=== PATIENT | male | born 1945 | race Caucasian/White ===

== ENCOUNTER 2020-05-29 17:47 | Inpatient (IN) | payer MEDICARE, MEDICAID, SELFPAY ==
[2020-05-29] VITALS (16 sets, daily range): BP systolic 150–205; BP diastolic 71–108; PULSE 84–97; RESP 12–27; TEMP 36.4–36.9; O2SAT 89–99; BMI 28.7
--- NOTE | 2020-05-29 18:08 | XR_ITS ---
WS: [id number] XR chest 1V portable [id number] REASON FOR EXAM: sob FINDINGS: The chest is unchanged compared to 06/11/2018. The heart and mediastinum are within normal limits. No active pulmonary parenchymal or pleural disease. Calcified granulomatous disease changes are noted . The bony thorax is intact. XR/XR chest 1V portable [id number] IMPRESSION: No acute chest abnormality.
--- NOTE | 2020-05-29 18:08 | CTR_ITS ---
PROCEDURE INFORMATION: Exam: CT Head Without Contrast Exam date and time: 05/29/2020 6:11 PM Age: 74 years old Clinical indication: Weakness, extremity; Bilateral; Additional info: AMS TECHNIQUE: Imaging protocol: Computed tomography of the head without contrast. Radiation optimization: All CT scans at this facility use at least one of these dose optimization techniques: automated exposure control; mA and/or kV adjustment per patient size (includes targeted exams where dose is matched to clinical indication); or iterative reconstruction. COMPARISON: CT head wo con* [id number] 06/10/2014 10:14 AM RADIATION DOSE METRICS: Total DLP (mGy-cm): 841.54 FINDINGS: Brain: No evidence of active or acute intracranial pathologic process, hemorrhage, or trauma. Advanced small vessel ischemic disease with senile periventricular leukomalacia. No midline shift. No mass effect. Cerebral and cerebellar atrophy with ventricular dilatation greater than that anticipated for patient's chronological age. Antecedent lacunar infarction left insular cortex. Tiny antecedent right lentiform nucleus lacunar infarctions. Cerebral ventricles: Ventriculomegaly greater than that anticipated with the degree of cerebral and cerebellar atrophy present. Thinning of the corpus callosum. Consideration might be given to normal pressure hydrocephalus. Bones/joints: Unremarkable. No acute fracture. Paranasal sinuses: Visualized sinuses are unremarkable. No fluid levels. Mastoid air cells: Visualized mastoid air cells are well aerated. Soft tissues: Unremarkable. CT/CT head wo con* [id number] IMPRESSION: No evidence of active or acute intracranial pathologic process, hemorrhage, or trauma. Radiation Dose CTDIVOL = (mGy): DLP = 841.54 (mGy-cm)
--- NOTE | 2020-05-29 18:32 | ED_ITS ---
HPI - Weakness General: Chief complaint: Weakness Stated complaint: weakness post dialysis Time Seen by Provider: 05/29/20 18:10 Source: patient Mode of arrival: EMS History of Present Illness: HPI Narrative: Mr. Mason is a very nice 74-year-old male who comes from dialysis with the report of dyspnea and generalized weakness. When asked about the symptoms the patient replies I do not know why I am here . When pointedly ask does he feels short of breath the patient initially says no but then says well maybe . Patient denies any chest pain. He does state that he got a full course of dialysis today. He specifically denies any fever, chills, abdominal pain, losses of taste or loss of sense of smell. Patient does not appear to be any acute distress. He states this time he feels fine and has no complaints. He said he agreed to get checked out just because they were concerned at the dialysis clinic. Associated symptoms: Denies chest pain, chills, confusion, melena, diaphoresis, dysuria, easy bruising, fever(s), headache(s), nausea, syncope or vomiting Review of Systems Const: Denies: fever(s), chills, body aches, fatigue, malaise or diaphoresis Eyes: Denies: change in vision, blurry vision, photophobia, eye discomfort, eye discharge, eye redness or yellow eyes ENMT: Denies: throat pain, odynophagia, hoarseness, swelling of lips/tongue, ear or mastoid pain, ear discharge, change in hearing or nasal discharge Card: Denies: chest pain, palpitations, irregular heart rhythm, edema, lightheadedness, syncope, pre-syncope, dyspnea on exertion or orthopnea Resp: Reports: dyspnea; Denies: productive cough, non-productive cough, wheezing, hemoptysis or chest congestion GI: Denies: abdominal pain, nausea, vomiting, hematemesis, coffee ground emesis, heartburn, diarrhea, constipation, GI cramping, hematochezia or melena : Denies: flank pain, dysuria, urinary frequency, urinary urgency or hematuria Musc: Denies: neck pain, back pain, extremity pain, extremity swelling, joint pain, joint swelling, joint redness, joint warmth or joint stiffness Skin/Breast: Denies: rash, pruritus, erythema, skin pain or skin tenderness Neuro: Denies: headache(s), numbness in extremities, weakness in extremities, sensory changes, lack of coordination, difficulty walking, dizziness, vertigo, confusion, Slurred speech present or seizure-like activity Phil/Lymph: Denies: easy bruising, easy bleeding, petechiae, purpura or enlarged lymph nodes All/Imm: Denies: urticaria, throat swelling, tongue swelling, facial swelling or acute wheezing PFSH ED PFSH: Medical History Anemia BPH (benign prostatic hyperplasia) DM type 2 (diabetes mellitus, type 2) End-stage renal disease on hemodialysis Hypertension Family History Other Dementia Social History Smoking and tobacco status: never smoked Alcohol intake: never Substance/Drug Use: never Physical Exam Const: COMMON NORMALS: no acute distress, no limitations and alert EXAM LIMITATIONS: altered mental status GENERAL APPEARANCE: cooperative ORIENTATION/CONSCIOUSNESS: Yes oriented to person and Yes confused HENMT: COMMON NORMALS: normocephalic, atraumatic, external ears normal, EAC's normal and Normal external nose present HEAD & SCALP: normal to inspection, normocephalic and atraumatic FACE & SINUS: normal facial exam and face symmetric NOSE: Normal external nose present and Normal nares present EXTERNAL EAR: Yes external ears normal EXTERNAL AUDITORY CANAL: EAC's normal MOUTH: Normal oral and palatal mucosa present, lip normal and tongue normal Eye: COMMON NORMALS: Equal, round and reactive pupils present and conjunctivae normal GENERAL EYE: appearance normal, both eyes and all related structures ALIGNMENT: Yes alignment normal PERIORBITAL: periorbital findings normal EYELID: eyelids normal CONJUNCTIVA: Yes conjunctivae normal SCLERA: sclerae normal PUPIL: Yes Equal, round and reactive pupils present Neck/C-Spine: COMMON NORMALS: full ROM, no lymphadenopathy, supple, no meningeal signs and no JVD GENERAL: Yes normal visual inspection and Yes trachea midline Chest: COMMONS NORMALS: normal inspection of the chest and normal palpation of entire chest wall Resp: COMMON NORMALS: normal respiratory effort, No retractions, No use of accessory muscles and clear to auscultation bilaterally EFFORT & INSPECTION: Yes able to speak in complete sentences and Yes symmetric chest movement AUSCULTATION: clear to auscultation bilaterally, no crackles, no rales, no rh onchi and no wheezes Cardio: COMMON NORMALS: no JVD, regular rate, regular rhythm, S1 normal heart sound present and S2 normal heart sound present RATE: regular rate RHYTHM: regular rhythm HEART SOUNDS: S1 normal heart sound present, S2 normal heart sound present, no click, no gallops, Murmur heart sound present systolic Location: left sternal border Intensity: IV/ and no rubs GI: COMMON NORMALS: Soft to palpation and No hepatosplenomegaly present PALPATION: Yes Soft to palpation, No Tenderness to palpation present (GI), No Guarding due to palpation present (GI), No Rigid due to palpation, Yes No hepatosplenomegaly present, No Hernia present, No Palpable mass present and No Pulsatile mass present : COMMON NORMALS: Yes no CVA tenderness BLADDER/KIDNEY EXAM: Yes no CVA tenderness Back/Pelvis: COMMON NORMALS: no CVA tenderness, thoracic and lumbar spine normal to inspection, no thoracic nor lumbar tenderness and thoraco-lumbar ROM normal Extremity: COMMON NORMALS: normal to inspection, full ROM, capillary refill normal, no joint enlargement, no clubbing, cyanosis or edema and no calf tende rness Neuro: COMMON NORMALS: CN's II-XII intact bilaterally, moves all extremities, no focal motor deficits and no sensory deficits noted SENSORIUM/ORIENTATION: Yes alert and Yes oriented to person MENINGEAL SIGNS: Yes no meningeal signs SPEECH: speech normal Psych: COMMON NORMALS: mental status grossly normal, Normal thought process present, cooperative, normal affect, speech normal and activity/motor behavior normal SPEECH: Yes normal speech THOUGHT PROCESS: Normal thought process present Skin: COMMON NORMALS: no rashes or lesions noted, turgor normal, no jaundice, no petechiae and no mottling GENERAL SKIN EXAM: no rashes or lesions noted and turgor normal Course Vital Signs: Vital signs: Vital Signs Temperature 98.4 F 05/29/20 22:48 Pulse Rate 84 05/29/20 22:48 Respiratory Rate 18 05/29/20 22:48 Blood Pressure 179/81 05/29/20 22:48 Pulse Oximetry 99 05/29/20 22:48 MDM - Weakness MDM Narrative: Medical decision making narrative: Mr. Mason is a nice 74-year-old male comes in with altered mental status primarily confusion. He is Covid positive. He is relatively immune suppressed secondary to his chronic end-stage renal disease and being on dialysis. I believe he will need to be treated with her Dems of year and followed to see if he can will be able to go home on his own. Currently I do not believe he is stable to do so. The case was reviewed with Dr. Spann she agrees to admission for observation. Lab Data: Attestation: I reviewed the patient's lab results. Labs: Lab Results 05/29/20 05/29/20 05/29/20 Range/Units 18:23 18:23 18:23 WBC 5.1 (4.0-10.0) 10^3/ uL RBC 4.07 L (4.1-5.3) 10^6/u L Hgb 11.5 L (11.7-16.6) g/dL Hct 37.2 L (42.0-52.0) % MCV 91.4 (80-94) fL MCH 28.3 (28.0-34.0) pg MCHC 30.9 (30.0-36.0) g/dL RDW 15.9 H (12.1-15.1) % Plt Count 132 (130-400) 10^3/c mm MPV 11.1 H (7.4-10.4) fL Neut % (Auto) 81.2 % Lymph % (Auto) 4.9 % Sunflower % (Auto) 11.1 % Eos % (Auto) 1.6 % Baso % (Auto) 0.8 % Neut # (Auto) 4.17 (1.8-7.7) 10^3/u L Lymph # (Auto) 0.3 L (0.8-4.8) 10^3/u L Sunflower # (Auto) 0.6 (0.2-0.9) 10^3/u L Eos # (Auto) 0.1 (0.0-0.8) 10^3/u L Baso # (Auto) 0.0 (0.0-0.1) 10^3/u L Nucleated RBC % (a uto) 0 % Nucleated RBCs # 0.0 /100WBC ESR (0-10) mm/hr PT 13.20 (12.1-14.9) SECO NDS INR 0.97 (0.8-1.2) D-Dimer (0-0.59) ug/mIFE U Sodium 137 (136-145) mmol/L Potassium 4.4 (3.5-5.1) mmol/L Chloride 98 (98-107) mmol/L Carbon Dioxide 23 (22-29) mmol/L Anion Gap 20.4 H (5-19) BUN 33 H (8-23) mg/dL Creatinine 4.8 H (0.7-1.2) mg/dL GFR Calculation Not Reportable Glucose 130 H (65-115) mg/dL Calculated Osmolal ity 293 (285-295) mOsm/k g Calcium 9.4 (8.5-10.5) mg/dL Total Bilirubin 0.3 (0.15-1.2) mg/dL AST 11 (0-40) U/L ALT 10 (0-41) U/L Alkaline Phosphata se 71 (40-130) IU/L Troponin T Baselin e (0-15) ng/L Total Protein 7.3 (6.6-8.7) g/dL Albumin 4.2 (3.5-5.2) g/dL Globulin 3.1 (1.3-4.6) g/dL SARS-CoV-2 Ag (Rap id) (Negative) 05/29/20 05/29/20 05/29/20 Range/Units 18:23 18:23 18:23 WBC (4.0-10.0) 10^3/ uL RBC (4.1-5.3) 10^6/u L Hgb (11.7-16.6) g/dL Hct (42.0-52.0) % MCV (80-94) fL MCH (28.0-34.0) pg MCHC (30.0-36.0) g/dL RDW (12.1-15.1) % Plt Count (130-400) 10^3/c mm MPV (7.4-10.4) fL Neut % (Auto) % Lymph % (Auto) % Sunflower % (Auto) % Eos % (Auto) % Baso % (Auto) % Neut # (Auto) (1.8-7.7) 10^3/u L Lymph # (Auto) (0.8-4.8) 10^3/u L Sunflower # (Auto) (0.2-0.9) 10^3/u L Eos # (Auto) (0.0-0.8) 10^3/u L Baso # (Auto) (0.0-0.1) 10^3/u L Nucleated RBC % (a uto) % Nucleated RBCs # /100WBC ESR 36 H (0-10) mm/hr PT (12.1-14.9) SECO NDS INR (0.8-1.2) D-Dimer 1.07 H (0-0.59) ug/mIFE U Sodium (136-145) mmol/L Potassium (3.5-5.1) mmol/L Chloride (98-107) mmol/L Carbon Dioxide (22-29) mmol/L Anion Gap (5-19) BUN (8-23) mg/dL Creatinine (0.7-1.2) mg/dL GFR Calculation Glucose (65-115) mg/dL Calculated Osmolal ity (285-295) mOsm/k g Calcium (8.5-10.5) mg/dL Total Bilirubin (0.15-1.2) mg/dL AST (0-40) U/L ALT (0-41) U/L Alkaline Phosphata se (40-130) IU/L Troponin T Baselin e 209 H* (0-15) ng/L Total Protein (6.6-8.7) g/dL Albumin (3.5-5.2) g/dL Globulin (1.3-4.6) g/dL SARS-CoV-2 Ag (Rap id) (Negative) 05/29/20 Range/Units 19:05 WBC (4.0-10.0) 10^3/ uL RBC (4.1-5.3) 10^6/u L Hgb (11.7-16.6) g/dL Hct (42.0-52.0) % MCV (80-94) fL MCH (28.0-34.0) pg MCHC (30.0-36.0) g/dL RDW (12.1-15.1) % Plt Count (130-400) 10^3/c mm MPV (7.4-10.4) fL Neut % (Auto) % Lymph % (Auto) % Sunflower % (Auto) % Eos % (Auto) % Baso % (Auto) % Neut # (Auto) (1.8-7.7) 10^3/u L Lymph # (Auto) (0.8-4.8) 10^3/u L Sunflower # (Auto) (0.2-0.9) 10^3/u L Eos # (Auto) (0.0-0.8) 10^3/u L Baso # (Auto) (0.0-0.1) 10^3/u L Nucleated RBC % (a uto) % Nucleated RBCs # /100WBC ESR (0-10) mm/hr PT (12.1-14.9) SECO NDS INR (0.8-1.2) D-Dimer (0-0.59) ug/mIFE U Sodium (136-145) mmol/L Potassium (3.5-5.1) mmol/L Chloride (98-107) mmol/L Carbon Dioxide (22-29) mmol/L Anion Gap (5-19) BUN (8-23) mg/dL Creatinine (0.7-1.2) mg/dL GFR Calculation Glucose (65-115) mg/dL Calculated Osmolal ity (285-295) mOsm/k g Calcium (8.5-10.5) mg/dL Total Bilirubin (0.15-1.2) mg/dL AST (0-40) U/L ALT (0-41) U/L Alkaline Phosphata se (40-130) IU/L Troponin T Baselin e (0-15) ng/L Total Protein (6.6-8.7) g/dL Albumin (3.5-5.2) g/dL Globulin (1.3-4.6) g/dL SARS-CoV-2 Ag (Rap id) Positive H (Negative) Imaging Data^: CXR: Attestation: I personally reviewed and interpreted this imaging study as follows: My impression: No acute cardiopulmonary findings. CT Head: Radiologist's impression: [address] [address] [address] Scan Report Signed Patient: Familia Mason Unit #: [id number] : [id number] Age/Sex: 74 / M ADM Date: 05/29/20 Loc: ER Room/Bed: Attending Dr: Ordering Provider/Ordering MD: Vazquez Nunez MD Date of Service: 05/29/20 Procedure(s): CT head wo con* [id number] Accession Number(s): [id number] Report Number: [id number] PROCEDURE INFORMATION: Exam: CT Head Without Contrast Exam date and time: 05/29/2020 6:11 PM Age: 74 years old Clinical indication: Weakness, extremity; Bilateral; Additional info: AMS TECHNIQUE: Imaging protocol: Computed tomography of the head without contrast. Radiation optimization: All CT scans at this facility use at least one of these dose optimization techniques: automated exposure control; mA and/or kV adjustment per patient size (includes targeted exams where dose is matched to clinical indication); or iterative reconstruction. COMPARISON: CT head wo con* [id number] 06/10/2014 10:14 AM RADIATION DOSE METRICS: Total DLP (mGy-cm): 841.54 FINDINGS: Brain: No evidence of active or acute intracranial pathologic process, hemorrhage, or trauma. Advanced small vessel ischemic disease with senile periventricular leukomalacia. No midline shift. No mass effect. Cerebral and cerebellar atrophy with ventricular dilatation greater than that anticipated for patient's chronological age. Antecedent lacunar infarction left insular cortex. Tiny antecedent right lentiform nucleus lacunar infarctions. Cerebral ventricles: Ventriculomegaly greater than that anticipated with the degree of cerebral and cerebellar atrophy present. Thinning of the corpus callosum. Consideration might be given to normal pressure hydrocephalus. Bones/joints: Unremarkable. No acute fracture. Paranasal sinuses: Visualized sinuses are unremarkable. No fluid levels. Mastoid air cells: Visualized mastoid air cells are well aerated. Soft tissues: Unremarkable. CT/CT head wo con* [id number] IMPRESSION: No evidence of active or acute intracranial pathologic process, hemorrhage, or trauma. Radiation Dose CTDIVOL = (mGy): DLP = 841.54 (mGy-cm) Dictated By: Bronson Frank Signed By: Bronson Frank Signed Date/Time: 05/29/201917 DD/ 15 EKG Data^: EKG 1: Attestation: I personally reviewed and interpreted this EKG as follows: EKG interpretation date: 05/29/20 EKG interpretation time: 19:19 Interpretation: Normal sinus rhythm at 72 beats a minute, no blocks, normal intervals, no acute ST-T wave changes. Wandering baseline artifact. Discharge Plan Discharge Patient Disposition: Admitted As Inpatient Admit Provider: Analia Spann Clinical Impression: Acute alteration in mental status, COVID-19 virus infection Condition: Stable Coding Level of Care Code ED Bulk Station Operator for Chg Fwd Exam Comprehensive
[2020-05-29 18:33] LABS: Basophils % 0.8 %; Eosinophils # 0.1 10^3/uL (0.0-0.8); Eosinophils % 1.6 %; Hematocrit 37.2 % (42.0-52.0); Hemoglobin 11.5 g/dL (11.7-16.6); Lymphocytes # 0.3 10^3/uL (0.8-4.8); Lymphocytes % 4.9 %; Mean Corpuscular HGB Conc 30.9 g/dL (30.0-36.0); Mean Corpuscular Hemoglobin 28.3 pg (28.0-34.0); Mean Corpuscular Volume 91.4 fL (80-94); Mean Platelet Volume 11.1 fL (7.4-10.4); Monocytes # 0.6 10^3/uL (0.2-0.9); Monocytes % 11.1 %; Neutrophils # 4.17 10^3/uL (1.8-7.7); Neutrophils % 81.2 %; Nucleated Red Blood Cells % 0 %; Platelet Count 132 10^3/cmm (130-400); Red Blood Count 4.07 10^6/uL (4.1-5.3); Red Cell Distribution Width 15.9 % (12.1-15.1); White Blood Count 5.1 10^3/uL (4.0-10.0)
[2020-05-29 18:59] LABS: INR 0.97 (0.8-1.2)
[2020-05-29 19:24] LABS: Alanine Aminotransferase 10 U/L (0-41); Albumin Level 4.2 g/dL (3.5-5.2); Alkaline Phosphatase 71 IU/L (40-130); Anion Gap 20.4 (5-19); Aspartate Amino Transferase 11 U/L (0-40); Blood Urea Nitrogen 33 mg/dL (8-23); Calcium 9.4 mg/dL (8.5-10.5); Carbon Dioxide 23 mmol/L (22-29); Chloride 98 mmol/L (98-107); Globulin 3.1 g/dL (1.3-4.6); Glucose 130 mg/dL (65-115); Osmolality Calculated 293 mOsm/kg (285-295); Potassium 4.4 mmol/L (3.5-5.1); Sodium 137 mmol/L (136-145); Total Bilirubin 0.3 mg/dL (0.15-1.2); Total Protein 7.3 g/dL (6.6-8.7)
[2020-05-29 19:27] LABS: Troponin(5th) Baseline 209 ng/L (0-15)
[2020-05-29 19:45] LABS: SARS Covid-2 Antigen Positive (Negative)
--- NOTE | 2020-05-29 21:12 | PC.NURSE ---
Pt in bed and c/o about pain in coccyx. MOved pt to chair
[2020-05-29 22:33] LABS: Troponin 5 2HR 207.5 ng/L (0-15); Troponin 5 2HR Delta -1.5 ABS# (0-10)
[2020-05-29 23:23] LABS: D Dimer 1.07 ug/mIFEU (0-0.59)
[2020-05-29 23:41] LABS: Procalcitonin 0.27 ng/mL (0-0.5)
[2020-05-29 23:52] LABS: C Reactive Protein 15.6 mg/L (0.0-4.9)
[2020-05-30 00:09] LABS: Erythrocyte Sedimentation Rate 36 mm/hr (0-10)
[2020-05-30 00:10] LABS: Ferritin 1489 ng/mL (30-400)
[2020-05-30] MEDS: dexamethasone 4 mg/mL INJ 6 MG IVP (00:17)
[2020-05-30 03:16] LABS: Troponin 5 6HR 201.6 ng/L (0-15)
--- NOTE | 2020-05-30 03:16 | PM.HP ---
Providers/Chief Complaint Admitting Physician: Analia Spann MD Primary Care Provider: Salvador Daley MD Chief Complaint: WEAKNESS History of Present Illness Familia Mason is a 74 year old male with CKD on HD, HTN, DM presented from his HD center after being noted to be more confused than usual and having a new 02 requirement reportedly per EMS. Patient himself is unable to tell me why he is at the hospital. Only states that dialysis center was concerned about his breathing and sent him over for assessment. Denies any c/o chest pain/ dyspnea or papitations. Unable to reach his sister for collateral information. In the ER he tested positive for COVID 19 via rapid ag, CXR taken, and admission requested given reportedly new 02 requirements and comorbidities. Review of Systems General: Reports: 10 or more systems reviewed and unremarkable except in HPI and below Const: Denies: fever(s), chills or body aches Eyes: Denies: change in vision, blurry vision or photophobia ENMT: Reports: hoarseness; Denies: throat pain, enlarged tonsils, odynophagia or nasal congestion Card: Denies: chest pain, palpitations, irregular heart rhythm, edema, swelling of feet/ankles, lightheadedness, pre-syncope, dyspnea on exertion or orthopnea Resp: Denies: dyspnea, productive cough, non-productive cough, wheezing, stridor, pain on inspiration, change in phlegm color, hemoptysis or chest congestion GI: Denies: abdominal pain, nausea, vomiting, hematemesis, coffee ground emesis, dysphagia, heartburn, diarrhea, constipation, GI cramping, change in stool character, hematochezia or melena : Denies: flank pain, dysuria, urinary frequency, urinary urgency, urinary hesitancy or hematuria Musc: Denies: neck pain, back pain, extremity pain, joint swelling, joint warmth or deformity Neuro: Denies: headache(s), numbness in extremities, weakness in extremities, sensory changes, difficulty walking, frequent falls, dizziness, vertigo, behavioral changes, Slurred speech present or seizure-like activity Psych: Denies: anxiety, depression, suicidal ideation or homicidal ideation Endo: Denies: polyuria, polydipsia, tired all the time, cold intolerance or hot flashes Phil/Lymph: Denies: easy bruising or easy bleeding Medications/Allergies Home Medications Medication Instructions Recorded Confirmed Last Taken Type Imodium A-D See Rx Instructions .ROUTE .COMPLEX 05/29/20 05/29/20 05/29/20 History amlodipine 10 mg PO DAILY 05/29/20 05/29/20 05/29/20 History carvedilol 25 mg PO BID 05/29/20 05/29/20 05/29/20 History diphenoxylate-atropine 1 tab PO DAILY 05/29/20 05/29/20 Unknown History furosemide 80 mg PO DAILY 05/29/20 05/29/20 05/29/20 History glimepiride 1 mg PO DAILY 05/29/20 05/29/20 05/29/20 History hydralazine 10 mg PO BID 05/29/20 05/29/20 05/29/20 History sevelamer carbonate [Renvela] 800 mg PO TID 05/29/20 05/29/20 05/29/20 History tamsulosin 0.4 mg PO DAILY 05/29/20 05/29/20 05/29/20 History Allergies Allergy/AdvReac Type Severity Reaction Status Date / Time No Known Allergies Allergy Verified 05/29/20 18:05 PFSH Acute PFSH: Medical History Anemia BPH (benign prostatic hyperplasia) DM type 2 (diabetes mellitus, type 2) End-stage renal disease on hemodialysis Hypertension Family History Other Dementia Social History Smoking and tobacco status: never smoked Alcohol intake: never Substance/Drug Use: never Vitals/I&O/Wt Last Vital Signs Temp 98.4 F 05/29/20 22:48 Pulse 84 05/29/20 22:48 Resp 18 05/29/20 22:48 BP 179/81 05/29/20 22:48 Pulse Ox 99 05/29/20 22:48 05/29/20 05/29/20 05/30/20 14:59 22:59 06:59 Output Total 200 / 200 Balance -200 / -200 Weight last 48 hrs Weight 90.718 kg Physical Exam Narrative: EXAM NARRATIVE: GEN: Awake, alert and oriented, no acute distress CVS: S1S2 N RS: CTA B/L Abd: Soft, nt/nd , bs+ ETHNOARCHAEOLOGY PROFESSOR: no focal neuro deficits Data : 05/29/20 18:23 05/29/20 18:23 A&P Assessment and plan (1) COVID-19 virus infection: Patient with reported new 02 requirement of 2lpm NC CXR radiology read pending, I am unable to appreciate any consolidative changes, check CT w/o contrast Check inflammatory markers incl ESR,CRP, procal, D dimer ,ferritin started on remdisivir in the ER,continue for now add dexamthasone 6mg x1, further doses dependent on presence of infiltrates on CT chest Status: Acute (2) DM type 2 (diabetes mellitus, type 2): Insulin sliding scale Status: Acute Qualifiers: Diabetes mellitus intermodal dispatcher insulin use: without [place] [facility] use Diabetes mellitus complication status: with kidney complications Diabetes mellitus complication detail: with chronic kidney disease Chronic kidney disease stage: on chronic dialysis Qualified Code(s): E11.22 - Type 2 diabetes mellitus with diabetic chronic kidney disease; N18.6 - End stage renal disease; Z99.2 - Dependence on renal dialysis (3) End-stage renal disease on hemodialysis: Nephrology consult in morning for maintainence HD Status: Acute (4) Hypertension: continue home doses of amlodipine,carvedilol and hydralazine Status: Acute Qualifiers: Hypertension type: unspecified Qualified Code(s): I10 - Essential (primary) hypertension (5) Acute alteration in mental status: Currently awake and alert, will need to confirm baseline with sister in am Status: Acute Attestations Medical Necessity Statement*: anticipate >2midnight admission for COVID 19 infection, remdisivir infusion Coding Level of Care Code Acute Plaster Lather for [facility] Fwd Diagnoses COVID-19 virus infection U07.1 DM type 2 (diabetes mellitus, type 2) E11.22; N18.6; Z99.2 Diabetes mellitus intermodal dispatcher insulin use: without [place] [facility] use Diabetes mellitus complication status: with kidney complications Diabetes mellitus complication detail: with chronic kidney disease Chronic kidney disease stage: on chronic dialysis End-stage renal disease on hemodialysis N18.6; Z99.2 Hypertension I10 Hypertension type: unspecified Acute alteration in mental status R41.82
[2020-05-30 03:24] LABS: Alanine Aminotransferase 9 U/L (0-41); Albumin Level 3.7 g/dL (3.5-5.2); Alkaline Phosphatase 64 IU/L (40-130); Blood Urea Nitrogen 39 mg/dL (8-23); Calcium 8.9 mg/dL (8.5-10.5); Carbon Dioxide 21 mmol/L (22-29); Chloride 98 mmol/L (98-107); Globulin 3.1 g/dL (1.3-4.6); Glucose 104 mg/dL (65-115); Osmolality Calculated 292 mOsm/kg (285-295); Sodium 136 mmol/L (136-145); Total Bilirubin 0.2 mg/dL (0.15-1.2); Total Protein 6.8 g/dL (6.6-8.7)
[2020-05-30 03:30] LABS: Anion Gap 22.2 (5-19); Aspartate Amino Transferase 17 U/L (0-40); Potassium 5.2 mmol/L (3.5-5.1)
--- NOTE | 2020-05-30 03:41 | CT_ITS ---
WS: [id number] CT CHEST WITHOUT INTRAVENOUS CONTRAST HISTORY: evaluate for pneumonia TECHNIQUE: Contiguous 5 mm axial imaging performed on the thorax. Coronal and sagittal reformats are submitted. All CT scans at [facility] use at least one of these dose optimization techniq ues: automated exposure control; mA and/or kV adjustment per patient size (includes targeted exams wh ere dose is matched to clinical indication); or iterative reconstruction. CONTRAST: None DLP: 858.17 mGy.cm COMPARISON: 08/14/2014 Lungs and central airway: Lungs are well-aerated. No pneumonia. Normal vasculature. Benign granuloma LEFT lower lobe. Pleura: No pleural effusion. Mild bilateral pleural thickening. Heart and pericardium: Mild enlargement the heart chambers with a small amount of pericardial thicken ing or effusion. Mediastinum and saqib: No mediastinum or hilar adenopathy. Vessels: Mild atherosclerosis aorta. Pulmonary artery size is normal. Coronary artery atherosclerosis . Chest wall and lower neck: No soft tissue masses. Upper abdomen: Partially visualized gallbladder contains calcifications. Osseous structures: No destructive process. CT/CT chest wo con [id number] IMPRESSION: 1. No pneumonia. 2. Mild atherosclerosis aorta and coronary arteries. 3. Mild cardiomegaly. 4. Cholelithiasis without acute cholecystitis.
[2020-05-30 03:44] LABS: Basophils % 0.3 %; Eosinophils % 0.6 %; Hematocrit 35.3 % (42.0-52.0); Hemoglobin 10.9 g/dL (11.7-16.6); Lymphocytes # 0.3 10^3/uL (0.8-4.8); Lymphocytes % 8.3 %; Mean Corpuscular HGB Conc 30.9 g/dL (30.0-36.0); Mean Corpuscular Hemoglobin 27.9 pg (28.0-34.0); Mean Corpuscular Volume 90.3 fL (80-94); Mean Platelet Volume 12.4 fL (7.4-10.4); Monocytes # 0.3 10^3/uL (0.2-0.9); Monocytes % 7.1 %; Neutrophils # 2.92 10^3/uL (1.8-7.7); Neutrophils % 83.1 %; Nucleated Red Blood Cells % 0 %; Platelet Count 130 10^3/cmm (130-400); Red Blood Count 3.91 10^6/uL (4.1-5.3); Red Cell Distribution Width 15.8 % (12.1-15.1); White Blood Count 3.5 10^3/uL (4.0-10.0)
[2020-05-30 04:00] VITALS: BP 160/75; PULSE 91; RESP 18; TEMP 36.7; O2SAT 94
[2020-05-30] MEDS: heparin 5,000 unit/mL INJ 1 mL 5000 UNIT SUBCUT ×2 (04:23→14:33)
--- NOTE | 2020-05-30 06:44 | PC.NURSE ---
Patients sister Chloé was called by this RN and updated on patients status.
[2020-05-30 06:53] LABS: Glucose Point of Care 113 mg/dL (70-110)
[2020-05-30 07:49] LABS: Glucose Point of Care 116 mg/dL (70-110)
[2020-05-30 08:00] VITALS: BP 176/70; PULSE 84; RESP 18; TEMP 36.7; O2SAT 98
[2020-05-30] MEDS: carvedilol 25 mg Tablet PO (08:06)
[2020-05-30] MEDS: amlodipine 10 mg Tablet PO (08:06)
[2020-05-30] MEDS: hyDRALAzine 10 mg Tablet PO (08:07)
[2020-05-30] MEDS: sevelamer 800 mg Tablet PO ×3 (08:07→20:41)
[2020-05-30] MEDS: diphenoxylate/atropine Tablet 1 TAB PO (08:07)
[2020-05-30] MEDS: FUROsemide 40 mg Tablet 80 MG PO (08:07)
[2020-05-30] MEDS: tamsulosin 0.4 mg Capsule PO (08:08)
[2020-05-30 08:40] VITALS: PULSE 86; O2SAT 95
--- NOTE | 2020-05-30 09:53 | PC.NURSE ---
Telemetry Box patient not placed on Telemetry box due to no box available. Charge nurse and Dr. Bee notified. no new orders at this time.
--- NOTE | 2020-05-30 11:37 | PC.NURSE ---
Ambulation patient ambulated with nurse in hallway. assisted with walker. patient able to walk around 200 feet before becoming tired and ready to rest.
[2020-05-30 11:50] LABS: Glucose Point of Care 136 mg/dL (70-110)
[2020-05-30 12:00] VITALS: BP 168/80; PULSE 78; RESP 18; O2SAT 96
--- NOTE | 2020-05-30 13:48 | PM.PN ---
Subjective Subjective: Interval history: Familia reports he is doing okay today. He denies any specific concerns. He reports he is not short of breath currently. He came off oxygen earlier this morning. Medications: Reviewed: Yes Vitals/I&O/Wt Last Vital Signs Temp 98.0 F 05/30/20 08:00 Pulse 78 05/30/20 12:00 Resp 18 05/30/20 12:00 BP 168/80 05/30/20 12:00 Pulse Ox 96 05/30/20 12:00 05/29/20 05/30/20 05/30/20 22:59 06:59 14:59 Intake Total 500 / 500 Output Total 500 / 500 150 / 150 Balance -500 / -500 350 / 350 Weight last 48 hrs Weight 90.718 kg Physical Exam Narrative: EXAM NARRATIVE: General exam is no apparent distress Cardiovascular regular rate and rhythm with a 2/6 systolic murmur heard best in the aortic area Lungs are clear Abdomen is soft with positive bowel sounds Extremities no cyanosis clubbing. Thrill and bruit noted over left upper extremity AV fistula. Data : 05/30/20 02:35 05/30/20 02:35 A&P Assessment and plan (1) COVID-19 virus infection: He has now tapered off oxygen Started on remdesivir by ER. This is been held secondary to his severe renal dysfunction. He received dexamethasone x1. Continue p.o. Chest x-ray does not demonstrate pneumonia Status: Acute (2) DM type 2 (diabetes mellitus, type 2): Insulin sliding scale Status: Acute Qualifiers: Diabetes mellitus retirement insulin use: without retirement use Diabetes mellitus complication status: with kidney complications Diabetes mellitus complication detail: with chronic kidney disease Chronic kidney disease stage: on chronic dialysis Qualified Code(s): E11.22 - Type 2 diabetes mellitus with diabetic chronic kidney disease; N18.6 - End stage renal disease; Z99.2 - Dependence on renal dialysis (3) End-stage renal disease on hemodialysis: Consultation Status: Acute (4) Hypertension: Continue home medications Status: Acute Qualifiers: Hypertension type: unspecified Qualified Code(s): I10 - Essential (primary) hypertension (5) Acute alteration in mental status: He appears to be back to baseline Status: Acute Attestations Medical Necessity Statement*: Needs from continued hospitalization for confusion in the face of positive Covid test. Came off oxygen early this morning. If stays off oxygen consider discharge home tomorrow. Coding Level of Care Code Acute Hot Wire Glass Tube Cutter for Chg Fwd Diagnoses COVID-19 virus infection U07.1 DM type 2 (diabetes mellitus, type 2) E11.22; N18.6; Z99.2 Diabetes mellitus retirement insulin use: without retirement use Diabetes mellitus complication status: with kidney complications Diabetes mellitus complication detail: with chronic kidney disease Chronic kidney disease stage: on chronic dialysis End-stage renal disease on hemodialysis N18.6; Z99.2 Hypertension I10 Hypertension type: unspecified Acute alteration in mental status R41.82
[2020-05-30] MEDS: dexamethasone 4 mg Tablet 6 MG PO (14:32)
[2020-05-30 15:06] LABS: Thyroid Stimulating Hormone 0.99 uIU/mL (0.27-4.20); Vitamin B12 565 pg/mL (232-1245)
[2020-05-30 15:16] LABS: Add Urine Microscopic? YES; Bilirubin Urine Neg (Negative); Blood Urine 2+ (Negative); Glucose Urine UA Trace (Normal); Ketones Urine Negative (Negative); Leukocyte Esterase Urine Negative (Negative); Nitrate Urine Negative (Negative); Protein Urine Trace (Negative); Sulfosalicylic Acid Urine Positive (Negative); Urine Appearance Clear (CLEAR); Urine Color Straw (Yellow); Urobilinogen Urine Norm (Negative); pH Urine 8 (5-7)
[2020-05-30 15:18] LABS: Add Urine Culture? No; Bacteria Urine 1+ /hpf; Squamous Epithelial Cell Urine 0-4 /hpf (0-5); WBC Urine 0-4 /hpf (0-5)
[2020-05-30 16:00] VITALS: BP 152/90; PULSE 81; RESP 17; TEMP 36.6; O2SAT 98
[2020-05-30 17:07] LABS: Glucose Point of Care 124 mg/dL (70-110)
[2020-05-30] MEDS: ondansetron 2 mg/ML SDV 2 mL 4 MG IVP (17:26)
--- NOTE | 2020-05-30 17:26 | PC.NURSE ---
Nausea patient became nauseous prior to dinner tray. patient did vomit in trash can and on tray. 4mg Zofran given IV. See MAR.
--- NOTE | 2020-05-30 18:09 | PC.NURSE ---
Refused BP medications patient refused to take scheduled BP medications at this time. Current vital signs BP: 148/80 HR:82 O2:98% on RA. notified. no new orders at this time.
--- NOTE | 2020-05-30 19:25 | P.CONIM_ITS ---
Providers/Reason For Consult Consulting Physican/Specialty*: Linda Alvares DO, telenephrology Reason for Consult*: ESRD Attending Physician: Dean Og MD Primary Care Provider: Salvador Daley MD History of Present Illness History of Present Illness Familia Mason is a 74 year old male who presented for evaluation of weakness. He states he had dialysis yesterday, and was very weak when he arrived home. Per chart, he has had altered mental status and was sent from dialysis. He states he feels better today. Denies dyspnea or pain. [facility] Fr[facility]. Meds/Allergies Home Medications and Allergies Home Medications Medication Instructions Recorded Confirmed Last Taken Type Imodium A-D See Rx Instructions .ROUTE .COMPLEX 05/29/20 05/29/20 05/29/20 History amlodipine 10 mg PO DAILY 05/29/20 05/29/20 05/29/20 History carvedilol 25 mg PO BID 05/29/20 05/29/20 05/29/20 History diphenoxylate-atropine 1 tab PO DAILY 05/29/20 05/29/20 Unknown History furosemide 80 mg PO DAILY 05/29/20 05/29/20 05/29/20 History glimepiride 1 mg PO DAILY 05/29/20 05/29/20 05/29/20 History hydralazine 10 mg PO BID 05/29/20 05/29/20 05/29/20 History sevelamer carbonate [Renvela] 800 mg PO TID 05/29/20 05/29/20 05/29/20 History tamsulosin 0.4 mg PO DAILY 05/29/20 05/29/20 05/29/20 History Allergies Allergy/AdvReac Type Severity Reaction Status Date / Time No Known Allergies Allergy Verified 05/29/20 18:05 Current Medications Current Medications Generic Name Dose Route Start Last Admin Trade Name Freq PRN Reason Stop Dose Admin Amlodipine Besylate 10 mg 05/30/20 09:00 05/30/20 08:06 Amlodipine 10 Mg Tablet PO 10 mg DAILY JONNY Administration Carvedilol 25 mg 05/30/20 09:00 05/30/20 18:11 Carvedilol 25 Mg Tablet PO Not Given BID [facility] Dexamethasone 6 mg 05/30/20 14:00 05/30/20 14:32 Dexamethasone 4 Mg Tablet PO 6 mg DAILY JONNY Administration Diphenoxylate HCl/Atropine 1 tab 05/30/20 09:00 05/30/20 08:07 Diphenoxylate/Atropine Tablet PO 1 tab DAILY JONNY Administration Furosemide 80 mg 05/30/20 09:00 05/30/20 08:07 Furosemide 40 Mg Tablet PO 80 mg DAILY JONNY Administration Heparin Sodium (Beef Lung) 5,000 unit 05/30/20 03:45 05/30/20 14:33 Heparin 5,000 Unit/Ml Inj 1 Ml SUBCUT 5,000 unit Q12H JONNY Administration Hydralazine HCl 10 mg 05/30/20 09:00 05/30/20 18:11 Hydralazine 10 Mg Tablet PO Not Given BID JONNY Insulin Aspart 0 unit 05/30/20 08:00 05/30/20 17:04 Insulin Aspart 100 Unit/1 Ml SUBCUT Not Given WM&BEDTIME JONNY Protocol Ondansetron HCl 4 mg 05/29/20 22:48 05/30/20 17:26 Ondansetron 2 Mg/Ml Sdv 2 Ml IVP 4 mg Q6H PRN Administration NAUSEA AND VOMITING Sevelamer Carbonate 800 mg 05/30/20 09:00 05/30/20 14:32 Sevelamer 800 Mg Tablet PO 800 mg TID JONNY Administration Tamsulosin HCl 0.4 mg 05/30/20 09:00 05/30/20 08:08 Tamsulosin 0.4 Mg Capsule PO 0.4 mg DAILY JONNY Administration PFSH Acute PFSH: Medical History Anemia BPH (benign prostatic hyperplasia) DM type 2 (diabetes mellitus, type 2) End-stage renal disease on hemodialysis Hypertension Family History Other Dementia Social History Smoking and tobacco status: never smoked Alcohol intake: never Substance/Drug Use: never Vitals/I&O/Wt Last Vital Signs Temp 97.8 F 05/30/20 16:00 Pulse 81 05/30/20 16:00 Resp 17 05/30/20 16:00 BP 152/90 05/30/20 16:00 Pulse Ox 98 05/30/20 16:00 05/30/20 05/30/20 05/30/20 06:59 14:59 22:59 Intake Total 500 / 500 Output Total 500 / 500 150 / 150 150 / 300 Balance -500 / -500 350 / 350 -150 / 200 Weight last 48 hrs Weight 90.718 kg Physical Exam Extremity: OTHER: LUE AVF + thrill per RN - no signs of infection Data Labs: Other Labs: COVID Ag + Other Data: Other data: Chest CT 1. No pneumonia. 2. Mild atherosclerosis aorta and coronary arteries. 3. Mild cardiomegaly. 4. Cholelithiasis without acute cholecystitis. CXR: unremarkable A&P Additional A&P Information Impression: 1. ESRD 2. COVID + 3. Hypertension 4. Altered mental status. I cannot assess, not knowing his baseline. Recommend: HD 05/31/2020. Familia states he will refuse dialysis. He is only willing to receive HD twice weekly. I will enter orders in case he changes his mind. Other management per primary service. Consult Attestations Medical Necessity Statement: per primary service Time Spent in Patient Care: 16 - 35 minutes Coding Level of Care Code Acute Film Processing Shift Supervisor for Willy Robertson
[2020-05-30 20:00] VITALS: BP 171/87; PULSE 84; RESP 20; TEMP 36.7; O2SAT 95
[2020-05-30 20:28] LABS: Hepatitis B Surface Antigen Non-Reactive (Nonreactive); Hepatitis C Virus Antibody Non-Reactive (Nonreactive)
[2020-05-30 21:24] LABS: Glucose Point of Care 127 mg/dL (70-110)
[2020-05-31] VITALS (8 sets, daily range): BP systolic 135–160; BP diastolic 68–87; PULSE 67–90; RESP 18; TEMP 36.9–37.1; O2SAT 92–98
[2020-05-31] MEDS: heparin 5,000 unit/mL INJ 1 mL 5000 UNIT SUBCUT (04:37)
[2020-05-31 05:51] LABS: Hematocrit 35.6 % (42.0-52.0); Hemoglobin 11.1 g/dL (11.7-16.6); Lymphocytes # 0.4 10^3/uL (0.8-4.8); Lymphocytes % 17.7 %; Mean Corpuscular HGB Conc 31.2 g/dL (30.0-36.0); Mean Corpuscular Volume 89.7 fL (80-94); Mean Platelet Volume 12.3 fL (7.4-10.4); Monocytes # 0.2 10^3/uL (0.2-0.9); Monocytes % 9.3 %; Neutrophils # 1.72 10^3/uL (1.8-7.7); Neutrophils % 72.6 %; Nucleated Red Blood Cells % 0 %; Platelet Count 140 10^3/cmm (130-400); Red Blood Count 3.97 10^6/uL (4.1-5.3); Red Cell Distribution Width 15.1 % (12.1-15.1); White Blood Count 2.4 10^3/uL (4.0-10.0)
[2020-05-31 06:23] LABS: Alanine Aminotransferase 9 U/L (0-41); Albumin Level 3.7 g/dL (3.5-5.2); Alkaline Phosphatase 60 IU/L (40-130); Anion Gap 19.3 (5-19); Aspartate Amino Transferase 14 U/L (0-40); Blood Urea Nitrogen 65 mg/dL (8-23); Calcium 9.1 mg/dL (8.5-10.5); Carbon Dioxide 26 mmol/L (22-29); Chloride 98 mmol/L (98-107); Globulin 2.8 g/dL (1.3-4.6); Glucose 152 mg/dL (65-115); Osmolality Calculated 308 mOsm/kg (285-295); Potassium 5.3 mmol/L (3.5-5.1); Sodium 138 mmol/L (136-145); Total Bilirubin 0.2 mg/dL (0.15-1.2); Total Protein 6.5 g/dL (6.6-8.7)
[2020-05-31 06:26] LABS: Magnesium 2.4 mg/dL (1.7-2.3)
[2020-05-31 06:48] LABS: Glucose Point of Care 137 mg/dL (70-110)
[2020-05-31] MEDS: dexamethasone 4 mg Tablet 6 MG PO (08:14)
[2020-05-31] MEDS: carvedilol 25 mg Tablet PO (08:14)
[2020-05-31] MEDS: sevelamer 800 mg Tablet PO (08:14)
[2020-05-31] MEDS: diphenoxylate/atropine Tablet 1 TAB PO (08:14)
[2020-05-31] MEDS: FUROsemide 40 mg Tablet 80 MG PO (08:14)
[2020-05-31] MEDS: tamsulosin 0.4 mg Capsule PO (08:15)
[2020-05-31] MEDS: amlodipine 10 mg Tablet PO (08:15)
[2020-05-31] MEDS: hyDRALAzine 10 mg Tablet PO (08:17)
--- NOTE | 2020-05-31 10:28 | PM.PN ---
Subjective Subjective: Interval history: No complaints, refusing HD today Medications: Reviewed: Yes Vitals/I&O/Wt Last Vital Signs Temp 98.6 F 05/31/20 07:44 Pulse 90 05/31/20 09:25 Resp 18 05/31/20 07:44 BP 145/75 05/31/20 07:44 Pulse Ox 94 05/31/20 09:25 05/30/20 05/31/20 05/31/20 22:59 06:59 14:59 Output Total 150 / 300 Balance -150 / 200 Weight last 48 hrs Weight 90.718 kg Data : 05/31/20 05:10 05/31/20 05:10 A&P Additional A&P Information Impression: 1. ESRD 2. COVID + 3. Hypertension 4. Altered mental status. I cannot assess, not knowing his baseline. Recommend:He refuses dialysis today. Outpatient HD aware he will be returning for scheduled treatment 06/02/2020. I reviewed the need for potassium and fluid restriction with him. Attestations Medical Necessity Statement*: per primary service Time Spent in Patient Care: less than 15 minutes Coding Level of Care Code Acute Automatic Lathe Operator for Willy Robertson
[2020-05-31 10:49] LABS: Glucose Point of Care 222 mg/dL (70-110)
--- NOTE | 2020-05-31 11:11 | P.DS_ITS ---
Discharge Providers Date of Admission: 05/29/20 20:30 Date of Discharge: May 31, 2020 Attending Provider at Admission: Analia Spann MD Attending Provider at Discharge: Dean Og MD Primary Care Provider: Salvador Daley MD Diagnoses at Discharge Discharge Diagnosis (1) COVID-19 virus infection: Status: Acute Permanent problem details: Not requiring oxygen. Will discharge on 5 more days (2) DM type 2 (diabetes mellitus, type 2): Status: Acute Permanent problem details: He is having some hypoglycemia. Discontinue oral hypoglycemic Qualifiers: Chronic kidney disease stage: on chronic dialysis Diabetes mellitus complication detail: with chronic kidney disease Diabetes mellitus complication status: with kidney complications Diabetes mellitus long term acute care registered nurse insulin use: without long term acute care registered nurse use Qualified Code(s): E11.22 - Type 2 diabetes mellitus with diabetic chronic kidney disease; N18.6 - End stage renal disease; Z99.2 - Dependence on renal dialysis (3) End-stage renal disease on hemodialysis: Status: Acute Permanent problem details: Patient refuses to get dialysis more than twice a week. (4) Hypertension: Status: Acute Qualifiers: Hypertension type: unspecified Qualified Code(s): I10 - Essential (primary) hypertension (5) Acute alteration in mental status: Status: Acute Permanent problem details: Resolved. Likely secondary to Covid. Reason for Visit Reason for Visit: WEAKNESS Hospital Course Hospital Course Familia is a 74-year-old white male who presented to the hospital with some confusion. There was some concern of hypoxia on admission. He used oxygen a very short time. 1 dose of remdesivir was given in the emergency department, then discontinued secondary to his chronic renal failure. He was monitored closely in the hospital and confusion went away. He continued to receive dexamethasone. With history of hypoglycemia at home, it was not thought that discharging him on his oral sulfonylurea would be a good idea. He had no fever. He was not short of breath. He was able to ambulate around the room without difficulty. His sister indicated concerned that he became confused when not getting dialysis 3 times a week but patient refused to take this anymore. He was alert and oriented x3 at discharge. He refused dialysis on Friday. He was instructed to quarantine, follow-up with his primary care provider by [facility]. I have visited him with him about anticoagulation following Covid secondary to high risk for DVT. He refuses at this time. Note that his chest CT did not demonstrate any pneumonic infiltrate. Physical Exam Narrative: EXAM NARRATIVE: General exam no apparent distress Cardiovascular regular rate and rhythm Lungs clear Abdomen is soft, positive bowel sounds Extremities no cyanosis clubbing or edema, AV fistula with thrill and bruit left upper extremity Discharge Data Data Completed and Pending: Completed Studies During Hospitalization Category Date Time Status CT chest wo con 7 1250 Routine Cat Scan 05/30/20 03:[address] head wo con* 7 0450 Urgent Cat Scan 05/29/20 18:08 Completed XR chest 1V [place] ble [id number] Urgent Exams 05/29/20 18:08 Completed Labs from last 24 hours 05/31/20 05/31/20 05/31/20 10:42 06:26 05:10 WBC RBC Hgb Hct MCV MCH MCHC RDW Plt Count MPV Neut % (Auto) Lymph % (Auto) [place] % (Auto) Eos % (Auto) Baso % (Auto) Neut # (Auto) Lymph # (Auto) [place] # (Auto) Eos # (Auto) Baso # (Auto) Nucleated RBC % (a uto) Nucleated RBCs # Sodium Potassium Chloride Carbon Dioxide Anion Gap BUN Creatinine GFR Calculation Glucose POC Glucose 222 137 Calculated Osmolal ity Calcium Magnesium 2.4 H Total Bilirubin AST ALT Alkaline Phosphata se Total Protein Albumin Globulin Vitamin B12 TSH Urine Color Urine Appearance Urine pH Ur Specific Gravit y Urine Protein Urine Glucose (UA) Urine Ketones Urine Blood Urine Nitrate Urine Bilirubin Prot Sulfosalicyli c Acd Urine Urobilinogen Ur Leukocyte Perla ase Urine RBC Urine WBC Ur Squamous Epith Cells Amorphous Sediment Urine Bacteria Hep Bs Antigen Hepatitis C Antibo dy 05/31/20 05/31/20 05/30/20 05:10 05:10 19:35 WBC 2.4 L RBC 3.97 L Hgb 11.1 L Hct 35.6 L MCV 89.7 MCH 28.0 MCHC 31.2 RDW 15.1 Plt Count 140 MPV 12.3 H Neut % (Auto) 72.6 Lymph % (Auto) 17.7 [place] % (Auto) 9.3 Eos % (Auto) 0.0 Baso % (Auto) 0.0 Neut # (Auto) 1.72 L Lymph # (Auto) 0.4 L [place] # (Auto) 0.2 Eos # (Auto) 0.0 Baso # (Auto) 0.0 Nucleated RBC % (a uto) 0 Nucleated RBCs # 0.0 Sodium 138 Potassium 5.3 H Chloride 98 Carbon Dioxide 26 Anion Gap 19.3 H BUN 65 H Creatinine 8.0 H* GFR Calculation Not Reportable Glucose 152 H POC Glucose 127 Calculated Osmolal ity 308 H Calcium 9.1 Magnesium Total Bilirubin 0.2 AST 14 ALT 9 Alkaline Phosphata se 60 Total Protein 6.5 L Albumin 3.7 Globulin 2.8 Vitamin B12 TSH Urine Color Urine Appearance Urine pH Ur Specific Gravit y Urine Protein Urine Glucose (UA) Urine Ketones Urine Blood Urine Nitrate Urine Bilirubin Prot Sulfosalicyli c Acd Urine Urobilinogen Ur Leukocyte Perla ase Urine RBC Urine WBC Ur Squamous Epith Cells Amorphous Sediment Urine Bacteria Hep Bs Antigen Hepatitis C Antibo dy 05/30/20 05/30/20 05/30/20 18:23 16:47 14:41 WBC RBC Hgb Hct MCV MCH MCHC RDW Plt Count MPV Neut % (Auto) Lymph % (Auto) [place] % (Auto) Eos % (Auto) Baso % (Auto) Neut # (Auto) Lymph # (Auto) [place] # (Auto) Eos # (Auto) Baso # (Auto) Nucleated RBC % (a uto) Nucleated RBCs # Sodium Potassium Chloride Carbon Dioxide Anion Gap BUN Creatinine GFR Calculation Glucose POC Glucose 124 Calculated Osmolal ity Calcium Magnesium Total Bilirubin AST ALT Alkaline Phosphata se Total Protein Albumin Globulin Vitamin B12 TSH Urine Color Straw Urine Appearance Clear Urine pH 8 H Ur Specific Gravit y 1.010 Urine Protein Trace Urine Glucose (UA) Trace H Urine Ketones Negative Urine Blood 2+ H Urine Nitrate Negative Urine Bilirubin Neg Prot Sulfosalicyli c Acd Positive Urine Urobilinogen Norm Ur Leukocyte Perla ase Negative Urine RBC 5-10 H Urine WBC 0-4 H Ur Squamous Epith Cells 0-4 H Amorphous Sediment Not Reportable Urine Bacteria 1+ H Hep Bs Antigen Non-reactive Hepatitis C Antibo dy Non-reactive 05/30/20 05/30/20 11:43 02:35 WBC RBC Hgb Hct MCV MCH MCHC RDW Plt Count MPV Neut % (Auto) Lymph % (Auto) [place] % (Auto) Eos % (Auto) Baso % (Auto) Neut # (Auto) Lymph # (Auto) [place] # (Auto) Eos # (Auto) Baso # (Auto) Nucleated RBC % (a uto) Nucleated RBCs # Sodium Potassium Chloride Carbon Dioxide Anion Gap BUN Creatinine GFR Calculation Glucose POC Glucose 136 Calculated Osmolal ity Calcium Magnesium Total Bilirubin AST ALT Alkaline Phosphata se Total Protein Albumin Globulin Vitamin B12 565 TSH 0.99 Urine Color Urine Appearance Urine pH Ur Specific Gravit y Urine Protein Urine Glucose (UA) Urine Ketones Urine Blood Urine Nitrate Urine Bilirubin Prot Sulfosalicyli c Acd Urine Urobilinogen Ur Leukocyte Perla ase Urine RBC Urine WBC Ur Squamous Epith Cells Amorphous Sediment Urine Bacteria Hep Bs Antigen Hepatitis C Antibo dy Vitals: Last Vital Signs Temp 98.6 F 05/31/20 07:44 Pulse 90 05/31/20 09:25 Resp 18 05/31/20 07:44 BP 145/75 05/31/20 07:44 Pulse Ox 94 05/31/20 09:25 Discharge Plan Discharge Patient Disposition: Home Condition: Stable Prescriptions: New dexamethasone 4 mg Tablet 6 mg PO DAILY Qty: 2 RF: 0 Continued hydralazine 10 mg tablet 10 mg PO BID RF: 0 carvedilol 25 mg tablet 25 mg PO BID RF: 0 diphenoxylate-atropine 2.5-0.025 mg tablet 1 tab PO DAILY RF: 0 tamsulosin 0.4 mg capsule 0.4 mg PO DAILY RF: 0 furosemide 80 mg tablet 80 mg PO DAILY RF: 0 amlodipine 10 mg tablet 10 mg PO DAILY RF: 0 Renvela 800 mg tablet 800 mg PO TID RF: 0 Imodium A-D See Rx Instructions .ROUTE .COMPLEX RF: 0 Discontinued glimepiride 1 mg tablet 1 mg PO DAILY RF: 0 Discharge Orders: Discharge Order (Routine); Ordered 05/31/20 Ordered By: Dean Og Referrals: Salvador Daley MD [Primary Care Provider] - 1-3 days (By telehealth ) Discharge Diet: Cardiac and Diabetic Discharge Activity: Increase activity as tolerated Activity Restrictions/Additional Instructions: Continue to quarantine, as per health department recommendations for positive test. Follow-up with your primary care physician by telehealth Continue to follow-up with nephrology Discharge Attestations Time Spent in Discharge Care*: greater than 30 min Quality Metrics Clinical Quality Measures During this hospital stay, did patient experience: None Coding Level of Care Code Acute Sewer Pipe Layer for Chg Fwd Diagnoses COVID-19 virus infection U07.1 DM type 2 (diabetes mellitus, type 2) E11.22; N18.6; Z99.2 Chronic kidney disease stage: on chronic dialysis Diabetes mellitus complication detail: with chronic kidney disease Diabetes mellitus complication status: with kidney complications Diabetes mellitus long term acute care registered nurse insulin use: without long term acute care registered nurse use End-stage renal disease on hemodialysis N18.6; Z99.2 Hypertension I10 Hypertension type: unspecified Acute alteration in mental status R41.82
--- NOTE | 2020-06-02 13:52 | PC.SOCIAL ---
Spoke with the patient's sister Chloé on the phone about the discharge information they received spoke about signs and symptoms to watch for such as; blue lips or face, fever of 104 or higher, trouble breathing or catching breath, chest pain lasting longer than 5 minute, confusion or trouble waking up. We also spoke about ways to improve the immune system, these included; eating and drinking well, eating fruits and vegetables, lean meat, low fat dairy products, keeping up with immunizations such as flu/pneumonia/shingles shots, going to all appointments and follow ups, lessening and stress. We also spoke about ways to stop or prevent the spread of the COVID 19. These included; social distancing at all times, washing hands longer than 20 seconds with a good lather, sanitizing surfaces in home and in vehicle, masking up when possible and washing any cloth masks after use and allow them to dry completely before next use, sneezing or coughing into arm, restricting company or going out in public. We spoke a little about the benefits of plasma donation. At this time they would like to not donate. She did have a question about the one medications the patient was prescribed, I called and left a message with the pharmacist at [facility] to look over the med in question and gave the sisters info for them to call her to go over that medication.
== END 2020-05-31 13:59 | disposition home or self-care (01) | DRG 177 ==
LOC: ER 18:28 → MEDSURG 21:14
PROVIDERS: Emergency Medicine; Internal Medicine; Admitting Provider Student in an Organized Health Care Education/Training Program; Emergency Provider Emergency Medicine; PCP Family Medicine; Visit Provider Internal Medicine
DX: U07.1 COVID-19 (principal); N18.6 End stage renal disease; I12.0 Hypertensive chronic kidney disease with stage 5 chronic kidney disease or end stage renal disease; E11.22 Type 2 diabetes mellitus with diabetic chronic kidney disease; Z99.2 Dependence on renal dialysis; E11.649 Type 2 diabetes mellitus with hypoglycemia without coma; D63.1 Anemia in chronic kidney disease; N40.0 Benign prostatic hyperplasia without lower urinary tract symptoms; R41.82 Altered mental status, unspecified
CPT/HCPCS: 12345; 36415; 36416; 70450; 71045; 71250; 80053; 81001; 82607; 82728; 82962; 83735; 84145; 84443; 84484; 85025; 85378; 85610; 85651; 86140; 86803; 87340; 87426; 96372; 99283; J1100; J1644; J1815; J2405; J8540

== ENCOUNTER 2020-07-17 18:11 | Observation (INO) | payer MEDICARE, MEDICAID, SELFPAY ==
[2020-07-17 18:16] VITALS: BP 160/72; RESP 21; TEMP 36.9; O2SAT 97; BMI 29.4
--- NOTE | 2020-07-17 18:52 | CTR_ITS ---
PROCEDURE INFORMATION: Exam: CT Abdomen And Pelvis Without Contrast Exam date and time: 07/17/2020 7:39 PM Age: 74 years old Clinical indication: Abdominal pain; Additional info: Flank pain. TECHNIQUE: Imaging protocol: Computed tomography of the abdomen and pelvis without contrast. Radiation optimization: All CT scans at this facility use at least one of these dose optimization techniques: automated exposure control; mA and/or kV adjustment per patient size (includes targeted exams where dose is matched to clinical indication); or iterative reconstruction. COMPARISON: CT abdomen pelvis wo con [id number] 03/09/2015 9:08 AM RADIATION DOSE METRICS: Total DLP (mGy-cm): 1810.96 FINDINGS: Heart: Small pericardial effusion. Liver: Normal. No mass. Gallbladder and bile ducts: Contracted gallbladder with multiple small stones. The bile ducts are within normal limits. Pancreas: Normal. No ductal dilation. Spleen: Normal. No splenomegaly. Adrenal glands: Normal. No mass. Kidneys and ureters: Multiple bilateral renal calculi measuring up to 7 mm. No ureteral calculus or hydronephrosis. Mild perinephric stranding is chronic. Stomach and bowel: Fecalization within multiple loops of mid small bowel. No obstruction. Appendix: The appendix is visualized and is normal. Intraperitoneal space: Unremarkable. No free air. No significant fluid collection. Vasculature: Coronary artery calcifications. Lymph nodes: Left hilar and mediastinal calcified lymph nodes. Urinary bladder: Unremarkable as visualized. Reproductive: Unremarkable as visualized. 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 No compression fracture. Soft tissues: Mild body wall edema. CT/CT kidney stone [id number] IMPRESSION: 1. Bilateral nonobstructing renal calculi. No ureteral calculus or hydronephrosis. 2. Fecalization within multiple loops of mid small bowel is consistent with delayed small bowel transit. No evidence for obstruction. 3. Cholelithiasis. Radiation Dose CTDIVOL = (mGy): DLP = 1810.96 (mGy-cm)
[2020-07-17 19:03] LABS: Basophils # 0.1 10^3/uL (0.0-0.1); Basophils % 0.8 %; Eosinophils # 0.2 10^3/uL (0.0-0.8); Lymphocytes # 0.6 10^3/uL (0.8-4.8); Lymphocytes % 9.1 %; Mean Corpuscular HGB Conc 31.4 g/dL (30.0-36.0); Mean Corpuscular Hemoglobin 27.6 pg (28.0-34.0); Mean Corpuscular Volume 87.7 fL (80-94); Mean Platelet Volume 12.2 fL (7.4-10.4); Monocytes # 0.5 10^3/uL (0.2-0.9); Monocytes % 8.1 %; Neutrophils # 4.73 10^3/uL (1.8-7.7); Neutrophils % 78.5 %; Nucleated Red Blood Cells % 0 %; Platelet Count 149 10^3/cmm (130-400); Red Blood Count 3.99 10^6/uL (4.1-5.3); Red Cell Distribution Width 15.5 % (12.1-15.1)
--- NOTE | 2020-07-17 19:10 | CTR_ITS ---
PROCEDURE INFORMATION: Exam: CT Head Without Contrast Exam date and time: 07/17/2020 7:39 PM Age: 74 years old Clinical indication: Altered mental status/memory loss; Additional info: AMS TECHNIQUE: Imaging protocol: Computed tomography of the head without contrast. Radiation optimization: All CT scans at this facility use at least one of these dose optimization techniques: automated exposure control; mA and/or kV adjustment per patient size (includes targeted exams where dose is matched to clinical indication); or iterative reconstruction. COMPARISON: CT head wo con* [id number] 05/29/2020 6:38 PM RADIATION DOSE METRICS: Total DLP (mGy-cm): 845.82 FINDINGS: Brain: There is diffuse cerebral atrophy and chronic microvascular white matter disease. There is no acute intracranial hemorrhage. Cerebral ventricles: There is mild ex vacuo dilation of the lateral ventricles. The basal cisterns are unremarkable. Bones/joints: The calvarium is intact. Paranasal sinuses: The paranasal sinuses are clear. Mastoid air cells: The mastoid air cells are clear. Soft tissues: The visible extracranial soft tissues are unremarkable. CT/CT head wo con* [id number] IMPRESSION: No acute findings. Radiation Dose CTDIVOL = (mGy): DLP = 845.82 (mGy-cm)
[2020-07-17 19:23] LABS: Procalcitonin 0.22 ng/mL (0-0.5)
[2020-07-17] MEDS: OLANZapine 10 mg VIAL 5 MG IM (19:26)
[2020-07-17 19:29] VITALS: BP 156/87; PULSE 91; RESP 21; O2SAT 98
[2020-07-17 19:35] LABS: Alanine Aminotransferase 7 U/L (0-41); Albumin Level 3.8 g/dL (3.5-5.2); Alkaline Phosphatase 76 IU/L (40-130); Anion Gap 17.8 (5-19); Aspartate Amino Transferase 10 U/L (0-40); Blood Urea Nitrogen 40 mg/dL (8-23); C Reactive Protein 9.2 mg/L (0.0-4.9); Calcium 9.1 mg/dL (8.5-10.5); Carbon Dioxide 26 mmol/L (22-29); Chloride 94 mmol/L (98-107); Creatine Phosphokinase 114 U/L (39-308); Globulin 3.2 g/dL (1.3-4.6); Glucose 214 mg/dL (65-115); Lipase 11 U/L (13-60); Osmolality Calculated 292 mOsm/kg (285-295); Potassium 4.8 mmol/L (3.5-5.1); Sodium 133 mmol/L (136-145); Total Bilirubin 0.4 mg/dL (0.15-1.2)
[2020-07-17 20:30] VITALS: PULSE 85; RESP 17; O2SAT 97
--- NOTE | 2020-07-17 20:33 | ED_ITS ---
HPI - Weakness General: Chief complaint: Weakness Stated complaint: CONFUSION, WEAKNESS Time Seen by Provider: 07/17/20 18:25 Source: patient and EMS Mode of arrival: EMS Limitations: altered mental status History of Present Illness: HPI Narrative: This is a 75-year-old male with a history of diabetes mellitus, hypertension, end-stage renal disease on hemodialysis who presents to the emergency department with altered mental status. The patient states he does not know who called the ambulance and does not know why he is here. His nurse was able to talk to his sister who said she called for an ambulance because of altered mental status. She says that he has chronic back pain. Looking through his chart, he was admitted at this facility from 05/29/20to 05/31/20 for altered mental status and COIVD. During that hospital stay he declined dialysis (sister told them that he has stopped dialysis on his own accord for no apparent reason), he declined anticoagulation. Today, his only complaint is back pain. He denies any other complaints although he is confused. He is not oriented to time, but he is oriented to place and person. Associated symptoms: Denies chills, dysuria, fever(s), headache(s), nausea or vomiting Review of Systems General: Reports: 10 or more systems reviewed and unremarkable except in HPI and below Const: Denies: fever(s), chills or body aches Eyes: Denies: change in vision or blurry vision ENMT: Denies: throat pain, enlarged tonsils, odynophagia, hoarseness, mouth pain or swelling of lips/tongue Card: Denies: palpitations, irregular heart rhythm, edema or swelling of feet/ankles Resp: Denies: dyspnea, productive cough or non-productive cough GI: Denies: abdominal pain, nausea or vomiting : Denies: flank pain, dysuria, urinary frequency, urinary urgency or urinary hesitancy Musc: Reports: back pain; Denies: neck pain or extremity swelling Skin/Breast: Denies: rash, pruritus or erythema Neuro: Denies: headache(s), numbness in extremities or weakness in extremities Endo: Denies: polyuria, polydipsia or tired all the time PFSH ED PFSH: Medical History (Reviewed 07/17/20 @ 20:39 by Nathalia Diaz MD, [facility] [place]) Anemia BPH (benign prostatic hyperplasia) DM type 2 (diabetes mellitus, type 2) He is having some hypoglycemia. Discontinue oral hypoglycemic End-stage renal disease on hemodialysis Patient refuses to get dialysis more than twice a week. Hypertension Family History (Reviewed 07/17/20 @ 20:39 by Nathalia Diaz MD, [facility] [place]) Other Dementia Social History (Reviewed 07/17/20 @ 20:39 by Nathalia Diaz MD, [facility] [place]) Smoking and tobacco status: never smoked Alcohol intake: never Physical Exam Const: COMMON NORMALS: no acute distress, average body habitus, no limitations, healthy appearing, alert and well nourished ORIENTATION/CONSC IOUSNESS: Yes oriented to person and Yes oriented to place; not oriented to time HENMT: COMMON NORMALS: normocephalic, atraumatic and moist oral mucous membranes HEAD & SCALP: normocephalic and atraumatic Neck/C-Spine: COMMON NORMALS: no meningeal signs and no JVD Resp: COMMON NORMALS: normal respiratory effort, No retractions, No use of accessory muscles, clear to auscultation bilaterally and percussion normal AUSCULTATION: clear to auscultation bilaterally PERCUSSION: percussion normal Cardio: COMMON NORMALS: no JVD, regular rate, regular rhythm, S1 normal heart sound present, S2 normal heart sound present, No gallops present (Cardio), No clicks present (Cardio), No murmurs present (Cardio), No rub (Cardio) and Peripheral pulses 2+ throughout RATE: regular rate RHYTHM: regular rhythm HEART SOUNDS: S1 normal heart sound present and S2 normal heart sound present PERIPHERAL PULSES: Peripheral pulses 2+ throughout GI: COMMON NORMALS: Normal to inspection, nondistended, normoactive bowel sounds present, Soft to palpation, non-tender, No hepatosplenomegaly present, no masses and no bruits PALPATION: Yes Soft to palpation and Yes No hepatosplenomegaly present : BLADDER/KIDNEY EXAM: Yes CVA tenderness Back/Pelvis: GENERAL BACK: Yes CVA tenderness CVA tenderness: bilateral Extremity: COMMON NORMALS: normal to inspection, full ROM, capillary refill normal, no calf tenderness and no pedal edema Neuro: SENSORIUM/ORIENTATION: Yes alert, Yes oriented to person, Yes oriented to place, No oriented to time, Yes Orientation impaired and Yes other (he does not stay still in bed and does not remember calling for help) MENINGEAL SIGNS: Yes no meningeal signs Skin: COMMON NORMALS: no rashes or lesions noted, no wounds, turgor normal, no jaundice, no petechiae and no mottling GENERAL SKIN EXAM: no rashes or lesions noted and turgor normal Course Reevaluation(s): Reevaluation #1: I have tried multiple times to contact his sister who is his only relative so as to obtain more information but she is not answering her phone. I am trying to make a disposition on him, and do not think it is safe for him to be discharged home. Time: 20:49 Reevaluation #2: Spoke to his sister, Marii. Came in from dialysis this evening and was tired. She made supper and left him and before she got home (20 minutes away from the patient) he had called her and told her he could not get up from his chair because he was weak. She then called for an ambulance. She said he had been complaining of generalized weakness all day. He has been confused for about a year and it has been worsening in the last 2 months, that is not new. He also has chronic back pain. She is his medical DPOA. She puts his medications in pill boxes for a week and she notices that he does not take all his medications by the end of the week. Time: 20:56 Consultations: Consultation #1: Discussed the patient with Dr. Cory blanco and she kindly accepted the patient to her service. He does not qualify for inpatient stay and will be admitted under observation status. Time: 22:54 Vital Signs: Vital signs: Vital Signs Temperature 98.5 F 07/17/20 18:16 Pulse Rate 93 07/17/20 22:00 Respiratory Rate 17 07/17/20 22:00 Blood Pressure 121/50 07/17/20 22:00 Pulse Oximetry 95 07/17/20 22:00 MDM - Weakness MDM Narrative: Medical decision making narrative: 74 year old male with baseline AMS, ESRD on hemodialysis, DM, HTN, who presents to the ED with concerns of generalized weakness after dialysis. He was unable to get up at home. He lives by himself. We tried to get him to stand up but he was unable to do so here in the ED and i believe it is unsafe to discharge him home. I explained to his sister who is his medical DPOA that he likely needs permanent placement in a nursing home care facility and she is in agreement and i advised her that she needs to start working on that. He will be admitted overnight for observation and a disposition will be attempted tomorrow. The patient was confused, was on his call light very often, often requiring the same thing, was hollering and being loud and tried to get out of bed. Because of this he was given one dose of IM zyprexa 5mg after which he was cooperative and not disruptive. Medical Records: Attestation: I reviewed the patient's medical records. Lab Data: Attestation: I reviewed the patient's lab results. Labs: Lab Results 07/17/20 07/17/20 07/17/20 Range/Units 18:20 18:20 21:08 WBC 6.0 (4.0-10.0) 10^3/ uL RBC 3.99 L (4.1-5.3) 10^6/u L Hgb 11.0 L (11.7-16.6) g/dL Hct 35.0 L (42.0-52.0) % MCV 87.7 (80-94) fL MCH 27.6 L (28.0-34.0) pg MCHC 31.4 (30.0-36.0) g/dL RDW 15.5 H (12.1-15.1) % Plt Count 149 (130-400) 10^3/c mm MPV 12.2 H (7.4-10.4) fL Neut % (Auto) 78.5 % Lymph % (Auto) 9.1 % [place] % (Auto) 8.1 % Eos % (Auto) 3.0 % Baso % (Auto) 0.8 % Neut # (Auto) 4.73 (1.8-7.7) 10^3/u L Lymph # (Auto) 0.6 L (0.8-4.8) 10^3/u L [place] # (Auto) 0.5 (0.2-0.9) 10^3/u L Eos # (Auto) 0.2 (0.0-0.8) 10^3/u L Baso # (Auto) 0.1 (0.0-0.1) 10^3/u L Nucleated RBC % (a uto) 0 % Nucleated RBCs # 0.0 /100WBC Sodium 133 L (136-145) mmol/L Potassium 4.8 (3.5-5.1) mmol/L Chloride 94 L (98-107) mmol/L Carbon Dioxide 26 (22-29) mmol/L Anion Gap 17.8 (5-19) BUN 40 H (8-23) mg/dL Creatinine 5.6 H* (0.7-1.2) mg/dL GFR Calculation Not Reportable Glucose 214 H (65-115) mg/dL Calculated Osmolal ity 292 (285-295) mOsm/k g Lactate 2.1 (0.5-2.2) mmol/L Calcium 9.1 (8.5-10.5) mg/dL Total Bilirubin 0.4 (0.15-1.2) mg/dL AST 10 (0-40) U/L ALT 7 (0-41) U/L Alkaline Phosphata se 76 (40-130) IU/L Creatine Kinase 114 (39-308) U/L C-Reactive Protein 9.2 H (0.0-4.9) mg/L Total Protein 7.0 (6.6-8.7) g/dL Albumin 3.8 (3.5-5.2) g/dL Globulin 3.2 (1.3-4.6) g/dL Lipase 11 L (13-60) U/L Procalcitonin 0.22 (0-0.5) ng/mL Imaging Data^: CT Abd/Pel: Radiologist's impression: [address] [address] [address] Scan Report Signed Patient: Familia Mason #: [id number] : 8Acct#:[id number] Age/Sex: 74 / MADM Date: 07/17/20 Loc: ERRoom/Bed: Attending Dr: Ordering Provider/Ordering MD: Nathalia Diaz MD, [facility] [place] Date of Service: 07/17/20 Procedure(s): CT kidney stone 90936 Accession Number(s): [id number] Report Number: [id number] PROCEDURE INFORMATION: Exam: CT Abdomen And Pelvis Without Contrast Exam date and time: 07/17/2020 7:39 PM Age: 74 years old Clinical indication: Abdominal pain; Additional info: Flank pain. TECHNIQUE: Imaging protocol: Computed tomography of the abdomen and pelvis without contrast. Radiation optimization: All CT scans at this facility use at least one of these dose optimization techniques: automated exposure control; mA and/or kV adjustment per patient size (includes targeted exams where dose is matched to clinical indication); or iterative reconstruction. COMPARISON: CT abdomen pelvis wo con [id number] 03/09/2015 9:08 AM RADIATION DOSE METRICS: Total DLP (mGy-cm): 1810.96 FINDINGS: Heart: Small pericardial effusion. Liver: Normal. No mass. Gallbladder and bile ducts: Contracted gallbladder with multiple small stones. The bile ducts are within normal limits. Pancreas: Normal. No ductal dilation. Spleen: Normal. No splenomegaly. Adrenal glands: Normal. No mass. Kidneys and ureters: Multiple bilateral renal calculi measuring up to 7 mm. No ureteral calculus or hydronephrosis. Mild perinephric stranding is chronic. Stomach and bowel: Fecalization within multiple loops of mid small bowel. No obstruction. Appendix: The appendix is visualized and is normal. Intraperitoneal space: Unremarkable. No free air. No significant fluid collection. Vasculature: Coronary artery calcifications. Lymph nodes: Left hilar and mediastinal calcified lymph nodes. Urinary bladder: Unremarkable as visualized. Reproductive: Unremarkable as visualized. 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 No compression fracture. Soft tissues: Mild body wall edema. CT/CT kidney stone [id number] IMPRESSION: 1. Bilateral nonobstructing renal calculi. No ureteral calculus or hydronephrosis. 2. Fecalization within multiple loops of mid small bowel is consistent with delayed small bowel transit. No evidence for obstruction. 3. Cholelithiasis. Radiation Dose CTDIVOL = (mGy): DLP = 1810.96 (mGy-cm) Dictated By:Anand Elena Signed By:Cordelia Elena Date/Time:07/17/202054 DD/ 52 CT Head: Radiologist's impression: [facility] [address] [place] [address] CT Scan Report Signed Patient: Familia Mason #: [id number] : 1946Acct#:[id number] Age/Sex: 74 / MADM Date: 07/17/20 Loc: ERRoom/Bed: Attending Dr: Ordering Provider/Ordering MD: Nathalia Diaz MD, [facility] [place] Date of Service: 07/17/20 Procedure(s): CT head wo con* [id number] Accession Number(s): [id number] Report Number: [id number] PROCEDURE INFORMATION: Exam: CT Head Without Contrast Exam date and time: 07/17/2020 7:39 PM Age: 74 years old Clinical indication: Altered mental status/memory loss; Additional info: AMS TECHNIQUE: Imaging protocol: Computed tomography of the head without contrast. Radiation optimization: All CT scans at this facility use at least one of these dose optimization techniques: automated exposure control; mA and/or kV adjustment per patient size (includes targeted exams where dose is matched to clinical indication); or iterative reconstruction. COMPARISON: CT head wo con* [id number] 05/29/2020 6:38 PM RADIATION DOSE METRICS: Total DLP (mGy-cm): 845.82 FINDINGS: Brain: There is diffuse cerebral atrophy and chronic microvascular white matter disease. There is no acute intracranial hemorrhage. Cerebral ventricles: There is mild ex vacuo dilation of the lateral ventricles. The basal cisterns are unremarkable. Bones/joints: The calvarium is intact. Paranasal sinuses: The paranasal sinuses are clear. Mastoid air cells: The mastoid air cells are clear. Soft tissues: The visible extracranial soft tissues are unremarkable. CT/CT head wo con* [id number] IMPRESSION: No acute findings. Radiation Dose CTDIVOL = (mGy): DLP = 845.82 (mGy-cm) Dictated By:Juan Alberto Mitchell MD Signed By:Juan Alberto Mitchell MDSigned Date/Time:07/17/202041 DD/ 40 Discharge Plan Discharge Patient Disposition: Placed in Observation Clinical Impression: Generalized weakness, Physical deconditioning, ESRD on dialysis, Dementia Condition: Stable Prescriptions: No Action hydralazine 10 mg tablet 10 mg PO BID RF: 0 carvedilol 25 mg tablet 25 mg PO BID RF: 0 diphenoxylate-atropine 2.5-0.025 mg tablet 1 tab PO DAILY RF: 0 tamsulosin 0.4 mg capsule 0.4 mg PO DAILY RF: 0 furosemide 80 mg tablet 80 mg PO DAILY RF: 0 amlodipine 10 mg tablet 10 mg PO DAILY RF: 0 Renvela 800 mg tablet 800 mg PO TID RF: 0 Imodium A-D See Rx Instructions .ROUTE .COMPLEX RF: 0 dexamethasone 4 mg Tablet 6 mg PO DAILY Qty: 2 RF: 0 Referrals: Salvador Daley MD [Primary Care Provider] - Coding Level of Care Code ED Bottomer Operator for Chg Fwd Exam Comprehensive
--- NOTE | 2020-07-17 20:40 | PC.NURSE ---
Patient tried to give urine sample when he got back from radiology. Patient unable to urinate at this time.
--- NOTE | 2020-07-17 20:42 | PC.NURSE ---
Patient sitting up on side of bed, he wanted to try to stand up and pee but he is unable to stand up on his own.
[2020-07-17 21:30] VITALS: BP 128/65; PULSE 86; RESP 16; O2SAT 96
[2020-07-17 21:32] LABS: Lactate (Lactic Acid level) 2.1 mmol/L (0.5-2.2)
[2020-07-17 22:00] VITALS: BP 121/50; PULSE 93; RESP 17; O2SAT 95
[2020-07-17 23:00] VITALS: PULSE 94; RESP 17; O2SAT 96
--- NOTE | 2020-07-17 23:03 | PM.HP ---
Providers/Chief Complaint Admitting Physician: Chelly Ray MD Primary Care Provider: Salvador Daley MD Chief Complaint: CONFUSION, WEAKNESS History of Present Illness Familia Mason is a 74 year old male who presented to the emergency room after his sister called for an ambulance. She had set him up at home after dialysis today and given him dinner and then went to her home. About 20 minutes later, he called and stated that he was unable to get up from his chair. He also seemed more confused than normal, not fully oriented. I was not able to talk with his sister myself but according to the ER provider Mr. Mason has had issues with cognition for a year or so although it has been more prominent the last couple of months. He had Covid back in May and he has not gotten back quite to himself since then. He has had progressively worsening weakness and today was the worst. Patient lives alone. He denies weakness being worse on one side or the other and states that he is just generally weak all over. He does have decreased sensation in his hands and feet and constantly feels like his hands are cold prompting him to wear gloves. Denies any difficulty swallowing or speech changes that he is aware of. He was complaining of some low back pain. This is evidently a chronic problem for him. CT of the head and CT of the abdomen and pelvis were done in the emergency room as were some baseline labs. With results back thus far, no acute process identified. No known reports of fever. No known changes in blood pressure or blood sugars. Patient was different today on top of the progressive decline that he has had since the Covid diagnosis. He was repeating himself constantly in the emergency room and very restless and did receive a dose of Zyprexa. He does not carry an official diagnosis of dementia that I am aware of but again the sister reported some declining cognition for a while. Patient continued to be unable to stand from a seated position without assistance and was not felt safe for discharge home at this time. He is being admitted for further evaluation and treatment. Review of Systems Const: Reports: fatigue; Denies: fever(s), chills or change in appetite Eyes: Denies: change in vision ENMT: Denies: throat pain, dry mouth or nasal congestion Card: Denies: chest pain, palpitations or edema Resp: Reports: non-productive cough; Denies: dyspnea or productive cough GI: Denies: abdominal pain, nausea, vomiting, diarrhea or constipation : Reports: difficulty urinating and difficulty starting urination; Denies: flank pain, oliguria or hematuria Musc: Reports: back pain and muscle weakness Skin/Breast: Denies: rash or pruritus Neuro: Reports: weakness in extremities, difficulty walking, confusion and other (Hands are always cold, numbness in the hands and feet); Denies: headache(s), numbness in extremities, frequent falls, dizziness or involuntary movements Psych: Reports: memory loss; Denies: anxiety or depression Phil/Lymph: Denies: easy bruising or easy bleeding Medications/Allergies Home Medications Medication Instructions Recorded Confirmed Last Taken Type Imodium A-D 1 tab PO DAILY 05/29/20 07/18/20 05/29/20 History amlodipine 10 mg PO DAILY 05/29/20 07/18/20 05/29/20 History carvedilol 25 mg PO BID 05/29/20 07/18/20 05/29/20 History furosemide 80 mg PO DAILY 05/29/20 07/18/20 05/29/20 History hydralazine See Rx Instructions .ROUTE .COMPLEX 05/29/20 07/17/20 05/29/20 History sevelamer carbonate [Renvela] 800 mg PO TID 05/29/20 07/17/20 05/29/20 History tamsulosin 0.4 mg PO DAILY 05/29/20 07/18/20 05/29/20 History Allergies Allergy/AdvReac Type Severity Reaction Status Date / Time No Known Allergies Allergy Verified 05/29/20 18:05 PFSH Acute PFSH: Medical History (Updated 07/18/20 @ 01:09 by Chelly Ray MD) Anemia in chronic kidney disease BPH (benign prostatic hyperplasia) DM type 2 (diabetes mellitus, type 2) history of DKA End-stage renal disease on hemodialysis Only gets dialysis twice a week on Mondays and Fridays History of 2019 novel coronavirus disease (COVID-19) (~05/2020) History of necrotizing fasciitis History of septic arthritis Hypertension Paroxysmal atrial fibrillation Surgical History (Updated 07/18/20 @ 01:08 by Chelly Ray MD) Arteriovenous fistula for hemodialysis in place, primary Left upper extremity History of knee surgery several times due to septic arthritis and necrotizing fasciitis Family History (Updated 07/17/20 @ 23:26 by Chelly Ray MD) Other CAD (coronary artery disease) Dementia Diabetes Social History (Updated 07/17/20 @ 23:27 by Chelly Ray MD) Smoking and tobacco status: never smoked Alcohol intake: never Substance/Drug Use: never Household members: none and other Details: sister helps care for him but lives alone Vitals/I&O/Wt Last Vital Signs Temp 98.5 F 07/17/20 18:16 Pulse 93 07/17/20 22:00 Resp 17 07/17/20 22:00 BP 121/50 07/17/20 22:00 Pulse Ox 95 07/17/20 22:00 Weight last 48 hrs Weight 92.986 kg Physical Exam Const: OTHER: Alert, oriented to person and place but not to situation, cooperative presently but earlier was very restless and repetitive with complaints/request HENMT: OTHER: Normocephalic atraumatic, moist mucus membranes, nasopharynx is clear Eye: OTHER: Pupils equally round and reactive to light, extraocular movements intact Neck/C-Spine: OTHER: Supple Resp: OTHER: Clear to auscultation bilaterally, no rales, rhonchi or wheezes noted, no accessory muscle use noted Cardio: OTHER: Regular rate and rhythm, 3/6 harsh blowing systolic murmur loudest at the left anterior axillary line but audible throughout the precordium, positive thrill noted to left upper extremity fistula, decreased pulses throughout but brisk capillary refill noted both great toes and fingers GI: OTHER: Abdomen soft, nontender, nondistended with positive bowel sounds : OTHER: Normal external genitalia, mild tenderness suprapubically, bladder scan shows 440 mL bladder volume although patient is currently declined consideration for in and out catheterization Extremity: NARRATIVE EXTREMITY EXAM: Both hands covered with gloves, they are not cool to touch, 1+ pitting edema noted to both lower extremities with patient's legs hanging down on the side of the bed, no acute joint swelling noted Neuro: OTHER: Face symmetric, speech clear, moves all extremities but notably weak proximally more so than distally, decreased sensation in a stocking glove distribution,, unable to rise unassisted from seated position. Handgrip is equal bilaterally. Left leg initially seemed weaker than the right leg but on repeat evaluation strength was 4 out of 5 distally and 3 out of 5 proximally bilaterally. In the upper extremities strength is 4 out of 5 proximally and distally. Psych: OTHER: Normal affect Skin: OTHER: Some chronic changes noted to the lower extremities, dressing intact over left upper extremity fistula, scattered minor bruises, no rashes, no thickening of the skin over the knuckles although both hands are erythematous. Data : 07/17/20 18:20 07/17/20 18:20 Other Labs: Laboratory Tests 05/30/20 02:35 Vitamin B12 565 TSH 0.99 Laboratory Last Values WBC 6.0 10^3/uL (4.0-10.0) 07/17/20 18:20 RBC 3.99 10^6/uL (4.1-5.3) L 07/17/20 18:20 Hgb 11.0 g/dL (11.7-16.6) L 07/17/20 18:20 Hct 35.0 % (42.0-52.0) L 07/17/20 18:20 MCV 87.7 fL (80-94) 07/17/20 18:20 MCH 27.6 pg (28.0-34.0) L 07/17/20 18:20 MCHC 31.4 g/dL (30.0-36.0) 07/17/20 18:20 RDW 15.5 % (12.1-15.1) H 07/17/20 18:20 Plt Count 149 10^3/cmm (130-400) 07/17/20 18:20 MPV 12.2 fL (7.4-10.4) H 07/17/20 18:20 Neut % (Auto) 78.5 % 07/17/20 18:20 Lymph % (Auto) 9.1 % 07/17/20 18:20 Sac % (Auto) 8.1 % 07/17/20 18:20 Eos % (Auto) 3.0 % 07/17/20 18:20 Baso % (Auto) 0.8 % 07/17/20 18:20 Neut # (Auto) 4.73 10^3/uL (1.8-7.7) 07/17/20 18:20 Lymph # (Auto) 0.6 10^3/uL (0.8-4.8) L 07/17/20 18:20 Sac # (Auto) 0.5 10^3/uL (0.2-0.9) 07/17/20 18:20 Eos # (Auto) 0.2 10^3/uL (0.0-0.8) 07/17/20 18:20 Baso # (Auto) 0.1 10^3/uL (0.0-0.1) 07/17/20 18:20 Nucleated RBC % (auto) 0 % 07/17/20 18:20 Nucleated RBCs # 0.0 /100WBC 07/17/20 18:20 Sodium 133 mmol/L (136-145) L 07/17/20 18:20 Potassium 4.8 mmol/L (3.5-5.1) 07/17/20 18:20 Chloride 94 mmol/L (98-107) L 07/17/20 18:20 Carbon Dioxide 26 mmol/L (22-29) 07/17/20 18:20 Anion Gap 17.8 (5-19) 07/17/20 18:20 BUN 40 mg/dL (8-23) H 07/17/20 18:20 Creatinine 5.6 mg/dL (0.7-1.2) H* 07/17/20 18:20 GFR Calculation Not Reportable 07/17/20 18:20 Glucose 214 mg/dL (65-115) H 07/17/20 18:20 Calculated Osmolality 292 mOsm/kg (285-295) 07/17/20 18:20 Lactate 2.1 mmol/L (0.5-2.2) 07/17/20 21:08 Calcium 9.1 mg/dL (8.5-10.5) 07/17/20 18:20 Total Bilirubin 0.4 mg/dL (0.15-1.2) 07/17/20 18:20 AST 10 U/L (0-40) 07/17/20 18:20 ALT 7 U/L (0-41) 07/17/20 18:20 Alkaline Phosphatase 76 IU/L (40-130) 07/17/20 18:20 Creatine Kinase 114 U/L (39-308) 07/17/20 18:20 C-Reactive Protein 9.2 mg/L (0.0-4.9) H 07/17/20 18:20 Total Protein 7.0 g/dL (6.6-8.7) 07/17/20 18:20 Albumin 3.8 g/dL (3.5-5.2) 07/17/20 18:20 Globulin 3.2 g/dL (1.3-4.6) 07/17/20 18:20 Lipase 11 U/L (13-60) L 07/17/20 18:20 Procalcitonin 0.22 ng/mL (0-0.5) 07/17/20 18:20 CT Head: Radiologist's impression: FINDINGS: Brain: There is diffuse cerebral atrophy and chronic microvascular white matter disease. There is no acute intracranial hemorrhage. Cerebral ventricles: There is mild ex vacuo dilation of the lateral ventricles. The basal cisterns are unremarkable. Bones/joints: The calvarium is intact. Paranasal sinuses: The paranasal sinuses are clear. Mastoid air cells: The mastoid air cells are clear. Soft tissues: The visible extracranial soft tissues are unremarkable. CT/CT head wo con* [id number] IMPRESSION: No acute findings. CT Abd/Pel: Radiologist's impression: FINDINGS: Heart: Small pericardial effusion. Liver: Normal. No mass. Gallbladder and bile ducts: Contracted gallbladder with multiple small stones. The bile ducts are within normal limits. Pancreas: Normal. No ductal dilation. Spleen: Normal. No splenomegaly. Adrenal glands: Normal. No mass. Kidneys and ureters: Multiple bilateral renal calculi measuring up to 7 mm. No ureteral calculus or hydronephrosis. Mild perinephric stranding is chronic. Stomach and bowel: Fecalization within multiple loops of mid small bowel. No obstruction. Appendix: The appendix is visualized and is normal. Intraperitoneal space: Unremarkable. No free air. No significant fluid collection. Vasculature: Coronary artery calcifications. Lymph nodes: Left hilar and mediastinal calcified lymph nodes. Urinary bladder: Unremarkable as visualized. Reproductive: Unremarkable as visualized. 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 No compression fracture. Soft tissues: Mild body wall edema. CT/CT kidney stone [id number] IMPRESSION: 1. Bilateral nonobstructing renal calculi. No ureteral calculus or hydronephrosis. 2. Fecalization within multiple loops of mid small bowel is consistent with delayed small bowel transit. No evidence for obstruction. 3. Cholelithiasis. A&P Assessment and plan (1) Altered mental status: Sounds like patient has had some slowly progressive problems with memory over time but that it has been worse since he had Covid in May. He clearly has some short-term memory loss on examination. He was more restless and repetitive upon arrival to the emergency room but after receiving some Zyprexa I think this has probably improved. Status: Acute Qualifiers: Altered mental status type: disorientation Qualified Code(s): R41.0 - Disorientation, unspecified (2) Weakness generalized: This has been a progressive problem since patient had Covid in May culminating today in the inability to rise from a seated position. CK was checked in the emergency room and is normal. He does not have focal weakness on one side or the other, more generalized but it is also more proximal. Status: Acute (3) End-stage renal disease on hemodialysis: Hemodialysis on Mondays and Fridays by his choosing Status: Chronic (4) DM type 2 (diabetes mellitus, type 2): Not currently on any medications, had been on sulfonylureas but these were appropriately stopped due to hypoglycemia in the setting of chronic kidney disease. Blood sugars greater than 200 presently. Status: Chronic Qualifiers: Diabetes mellitus prison insulin use: without it technician use Diabetes mellitus complication status: with kidney complications Diabetes mellitus complication detail: with chronic kidney disease Chronic kidney disease stage: on chronic dialysis Qualified Code(s): E11.22 - Type 2 diabetes mellitus with diabetic chronic kidney disease; N18.6 - End stage renal disease; Z99.2 - Dependence on renal dialysis (5) Hypertension: Chronically on amlodipine, Lasix, hydralazine Status: Chronic Qualifiers: Hypertension type: essential hypertension Qualified Code(s): I10 - Essential (primary) hypertension (6) BPH (benign prostatic hyperplasia): With apparent urinary retention presently, bladder volume greater than 400 cc on initial check, chronically on Flomax Status: Chronic Qualifiers: Lower urinary tract symptom presence: symptoms present Lower urinary tract symptom detail: urinary retention Qualified Code(s): N40.1 - Benign prostatic hyperplasia with lower urinary tract symptoms; R33.8 - Other retention of urine Additional A&P Information Elevated CRP at 9.2 of currently unclear significance, was at 15.6 when had Covid in May. Has normal white count with normal differential Holosystolic murmur noted on examination of unclear duration, patient states that he has had for a long time but brief review of prior notes does not indicate this, including one by cardiology Anemia of chronic kidney disease at baseline hemoglobin levels Mild hyponatremia in a patient status post dialysis today Chronic back pain chronic L5 pars fracture with subluxation Observation admission for now Serial cardiac enzymes and EKGs Check echocardiogram Telemetry monitoring PT and OT evaluation in the morning Serial neuro exams for at least 24 hours Continue home carvedilol Continue home Lasix and amlodipine For now change hydralazine to as needed Monitor blood pressures for significant drop that might be a contributing factor to presentation Has not yet been able to urinate, has approximately 400 mL bladder volume noted on bladder scanning, has thus far not consented to in and out catheterization Continue home Flomax, hesitant to increase dosing given presentation Follow-up urinalysis if we are able to get a specimen from him Recheck CRP in the morning to ensure not increasing further Low dose sliding scale insulin presently, patient was appropriately taken off of sulfonylurea the last hospital stay due to hypoglycemia, given chronic kidney disease, options for oral management or limited, check hemoglobin A1c Check TSH, was on the low side of normal range back in May If patient remains in the hospital can consult nephrology for dialysis, currently only goes to dialysis on Mondays and Fridays, therefore I have not yet called nor consulted nephrology Hold home Imodium Subcu heparin for DVT prophylaxis Full code presently as discussed with him Disposition is likely to be a challenge. I know home health services have been difficult to arrange lately. He really is not interested in anything other than going back home where he lives alone with his sister helping him out. His sister does have medical power of traffic law attorney. He does not have a formal diagnosis of dementia though talking with him and reviewing ED notes today it sounds like there could be an element of this developing, particularly since his Covid diagnosis. We will need to see the results from PT and OT evaluations, serial cardiac enzymes and echocardiogram along with urinalysis I think to determine possibility of transition to inpatient care Attestations Medical Necessity Statement*: Currently anticipated stay less than 2 midnights in this gentleman who has had progressive general decline since his Covid diagnosis in May. Today he was more confused after dialysis and also weaker, unable to rise from a seated position. Work-up in the emergency room was not revealing for definitive acute cause at this time. Plans are as noted above. Coding Level of Care Code Acute Process Plant Operator for Chg Fwd Diagnoses Altered mental status R41.0 Altered mental status type: disorientation Weakness generalized R53.1 End-stage renal disease on hemodialysis N18.6; Z99.2 DM type 2 (diabetes mellitus, type 2) E11.22; N18.6; Z99.2 Diabetes mellitus it technician insulin use: without it technician use Diabetes mellitus complication status: with kidney complications Diabetes mellitus complication detail: with chronic kidney disease Chronic kidney disease stage: on chronic dialysis Hypertension I10 Hypertension type: essential hypertension BPH (benign prostatic hyperplasia) N40.1; R33.8 Lower urinary tract symptom presence: symptoms present Lower urinary tract symptom detail: urinary retention
--- NOTE | 2020-07-17 23:16 | ECG_ITS ---
[facility] Test Date: 2020-07-17 Pat Name: Familia Mason Department: Room: 259 Gender: Male Brusher Warp: : 1945 Requested By: Chelly Ray Order Number: [id number] Olamide MD: Patria Rabago M.D. Measurements Intervals [place] Rate: 85 P: 45 [place]: 164 QRS: -5 QRSD: 88 T: 41 QT: 357 QTc: 427 Interpretive Statements SINUS RHYTHM Compared to ECG 06/12/2018 08:41:06 Sinus arrhythmia no longer present Electronically Signed On 07-18-2020 21:34:22 CABLE FERRYBOAT OPERATOR by Patria Rabago M.D. [id number]
[2020-07-18] VITALS (10 sets, daily range): BP systolic 118–160; BP diastolic 66–92; PULSE 68–86; RESP 17–20; TEMP 36.5–36.9; O2SAT 92–98
[2020-07-18 00:40] LABS: Add Urine Microscopic? YES; Bilirubin Urine Neg (Negative); Blood Urine 2+ (Negative); Glucose Urine UA Trace (Normal); Ketones Urine Negative (Negative); Leukocyte Esterase Urine Negative (Negative); Nitrate Urine Negative (Negative); Protein Urine Neg (Negative); Specific Gravity, Urine 1.015 (1.005-1.030); Urine Appearance Clear (CLEAR); Urine Color Yellow (Yellow); Urobilinogen Urine Norm (Negative)
[2020-07-18 00:41] LABS: Add Urine Culture? Yes; Bacteria Urine 1+ /hpf; RBC Urine 15-25 /hpf (0-2)
[2020-07-18 00:43] LABS: Troponin(5th) Baseline 223 ng/L (0-15)
--- NOTE | 2020-07-18 01:12 | ECG_ITS ---
[facility] Test Date: 2020-07-18 Pat Name: Familia Mason Department: Room: 259 Gender: Male Chief Fundraising Officer: : 1945 Requested By: Chelly Ray Order Number: [id number] Olamide MD: Patria Rabago M.D. Measurements Intervals [place] Rate: 76 P: 40 [place]: 152 QRS: -14 QRSD: 88 T: 30 QT: 396 QTc: 447 Interpretive Statements SINUS RHYTHM MINIMAL VOLTAGE CRITERIA FOR LVH, CONSIDER NORMAL VARIANT [MEETS CRITERIA IN ONE OF: R(aVL), S(V1), R(V5), R(V5/V6)+S(V1)] Compared to ECG 07/18/2020 04:40:04 No significant changes Electronically Signed On 07-18-2020 21:44:13 DOCUMENT IMAGING SPECIALIST by Patria Rabago M.D. [id number]
[2020-07-18 02:22] LABS: Estmated Average Glucose 131; Hemoglobin A1C 6.2 % (4.0-6.0)
--- NOTE | 2020-07-18 05:12 | ECG_ITS ---
[facility] Test Date: 2020-07-18 Pat Name: Familia Maosn Department: Room: 259 Gender: Male Cigarette Tipper: : 1945 Requested By: Chelly Ray Order Number: [id number] Olamide MD: Patria Rabago M.D. Measurements Intervals [place] Rate: 81 P: 43 [place]: 157 QRS: -10 QRSD: 94 T: 24 QT: 374 QTc: 436 Interpretive Statements SINUS RHYTHM Compared to ECG 07/17/2020 23:40:13 No significant changes Electronically Signed On 07-18-2020 21:43:15 DOUBLE CUTTER by Patria Rabago M.D. [id number]
--- NOTE | 2020-07-18 06:00 | USCV_ITS ---
Familia Mason Age: 74 Gender: M : 1945 Exam Date: 07/18/2020 06:19 Ordering Phys: Chelly Ray MD Technologist: Mickey Honeycutt [place]am Location[place] [facility] [place]ication: weakness, holosystolic murmur, ckd on hd, dm BP: 152 / 84 HR: 77 Rhythm: Sinus Technical Quality: Good MEASUREMENTS (Male / Female) Normal Values 2D ECHO LV Diastolic Diameter PLAX 5.3 cm 4.2 - 5.9 / 3.9 - 5.3 cm LV Systolic Diameter PLAX 3.8 cm IVS Diastolic Thickness 1.3 cm 0.6 - 1.0 / 0.6 - 0.9 cm IVS Systolic Thickness 1.8 cm LVPW Diastolic Thickness 1.4 cm 0.6 - 1.0 / 0.6 - 0.9 cm LVPW Systolic Thickness 1.8 cm LVOT Diameter 2.0 cm LV Ejection Fraction 2D Teich 54.0 % LV Ejection Fraction MOD 2C 52.8 % LV Ejection Fraction 2C AL 51.7 % LA Diameter 3.9 cm LA Width 5.4 cm LA Height 5.9 cm RA Width 3.9 cm RA Height 5.1 cm Aorta at Sinotubular Diameter 2.6 cm M-MODE LV Diastolic Diameter MM 6.5 cm 4.2 - 5.9 / 3.9 - 5.3 cm LV Systolic Diameter MM 3.8 cm LV Ejection Fraction MM Teich 72.1 % IVS Diastolic Thickness MM 1.4 cm 0.6 - 1.0 / 0.6 - 0.9 cm IVS Systolic Thickness MM 2.3 cm LVPW Diastolic Thickness MM 1.5 cm 0.6 - 1.0 / 0.6 - 0.9 cm LVPW Systolic Thickness MM 2.0 cm Aortic Annulus Diameter 3.5 cm LA Ao Ratio MM 1.2 MV E Point Septal Separation 0.7 cm DOPPLER AV Peak Velocity 312.0 cm/s LVOT Peak Velocity 110.0 cm/s AV Area Cont Eq vti 1.2 cm squared AV Area Cont Eq pk 1.1 cm squared MV Area PHT 6.3 cm squared Mitral E to A Ratio 0.5 MV E' Velocity 40.5 cm/s Mitral E to MV E' Ratio 9.8 Mitral E to LV E' Lateral Ratio 10.0 Mitral E to LV E' Septal Ratio 9.5 TR Peak Velocity 233.7 cm/s TR Peak Gradient 21.8 mmHg TV Peak E Velocity 87.0 cm/s Right Atrial Pressure 3.0 mmHg Pulmonary Artery Systolic Pressu 24.8 mmHg PV Peak Velocity 104.0 cm/s RV Acceleration Time 0.1 s RV Ejection Time 0.4 s RV AcT/ET 0.4 FINDINGS Left Ventricle Normal left ventricular size, systolic function and increased wall thickness, with no diagnostic regional wall motion abnormalities. Moderate concentric left ventricular hypertrophy. Left ventricular ejection fraction is estimated at 55 %. Grade 1 diastolic dysfunction with normal to elevated filling pressure. Right Ventricle Normal right ventricular size and systolic function, RVSP 26 mmHg. Right Atrium Normal right atrial size. Left Atrium Mildly increased left atrial size. Mitral Valve Mild mitral annular calcification. Mildly thickened mitral valve. Trace to mild mitral valve regurgitation. Aortic Valve Moderately thickened and calcified trileaflet aortic valve. Moderate aortic valve stenosis peak velocity 3.2 m/s, peak gradient 40 mmHg, mean gradient 20.4 mmHg, ESTRELLA 1.2 cm squared. No aortic valve regurgitation. Tricuspid Valve Structurally normal tricuspid valve. No tricuspid valve stenosis. Trace to mild tricuspid valve regurgitation. Pulmonic Valve Structurally normal pulmonic valve. No pulmonary valve stenosis. Trace pulmonary valve regurgitation. Pericardium No pericardial effusion. Aorta Normal size aortic root and proximal ascending aorta. Inferior vena cava mildly dilated. CONCLUSIONS 1. Normal left ventricular size and systolic function with no diagnostic regional wall motion abnormalities. Moderate concentric left ventricular hypertrophy. Left ventricular ejection fraction is estimated at 55 %. Grade 1 diastolic dysfunction with normal to elevated filling pressure. 2. Normal pulmonary artery pressure. 3. Moderate aortic valve stenosis peak velocity 3.2 m/s, peak gradient 40 mmHg, mean gradient 20.4 mmHg, ESTRELLA 1.2 cm squared. 4. Mildly increased left atrial size. 5. When compared to previous echocardiogram dated 06/12/2018, there is moderate aortic valve stenosis now. Nanci Pandey MD (Electronically Signed) Final Date: 18 July 2020 19:27 S
[2020-07-18 06:30] LABS: C Reactive Protein 8.2 mg/L (0.0-4.9)
[2020-07-18 06:33] LABS: Troponin 5 6HR 240.4 ng/L (0-15); Troponin 5 6HR Delta 17.4 ng/L (0-12)
[2020-07-18 06:39] LABS: Thyroid Stimulating Hormone 2.03 uIU/mL (0.27-4.20)
[2020-07-18 06:42] LABS: Glucose Point of Care 107 mg/dL (70-110)
--- NOTE | 2020-07-18 07:27 | PC.NURSE ---
AM NOTE NOTED PT TO HAVE LEFT ARM FISTULA - GAUZE COVERING - C/D/I - PT HAS BILATERAL WORK GLOVES IN PLACE - REFUSES TO REMOVE THEM FOR THIS NURSE TO ASSESS - WILL CONTINUE TO MONITOR AND ATTEMPT DIMA HAND ASSESSMENT - PT SLIGHTLY AGITATED SITTING ON SIDE OF BED SAYING WHAT ARE WE DOING TODAY EXPLAINED PLAN OF CARE AND ASSISTED TO BED
[2020-07-18] MEDS: FUROsemide 40 mg Tablet 80 MG PO (08:27)
[2020-07-18] MEDS: amlodipine 10 mg Tablet PO (08:27)
[2020-07-18] MEDS: sevelamer 800 mg Tablet PO ×3 (08:27→21:40)
[2020-07-18] MEDS: tamsulosin 0.4 mg Capsule PO (08:27)
[2020-07-18] MEDS: carvedilol 25 mg Tablet PO ×2 (08:29→21:40)
[2020-07-18 11:19] LABS: Glucose Point of Care 180 mg/dL (70-110)
[2020-07-18] MEDS: heparin 5,000 unit/mL INJ 1 mL 5000 UNIT SUBCUT ×3 (11:26→23:40)
--- NOTE | 2020-07-18 12:58 | PC.NURSE ---
CELIO CARE CELIO CARE PROVIDED PER THIS NURSE - NOTED PT TO HAVE LARGE AMOUNT OF FORMED DRY STOOL THROUGHOUT CELIO AREA - AREA CLEANSED MULTIPLE TIMES WITH CELIO WASH, BATH WIPES AND WIPES UNTIL STOOL REMOVED - PT VALENTINA WELL
[2020-07-18 16:45] LABS: Glucose Point of Care 124 mg/dL (70-110)
--- NOTE | 2020-07-18 17:07 | PC.CHAP ---
Pastoral Care Encounter/Spiritual Assessment Type of Contact [] Declined treasury associate visit [] Patient/Family/Request visit [] Outpatient visit [] Follow-up visit [] Physician referral [] Code/Alert [] Routine visit [] Staff referral [] Actively dying [] Patient sleeping [] Family support [] [x] Out of room [] Palliative care [] [] Receiving care in room [] Pre-surgical visit [] Trauma [] Long length of stay [] ICU visit [] Other: Relational/Emotional Strength [] Patient feels connected with others/family/visitors/staff [] Distress [] Loneliness/isolation [] Abandonment Spirituality of Patient [] Person of Joan [] Attends Mu-Ism of their Joan [] Believes in Prayer [] Reads Bible or Rastafarian materials [] There are Spiritual issues to be addressed Racing Secretary And Handicapper Interventions [] Prayer [] Active listening [] Non-anxious presence [] Spiritual/emotional support [] Crisis/trauma care [] Spiritual counseling [] Bereavement support [] Provided bereavement packet [] Provided Bible/devotional materials [] Provided toy/stuffed animal, coloring book to patient or family member [] Provided Communion [] Anointing/[place] [] Salvation [] Completed spiritual assessment [] Other: Impact on Illness or Injury [] Angry [] Fearful [] Anxious [] Often cries [] Exhaustion [] Unable to work [] Unable to attend judaism [] Unable to walk/stand [] Unable to read [] Unable to drive [] Unable to eat/drink [] Unable to sleep [] Unable to be with family [] Patient intubated [] Other: Summary Time spent with patient
--- NOTE | 2020-07-18 18:20 | PM.PN ---
Subjective Subjective: Interval history: Chart reviewed, has done well today, appropriate, no behavioral issues, worked well with therapy. Was noted to have some blood in his urine this afternoon and does recall being catheterized in ED so could be secondary to trauma, he denies having had blood in his urine previously. Good appetite, very pleasant and easy to engage in conversation. Medications: Reviewed: Yes Medication Review Details: Active Medications Generic Name Dose Route Start Last Admin Trade Name Freq PRN Reason Stop Dose Admin Acetaminophen 650 mg 07/18/20 00:44 Acetaminophen 32 5 Mg Tablet PO Q6H PRN Mild/Mod Pain Or Temp >/= 101 Amlodipine Besylat e 10 mg 07/18/20 09:00 07/18/20 08:27 Amlodipine 10 Mg Tablet PO 10 mg DAILY JONNY Administration Bisacodyl 10 mg 07/18/20 00:44 Bisacodyl 5 Mg T ablet PO DAILY PRN CONSTIPATION Carvedilol 25 mg 07/18/20 09:00 07/18/20 08:29 Carvedilol 25 Mg Tablet PO 25 mg JONNY Administration Dextrose 25 ml 07/18/20 00:44 Dextrose 50% Syr belle 50 Ml IVP ONCE PRN hypoglycemia prot ocol Protocol Dextrose 50 ml 07/18/20 00:44 Dextrose 50% Syr belle 50 Ml IVP PRN PRN hypoglycemia prot ocol Protocol Furosemide 80 mg 07/18/20 08:00 07/18/20 08:27 Furosemide 40 Mg Tablet PO 80 mg DAILY@0800 JONNY Administration Glucagon 1 mg 07/18/20 00:44 Glucagon 1 Mg/Ml Inj 1 Ml IM ONCE PRN Adult Acute Hypog lycemia Prot. Protocol Heparin Sodium (Be ef Lung) 5,000 unit 07/18/20 00:44 07/18/20 11:46 Heparin 5,000 Un it/Ml Inj 1 Ml SUBCUT 5,000 unit Q12H JONNY Administration Hydralazine HCl 10 mg 07/18/20 00:44 Hydralazine 10 M g Tablet PO TID PRN SBP>/=170 Dextrose 500 mls @ 100 mls /hr 07/18/20 00:44 D5w IV ONCE PRN Adult Acute Hypog lycemia Prot Protocol Insulin Aspart 0 unit 07/18/20 21:00 07/18/20 11:45 Insulin Aspart 1 00 Unit/1 Ml SUBCUT 6 unit BEDTIME JONNY Administration Protocol Insulin Aspart 0 unit 07/18/20 08:00 07/18/20 16:53 Insulin Aspart 1 00 Unit/1 Ml SUBCUT Not Given [facility] Protocol Ondansetron HCl 4 mg 07/18/20 00:44 Ondansetron 2 Mg /Ml Sdv 2 Ml IVP Q8H PRN vomiting, or N/V if npo Sevelamer Carbonat e 800 mg 07/18/20 09:00 07/18/20 11:26 Sevelamer 800 Mg Tablet PO 800 mg TID JONNY Administration Tamsulosin HCl 0.4 mg 07/18/20 09:00 07/18/20 08:27 Tamsulosin 0.4 M g Capsule PO 0.4 mg DAILY JONNY Administration No Known Allergies Allergy (Verified 05/29/20 18:05) Vitals/I&O/Wt Last Vital Signs Temp 98.0 F 07/18/20 14:58 Pulse 76 07/18/20 14:58 Resp 18 07/18/20 14:58 BP 160/92 07/18/20 14:58 Pulse Ox 95 07/18/20 14:58 07/18/20 07/18/20 07/18/20 06:59 14:59 22:59 Intake Total 240 / 240 Output Total 0 / 0 200 / 200 200 / 400 Balance 0 / 0 -200 / -200 40 / -160 Weight last 48 hrs Weight 92.986 kg Physical Exam Const: COMMON NORMALS: no acute distress, patient oriented x3 and alert GENERAL APPEARANCE: cooperative and comfortable ORIENTATION/CONSCIOUSNESS: Yes awake OTHER: -very pleasant HENMT: COMMON NORMALS: normocephalic, atraumatic, hearing grossly normal bilaterally and moist oral mucous membranes HEAD & SCALP: normocephalic and atraumatic TEETH & GINGIVA: Yes poor dentition Eye: COMMON NORMALS: Equal, round and reactive pupils present, EOMs intact bilaterally and conjunctivae normal CONJUNCTIVA: Yes conjunctivae normal PUPIL: Yes Equal, round and reactive pupils present Neck/C-Spine: COMMON NORMALS: full ROM GENERAL: Yes normal visual inspection and Yes trachea midline Resp: COMMON NORMALS: normal respiratory effort, No retractions, No use of accessory muscles and clear to auscultation bilaterally EFFORT & INSPECTION: Yes able to speak in complete sentences, Yes symmetric chest movement and No tachypneic AUSCULTATION: clear to auscultation bilaterally OTHER: -on RA Cardio: COMMON NORMALS: regular rate, regular rhythm, S1 normal heart sound present and S2 normal heart sound present RATE: regular rate RHYTHM: regular rhythm HEART SOUNDS: S1 normal heart sound present, S2 normal heart sound present and Murmur heart sound present systolic Timing: holo GI: COMMON NORMALS: Normal to inspection, nondistended, normoactive bowel sounds present, Soft to palpation and non-tender INSPECTION: Yes central obesity PALPATION: Yes Soft to palpation Extremity: COMMON NORMALS: normal to inspection, full ROM, no clubbing, cyanosis or edema and no pedal edema GENERAL: Yes AV fistula (on LUE) Neuro: COMMON NORMALS: patient oriented x3, moves all extremities, no focal motor deficits and no sensory deficits noted SENSORIUM/ORIENTATION: Yes alert Psych: COMMON NORMALS: mental status grossly normal, Normal thought process present, cooperative, normal affect and speech normal SPEECH: Yes normal speech THOUGHT PROCESS: Normal thought process present Skin: COMMON NORMALS: no rashes or lesions noted, no jaundice, no petechiae and no mottling GENERAL SKIN EXAM: no rashes or lesions noted Data : 07/17/20 18:20 07/17/20 18:20 A&P Assessment and plan (1) Altered mental status: -seems to have resolved now, he is alert and oriented x 3, appropriate -CT head with no acute changes -treated for COVID-19 infection in 05/2020 -noted short-term memory loss on examination in ED and did receive a dose of Zyprexa -may be developing dementia -reorient as needed, fall precautions -troponins elevated in background of ESRD -Echo: EF=55%, G1DD, moderate concentric LVH, no RWMA, trace-mild AR, moderate , trace-mild TR, trace WI -telemetry monitoring -CRP mildly elevated, trending down; TSH wnl Status: Acute Qualifiers: Altered mental status type: disorientation Qualified Code(s): R41.0 - Disorientation, unspecified (2) Weakness generalized: -improved -CPK wnl -no focal deficits -PT/OT evaluations appreciated -fall precautions Status: Acute (3) End-stage renal disease on hemodialysis: -has L AV fistula for HD on M, F -renal function noted Status: Chronic (4) Anemia in chronic kidney disease: -Hg stable Status: Chronic Qualifiers: Chronic kidney disease stage: on chronic dialysis Qualified Code(s): N18.6 - End stage renal disease; D63.1 - Anemia in chronic kidney disease; Z99.2 - Dependence on renal dialysis (5) BPH (benign prostatic hyperplasia): -noted to have some hematuria today, could be secondary to trauma from cath -continue to monitor urine output Status: Chronic Qualifiers: Lower urinary tract symptom presence: symptoms present Lower urinary tract symptom detail: urinary retention Qualified Code(s): N40.1 - Benign prostatic hyperplasia with lower urinary tract symptoms; R33.8 - Other retention of urine (6) DM type 2 (diabetes mellitus, type 2): -Accucheks, ISS, hypoglycemia precautions -renal dialysis diabetic diet as tolerated -A1c at goal (6.2) Status: Chronic Qualifiers: Diabetes mellitus residential insulin use: without long filler cigar roller machine use Diabetes mellitus complication status: with kidney complications Diabetes mellitus complication detail: with chronic kidney disease Chronic kidney disease stage: on chronic dialysis Qualified Code(s): E11.22 - Type 2 diabetes mellitus with diabetic chronic kidney disease; N18.6 - End stage renal disease; Z99.2 - Dependence on renal dialysis (7) Hypertension: -continue to monitor vital signs -continue oral antihypertensives Status: Chronic Qualifiers: Hypertension type: essential hypertension Qualified Code(s): I10 - Essential (primary) hypertension Additional A&P Information -hyponatremia; continue to trend, had HD on 07/17 -DVT ppx with heparin -Dispo: home -Code status: FULL code -anticipate d/c tomorrow if continued stability/improvement Attestations Medical Necessity Statement*: Patient requires hospitalization for continued monitoring of mental status, hemodynamic and respiratory status. Time Spent in Patient Care: 16 - 35 minutes (>than 50% of time spent in counselling and/or direct pt care on unit). Coding Level of Care Code Acute Bill Poster Installer for Willy Robertson Diagnoses Altered mental status R41.0 Altered mental status type: disorientation Weakness generalized R53.1 End-stage renal disease on hemodialysis N18.6; Z99.2 Anemia in chronic kidney disease N18.6; D63.1; Z99.2 Chronic kidney disease stage: on chronic dialysis BPH (benign prostatic hyperplasia) N40.1; R33.8 Lower urinary tract symptom presence: symptoms present Lower urinary tract symptom detail: urinary retention DM type 2 (diabetes mellitus, type 2) E11.22; N18.6; Z99.2 Diabetes mellitus long filler cigar roller machine insulin use: without residential use Diabetes mellitus complication status: with kidney complications Diabetes mellitus complication detail: with chronic kidney disease Chronic kidney disease stage: on chronic dialysis Hypertension I10 Hypertension type: essential hypertension
--- NOTE | 2020-07-18 18:42 | PC.NURSE ---
DR IBIS BAUMANN IN ROOM - DR MADE AWARE OF PTS PREVIOUS VOID CONTAINING BLOOD - WILL WRITE ORDERS
[2020-07-18 20:10] LABS: Glucose Point of Care 184 mg/dL (70-110)
[2020-07-19] VITALS: BP 150/72; PULSE 68; RESP 20; TEMP 36.4; O2SAT 95
[2020-07-19 00:53] LABS: Glucose Point of Care 42 mg/dL (70-110)
--- NOTE | 2020-07-19 02:14 | PC.NURSE ---
0104 blood sugar was checked by YOHANNES Feng - could not get patient to scan - reported it to be 81.
--- NOTE | 2020-07-19 02:44 | PC.NURSE ---
184 blood sugar. This RN had taken it and docked accucheck - but it has not uploaded to system.
[2020-07-19 02:45] LABS: Glucose Point of Care 182 mg/dL (70-110)
[2020-07-19 05:56] LABS: Anion Gap 19.1 (5-19); Blood Urea Nitrogen 55 mg/dL (8-23); Calcium 8.9 mg/dL (8.5-10.5); Carbon Dioxide 25 mmol/L (22-29); Chloride 94 mmol/L (98-107); Glucose 194 mg/dL (65-115); Magnesium 2.3 mg/dL (1.7-2.3); Osmolality Calculated 296 mOsm/kg (285-295); Phosphorus 6.4 mg/dL (2.5-4.5); Potassium 5.1 mmol/L (3.5-5.1); Sodium 133 mmol/L (136-145)
[2020-07-19 06:39] LABS: Glucose Point of Care 202 mg/dL (70-110)
[2020-07-19 07:30] VITALS: BP 130/72; PULSE 71; RESP 18; TEMP 36.6; O2SAT 95
[2020-07-19] MEDS: carvedilol 25 mg Tablet PO (08:07)
[2020-07-19] MEDS: amlodipine 10 mg Tablet PO (08:07)
[2020-07-19] MEDS: FUROsemide 40 mg Tablet 80 MG PO (08:07)
[2020-07-19] MEDS: sevelamer 800 mg Tablet PO (08:07)
[2020-07-19] MEDS: tamsulosin 0.4 mg Capsule PO (08:07)
--- NOTE | 2020-07-19 10:27 | P.DS_ITS ---
Discharge Providers Date of Admission: 07/17/20 23:17 Date of Discharge: July 19, 2020 Attending Provider at Admission: Chelly Ray MD Attending Provider at Discharge: Tabitha Smith MD Consults: None Primary Care Provider: Salvador Daley MD Diagnoses at Discharge Discharge Diagnosis (1) Altered mental status: Status: Resolved Permanent problem details: -seems to have resolved now, he is alert and oriented x 3, appropriate -CT head with no acute changes -treated for COVID-19 infection in 05/2020 -noted short-term memory loss on examination in ED and did receive a dose of Zyprexa -may be developing dementia -troponins elevated in background of ESRD; no chest pain -Echo: EF=55%, G1DD, moderate concentric LVH, no RWMA, trace-mild AR, moderate , trace-mild TR, trace SD -CRP mildly elevated, trending down; TSH wnl Qualifiers: Altered mental status type: disorientation Qualified Code(s): R41.0 - Disorientation, unspecified (2) Weakness generalized: Status: Resolved Permanent problem details: -CPK wnl -cleared for d/c home per PT/OT (3) End-stage renal disease on hemodialysis: Status: Chronic Permanent problem details: -Only gets dialysis twice a week on Mondays and Fridays -access: LUE AV fistula (4) Anemia in chronic kidney disease: Status: Chronic Permanent problem details: -H/H stable Qualifiers: Chronic kidney disease stage: on chronic dialysis Qualified Code(s): N18.6 - End stage renal disease; D63.1 - Anemia in chronic kidney disease; Z99.2 - Dependence on renal dialysis (5) BPH (benign prostatic hyperplasia): Status: Chronic Permanent problem details: -did have some transient hematuria, resolved, likely secondary to traumatic catheterization Qualifiers: Lower urinary tract symptom presence: symptoms present Lower urinary tract symptom detail: urinary retention Qualified Code(s): N40.1 - Benign prostatic hyperplasia with lower urinary tract symptoms; R33.8 - Other retention of urine (6) DM type 2 (diabetes mellitus, type 2): Status: Chronic Permanent problem details: -history of DKA -A1c at goal-6.2, did have an episode of hypoglycemia this AM, resolved Qualifiers: Diabetes mellitus exterminator helper termite insulin use: without exterminator helper termite use Diabetes mellitus complication status: with kidney complications Diabetes mellitus complication detail: with chronic kidney disease Chronic kidney disease stage: on chronic dialysis Qualified Code(s): E11.22 - Type 2 diabetes mellitus with diabetic chronic kidney disease; N18.6 - End stage renal disease; Z99.2 - Dependence on renal dialysis (7) Hypertension: Status: Chronic Permanent problem details: -continue oral antihypertensives Qualifiers: Hypertension type: essential hypertension Qualified Code(s): I10 - Essential (primary) hypertension Reason for Visit Reason for Visit: CONFUSION, WEAKNESS Hospital Course Hospital Course Patient was admitted to the medical surgical floor and further work-up done to evaluate for generalized weakness and noted altered mental status. Fortunately, though etiology remains unclear mentation has returned to baseline and he has done well with therapy and is back to his baseline ambulation status. He was found to have elevated troponins in background of ESRD, no acute ischemic changes noted on telemetry, no complaints of chest pain. Hemoglobin has been stable, renal function reflects end-stage renal disease. He has been hemodynamically stable, afebrile and maintained on room air. He did have some transient hematuria likely due to traumatic catheterization that has since r esolved. He did have an episode of hypoglycemia this morning, now resolved, no further hypoglycemic episodes during his hospital stay. He is to continue hemodialysis on Friday and Friday and to have appropriate follow-up with his primary care physician. He is advised to seek medical attention immediately should his symptoms recur. He is comfortable going home today, lives independently with assistance from family as needed. Physical Exam Const: COMMON NORMALS: no acute distress, patient oriented x3 and alert GENERAL APPEARANCE: cooperative and comfortable ORIENTATION/CONSCIOUSNESS: Yes awake OTHER: -very pleasant HENMT: COMMON NORMALS: normocephalic, atraumatic, hearing grossly normal bilaterally and moist oral mucous membranes HEAD & SCALP: normocephalic and atraumatic TEETH & GINGIVA: Yes poor dentition Eye: COMMON NORMALS: Equal, round and reactive pupils present, EOMs intact bilaterally and conjunctivae normal CONJUNCTIVA: Yes conjunctivae normal PUPIL: Yes Equal, round and reactive pupils present Neck/C-Spine: COMMON NORMALS: full ROM GENERAL: Yes normal visual inspection and Yes trachea midline Resp: COMMON NORMALS: normal respiratory effort, No retractions, No use of accessory muscles and clear to auscultation bilaterally EFFORT & INSPECTION: Yes able to speak in complete sentences, Yes symmetric chest movement and No tachypneic AUSCULTATION: clear to auscultation bilaterally OTHER: -on RA Cardio: COMMON NORMALS: regular rate, regular rhythm, S1 normal heart sound present and S2 normal heart sound present RATE: regular rate RHYTHM: regular rhythm HEART SOUNDS: S1 normal heart sound present, S2 normal heart sound present and Murmur heart sound present systolic Timing: holo GI: COMMON NORMALS: Normal to inspection, nondistended, normoactive bowel sounds present, Soft to palpation and non-tender INSPECTION: Yes central obesity PALPATION: Yes Soft to palpation Extremity: COMMON NORMALS: normal to inspection, full ROM, no clubbing, cyanosis or edema and no pedal edema GENERAL: Yes AV fistula (on LUE, palpable thrill) Neuro: COMMON NORMALS: patient oriented x3, moves all extremities, no focal motor deficits and no sensory deficits noted SENSORIUM/ORIENTATION: Yes alert Psych: COMMON NORMALS: mental status grossly normal, Normal thought process present, cooperative, normal affect and speech normal SPEECH: Yes normal speech THOUGHT PROCESS: Normal thought process present Skin: COMMON NORMALS: no rashes or lesions noted, no jaundice, no petechiae and no mottling GENERAL SKIN EXAM: no rashes or lesions noted Discharge Data Data Completed and Pending: Completed Studies During Hospitalization Category Date Time Status CT head wo con* 7 0450 Urgent Cat Scan 07/17/20 19:[address] kidney stone 7 4176 Urgent Cat Scan 07/17/20 18:52 Completed CV echo complete* 11813 Routine Ultrasound 07/18/20 06:00 Completed Pending at discharge Category Date Time Status Urine Culture Sta t Lab 07/18/20 00:14 Results Labs from last 24 hours 07/19/20 07/19/20 07/19/20 06:36 04:45 04:45 Sodium 133 L Potassium 5.1 Chloride 94 L Carbon Dioxide 25 Anion Gap 19.1 H BUN 55 H Creatinine 7.6 H* GFR Calculation Not Reportable Glucose 194 H POC Glucose 202 H Calculated Osmolal ity 296 H Calcium 8.9 Phosphorus 6.4 H Magnesium 2.3 C-Reactive Protein 12.0 H 07/19/20 07/19/20 07/18/20 02:41 00:41 20:05 Sodium Potassium Chloride Carbon Dioxide Anion Gap BUN Creatinine GFR Calculation Glucose POC Glucose 182 H 42 L 184 H Calculated Osmolal ity Calcium Phosphorus Magnesium C-Reactive Protein 07/18/20 07/18/20 16:26 11:04 Sodium Potassium Chloride Carbon Dioxide Anion Gap BUN Creatinine GFR Calculation Glucose POC Glucose 124 H 180 H Calculated Osmolal ity Calcium Phosphorus Magnesium C-Reactive Protein Vitals: Last Vital Signs Temp 97.8 F 07/19/20 07:30 Pulse 71 07/19/20 07:30 Resp 18 07/19/20 07:30 BP 130/72 07/19/20 07:30 Pulse Ox 95 07/19/20 07:30 Discharge Plan Discharge Patient Disposition: Home Condition: Stable Prescriptions: Continued hydralazine 10 mg tablet See Rx Instructions .ROUTE .COMPLEX RF: 0 carvedilol 25 mg tablet 25 mg PO BID RF: 0 tamsulosin 0.4 mg capsule 0.4 mg PO DAILY RF: 0 furosemide 80 mg tablet 80 mg PO DAILY RF: 0 amlodipine 10 mg tablet 10 mg PO DAILY RF: 0 sevelamer carbonate [Renvela] 800 mg tablet 800 mg PO TID RF: 0 Imodium A-D 1 tab PO DAILY RF: 0 Discharge Orders: Discharge Order (Routine); Ordered 07/19/20 Ordered By: Tabitha Smith Referrals: Salvador Daley MD [Primary Care Provider] - 07/24/20 1:15 pm ( ) Discharge Diet: Usual diet Discharge Activity: Increase activity as tolerated Discharge Attestations Time Spent in Discharge Care*: greater than 30 min Specific Discharge Activities: educating patient, discussing with family service caseworker/social workers/dc planners, documenting/other paperwork and evaluating patient/reviewing data Status at Discharge: Cognitive status at discharge: cognitively intact , Behavioral status at discharge: cooperative and independent in ADL's , Functional status at discharge: uses cane/walker Overall status at discharge: patient is progressing back to baseline Quality Metrics Clinical Quality Measures During this hospital stay, did patient experience: None Coding Level of Care Code Acute Manager Machine for Willy Fwd Diagnoses Altered mental status R41.0 Altered mental status type: disorientation Weakness generalized R53.1 End-stage renal disease on hemodialysis N18.6; Z99.2 Anemia in chronic kidney disease N18.6; D63.1; Z99.2 Chronic kidney disease stage: on chronic dialysis BPH (benign prostatic hyperplasia) N40.1; R33.8 Lower urinary tract symptom presence: symptoms present Lower urinary tract symptom detail: urinary retention DM type 2 (diabetes mellitus, type 2) E11.22; N18.6; Z99.2 Diabetes mellitus retirement insulin use: without exterminator helper termite use Diabetes mellitus complication status: with kidney complications Diabetes mellitus complication detail: with chronic kidney disease Chronic kidney disease stage: on chronic dialysis Hypertension I10 Hypertension type: essential hypertension
[2020-07-19 10:34] VITALS: BP 148/64; PULSE 73; RESP 18; TEMP 36.7; O2SAT 96
--- NOTE | 2020-07-19 10:38 | PC.NURSE ---
BLOOD SUGAR PT BLOOD SUGAR CURRENTLY 70 - PT ASYMPTOMATIC - OJ AND PB CRACKERS PROVIDED PER PTS REQUEST
[2020-07-19 11:04] LABS: Glucose Point of Care 70 mg/dL (70-110)
[2020-07-19 11:07] VITALS: BP 148/64; PULSE 73; RESP 18; TEMP 36.7; O2SAT 96
== END 2020-07-19 12:23 | disposition home or self-care (01) ==
LOC: ER 23:23 → MEDSURG 23:31
PROVIDERS: Admitting Provider Hospitalist; Emergency Provider Family Medicine; PCP Family Medicine; Visit Provider Family Medicine
DX: R41.0 Disorientation, unspecified (principal); E11.22 Type 2 diabetes mellitus with diabetic chronic kidney disease; I12.0 Hypertensive chronic kidney disease with stage 5 chronic kidney disease or end stage renal disease; N18.6 End stage renal disease; R53.1 Weakness; D63.1 Anemia in chronic kidney disease; Z99.2 Dependence on renal dialysis; Z79.4 Long term (current) use of insulin; N40.1 Benign prostatic hyperplasia with lower urinary tract symptoms; R33.8 Other retention of urine; Z86.16 Personal history of COVID-19; I48.0 Paroxysmal atrial fibrillation
CPT/HCPCS: 12345; 36415; 36416; 51798; 70450; 74176; 80048; 80053; 81001; 82550; 82962; 83036; 83605; 83690; 83735; 84100; 84145; 84443; 84484; 85025; 86140; 87086; 93005; 93306; 96372; 97110; 97161; 97166; 99283; 99285; G0378; J1644; J1815; J3490

== ENCOUNTER 2020-10-05 18:42 | Inpatient (IN) | payer MEDICARE, MEDICAID, SELFPAY ==
[2020-10-05] VITALS (12 sets, daily range): BP systolic 117–159; BP diastolic 79–90; PULSE 91–105; RESP 12–32; TEMP 36.4–36.5; O2SAT 68–100; BMI 34.4
--- NOTE | 2020-10-05 18:50 | XR_ITS ---
WS: [id number] Portable AP upright chest, 10/05/2020 Clinical Data: sob Comparison: Portable chest, 05/29/2020. Findings: Bilateral patchy opacities are present throughout the lungs which could represent vascular congestion or diffuse pneumonia. The heart is enlarged. No nodules, masses or effusions are seen. No pneumothorax is present. Monitor leads on the chest wall. XR/XR chest 1V portable [id number] Impression: 1. Bilateral pulmonary opacities which could represent vascular congestion and/ or pneumonia. 2. Cardiomegaly.
--- NOTE | 2020-10-05 18:51 | ECG_ITS ---
[facility] Test Date: 2020-10-05 Pat Name: Familia Mason Department: Room: 107 Gender: Male Front Office Developer: : 1945 Requested By: Vazquez Nunez Order Number: [id number] Olamide MD: Nanci Pandey M.D. Measurements Intervals [place] Rate: 105 P: 42 IA: 165 QRS: 12 QRSD: 98 T: 92 QT: 338 QTc: 448 Interpretive Statements SINUS TACHYCARDIA POSSIBLE LEFT ATRIAL ENLARGEMENT [-0.1mV P WAVE IN V1/V2] ST DEVIATION AND MODERATE T-WAVE ABNORMALITY, CONSIDER LATERAL ISCHEMIA [-0.1+ mV T WAVE IN I/aVL/V5/V6] Compared to ECG 07/18/2020 08:50:20 T-wave abnormality now present Possible ischemia now present Sinus rhythm no longer present Electronically Signed On 10-05-2020 22:19:02 CDT by Nanci Pandey M.D. [id number]
[2020-10-05 19:09] LABS: Basophils # 0.1 10^3/uL (0.0-0.1); Basophils % 0.5 %; Eosinophils # 0.3 10^3/uL (0.0-0.8); Hematocrit 32.9 % (42.0-52.0); Hemoglobin 9.6 g/dL (11.7-16.6); Lymphocytes # 1.3 10^3/uL (0.8-4.8); Lymphocytes % 10.1 %; Mean Corpuscular HGB Conc 29.2 g/dL (30.0-36.0); Mean Corpuscular Volume 92.7 fL (80-94); Mean Platelet Volume 10.8 fL (7.4-10.4); Monocytes # 0.5 10^3/uL (0.2-0.9); Monocytes % 3.8 %; Neutrophils # 10.61 10^3/uL (1.8-7.7); Neutrophils % 82.7 %; Nucleated Red Blood Cells % 0 %; Platelet Count 285 10^3/cmm (130-400); Red Blood Count 3.55 10^6/uL (4.1-5.3); Red Cell Distribution Width 15.9 % (12.1-15.1); White Blood Count 12.8 10^3/uL (4.0-10.0)
[2020-10-05 19:12] LABS: ABG PCO2 44.1 mmHg (35-45); ABG PH Result 7.28 (7.35-7.45); Arterial Blood Gas Hematocrit 30.3 % (42-52); Base Excess ABG -5.9 mmol/L (-2.0-2.0); Blood Gas Operator Identificat HARKR; Blood Gas Sample Site Brachial, right; Blood Gas Sample Type Arterial; Carboxyhemoglobin 0.9 %THgb (0.4-20.1); HCO3 ABG 20.6 mmol/L (22-26); HGB O2 Sat 97.3 % (95-100); Methemoglobin 0.4 % (0.4-1.5); Oxygen Device BIPAP; Total Hemoglobin 9.9 g/dL (14-18)
[2020-10-05] MEDS: FUROsemide 10 mg/mL SDV 4mL 40 MG IVP (19:17)
--- NOTE | 2020-10-05 19:28 | PC.PHAR ---
Addendum entered by Myra Mac 10/05/20 21:10: NOT THE PTS -PTS FAMILY Original Note: pts states the pt takes the medications entered-pts states the glimepiride was dced a few months ago-ext med history shows last filled on 08/06/20 90d/s
[2020-10-05 19:33] LABS: Troponin(5th) Baseline 461 ng/L (0-15)
[2020-10-05 19:37] LABS: Alanine Aminotransferase < 5 U/L (0-41); Albumin Level 3.4 g/dL (3.5-5.2); Alkaline Phosphatase 109 IU/L (40-130); Anion Gap 29.8 (5-19); Aspartate Amino Transferase 6 U/L (0-40); Calcium 8.2 mg/dL (8.5-10.5); Carbon Dioxide 20 mmol/L (22-29); Chloride 89 mmol/L (98-107); Globulin 3.4 g/dL (1.3-4.6); Glucose 205 mg/dL (65-115); NT Pro B Type Natriuretic Pept 20525 pg/mL (0-125); Osmolality Calculated 316 mOsm/kg (285-295); Potassium 4.8 mmol/L (3.5-5.1); Sodium 134 mmol/L (136-145); Total Bilirubin 0.3 mg/dL (0.15-1.2); Total Protein 6.8 g/dL (6.6-8.7)
[2020-10-05 19:43] LABS: Blood Urea Nitrogen 103 mg/dL (8-23)
--- NOTE | 2020-10-05 19:43 | P.HP_ITS ---
Providers/Chief Complaint Primary Care Provider: Salvador Daley MD Chief Complaint: NOT FEELING WELL/ LOW O2 SATS History of Present Illness Familia Mason is a 74 year old male with history of end-stage renal disease gets dialyzed on Mondays and Fridays, paroxysmal A. fib not a candidate for anticoagulation due to chronic anemia, lives alone has underlying dementia presented today with chief complaint of generalized weakness and malaise. Sister is at the bedside who is endorsing that for last 1 month he has been skipping his dialysis sessions, he would not listen to her, today he vomited and was getting weaker and weaker last while he was brought to the hospital for further evaluation. His last dialysis session was on Friday, he missed Friday's session. Patient is denying chest pain, but endorsing orthopnea, PND and shortness of breath at rest and on exertion. No fever productive cough or constipation. He is endorsing chronic diarrhea for which he takes Imodium in the morning. Diagnosis in the ER revealed Community-acquired pneumonia and pulmonary edema He met sepsis criteria with tachypnea and leukocytosis Clinically looks fluid overloaded He was on BiPAP by the time I saw him he was saturating well Potassium 4.8, Patient is struggling to live alone however is not admitting, sister at the bedside is telling me that she cooks for him and manages most of his daily activities, uses walker for ambulation and struggles to carry out his daily activities on his own Review of Systems Const: Reports: body aches and fatigue; Denies: chills Eyes: Denies: change in vision ENMT: Denies: throat pain Card: Reports: swelling of feet/ankles, dyspnea on exertion and orthopnea; Denies: chest pain Resp: Reports: dyspnea and non-productive cough GI: Reports: diarrhea; Denies: abdominal pain : Denies: flank pain Musc: Denies: neck pain Skin/Breast: Denies: new lesions Neuro: Denies: headache(s) Psych: Reports: anxiety Endo: Denies: polyuria Phil/Lymph: Denies: easy bruising All/Imm: Denies: urticaria Medications/Allergies Home Medications Medication Instructions Recorded Confirmed Last Taken Type Imodium A-D 1 tab PO QAM 05/29/20 10/05/20 10/05/20 History amlodipine 10 mg PO BEDTIME 05/29/20 10/05/20 10/04/20 History carvedilol 25 mg PO BID 05/29/20 10/05/20 10/05/20 09:00 History furosemide 80 mg PO QAM 05/29/20 10/05/20 10/05/20 History hydralazine 10 mg PO BID 05/29/20 10/05/20 10/05/20 09:00 History sevelamer carbonate [Renvela] 2,400 mg PO TID 05/29/20 10/05/20 10/05/20 09:00 History tamsulosin 0.4 mg PO QAM 05/29/20 10/05/20 10/05/20 History acetaminophen [Tylenol Extra 1,000 mg PO PRN 10/05/20 10/05/20 Unknown History Strength] Allergies Allergy/AdvReac Type Severity Reaction Status Date / Time No Known Allergies Allergy Verified 10/05/20 19:28 PFSH Acute PFSH: Medical History Anemia in chronic kidney disease -H/H stable BPH (benign prostatic hyperplasia) -did have some transient hematuria, resolved, DM type 2 (diabetes mellitus, type 2) -history of DKA -A1c at goal-6.2, End-stage renal disease on hemodialysis -Only gets dialysis twice a week on Mondays and Fridays -access: LUE AV fistula History of 2019 novel coronavirus disease (COVID-19) (~05/2020) History of necrotizing fasciitis History of septic arthritis Hypertension -continue oral antihypertensives Paroxysmal atrial fibrillation Surgical History Arteriovenous fistula for hemodialysis in place, primary Left upper extremity History of knee surgery several times due to septic arthritis and necrotizing fasciitis Family History Other CAD (coronary artery disease) Dementia Diabetes Social History Smoking and tobacco status: never smoked Alcohol intake: never Household members: none and other Details: sister helps care for him but lives alone Vitals/I&O/Wt Last Vital Signs Pulse 100 10/05/20 19:07 Resp 32 H 10/05/20 19:02 BP 117/89 10/05/20 18:52 Pulse Ox 97 10/05/20 19:05 Weight last 48 hrs Weight 108.862 kg Physical Exam Narrative: EXAM NARRATIVE: elderly male who was on BiPAP at the time of my evaluation I change his BiPAP settings to 12 and sleep she was saturating well He was very upset that he is being admitted to the hospital, sister is at the bedside S1, S2 systolic murmur right second intercostal base, Clinical signs of fluid overload Distended abdomen nontender bowel sound present Legs have 1+ pitting edema with pedal edema Bilateral breath sounds with rhonchi or crackles, assisted breath sounds Patient is awake and alert oriented x3 GCS 15 Irritable mood No joint swelling EOMI, PERRLA no neurological deficit Data : 10/05/20 19:05 10/05/20 19:05 A&P Assessment and plan (1) Community acquired pneumonia: Status: Acute (2) Sepsis: Status: Acute (3) End stage renal disease: Status: Acute Additional A&P Information Sepsis secondary to community-acquired pneumonia Left lower lobe infiltrate with pulmonary edema Check procalcitonin level he met sepsis criteria with tachypnea, leukocytosis, will request urine antigens, start him on ceftriaxone and azithromycin Currently on BiPAP settings 12 saturating well FiO2 40% End-stage renal disease: He gets dialyzed Mondays and Fridays Patient lives alone and has not been attending his dialysis sessions regularly for last 1 month Telemetry nephrology consulted Potassium normal Clinically looks fluid overloaded with pulmonary edema BPH: Continue tamsulosin Paroxysmal A. fib without acute exacerbation Not a candidate of anticoagulation due to anemia, risk of falls as he lives alone and has underlying dementia Continue Coreg Full code Renal dialysis diet DVT prophylaxis Heparin Sister is requesting placement at rehab/assisted living as she is not able to take care of him anymore however patient is adamantly refusing to be placed, kindly reevaluate in the morning Attestations Medical Necessity Statement*: Anticipating stay in the hospital cross more than 2 midnights for sepsis community-acquired pneumonia he needs dialysis as he has missed his sessions in last few weeks Time Spent in Patient Care: (>than 50% of time spent in counselling and/or direct pt care on unit) . 50mins Coding Level of Care Code Acute Intellectual Property Lawyer for Willy Robertson Diagnoses Community acquired pneumonia J18.9 Sepsis A41.9 End stage renal disease N18.6
--- NOTE | 2020-10-05 19:43 | W.ED.SOB ---
HPI - SOB/Dyspnea General: Chief Complaint: Shortness of Breath/Dyspnea Stated Complaint: NOT FEELING WELL/ LOW O2 SATS Time Seen by Provider: 10/05/20 18:45 Source: patient Mode of arrival: EMS Limitations: no limitations History of Present Illness: HPI Narrative: 74-year-old male has history of end-stage renal disease and is noncompliant with dialysis. He states been over a week since he went to dialysis. He is having shortness of breath today patient is in distress. He is currently on 6 L and has oxygen saturation 78%. Patient was placed on BiPAP in the room and is doing improved on BiPAP. He has had increased swelling to his legs. States he is does still make urine. He denies any chest pain or fever. Denies any new cough. Associated symptoms: Deny abdominal pain, chest pain, fever(s), nausea or vomiting Review of Systems Const: Denies: fever(s), chills, body aches or change in appetite Eyes: Denies: blurry vision or eye discomfort ENMT: Denies: throat pain or dental pain Card: Denies: chest pain Resp: Reports: dyspnea GI: Denies: abdominal pain, nausea, vomiting or diarrhea : Denies: dysuria Musc: Denies: neck pain or back pain Skin/Breast: Denies: rash Neuro: Denies: headache(s) Psych: Denies: depression Phil/Lymph: Denies: easy bruising All/Imm: Denies: urticaria PFS ED PFSH: Medical History Anemia in chronic kidney disease -H/H stable BPH (benign prostatic hyperplasia) -did have some transient hematuria, resolved, likely secondary to traumatic catheterization DM type 2 (diabetes mellitus, type 2) -history of DKA -A1c at goal-6.2, did have an episode of hypoglycemia this AM, resolved End-stage renal disease on hemodialysis -Only gets dialysis twice a week on Mondays and Fridays -access: LUE AV fistula History of 2019 novel coronavirus disease (COVID-19) (~05/2020) History of necrotizing fasciitis History of septic arthritis Hypertension -continue oral antihypertensives Paroxysmal atrial fibrillation Surgical History Arteriovenous fistula for hemodialysis in place, primary Left upper extremity History of knee surgery several times due to septic arthritis and necrotizing fasciitis Family History Other CAD (coronary artery disease) Dementia Diabetes Social History Smoking and tobacco status: never smoked Alcohol intake: never Household members: none and other Details: sister helps care for him but lives alone Physical Exam Const: COMMON NORMALS: patient oriented x3 GENERAL APPEARANCE: in distress and ill appearing HENMT: COMMON NORMALS: normocephalic and atraumatic HEAD & SCALP: normocephalic and atraumatic Eye: COMMON NORMALS: Equal, round and reactive pupils present and EOMs intact bilaterally PUPIL: Yes Equal, round and reactive pupils present Neck/C-Spine: COMMON NORMALS: full ROM and supple Chest: COMMONS NORMALS: normal inspection of the chest and normal palpation of entire chest wall Resp: COMMON NORMALS: No retractions EFFORT & INSPECTION: Yes tachypneic and Yes respiratory distress AUSCULTATION: rales Cardio: COMMON NORMALS: regular rate, regular rhythm and No murmurs present (Cardio) RATE: regular rate RHYTHM: regular rhythm GI: COMMON NORMALS: Normal to inspection, nondistended, normoactive bowel sounds present, Soft to palpation, non-tender and no masses PALPATION: Yes Soft to palpation Extremity: COMMON NORMALS: normal to inspection and full ROM Neuro: COMMON NORMALS: patient oriented x3, moves all extremities and no focal motor deficits Psych: COMMON NORMALS: mental status grossly normal, Normal thought process present and cooperative THOUGHT PROCESS: Normal thought process present Skin: COMMON NORMALS: no rashes or lesions noted and no wounds GENERAL SKIN EXAM: no rashes or lesions noted Course Vital Signs: Vital signs: Vital Signs Pulse Rate 100 10/05/20 19:07 Respiratory Rate 32 H 10/05/20 19:02 Blood Pressure 117/89 10/05/20 18:52 Pulse Oximetry 97 10/05/20 19:05 MDM - SOB/Dyspnea MDM Narrative: Medical decision making narrative: Presents here with shortness of breath from pulmonary edema likely from noncompliance to dialysis. Patient has improved greatly on BiPAP. I consulted nephrology and spoke to the hospitalist and will admit at this time. Patient been stable in the ER. He has no signs of pneumonia. Lab Data: Labs: Lab Results 10/05/20 10/05/20 10/05/20 Range/Units 19:01 19:05 19:05 WBC 12.8 H (4.0-10.0) 10^3/ uL RBC 3.55 L (4.1-5.3) 10^6/u L Hgb 9.6 L (11.7-16.6) g/dL Hct 32.9 L (42.0-52.0) % MCV 92.7 (80-94) fL MCH 27.0 L (28.0-34.0) pg MCHC 29.2 L (30.0-36.0) g/dL RDW 15.9 H (12.1-15.1) % Plt Count 285 (130-400) 10^3/c mm MPV 10.8 H (7.4-10.4) fL Neut % (Auto) 82.7 % Lymph % (Auto) 10.1 % [place] % (Auto) 3.8 % Eos % (Auto) 2.0 % Baso % (Auto) 0.5 % Neut # (Auto) 10.61 H (1.8-7.7) 10^3/u L Lymph # (Auto) 1.3 (0.8-4.8) 10^3/u L [place] # (Auto) 0.5 (0.2-0.9) 10^3/u L Eos # (Auto) 0.3 (0.0-0.8) 10^3/u L Baso # (Auto) 0.1 (0.0-0.1) 10^3/u L Nucleated RBC % (a uto) 0 % Nucleated RBCs # 0.0 /100WBC Specimen Type Arterial Sample Site Brachial, right ABG pH 7.28 L (7.35-7.45) ABG pCO2 44.1 (35-45) mmHg ABG pO2 129.0 H (80.0-100.0) mmH g ABG HCO3 20.6 L (22-26) mmol/L ABG Base Excess -5.9 L (-2.0-2.0) mmol/ L Chris Test N/a Hematocrit 30.3 L (42-52) % Hgb O2 Saturation 97.3 (95-100) % Carboxyhemoglobin 0.9 (0.4-20.1) %THgb Methemoglobin 0.4 (0.4-1.5) % Total Hemoglobin 9.9 L (14-18) g/dL O2 Delivery Device Bipap FiO2 60.0 % Engineering Recruiter ID Harkr Sodium 134 L (136-145) mmol/L Potassium 4.8 (3.5-5.1) mmol/L Chloride 89 L (98-107) mmol/L Carbon Dioxide 20 L (22-29) mmol/L Anion Gap 29.8 H (5-19) BUN 103 H* D (8-23) mg/dL Creatinine 10.3 H* (0.7-1.2) mg/dL GFR Calculation Not Reportable Glucose 205 H (65-115) mg/dL Calculated Osmolal ity 316 H (285-295) mOsm/k g Calcium 8.2 L (8.5-10.5) mg/dL Total Bilirubin 0.3 (0.15-1.2) mg/dL AST 6 (0-40) U/L ALT < 5 (0-41) U/L Alkaline Phosphata se 109 (40-130) IU/L Troponin T Baselin e (0-15) ng/L NT-Pro-B Natriuret Pep 82452 H (0-125) pg/mL Total Protein 6.8 (6.6-8.7) g/dL Albumin 3.4 L (3.5-5.2) g/dL Globulin 3.4 (1.3-4.6) g/dL 10/05/20 Range/Units 19:05 WBC (4.0-10.0) 10^3/ uL RBC (4.1-5.3) 10^6/u L Hgb (11.7-16.6) g/dL Hct (42.0-52.0) % MCV (80-94) fL MCH (28.0-34.0) pg MCHC (30.0-36.0) g/dL RDW (12.1-15.1) % Plt Count (130-400) 10^3/c mm MPV (7.4-10.4) fL Neut % (Auto) % Lymph % (Auto) % [place] % (Auto) % Eos % (Auto) % Baso % (Auto) % Neut # (Auto) (1.8-7.7) 10^3/u L Lymph # (Auto) (0.8-4.8) 10^3/u L [place] # (Auto) (0.2-0.9) 10^3/u L Eos # (Auto) (0.0-0.8) 10^3/u L Baso # (Auto) (0.0-0.1) 10^3/u L Nucleated RBC % (a uto) % Nucleated RBCs # /100WBC Specimen Type Sample Site ABG pH (7.35-7.45) ABG pCO2 (35-45) mmHg ABG pO2 (80.0-100.0) mmH g ABG HCO3 (22-26) mmol/L ABG Base Excess (-2.0-2.0) mmol/ L Chris Test Hematocrit (42-52) % Hgb O2 Saturation (95-100) % Carboxyhemoglobin (0.4-20.1) %THgb Methemoglobin (0.4-1.5) % Total Hemoglobin (14-18) g/dL O2 Delivery Device FiO2 % Engineering Recruiter ID Sodium (136-145) mmol/L Potassium (3.5-5.1) mmol/L Chloride (98-107) mmol/L Carbon Dioxide (22-29) mmol/L Anion Gap (5-19) BUN (8-23) mg/dL Creatinine (0.7-1.2) mg/dL GFR Calculation Glucose (65-115) mg/dL Calculated Osmolal ity (285-295) mOsm/k g Calcium (8.5-10.5) mg/dL Total Bilirubin (0.15-1.2) mg/dL AST (0-40) U/L ALT (0-41) U/L Alkaline Phosphata se (40-130) IU/L Troponin T Baselin e 461 H* (0-15) ng/L NT-Pro-B Natriuret Pep (0-125) pg/mL Total Protein (6.6-8.7) g/dL Albumin (3.5-5.2) g/dL Globulin (1.3-4.6) g/dL Imaging Data^: CXR: Attestation: I personally reviewed and interpreted this imaging study as follows: My impression: pulmonary edema EKG Data^: EKG 1: Attestation: I personally reviewed and interpreted this EKG as follows: EKG Interpretation Date: 10/05/20 EKG interpretation time: 19:01 Interpretation: sinus tach hr [address] or t wave abnormalities qrs 98 qtc 399 Critical Care Time Critical Care Time: Critical Care Time: Yes Total Critical Care Time: 36 Attestation: This case had a high probability of a clinically significant, sudden, or life threatening deterioration of this patient's condition which required my full and direct attention, intervention and personal management. Discharge Plan Discharge Admit Provider: Dylna White Coding Level of Care Code ED Elderly Companion for Sandovalg Fwd Exam Comprehensive
[2020-10-06] VITALS (17 sets, daily range): BP systolic 155–188; BP diastolic 79–94; PULSE 77–107; RESP 13–24; TEMP 37–37.1; O2SAT 93–100
[2020-10-06 01:11] LABS: Basophils % 0.3 %; Eosinophils % 0.1 %; Hematocrit 27.3 % (42.0-52.0); Hemoglobin 8.1 g/dL (11.7-16.6); Lymphocytes # 0.5 10^3/uL (0.8-4.8); Lymphocytes % 3.8 %; Mean Corpuscular HGB Conc 29.7 g/dL (30.0-36.0); Mean Corpuscular Hemoglobin 26.8 pg (28.0-34.0); Mean Corpuscular Volume 90.4 fL (80-94); Mean Platelet Volume 10.6 fL (7.4-10.4); Monocytes # 0.5 10^3/uL (0.2-0.9); Monocytes % 3.8 %; Neutrophils % 91.3 %; Nucleated Red Blood Cells % 0 %; Platelet Count 224 10^3/cmm (130-400); Red Blood Count 3.02 10^6/uL (4.1-5.3); Red Cell Distribution Width 15.9 % (12.1-15.1); White Blood Count 12.2 10^3/uL (4.0-10.0)
[2020-10-06 01:41] LABS: Troponin 5 6HR 452.5 ng/L (0-15); Troponin 5 6HR Delta -8.5 ng/L (0-12)
[2020-10-06] MEDS: FUROsemide 10 mg/mL SDV 4mL 40 MG IVP (03:38)
[2020-10-06] MEDS: cefTRIAXone 1,000 MG in sodium chloride 0.9% (plus) 50 ML 100 MG IV (03:38)
[2020-10-06] MEDS: heparin 5,000 unit/mL INJ 1 mL 5000 UNIT SUBCUT ×2 (03:38→18:57)
--- NOTE | 2020-10-06 04:26 | PC.NURSE ---
NURSE NOTE: LOMELI CATHETER PLACEMENT: PT REQUESTED HELP TO URINATE SEVERAL TIMES. WHENEVER THIS NURSE OR TECH WOULD HOLD URINAL OR ASSIST PT UP TO URINATE, PT UNABLE TO URINATE. AT APPROXIMATELY 0315, BLADDER SCANNED PATIENT AND RECEIVED RESULTS OF 769 MLS OF URINE IN BLADDER. PLACED PHONE CALL TO DR. VERDE AND RECEIVED ORDERS TO PLACE LOMELI CATHETER. ALSO MADE DR. VERDE AWARE THAT NEW MEDICATION ORDERS WERE RETIMED. EVEN THOUGH MULTIPLE NURSES AND TECH CONTINUALLY HELPING PATIENT TO URNINATE, GIVING PATIENT DRINKS OF WATER AND HELPING PT UPON REQUEST, PT KEPT STATING THAT STAFF WAS NOT HELPING HIM AT ALL AND WOULD CALL OUT CONTINUALLY FROM ROOM INSTEAD OF USING CALL LIGHT. PT CURRENTLY AWAKE /BIPAP IN PLACE. LOMELI PATENT TO DD. ALL VS AND ASSESSMENTS CHARTED.
--- NOTE | 2020-10-06 06:37 | P.CONIM_ITS ---
Providers/Reason For Consult Consulting Physican/Specialty*: Linda Alvares DO, telenephrology Reason for Consult*: ESRD, pulmonary edema Attending Physician: Dylan White MD Primary Care Provider: Salvador Daley MD History of Present Illness History of Present Illness Familia Mason is a 74 year old male presents to ER for evaluation. Very poor historian. States he did not feel well, but cannot specify symptoms. Reports he will only agree to twice weekly dialysis. States his last HD was 10/02. Presented with hypoxia and evidence of volume overload. Meds/Allergies Home Medications and Allergies Home Medications Medication Instructions Recorded Confirmed Last Taken Type Imodium A-D 1 tab PO QAM 05/29/20 10/05/20 10/05/20 History amlodipine 10 mg PO BEDTIME 05/29/20 10/05/20 10/04/20 History carvedilol 25 mg PO BID 05/29/20 10/05/20 10/05/20 09:00 History furosemide 80 mg PO QAM 05/29/20 10/05/20 10/05/20 History hydralazine 10 mg PO BID 05/29/20 10/05/20 10/05/20 09:00 History sevelamer carbonate [Renvela] 2,400 mg PO TID 05/29/20 10/05/20 10/05/20 09:00 History tamsulosin 0.4 mg PO QAM 05/29/20 10/05/20 10/05/20 History acetaminophen [Tylenol Extra 1,000 mg PO PRN 10/05/20 10/05/20 Unknown History Strength] Allergies Allergy/AdvReac Type Severity Reaction Status Date / Time No Known Allergies Allergy Verified 10/05/20 19:28 Current Medications Current Medications Generic Name Dose Route Start Last Admin Trade Name Freq PRN Reason Stop Dose Admin Furosemide 40 mg 10/05/20 23:21 10/06/20 03:38 Furosemide 10 Mg/Ml Sdv 4ml IVP 40 mg Q24H JONNY Administration Heparin Sodium (Beef Lung) 5,000 unit 10/06/20 02:54 10/06/20 03:38 Heparin 5,000 Unit/Ml Inj 1 Ml SUBCUT 5,000 unit Q8H JONNY Administration Ceftriaxone Sodium 1,000 mg/ 50 mls @ 100 mls/hr 10/05/20 23:21 10/06/20 04:27 Sodium Chloride IV Infused Q24H [facility] Infusion Protocol Tamsulosin HCl 0.4 mg 10/06/20 06:00 10/06/20 05:59 Tamsulosin 0.4 Mg Capsule PO Not Given QAM [facility] PFSH Acute PFSH: Medical History Anemia in chronic kidney disease -H/H stable BPH (benign prostatic hyperplasia) -did have some transient hematuria, resolved, DM type 2 (diabetes mellitus, type 2) -history of DKA -A1c at goal-6.2, End-stage renal disease on hemodialysis -Only gets dialysis twice a week on Mondays and Fridays -access: LUE AV fistula History of 2019 novel coronavirus disease (COVID-19) (~05/2020) History of necrotizing fasciitis History of septic arthritis Hypertension -continue oral antihypertensives Paroxysmal atrial fibrillation Surgical History Arteriovenous fistula for hemodialysis in place, primary Left upper extremity History of knee surgery several times due to septic arthritis and necrotizing fasciitis Family History Other CAD (coronary artery disease) Dementia Diabetes Social History Smoking and tobacco status: never smoked Alcohol intake: never Household members: none and other Details: sister helps care for him but lives alone Vitals/I&O/Wt Last Vital Signs Temp 97.7 F 10/05/20 23:53 Pulse 87 10/06/20 06:00 Resp 16 10/06/20 04:00 BP 157/79 10/06/20 04:00 Pulse Ox 98 10/06/20 04:35 10/05/20 10/05/20 10/06/20 14:59 22:59 06:59 Intake Total 50 / 50 Output Total 200 / 200 Balance -150 / -150 Weight last 48 hrs Weight 108.862 kg Physical Exam Const: COMMON NORMALS: no acute distress GENERAL APPEARANCE: anxious Extremity: GENERAL: Yes AV fistula (left forearm - RN reports + thrill) and Yes edema Urinary Catheter Management^: Schneider: Cath Placed During This Visit: yes Reason for Continuing Indwelling Catheter: Not indwelling catheter Urinary Catheter Date of Insertion: 10/06/20 Urinary Catheter Time of Insertion: 04:26 Data Micro: Micro: Microbiology 10/05/20 00:53 Blood Culture - Pr eliminary Blood SPECIMEN [facility] 10/05/20 00:50 Blood Culture - Pr eliminary Blood SPECIMEN [facility] Imaging^: CXR: My impression: pulmonary edema, cardiomegaly, LLL infiltrate v effusion ABG^: ABG Interpretation 1: 7.28/44/129 on 60% BiPAP A&P Additional A&P Information 1. ESRD, underdialysis 2. Pulmonary edema, volume overload 3. Respiratory and metabolic acidosis 4. Anemia Plan: HD today and tomorrow. Goal UF today 3.5L as BP tolerates. Epogen at dialysis. He is refusing HD tomorrow. No IVs, Bps, blood draws left arm Consult Attestations Medical Necessity Statement: see above Time Spent in Patient Care: Greater than 35 minutes Coding Level of Care Code Acute Supervisor Vacuum Metalizing for Willy Robertson
[2020-10-06] MEDS: azithromycin 250 mg Tablet 500 MG PO (08:00)
[2020-10-06] MEDS: sevelamer 800 mg Tablet 2400 MG PO ×2 (08:00→22:25)
[2020-10-06 08:03] LABS: Hepatitis B Surface Antigen Non-Reactive (Nonreactive); Hepatitis C Virus Antibody Non-Reactive (Nonreactive)
--- NOTE | 2020-10-06 09:55 | PC.NURSE ---
pt is on Dialysis room
--- NOTE | 2020-10-06 11:05 | PM.PN ---
Subjective Subjective: Interval history: He is undergoing hemodialysis. Denies chest pain or pressure. States she currently is breathing all right. Discussed with him desaturation overnight, requirement to increase supplemental oxygen, BiPAP support, he states he was feeling pretty rough . Currently a little bit better. Denies abdominal discomfort. He remembers also having to have had Schneider catheter put in due to urinary retention. Discussing with him regarding missed hemodialysis, he states does not remember missing hemodialysis, however, hemodialysis nurse was with us, and reminded him that even though he may not have missed he also appears to have been requesting to cut the hemodialysis short a number of times and so was not getting the full prescribed time. Vitals/I&O/Wt Last Vital Signs Temp 98.7 F 10/06/20 07:36 Pulse 88 10/06/20 07:36 Resp 18 10/06/20 07:36 BP 168/84 10/06/20 07:36 Pulse Ox 96 10/06/20 07:36 10/05/20 10/06/20 10/06/20 22:59 06:59 14:59 Intake Total 50 / 50 118 / 118 Output Total 200 / 200 Balance -150 / -150 118 / 118 Weight last 48 hrs Weight 108.862 kg Physical Exam Const: COMMON NORMALS: no acute distress, patient oriented x3 and alert GENERAL APPEARANCE: cooperative and comfortable ORIENTATION/CONSCIOUSNESS: Yes awake HENMT: COMMON NORMALS: oropharynx normal Neck/C-Spine: COMMON NORMALS: no JVD Resp: COMMON NORMALS: normal respiratory effort and clear to auscultation bilaterally AUSCULTATION: clear to auscultation bilaterally and diminished lung sounds Cardio: COMMON NORMALS: no JVD, regular rhythm, S1 normal heart sound present, S2 normal heart sound present and No murmurs present (Cardio) RHYTHM: regular rhythm HEART SOUNDS: S1 normal heart sound present and S2 normal heart sound present GI: COMMON NORMALS: Normal to inspection, nondistended, normoactive bowel sounds present, Soft to palpation and non-tender PALPATION: Yes Soft to palpation Extremity: COMMON NORMALS: no joint enlargement GENERAL: Yes edema (2+) Neuro: COMMON NORMALS: patient oriented x3 and moves all extremities SENSORIUM/ORIENTATION: Yes alert Skin: COMMON NORMALS: no rashes or lesions noted GENERAL SKIN EXAM: no rashes or lesions noted Urinary Catheter Management^: Schneider: Cath Placed During This Visit: yes Reason for Continuing Indwelling Catheter: Not indwelling catheter Urinary Catheter Date of Insertion: 10/06/20 Urinary Catheter Time of Insertion: 04:26 Data : 10/06/20 00:50 10/05/20 19:05 Micro: Microbiology 10/05/20 00:53 Blood Culture - Preliminary Blood SPECIMEN COLLECTED 10/05/20 00:50 Blood Culture - Preliminary Blood SPECIMEN COLLECTED A&P Assessment and plan (1) Fluid overload: HD. Stressed that he has to make sure he does not miss dialysis, and emphasizing that cutting dialysis short is very similar to this as well as he is not getting the complete therapy he is prescribed. He verbalized understanding. Sister is concerned about his memory, will have to reassess again how much he remembers and understands at that subsequent visits. Hemodialysis today and tomorrow. Nephrology states he is refusing dialysis tomorrow. Discussed with his sister. She will come try to discuss with him and encourage. Status: Acute (2) CHF (congestive heart failure): Continue Lasix. However, discussed with his sister, primary modality is hemodialysis for him given ESRD. Continue to encourage adherence. Discussed also with him and his sister regarding moderate aortic stenosis noted on echocardiogram back in July. Status: Acute (3) Community acquired pneumonia: Continue to biotics. Status: Acute (4) Hypoxia: Continue assessment of management of CHF, fluid overload, pneumonia as above. Status: Acute (5) Sepsis: Continue to biotics, follow-up cultures. Status: Acute (6) Urine retention: Overnight 600-700 noted from urinary bladder. Schneider placed. Continue tamsulosin. It is not clear whether he is adherent with taking his medications. Status: Acute (7) End stage renal disease: Appears he leaves hemodialysis sessions early, and instead of getting 4 hours gets about 1, signing out AMA. Continue to encourage hemodialysis adherence. Status: Acute (8) Aortic stenosis: Discussed with him. Continue treatment as above. Follow-up with cardiology in office. Status: Acute (9) Troponin level elevated: Discussed with him and his sister. He denies any chest pain. There is possibly some ST depression in 1, aVL, V5, V6, possibly somewhat ischemia. Aspirin 325. Continue beta-taylor. Start statin. At this time no anticoagulation due to acute anemia, persistent decrease in hemoglobin, currently down to 8. We will additionally assess occult blood stool. Start PPI. Difficult to say whether this is type I or type II ischemia. Appears possibly type II due to fluid overload, CHF exacerbation, pneumonia, inadequate dialysis, however, does have risk factors for CAD. Discussed with him and his sister acute MN is possible. Assess limited TTE for EF, any regional wall motion abnormality. Discussed with him and his sister has risk factors for CAD. Would benefit from additional assessment for risk stratification. Status: Acute Additional A&P Information BPH: Continue tamsulosin Paroxysmal A. fib without acute exacerbation Not a candidate of anticoagulation due to anemia, risk of falls as he lives alone and has underlying dementia Continue Coreg Functional decline: His sister states he does not take care of himself at home. He is not clear whether he takes his medications, although his sister does say he has a in-home service lady coming in for 3 hours daily. Still this does not appear to be enough. 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 He is also deconditioned, and with a number of medical issues requiring hospitalization he is at risk of further deconditioning, functional decline. Would benefit from SNF rehabilitation. Strongly encouraged him and he states he will consider this. Full code Renal dialysis diet DVT prophylaxis Heparin Attestations Medical Necessity Statement*: Continue admission for assessment management of fluid overload, CHF exacerbation, in the setting of ESRD, needing hemodialysis, recently inadequate hemodialysis due to sessions being cut short, and gentleman with worsening hypoxia, also with underlying moderate aortic stenosis, additional assessment and management of troponin elevation. Disposition planning and arrangements. Coding Level of Care Code Acute Inspector Materials And Processes for Willy Robertson Diagnoses Fluid overload E87.70 CHF (congestive heart failure) I50.9 Community acquired pneumonia J18.9 Hypoxia R09.02 Sepsis A41.9 Urine retention R33.9 End stage renal disease N18.6 Aortic stenosis I35.0 Troponin level elevated R77.8
--- NOTE | 2020-10-06 11:41 | PC.CHAP ---
Pastoral Care Encounter/Spiritual Assessment Type of Contact [] Declined director operations broadcast visit [] Patient/Family/Request visit [] Outpatient visit [] Follow-up visit [] Physician referral [] Code/Alert [] Routine visit [] Staff referral [] Actively dying [] Patient sleeping [] Family support [] [] Out of room [] Palliative care [] [] Receiving care in room [] Pre-surgical visit [] Trauma [] Long length of stay [] ICU visit [xx] Other: Isolation and contact precautions put in place Relational/Emotional Strength [] Patient feels connected with others/family/visitors/staff [] Distress [] Loneliness/isolation [] Abandonment Spirituality of Patient [] Person of Joan [] Attends Voodoo of their Joan [] Believes in Prayer [] Reads Bible or Lutheran materials [] There are Spiritual issues to be addressed Outsoles Channel Opener Interventions [] Prayer [] Active listening [] Non-anxious presence [] Spiritual/emotional support [] Crisis/trauma care [] Spiritual counseling [] Bereavement support [] Provided bereavement packet [] Provided Bible/devotional materials [] Provided toy/stuffed animal, coloring book to patient or family member [] Provided Communion [] Anointing/[place] [] Salvation [] Completed spiritual assessment [] Other: Impact on Illness or Injury [] Angry [] Fearful [] Anxious [] Often cries [] Exhaustion [] Unable to work [] Unable to attend jain [] Unable to walk/stand [] Unable to read [] Unable to drive [] Unable to eat/drink [] Unable to sleep [] Unable to be with family [] Patient intubated [] Other: Summary Time spent with patient 1 minute
[2020-10-06] MEDS: aspirin 325 mg Tablet PO (12:21)
[2020-10-06] MEDS: acetaminophen 325 mg Tablet 650 MG PO ×2 (12:21→17:31)
[2020-10-06] MEDS: carvedilol 25 mg Tablet PO ×2 (13:41→17:31)
[2020-10-06] MEDS: hyDRALAzine 10 mg Tablet PO ×2 (13:41→17:31)
--- NOTE | 2020-10-06 15:18 | CTR_ITS ---
PROCEDURE INFORMATION: Exam: CTA Chest Without And With Contrast Exam date and time: 10/06/2020 3:31 PM Age: 74 years old Clinical indication: Patient HX: Dialysis PT w cr>10 C/O severe upper back pain; Additional info: Severe back pain, hypertension, tachycardia, elevated tropon TECHNIQUE: Imaging protocol: Computed tomographic angiography of the chest without and with contrast. 3D rendering (Not supervised by radiologist): MIP and/or 3D reconstructed images were created by the technologist. Total images: 562 Radiation optimization: All CT scans at this facility use at least one of these dose optimization techniques: automated exposure control; mA and/or kV adjustment per patient size (includes targeted exams where dose is matched to clinical indication); or iterative reconstruction. Contrast material: VISI 320; Contrast volume: 95 ml; Contrast route: INTRAVENOUS (IV); COMPARISON: CTA Chest-Pulmonary Emb [id number] 08/14/2014 4:04 PM RADIATION DOSE METRICS: Total DLP (mGy-cm): 1652.17 FINDINGS: Pulmonary arteries: Suboptimal pulmonary arterial contrast enhancement. No grossly visible central pulmonary embolism/pulmonary arterial thrombus. Aorta: The thoracic aorta is nonaneurysmal. No visible intimal flap or dissection. Moderate arteriosclerosis. Lungs: Bilateral patchy ground-glass interstitial lung disease opacifications, right lung more involved than left, with early consolidation in the right lower lobe of active pneumonitis/pneumonia and/or pulmonary edema. Associated interseptal and interlobular thickening consistent with interstitial edema/pulmonary edema. Central pulmonary hyperemia. Calcified granulomas of antecedent disease. Pleural spaces: Bilateral scant pleural effusions, right slightly larger than left. Heart: Mild cardiomegaly. No visible pericardial effusion. Advanced 3 vessel coronary artery disease. Calcified mitral annulus. Lymph nodes: Marginally prominent mediastinal and hilar lymph nodes with relative stability since the last study of 08/14/2014. Calcified complexes of antecedent granulomatous disease. Some of the pretracheal lymph nodes demonstrates slight increase in size which may be reactive in nature. Gallbladder and bile ducts: Cholelithiasis. Kidneys and ureters: Bilateral nephrolithiasis. Bones/joints: No visible active or acute osseous pathology. Soft tissues: Unremarkable. Other findings: Motion artifact. CT/CT angio chest [id number] IMPRESSION: 1. The thoracic aorta is nonaneurysmal. No visible intimal flap or dissection. Moderate arteriosclerosis. 2. Suboptimal pulmonary arterial contrast enhancement. No grossly visible central pulmonary embolism/pulmonary arterial thrombus. 3. Bilateral patchy ground-glass interstitial lung disease opacifications, right lung more involved than left, with early consolidation in the right lower lobe of active pneumonitis/pneumonia and/or pulmonary edema. Associated interseptal and interlobular thickening consistent with interstitial edema/pulmonary edema. 4. Central pulmonary hyperemia. 5. Advanced 3 vessel coronary artery disease. 6. Mild cardiomegaly. 7. Marginally prominent mediastinal and hilar lymph nodes. 8. Antecedent granulomatous disease. 9. Cholelithiasis. Radiation Dose CTDIVOL = (mGy): DLP = 1652.17 (mGy-cm)
[2020-10-06] MEDS: morphine 4 mg/mL SDV 1 mL 2 MG IVP (15:32)
[2020-10-06 16:03] LABS: Glucose Point of Care 146 mg/dL (70-110)
[2020-10-06] MEDS: iodixanol 320 mg/mL 100mL Btl IV (16:41)
[2020-10-06] MEDS: ALPRAZolam 0.25 mg Tablet PO (17:31)
[2020-10-06] MEDS: quetiapine 25 mg Tablet PO (22:24)
[2020-10-06] MEDS: atorvastatin 40 mg Tablet PO (22:25)
[2020-10-06] MEDS: amlodipine 10 mg Tablet PO (22:26)
[2020-10-07] VITALS (13 sets, daily range): BP systolic 123–159; BP diastolic 66–98; PULSE 85–95; RESP 15–24; TEMP 36.5–36.8; O2SAT 90–100
[2020-10-07] MEDS: sodium chloride 0.9% (100 ml) 100 ML 75 ML (02:50)
[2020-10-07] MEDS: cefTRIAXone 1,000 MG in sodium chloride 0.9% (plus) 50 ML 100 MG IV (02:51)
[2020-10-07] MEDS: FUROsemide 10 mg/mL SDV 4mL 40 MG IVP (03:09)
[2020-10-07] MEDS: heparin 5,000 unit/mL INJ 1 mL 5000 UNIT SUBCUT (03:13)
[2020-10-07 05:16] LABS: Basophils # 0.1 10^3/uL (0.0-0.1); Basophils % 0.6 %; Eosinophils # 0.2 10^3/uL (0.0-0.8); Eosinophils % 1.9 %; Hematocrit 29.1 % (42.0-52.0); Hemoglobin 8.3 g/dL (11.7-16.6); Lymphocytes # 0.8 10^3/uL (0.8-4.8); Lymphocytes % 9.2 %; Mean Corpuscular HGB Conc 28.5 g/dL (30.0-36.0); Mean Corpuscular Hemoglobin 26.2 pg (28.0-34.0); Mean Corpuscular Volume 91.8 fL (80-94); Mean Platelet Volume 11.1 fL (7.4-10.4); Monocytes # 0.6 10^3/uL (0.2-0.9); Monocytes % 7.1 %; Neutrophils # 7.16 10^3/uL (1.8-7.7); Neutrophils % 80.6 %; Nucleated Red Blood Cells % 0 %; Platelet Count 223 10^3/cmm (130-400); Red Blood Count 3.17 10^6/uL (4.1-5.3); White Blood Count 8.9 10^3/uL (4.0-10.0)
[2020-10-07] MEDS: tamsulosin 0.4 mg Capsule PO (05:46)
[2020-10-07 05:48] LABS: Alanine Aminotransferase < 5 U/L (0-41); Albumin Level 3.1 g/dL (3.5-5.2); Alkaline Phosphatase 66 IU/L (40-130); Aspartate Amino Transferase 9 U/L (0-40); Blood Urea Nitrogen 50 mg/dL (8-23); Calcium 8.5 mg/dL (8.5-10.5); Carbon Dioxide 26 mmol/L (22-29); Chloride 96 mmol/L (98-107); Globulin 2.9 g/dL (1.3-4.6); Glucose 118 mg/dL (65-115); Osmolality Calculated 296 mOsm/kg (285-295); Sodium 136 mmol/L (136-145); Total Bilirubin 0.4 mg/dL (0.15-1.2)
--- NOTE | 2020-10-07 06:00 | USCV_ITS ---
Familia Mason Age: 74 Gender: M : 1945 Exam Date: 10/07/2020 06:26 Ordering Phys: Darren Pepe MD Technologist: Renae Stock Exam Location: [facility] [place] Indication: Troponin elevation BP: 127 / 66 HR: 88 Rhythm: Sinus Technical Quality: Adequate MEASUREMENTS (Male / Female) Normal Values 2D ECHO LV Diastolic Diameter PLAX 3.9 cm 4.2 - 5.9 / 3.9 - 5.3 cm LV Systolic Diameter PLAX 2.8 cm IVS Diastolic Thickness 2.6 cm 0.6 - 1.0 / 0.6 - 0.9 cm IVS Systolic Thickness 2.6 cm LVPW Diastolic Thickness 2.0 cm 0.6 - 1.0 / 0.6 - 0.9 cm LVPW Systolic Thickness 2.5 cm RV Chamber Size 4.1 cm LVOT Diameter 2.0 cm LV Ejection Fraction 2D Teich 55.8 % LV Ejection Fraction MOD 2C 50.2 % LV Ejection Fraction 2C AL 48.2 % LA Diameter 4.2 cm LA Width 4.2 cm LA Height 5.4 cm RA Width 3.5 cm RA Height 4.8 cm Aorta at Sinotubular Diameter 2.5 cm M-MODE LV Diastolic Diameter MM 6.0 cm 4.2 - 5.9 / 3.9 - 5.3 cm LV Systolic Diameter MM 4.3 cm LV Ejection Fraction MM Teich 53.5 % IVS Diastolic Thickness MM 1.7 cm 0.6 - 1.0 / 0.6 - 0.9 cm IVS Systolic Thickness MM 2.4 cm LVPW Diastolic Thickness MM 2.2 cm 0.6 - 1.0 / 0.6 - 0.9 cm LVPW Systolic Thickness MM 2.0 cm Aortic Annulus Diameter 2.7 cm LA Ao Ratio MM 1.6 MV E Point Septal Separation 0.5 cm FINDINGS Left Ventricle Normal LV size with a slightly diminished ejection fraction 50%. Relative hypokinesia of the septum and anteroseptal segments Right Ventricle The right ventricle is normal in size and function. Right Atrium The right atrium is normal in size. Left Atrium Mildly increased left atrial size. Mitral Valve Moderate mitral annular calcification. Aortic Valve Aortic valve appears to be stenotic. Tricuspid Valve No gross abnormalities noted Pulmonic Valve Not visualized well Pericardium Normal pericardium without effusion. Aorta Normal ascending aorta dimension. CONCLUSIONS Normal LV size with a slightly diminished ejection fraction 50%. Relative hypokinesia of the septum and anteroseptal segments. Mildly increased left atrial size. Moderate mitral annular calcification. Stenotic aortic valve Compared to the study from 07/18/2020, the wall motion abnormality appears to be new. Dr. Pepe was informed about these findings Dr Patria Rabago MD [facility] (Electronically Signed) Final Date: 07 October 2020 10:39 S
--- NOTE | 2020-10-07 07:30 | P.PN_ITS ---
Subjective Subjective: Interval history: CTA yesterday. He has no complaints today. In chair, denies dyspnea Medications: Reviewed: Yes Vitals/I&O/Wt Last Vital Signs Temp 97.9 F 10/07/20 04:00 Pulse 92 10/07/20 06:00 Resp 18 10/07/20 04:00 BP 127/66 10/07/20 04:00 Pulse Ox 90 10/07/20 04:00 10/06/20 10/07/20 10/07/20 22:59 06:59 14:59 Intake Total 360 / 596 150 / 746 Output Total 900 / 900 475 / 1375 Balance -540 / -304 -325 / -629 Weight last 48 hrs Weight 108.862 kg Physical Exam Const: COMMON NORMALS: no acute distress GENERAL APPEARANCE: cooperative Resp: COMMON NORMALS: normal respiratory effort AUSCULTATION: rales Cardio: COMMON NORMALS: regular rate and regular rhythm RATE: regular rate RHYTHM: regular rhythm Extremity: GENERAL: Yes AV fistula (left UE + bruit) and Yes edema (left leg 1+) Urinary Catheter Management^: Soliz: Cath Placed During This Visit: yes Reason for Continuing Indwelling Catheter: Acute Urinary Retention or Obstruction Urinary Catheter Date of Insertion: 10/06/20 Urinary Catheter Time of Insertion: 04:26 Data : 10/07/20 04:18 10/07/20 04:18 Micro: Microbiology 10/05/20 00:53 Blood Culture - Preliminary Blood NEGATIVE TO DATE 10/05/20 00:50 Blood Culture - Preliminary Blood NEGATIVE TO DATE 10/06/20 14:10 Bacterial Antigens - Final Urine,Clean Catch 10/06/20 14:10 Legionella Urinary Antigen - Final Urine Catheterized CTA Chest: Radiologist's impression: 1. The thoracic aorta is nonaneurysmal. No visible intimal flap or dissection. Moderate arteriosclerosis. 2. Suboptimal pulmonary arterial contrast enhancement. No grossly visible central pulmonary embolism/pulmonary arterial thrombus. 3. Bilateral patchy ground-glass interstitial lung disease opacifications, right lung more involved than left, with early consolidation in the right lower lobe of active pneumonitis/pneumonia and/or pulmonary edema. Associated interseptal and interlobular thickening consistent with interstitial edema/pulmonary edema. 4. Central pulmonary hyperemia. 5. Advanced 3 vessel coronary artery disease. 6. Mild cardiomegaly. 7. Marginally prominent mediastinal and hilar lymph nodes. 8. Antecedent granulomatous disease. 9. Cholelithiasis. A&P Additional A&P Information 1. ESRD, underdialysis 2. Pulmonary edema, volume overload, improved 3. Metabolic acidosis, resolved 4. Anemia, did not receive epogen yesterday at dialysis Plan: HD today - he is agreeable. 3h Goal UF 2L as BP tolerates. Should have dialysis 3x weekly No IVs, Bps, blood draws left arm. Will receive epogen today at dialysis Voiding trial - remove soliz Attestations Medical Necessity Statement*: per primary service Time Spent in Patient Care: 16 - 35 minutes Coding Level of Care Code Acute Aeronautical Engineering Technologist for Willy Robertson
[2020-10-07] MEDS: aspirin 325 mg Tablet PO (08:22)
[2020-10-07] MEDS: azithromycin 250 mg Tablet 500 MG PO (08:22)
[2020-10-07] MEDS: sevelamer 800 mg Tablet 2400 MG PO ×3 (08:22→21:31)
[2020-10-07] MEDS: ALPRAZolam 0.5 mg Tablet PO ×2 (10:44→21:30)
--- NOTE | 2020-10-07 10:52 | P.CONIM_ITS ---
Providers/Reason For Consult Consulting Physican/Specialty*: EDDIE Rabago MD/cardiology Reason for Consult*: Elevated troponin T/abnormal echocardiogram Attending Physician: Darren Pepe Primary Care Provider: Salvador Daley MD History of Present Illness History of Present Illness Familia Mason is a 74 year old male with a history of end-stage renal disease, high blood pressure, dyslipidemia, type 2 diabetes and? Dementia, is admitted to the hospital through the emergency room where he presented with complaints of shortness of breath and generalized weakness. He was found to have features of right lower lobe pneumonia and heart failure. He also was found to have elevated troponin T. His echocardiogram revealed some new wall motion abnormalities. Cardiology consult is requested for further cardiac evaluation recommendations. This patient is a very poor historian. Most of the information is from the medical records. His sister who he is helping with medications and his medical care is not available at this time. Was no answer to the phone . Apparently , who lives alone has not been taking care of himself well. He was getting hemodialysis twice a day but he was skipping many of his dialysis sessions. He had at least 2-3 hospital admissions in the recent past for altered mental status associated with infections. In May of last year, he was admitted with COVID-19. Based on the medical records, his functional status has been deteriorating since then. He has not been having any chest pain. No history for any coronary artery disease,or myocardial infarction. His CT of the chest revealed pulmonary congestion. He denies any fever or chills. No significant cough. He has been on hemodialysis at least for the last more than 3 years. To start with, he had been getting dialysis 3 times a week but lately it was cut back to 2 times a week. He had a scheduled dialysis this morning. He is not able to recall many of the past medical history. He was found to have elevated troponin T at the time of admission. THe baseline troponin T was 461. The 6-hour delta was -6. His BNP was in the 20,000 range. He is known to have at least moderate aortic valve stenosis. He has a longstanding history of heart murmur. His LV ejection fraction was within normal limits, based on the echocardiogram in May of last year. Current echocardiogram revealed hypokinesia of the septum and anteroseptal segments with an ejection fraction around 50%. His EKG showed diffuse nonspecific ST-T changes. He also was found to be tachycardic(sinus tachycardia), at the time of the admission. He has no previous documented history for coronary artery disease or myocardial infarction. No significant family history for atherosclerotic heart disease Review of Systems Narrative: CONSTITUTIONAL: No fever or chills. Dialyzed weakness and shortness of breath as mentioned above EYES: No blurring of vision or other visual disturbances lately. ENT: No hoarseness of voice, auditory disturbances or sore throat. CARDIOVASCULAR: As mentioned above. RESPIRATORY: Shortness of breath as mentioned above GASTROINTESTINAL: No hematemesis or melena. GENITOURINARY: End-stage renal disease, on hemodialysis INTEGUMENTARY: No skin rashes or history of skin cancer. NEURO: Episodes of altered mental status PSYCHIATRIC: No history of psychosis or major depression. HEMATOLOGIC: No bleeding disorders or significant anemia. ENDOCRINE: History of type 2 diabetes MUSCULOSKELETAL: No recent joint pain or swelling. ALLERGY/IMMUNOLOGY: As mentioned above. Meds/Allergies Home Medications and Allergies Home Medications Medication Instructions Recorded Confirmed Last Taken Type Imodium A-D 1 tab PO QAM 05/29/20 10/05/20 10/05/20 History amlodipine 10 mg PO BEDTIME 05/29/20 10/05/20 10/04/20 History carvedilol 25 mg PO BID 05/29/20 10/05/20 10/05/20 09:00 History furosemide 80 mg PO QAM 05/29/20 10/05/20 10/05/20 History hydralazine 10 mg PO BID 05/29/20 10/05/20 10/05/20 09:00 History sevelamer carbonate [Renvela] 2,400 mg PO TID 05/29/20 10/05/20 10/05/20 09:00 History tamsulosin 0.4 mg PO QAM 05/29/20 10/05/20 10/05/20 History acetaminophen [Tylenol Extra 1,000 mg PO PRN 10/05/20 10/05/20 Unknown History Strength] Allergies Allergy/AdvReac Type Severity Reaction Status Date / Time No Known Allergies Allergy Verified 10/05/20 19:28 Current Medications Current Medications Generic Name Dose Route Start Last Admin Trade Name Freq PRN Reason Stop Dose Admin Acetaminophen 650 mg 10/06/20 12:05 10/06/20 17:31 Acetaminophen 325 Mg Tablet PO 650 mg Q4H PRN Administration MILD PAIN OR INCREASE TEMP Alprazolam 0.5 mg 10/07/20 10:23 10/07/20 10:44 Alprazolam 0.5 Mg Tablet PO 0.5 mg BID PRN Administration ANXIETY Amlodipine Besylate 10 mg 10/06/20 21:00 10/06/20 22:26 Amlodipine 10 Mg Tablet PO 10 mg BEDTIME JONNY Administration Aspirin 325 mg 10/06/20 12:15 10/07/20 08:22 Aspirin 325 Mg Tablet PO 325 mg DAILY JONNY Administration Atorvastatin Calcium 40 mg 10/06/20 21:00 10/06/20 22:25 Atorvastatin 40 Mg Tablet PO 40 mg BEDTIME JONNY Administration Azithromycin 500 mg 10/06/20 09:00 10/07/20 08:22 Azithromycin 250 Mg Tablet PO 500 mg DAILY JONNY Administration Protocol Carvedilol 25 mg 10/06/20 09:00 10/06/20 17:31 Carvedilol 25 Mg Tablet PO 25 mg BID JONNY Administration Furosemide 40 mg 10/05/20 23:21 10/07/20 03:09 Furosemide 10 Mg/Ml Sdv 4ml IVP 40 mg Q24H JONNY Administration Heparin Sodium (Beef Lung) 5,000 unit 10/06/20 02:54 10/07/20 03:13 Heparin 5,000 Unit/Ml Inj 1 Ml SUBCUT 5,000 unit Q8H JONNY Administration Hydralazine HCl 10 mg 10/06/20 09:00 10/06/20 17:31 Hydralazine 10 Mg Tablet PO 10 mg BID JONNY Administration Ceftriaxone Sodium 1,000 mg/ 50 mls @ 100 mls/hr 10/05/20 23:21 10/07/20 03:30 Sodium Chloride IV Infused Q24H JONNY Infusion Protocol Sevelamer Carbonate 2,400 mg 10/06/20 09:00 10/07/20 08:22 Sevelamer 800 Mg Tablet PO 2,400 mg TID JONNY Administration Tamsulosin HCl 0.4 mg 10/06/20 06:00 10/07/20 05:46 Tamsulosin 0.4 Mg Capsule PO 0.4 mg QAM JONNY Administration PFSH Acute PFSH: Medical History Anemia in chronic kidney disease -H/H stable BPH (benign prostatic hyperplasia) -did have some transient hematuria, resolved, DM type 2 (diabetes mellitus, type 2) -history of DKA -A1c at goal-6.2, End-stage renal disease on hemodialysis -Only gets dialysis twice a week on Mondays and Fridays -access: LUE AV fistula History of 2019 novel coronavirus disease (COVID-19) (~05/2020) History of necrotizing fasciitis History of septic arthritis Hypertension -continue oral antihypertensives Paroxysmal atrial fibrillation Surgical History Arteriovenous fistula for hemodialysis in place, primary Left upper extremity History of knee surgery several times due to septic arthritis and necrotizing fasciitis Family History Other CAD (coronary artery disease) Dementia Diabetes Social History Smoking and tobacco status: never smoked Alcohol intake: never Household members: none and other Details: sister helps care for him but lives alone Vitals/I&O/Wt Last Vital Signs Temp 97.7 F 10/07/20 07:31 Pulse 93 10/07/20 08:53 Resp 18 10/07/20 08:53 BP 123/74 10/07/20 07:31 Pulse Ox 96 10/07/20 08:53 10/06/20 10/07/20 10/07/20 22:59 06:59 14:59 Intake Total 360 / 596 150 / 746 120 / 120 Output Total 900 / 900 475 / 1375 Balance -540 / -304 -325 / -629 120 / 120 Weight last 48 hrs Weight 240 lb Physical Exam Narrative: EXAM NARRATIVE: GENERAL: The patient is alert and oriented to person. Confused about place and time. HEENT: Moderate pallor. No icterus or lymphadenopathy.Oral cavity: There are no mucous membrane lesions. The fundus is not visualized NECK: Trachea appears to be central. No masses noted. No JVD or thyromegaly appreciated. Bilateral carotid bruit RESPIRATORY: Chest is symmetrical. No intercostals muscle retraction or any accessory muscle activation. There is no chest wall tenderness. Breath sounds are heard bilaterally. No rales or rhonchi heard. No evidence of any consolidation. BREASTS: Deferred. HEART: The heart sounds are normal. No S3 or S4. Ejection systolic murmur of grade 4/6 aortic area with transmission to both carotids. No diastolic murmurs. No pericardial rub ABDOMEN: No vessel pulsations or distention. No tenderness. No organomegaly appreciated. Bowel sounds are normally heard. : Deferred. RECTAL: Deferred. LYMPHATIC: No lymphadenopathy noted in the neck or groin. EXTREMITIES: No edema or cyanosis. No clubbing. The dorsalis pedis and posterior pulses are difficult to palpate. MUSCULOSKELETAL: No acute joint deformities or swelling SKIN: There are no significant rashes or ecchymosis NEUROPSYCHIATRIC: The patient is alert and oriented x3. Appears to be in a good mood. No tremors or rigidity noted. Urinary Catheter Management^: Schneider: Cath Placed During This Visit: yes Reason for Continuing Indwelling Catheter: Acute Urinary Retention or Obstruction Urinary Catheter Date of Insertion: 10/06/20 Urinary Catheter Time of Insertion: 04:26 Data Labs: Other Labs: Laboratory Last Values WBC 8.9 10^3/uL (4.0- 10.0) 10/07/20 04:18 RBC 3.17 10^6/uL (4.1 -5.3) L 10/07/20 04:18 Hgb 8.3 g/dL (11.7-16 .6) L 10/07/20 04:18 Hct 29.1 % (42.0-52.0 ) L 10/07/20 04:18 MCV 91.8 fL (80-94) 10/07/20 04:18 MCH 26.2 pg (28.0-34. 0) L 10/07/20 04:18 MCHC 28.5 g/dL (30.0-3 6.0) L 10/07/20 04:18 RDW 16.0 % (12.1-15.1 ) H 10/07/20 04:18 Plt Count 223 10^3/cmm (130 -400) 10/07/20 04:18 MPV 11.1 fL (7.4-10.4 ) H 10/07/20 04:18 Neut % (Auto) 80.6 % 10/07/20 04:18 Lymph % (Auto) 9.2 % 10/07/20 04:18 Schleicher % (Auto) 7.1 % 10/07/20 04:18 Eos % (Auto) 1.9 % 10/07/20 04:18 Baso % (Auto) 0.6 % 10/07/20 04:18 Neut # (Auto) 7.16 10^3/uL (1.8 -7.7) 10/07/20 04:18 Lymph # (Auto) 0.8 10^3/uL (0.8- 4.8) 10/07/20 04:18 Schleicher # (Auto) 0.6 10^3/uL (0.2- 0.9) 10/07/20 04:18 Eos # (Auto) 0.2 10^3/uL (0.0- 0.8) 10/07/20 04:18 Baso # (Auto) 0.1 10^3/uL (0.0- 0.1) 10/07/20 04:18 Nucleated RBC % (a uto) 0 % 10/07/20 04:18 Nucleated RBCs # 0.0 /100WBC 10/07/20 04:18 Specimen Type Arterial 10/05/20 19:01 Sample Site Brachial, right 10/05/20 19:01 ABG pH 7.28 (7.35-7.45) L 10/05/20 19:01 ABG pCO2 44.1 mmHg (35-45) 10/05/20 19:01 ABG pO2 129.0 mmHg (80.0- 100.0) H 10/05/20 19:01 ABG HCO3 20.6 mmol/L (22-2 6) L 10/05/20 19:01 ABG Base Excess -5.9 mmol/L (-2.0 -2.0) L 10/05/20 19:01 Chris Test N/a 10/05/20 19:01 Hematocrit 30.3 % (42-52) L 10/05/20 19:01 Hgb O2 Saturation 97.3 % (95-100) 10/05/20 19:01 Carboxyhemoglobin 0.9 %THgb (0.4-20 .1) 10/05/20 19:01 Methemoglobin 0.4 % (0.4-1.5) 10/05/20 19:01 Total Hemoglobin 9.9 g/dL (14-18) L 10/05/20 19:01 O2 Delivery Device Bipap 10/05/20 19:01 FiO2 60.0 % 10/05/20 19:01 Polymerization Supervisor ID Harkr 10/05/20 19:01 Sodium 136 mmol/L (136-1 45) 10/07/20 04:18 Potassium 4.0 mmol/L (3.5-5 .1) 10/07/20 04:18 Chloride 96 mmol/L (98-107 ) L 10/07/20 04:18 Carbon Dioxide 26 mmol/L (22-29) 10/07/20 04:18 Anion Gap 18.0 (5-19) 10/07/20 04:18 BUN 50 mg/dL (8-23) H 10/07/20 04:18 Creatinine 6.4 mg/dL (0.7-1. 2) H* 10/07/20 04:18 GFR Calculation Not Reportable 10/07/20 04:18 Glucose 118 mg/dL (65-115 ) H 10/07/20 04:18 POC Glucose 146 mg/dL (70-110 ) H 10/06/20 16:00 Calculated Osmolal ity 296 mOsm/kg (285- 295) H 10/07/20 04:18 Calcium 8.5 mg/dL (8.5-10 .5) 10/07/20 04:18 Total Bilirubin 0.4 mg/dL (0.15-1 .2) 10/07/20 04:18 AST 9 U/L (0-40) 10/07/20 04:18 ALT < 5 U/L (0-41) 10/07/20 04:18 Alkaline Phosphata se 66 IU/L (40-130) 10/07/20 04:18 Troponin T Baselin e 461 ng/L (0-15) H* 10/05/20 19:05 Troponin T Hi Sens 6Hr 452.5 ng/L (0-15) H 10/06/20 00:53 Troponin T Hi Sens 6Hr Delta -8.5 ng/L (0-12) L 10/06/20 00:53 NT-Pro-B Natriuret Pep 18924 pg/mL (0-12 5) H 10/05/20 19:05 Total Protein 6.0 g/dL (6.6-8.7 ) L 10/07/20 04:18 Albumin 3.1 g/dL (3.5-5.2 ) L 10/07/20 04:18 Globulin 2.9 g/dL (1.3-4.6 ) 10/07/20 04:18 Hep Bs Antigen Non-reactive (No nreactive) 10/05/20 19:10 Hepatitis C Antibo dy Non-reactive (No nreactive) 10/05/20 19:10 Micro: Micro: Microbiology 10/05/20 00:53 Blood Culture - Pr eliminary Blood NEGATIVE TO CHINO E 10/05/20 00:50 Blood Culture - Pr eliminary Blood NEGATIVE TO CHINO E 10/06/20 14:10 Bacterial Antigens - Final Urine,Clean Catch 10/06/20 14:10 Legionella Urinary Antigen - Final Urine Catheterize d Imaging^: Echo: My impression: Echocardiogram done today revealed 1. Normal left ventricular size and systolic function with no diagnostic regional wall motion abnormalities. Moderate concentric left ventricular hypertrophy. Left ventricular ejection fraction is estimated at 55 %. Grade 1 diastolic dysfunction with normal to elevated filling pressure. 2. Normal pulmonary artery pressure. 3. Moderate aortic valve stenosis peak velocity 3.2 m/s, peak gradient 40 mmHg, mean gradient 20.4 mmHg, ESTRELLA 1.2 cm squared. 4. Mildly increased left atrial size. 5. When compared to previous echocardiogram dated 06/12/2018, there is moderate aortic valve stenosis now. CTA Chest: Radiologist's impression: CT of the chest from 10/06/2020 1. The thoracic aorta is nonaneurysmal. No visible intimal flap or dissection. Moderate arteriosclerosis. 2. Suboptimal pulmonary arterial contrast enhancement. No grossly visible central pulmonary embolism/pulmonary arterial thrombus. 3. Bilateral patchy ground-glass interstitial lung disease opacifications, right lung more involved than left, with early consolidation in the right lower lobe of active pneumonitis/pneumonia and/or pulmonary edema. Associated interseptal and interlobular thickening consistent with interstitial edema/pulmonary edema. 4. Central pulmonary hyperemia. 5. Advanced 3 vessel coronary artery disease. 6. Mild cardiomegaly. 7. Marginally prominent mediastinal and hilar lymph nodes. 8. Antecedent granulomatous disease. 9. Cholelithiasis. EKG^: EKG 1: My Interpretation: Sinus tachycardia with a heart rate of 105 bpm. Possible left atrial enlargement. Diffuse nonspecific ST-T changes. Some nonspecific IVCD. A&P Assessment and plan (1) Troponin level elevated: Possibility of a non-ST elevation myocardial infarction is a strong consideration especially in view of the abnormal echocardiogram and EKG. Patient has multiple risk factors for coronary artery disease. Since the troponin T is bending down, the event might have happened within the last 1 week or so. At this point, I may start him on Plavix 75 mg p.o. daily after loading dose of 300 mg. The dose of the aspirin may be cut back to 81 mg p.o. daily. Because of the anemia we may closely watch for any spontaneous bleed. Status: Acute (2) End stage renal disease: Patient is on hemodialysis, twice a week. This may be continued. Status: Acute (3) Abnormal echocardiogram: The abnormal echocardiogram, may suggest ischemia in the distribution of the left anterior descending artery. This needs to be further evaluated. Patient may benefit from a myocardial perfusion imaging and possible cardiac catheterization, to further evaluate his coronary status and decide on further management. I will be discussing this with his sister/power of assistant attorney general and make a final decision. In the meanwhile, we may try to optimize his medical treatment Status: Acute (4) Acute on chronic diastolic (congestive) heart failure: Most likely the ischemia and renal failure might have caused the cardiac decompensation. The heart failure seems to be getting compensated at this time. Status: Acute (5) Benign essential hypertension with target blood pressure below 140/90: Currently he is normotensive. May continue on the current medications. Status: Acute (6) Dyslipidemia: Patient is on a statin. This may be continued. Status: Acute (7) DM type 2 (diabetes mellitus, type 2): Aggressive management of the diabetes is warranted. We will be closely monitoring the blood sugar. Status: Acute Qualifiers: Diabetes mellitus exterminator helper termite insulin use: without chcf use Diabetes mellitus complication status: with kidney complications Diabetes mellitus complication detail: with chronic kidney disease Chronic kidney disease stage: on chronic dialysis Qualified Code(s): E11.22 - Type 2 diabetes mellitus with diabetic chronic kidney disease; N18.6 - End stage renal disease; Z99.2 - Dependence on renal dialysis (8) Right lower lobe pneumonia: Patient is on IV antibiotics. Management as per the primary. Status: Acute Qualifiers: Pneumonia type: due to unspecified organism Qualified Code(s): J18.9 - Pneumonia, unspecified organism Additional A&P Information The other problems are Carotid bruit, is a history of carotid artery stenosis Peripheral arterial disease Moderate anemia Possible dementia I may go ahead and do a carotid Doppler examination and arterial duplex study, to further evaluate the carotid bruit and peripheral arteries. we may consider doing a myocardial perfusion imaging, to further evaluate the coronary status and decide on further management. This will be decided after discussing with the family/power of assistant attorney general. Based on the patient's clinical progress, further recommendations will be made. Thank you for the opportunity to evaluate this patient and make these recommendations Coding Level of Care Code Acute Vision Teacher for Chg Fwd History Detailed Exam Detailed Medical Decision Making High Complexity Diagnoses Troponin level elevated R77.8 End stage renal disease N18.6 Abnormal echocardiogram R93.1 Acute on chronic diastolic (congestive) heart failure I50.33 Benign essential hypertension with target blood pressure below 140/90 I10 Dyslipidemia E78.5 DM type 2 (diabetes mellitus, type 2) E11.22; N18.6; Z99.2 Diabetes mellitus chcf insulin use: without chcf use Diabetes mellitus complication status: with kidney complications Diabetes mellitus complication detail: with chronic kidney disease Chronic kidney disease stage: on chronic dialysis Right lower lobe pneumonia J18.9 Pneumonia type: due to unspecified organism Time Spent (min) 60
--- NOTE | 2020-10-07 11:00 | PC.NURSE ---
Off to Dialysis room for Hemodialysis order
[2020-10-07] MEDS: carvedilol 25 mg Tablet PO (15:01)
[2020-10-07] MEDS: hyDRALAzine 10 mg Tablet PO ×2 (15:01→22:01)
--- NOTE | 2020-10-07 20:56 | P.PN_ITS ---
Subjective Subjective: Interval history: Meeting with him today, he is pleasant, sitting up in chair, asking me how I am. Asking him if he remembers meeting with me before he states vaguely, perhaps at one point . Discussed with him that we had had a conversation yesterday, to which he asked me what about? . I discussed with family had met while he was having hemodialysis. Asked him if he remembers about any additional medical conditions that we had discussed about or that he knows of that he has. He thinks for a moment, states I do not remember . We discussed regarding fluid overload, CHF, pneumonia among others, and now also concern regarding a non-STEMI at some point recently. He verbalized understanding. Discussed also with him concern that his sister and we have been having regarding his physical deconditioning and functional decline, and again discussed with him recommendation for him to be discharged to [facility] facility [facility] the hospital. He states that he appreciates that his sister feels sore, but states that he knows the living situation better. Asking him who takes him for hemodialysis, he is states I do not know, the neighbor occasionally . Asking him if he remembers name of the caregiver at home, he does not remember initially, but after little bit states Brendan . Asking him if he remembered missing any hemodialysis sessions, he states it's possible I may have . Vitals/I&O/Wt Last Vital Signs Temp 98.2 F 10/07/20 19:06 Pulse 85 10/07/20 19:06 Resp 18 10/07/20 19:06 BP 137/71 10/07/20 19:06 Pulse Ox 95 10/07/20 19:06 10/07/20 10/07/20 10/07/20 06:59 14:59 22:59 Intake Total 150 / 746 356 / 356 120 / 476 Output Total 475 / 1375 Balance -325 / -629 356 / 356 120 / 476 Physical Exam Const: COMMON NORMALS: no acute distress and alert GENERAL APPEARANCE: cooperative and comfortable ORIENTATION/CONSCIOUSNESS: Yes awake, Yes oriented to person and Yes oriented to place; not oriented to time (The is 1999 something ) OTHER: Pleasant, conversant. Sitting up in chair. HENMT: COMMON NORMALS: oropharynx normal Neck/C-Spine: COMMON NORMALS: no JVD Resp: COMMON NORMALS: normal respiratory effort and clear to auscultation bilaterally AUSCULTATION: clear to auscultation bilaterally and diminished lung sounds Cardio: COMMON NORMALS: no JVD, regular rhythm, S1 normal heart sound present, S2 normal heart sound present and No murmurs present (Cardio) RHYTHM: regular rhythm HEART SOUNDS: S1 normal heart sound present and S2 normal heart sound present GI: COMMON NORMALS: Normal to inspection, nondistended, normoactive bowel sounds present, Soft to palpation and non-tender PALPATION: Yes Soft to palpation Extremity: COMMON NORMALS: no joint enlargement GENERAL: Yes edema (2+. Improving.) Neuro: COMMON NORMALS: moves all extremities SENSORIUM/ORIENTATION: Yes alert, Yes oriented to person, Yes oriented to place and No oriented to time (The is 1999 something ) Skin: COMMON NORMALS: no rashes or lesions noted GENERAL SKIN EXAM: no rashes or lesions noted Urinary Catheter Management^: Schneider: Cath Placed During This Visit: yes Reason for Continuing Indwelling Catheter: Acute Urinary Retention or Obstruction Urinary Catheter Date of Insertion: 10/06/20 Urinary Catheter Time of Insertion: 04:26 Data : 10/07/20 04:18 10/07/20 04:18 Micro: Microbiology 10/05/20 00:53 Blood Culture - Preliminary Blood NEGATIVE TO DATE 10/05/20 00:50 Blood Culture - Preliminary Blood NEGATIVE TO DATE 10/06/20 14:10 Bacterial Antigens - Final Urine,Clean Catch 10/06/20 14:10 Legionella Urinary Antigen - Final Urine Catheterized A&P Assessment and plan (1) CHF (congestive heart failure): Continue modalities. He agrees to treatment today. Continue Lasix. However, discussed with his sister, primary modality is hemodialysis for him given ESRD. Continue to encourage adherence. Discussed also with him and his sister regarding moderate aortic stenosis noted on echocardiogram back in July. Request to check daily weight. Monitor I&O. Status: Acute (2) Community acquired pneumonia: Continue to ceftriaxone, azithromycin. Oxygenation appears to have stabilized.Urine bacterial antigens negative. Status: Acute (3) Hypoxia: Continue assessment of management of CHF, fluid overload, pneumonia as above. Status: Acute (4) Troponin level elevated: Echocardiogram results reviewed with cardiology. Possible NSTEMI. Requested cardiology consultation. Appreciate recommendations and medication changes. Attempted to update his sister, however, cannot get through on the phone number listed this evening. Assess occult blood stool. Continue PPI. Status: Acute (5) Aortic stenosis: Continue treatment for CHF. Follow-up with cardiology in office. Status: Acute (6) Sepsis: Continue antibiotics, follow-up final blood cultures. Status: Acute (7) Dementia: Possible dementia as he appears to have quite significant short term memory difficulties, has poor insight into his medical condition. Appears to have better distant memory. We will continue to reevaluate. May benefit from follow-up with neurology for neuropsychiatric assessment. Does not appear safe to return home to manage things on his own. Does have a caregiver coming in daily, however, still appears to be missing hemodialysis sessions, not sure that he is adherent with his medications, and overall does not appear to be able to make safe decisions, however, will continue follow-up and reassessments as he is getting out of the acute conditions. Attempted to reach sister for update this evening. Status: Acute (8) Urine retention: Maintain Schneider Continue tamsulosin. It is not clear whether he is adherent with taking his medications. Follow-up with urology. Status: Acute (9) End stage renal disease: Appears he leaves hemodialysis sessions early, and instead of getting 4 hours gets about 1, signing out AMA. Continue to encourage hemodialysis adherence. Status: Acute (10) Declining functional status: His sister states he does not take care of himself at home. He is not clear whether he takes his medications, although his sister does say he has a in-home service lady coming in for 3 hours daily. Still this does not appear to be enough. Understanding of his condition at this time is difficult to associate professor, although he does appear to verbalize understanding and agreement on discussion and teaching, however, will have to reassess how much she retains on subsequent visits. He is also deconditioned, and with a number of medical issues requiring hospitalization he is at risk of further deconditioning, functional decline. Would benefit from SNF rehabilitation. Strongly encouraged him and he states he will consider this. Status: Acute Additional A&P Information BPH: Continue tamsulosin Paroxysmal A. fib without acute exacerbation Not a candidate of anticoagulation due to anemia, risk of falls as he lives alone and has underlying dementia Continue Coreg Full code Renal dialysis diet DVT prophylaxis Heparin Attestations Medical Necessity Statement*: Continue admission for assessment management of pneumonia, CHF exacerbation, NSTEMI, optimization of medications pending additional assessment, additional reassessments of cognitive decline and possi ble dementia, declining functional status, disposition planning. Coding Level of Care Code Acute Hospitality Recruiter for Chg Fwd Diagnoses CHF (congestive heart failure) I50.9 Community acquired pneumonia J18.9 Hypoxia R09.02 Troponin level elevated R77.8 Aortic stenosis I35.0 Sepsis A41.9 Dementia F03.90 Urine retention R33.9 End stage renal disease N18.6 Declining functional status R53.81
[2020-10-07] MEDS: clopidogrel 300 mg Tablet PO (21:31)
[2020-10-07] MEDS: atorvastatin 40 mg Tablet PO (21:31)
--- NOTE | 2020-10-07 21:42 | PC.NURSE ---
Patient had multiple antihypertensive medications scheduled for 2100. Patient's B/P 143/88, notified Dr. White. Orders received to hold carvedilol and amlodipine. See SEP. Will Continue to monitor.
[2020-10-08] VITALS (11 sets, daily range): BP systolic 126–149; BP diastolic 59–69; PULSE 74–92; RESP 6–22; TEMP 36.6–37.1; O2SAT 91–98
[2020-10-08] MEDS: cefTRIAXone 1,000 MG in sodium chloride 0.9% (plus) 50 ML 100 MG IV (03:18)
[2020-10-08] MEDS: FUROsemide 10 mg/mL SDV 4mL 40 MG IVP (03:19)
[2020-10-08] MEDS: heparin 5,000 unit/mL INJ 1 mL 5000 UNIT SUBCUT ×3 (03:19→18:04)
[2020-10-08 06:54] LABS: Basophils # 0.1 10^3/uL (0.0-0.1); Basophils % 0.6 %; Eosinophils # 0.3 10^3/uL (0.0-0.8); Hematocrit 27.6 % (42.0-52.0); Hemoglobin 7.9 g/dL (11.7-16.6); Lymphocytes # 0.8 10^3/uL (0.8-4.8); Lymphocytes % 9.6 %; Mean Corpuscular HGB Conc 28.6 g/dL (30.0-36.0); Mean Corpuscular Volume 94.2 fL (80-94); Mean Platelet Volume 10.8 fL (7.4-10.4); Monocytes # 0.7 10^3/uL (0.2-0.9); Monocytes % 8.3 %; Neutrophils # 6.16 10^3/uL (1.8-7.7); Neutrophils % 76.6 %; Nucleated Red Blood Cells % 0 %; Platelet Count 208 10^3/cmm (130-400); Red Blood Count 2.93 10^6/uL (4.1-5.3); Red Cell Distribution Width 15.7 % (12.1-15.1)
--- NOTE | 2020-10-08 07:00 | USCV_ITS ---
Familia Mason Age: 74 Gender: M : 1945 Exam Date: 10/08/2020 11:53 Ordering Phys: Patria Rabago MD ([email or web address]) Technologist: Exam Location: [facility] [place] Indication: POOR PULSES Risk Factors: Unknown Previous Vascular Surgery: None RIGHT LEFT BP: 130.0 / 60.00 BP: 130.0/ 60.00 0 0 Waveform Velocity (cm/s) Velocity (cm/s) Waveform Biphasic 62.2 Iliac Prox 81.5 Biphasic Biphasic 78.0 Iliac Mid 80.2 Biphasic Biphasic 86.7 Iliac Distal 77.8 Biphasic Biphasic 75.3 RECORDS MANAGEMENT ENGINEER 79.0 Biphasic Biphasic 63.1 SFA Prox 71.6 Biphasic Biphasic SFA Mid Biphasic 62.2 70.4 Biphasic 55.2 SFA Dist 58.0 Biphasic Biphasic 55.2 POP 76.5 Biphasic Biphasic 144.4 AIR SURVEILLANCE OPERATOR 90.1 Biphasic Biphasic DPA 79.0 Biphasic 1.1 GLEN 1.1 FINDINGS Normal resting ABIs bilaterally, 1.1 on both sides Abnormal arterial Doppler waveforms bilaterally Mild diffuse plaques in the iliac and femoral arteries bilaterally CONCLUSIONS 1. No significant arterial obstruction bilaterally, based on the above findings 2. Abnormal arterial Doppler waveforms, may suggest extensive arterial sclerosis Dr Patria Rabago MD [facility] (Electronically Signed) Final Date: 08 October 2020 13:52 S
--- NOTE | 2020-10-08 07:00 | USCV_ITS ---
Familia Mason Age: 74 Gender: M : 1945 Exam Date: 10/08/2020 11:39 Ordering Phys: Patria Rabago MD ([email or web address]) Technologist: Exam Location: [facility] [place] Indication: TIA Risk Factors: Unknown Previous Vascular Surgery: None Right Brachial BP: / Left Brachial BP: / Right Left Velocity (cm/s) Spectral Plaque Velocity (cm/s) Spectral Plaque Syst/Diast Broadening Syst/Diast Broadening 75.50/ 14.30 Prox CCA 56.90 / 10.10 67.25/ 10.45 Mid CCA 59.30 / 7.80 54.00/ 11.40 Hetro Distal CCA 53.00 / 8.60 Hetro 95.45/ 25.95 Hetro Prox ICA 129.70/ 26.70 Hetro 99.25/ 23.90 Hetro Mid ICA 117.00/ 16.50 Hetro 88.75/ 22.80 Distal ICA 104.30/ 29.30 98.95 ECA 67.00 0.94 ICA/CCA 2.19 Antegrade Vertebral Antegrade 69.50/ 17.60 cm/s 54.40/ 6.20 cm/s Bi Subclavian Bi 83.80 61.70 FINDINGS Moderate heterogeneous plaques at the right bifurcation and internal carotid artery Moderate heterogeneous plaques of the left bifurcation and internal carotid artery Intimal thickening in the common carotid arteries bilaterally Antegrade flow in the vertebral arteries bilaterally Normal Doppler flow velocities in the external carotid arteries bilaterally CONCLUSIONS Moderate heterogeneous plaques at the bifurcation and internal carotid artery on the left side with Doppler flow velocity elevation, consistent with the 50 to 69% stenosis. Moderate heterogeneous plaques at the right bifurcation and internal carotid artery with velocity elevation, consistent with less than 50% stenosis on the right side. No significant stenosis in the external carotid or vertebral arteries bilaterally No similar previous studies are available for comparison Dr Patria Rabago MD [facility] (Electronically Signed) Final Date: 08 October 2020 19:09 S
[2020-10-08 07:14] LABS: Alanine Aminotransferase < 5 U/L (0-41); Albumin Level 2.8 g/dL (3.5-5.2); Alkaline Phosphatase 50 IU/L (40-130); Anion Gap 17.1 (5-19); Aspartate Amino Transferase 7 U/L (0-40); Blood Urea Nitrogen 32 mg/dL (8-23); Calcium 8.2 mg/dL (8.5-10.5); Carbon Dioxide 28 mmol/L (22-29); Chloride 96 mmol/L (98-107); Globulin 3.4 g/dL (1.3-4.6); Glucose 128 mg/dL (65-115); Osmolality Calculated 293 mOsm/kg (285-295); Potassium 4.1 mmol/L (3.5-5.1); Sodium 137 mmol/L (136-145); Total Bilirubin 0.2 mg/dL (0.15-1.2); Total Protein 6.2 g/dL (6.6-8.7)
--- NOTE | 2020-10-08 07:33 | PC.SOCIAL ---
*IMM* Patient received Important Message from Medicare. Initialled by SS and placed in chart, pt received copy.
[2020-10-08] MEDS: tamsulosin 0.4 mg Capsule PO (07:56)
--- NOTE | 2020-10-08 07:57 | P.PN_ITS ---
Subjective Subjective: Interval history: feels well. no n/v/f/c/bailon/d/sob/itvhing/ cramps/ diarrhea Medications: Reviewed: Yes Medication Review Details: Current Medications Acetaminophen (Acetaminophen 325 Mg Tablet) 650 mg PO Q4H PRN PRN Reason: MILD PAIN OR INCREASE TEMP Last Admin: 10/06/20 17:31 Dose: 650 mg Documented by: Hydrocodone Bitart/Acetaminophen (Hydrocodone-Acetaminophen 5-325 Mg Tablet) 1 tab PO Q6H PRN PRN Reason: MODERATE PAIN Albuterol/Ipratropium (Ipratropium-Albuterol 3 Ml Neb) 3 ml INHALATION Q6H PRN PRN Reason: SHORTNESS OF BREATH Alprazolam (Alprazolam 0.5 Mg Tablet) 0.5 mg PO BID PRN PRN Reason: ANXIETY Last Admin: 10/07/20 21:30 Dose: 0.5 mg Documented by: Amlodipine Besylate (Amlodipine 10 Mg Tablet) 10 mg PO BEDTIME [facility] Last Admin: 10/07/20 21:42 Dose: Not Given Documented by: Aspirin (Aspirin 81 Mg Ec Tablet) 81 mg PO DAILY [facility] Atorvastatin Calcium (Atorvastatin 40 Mg Tablet) 40 mg PO BEDTIME [facility] Last Admin: 10/07/20 21:31 Dose: 40 mg Documented by: Azithromycin (Azithromycin 250 Mg Tablet) 500 mg PO DAILY [facility]; Protocol Last Admin: 10/07/20 08:22 Dose: 500 mg Documented by: Carvedilol (Carvedilol 25 Mg Tablet) 25 mg PO BID [facility] Last Admin: 10/07/20 21:41 Dose: Not Given Documented by: Clopidogrel Bisulfate (Clopidogrel 75 Mg Tablet) 75 mg PO DAILY [facility] Furosemide (Furosemide 10 Mg/Ml Sdv 4ml) 40 mg IVP Q24H [facility] Last Admin: 10/08/20 03:19 Dose: 40 mg Documented by: Heparin Sodium (Beef Lung) (Heparin 5,000 Unit/Ml Inj 1 Ml) 5,000 unit SUBCUT Q8H JONNY Last Admin: 10/08/20 03:19 Dose: 5,000 unit Documented by: Hydralazine HCl (Hydralazine 10 Mg Tablet) 10 mg PO BID [facility] Last Admin: 10/07/20 22:01 Dose: 10 mg Documented by: Ceftriaxone Sodium 1,000 mg/ (Sodium Chloride) 50 mls @ 100 mls/hr IV Q24H [facility]; Protocol Last Admin: 10/08/20 03:18 Dose: 100 mls/hr Documented by: Sodium Chloride (Sodium Chloride 0.9%) 1,000 mls @ 0 mls/hr IV .Q0M PRN PRN Reason: hypotension or symptomatic Multivitamins (D-Jtuahca-Hugyzuu C Tablet) 1 each PO DAILY [facility] Sevelamer Carbonate (Sevelamer 800 Mg Tablet) 2,400 mg PO TID [facility] Last Admin: 10/07/20 21:31 Dose: 2,400 mg Documented by: Tamsulosin HCl (Tamsulosin 0.4 Mg Capsule) 0.4 mg PO QAM [facility] Last Admin: 10/08/20 07:56 Dose: 0.4 mg Documented by: Vitals/I&O/Wt Last Vital Signs Temp 98.2 F 10/08/20 07:21 Pulse 81 10/08/20 07:21 Resp 13 10/08/20 07:21 BP 149/69 10/08/20 07:21 Pulse Ox 94 10/08/20 07:21 10/07/20 10/08/20 10/08/20 22:59 06:59 14:59 Intake Total 120 / 476 Output Total 475 / 475 Balance 120 / 476 -475 / 1 Weight last 48 hrs Weight 98.112 kg Physical Exam Narrative: EXAM NARRATIVE: vss noted Const: COMMON NORMALS: no acute distress GENERAL APPEARANCE: cooperative and anxious HENMT: COMMON NORMALS: normocephalic HEAD & SCALP: normocephalic Resp: COMMON NORMALS: normal respiratory effort and clear to auscultation bilaterally EFFORT & INSPECTION: Yes able to speak in complete sentences AUSCULTATION: clear to auscultation bilaterally Cardio: COMMON NORMALS: regular rate and regular rhythm RATE: regular rate RHYTHM: regular rhythm Extremity: GENERAL: Yes AV fistula (left UE + bruit) and Yes edema (left leg 1+) Urinary Catheter Management^: Soliz: Cath Placed During This Visit: yes Reason for Continuing Indwelling Catheter: Acute Urinary Retention or Obstructio n Urinary Catheter Date of Insertion: 10/06/20 Urinary Catheter Time of Insertion: 04:26 Data : 10/08/20 05:03 10/08/20 05:03 A&P Additional A&P Information 74 yr old man 1. ESRD- cont HD MWF 2. Pulmonary edema, volume overload, improved w/ HD -echo w/ Q of NSTEMI- per cardiology- keep EDW down -moderate , LVH, EF 55%- his - may limit fluid removal on HD - Q stress test, cath per cardiology 3. Anemia- epogen yesterday at dialysis 4. PNA per medicine 5. urinary retention- soliz- please have pt see urology for TOV- here or as outpt 6. Dementia- per medicine 7. DM control -agree w/ rehab on d/c Attestations Medical Necessity Statement*: ESRD, PNA, abnormal echo, per medicine Time Spent in Patient Care: 16 - 35 minutes Coding Level of Care Code Acute Physician Anesthesiologist for Willy Robertson
[2020-10-08] MEDS: b-complex-vitamin c Tablet 1 EACH PO (09:20)
[2020-10-08] MEDS: ALPRAZolam 0.5 mg Tablet PO ×2 (09:20→19:39)
[2020-10-08] MEDS: clopidogrel 75 mg Tablet PO (09:20)
[2020-10-08] MEDS: carvedilol 25 mg Tablet PO ×2 (09:20→18:03)
[2020-10-08] MEDS: azithromycin 250 mg Tablet 500 MG PO (09:20)
[2020-10-08] MEDS: aspirin 81 mg EC Tablet PO (09:20)
[2020-10-08] MEDS: hyDRALAzine 10 mg Tablet PO ×2 (09:20→18:03)
[2020-10-08] MEDS: sevelamer 800 mg Tablet 2400 MG PO ×3 (09:20→20:38)
[2020-10-08 11:08] LABS: Iron 22 ug/dL (59-158); Percent Saturation 13.9 % (20-50); Total Iron Binding Capacity 158 mcg/dl; Unsaturated Iron Binding 136 ug/dL (112-347)
[2020-10-08 11:21] LABS: Ferritin 1270 ng/mL (30-400)
[2020-10-08 11:41] LABS: Parathyroid Hormone 581.2 pg/mL (15-65)
[2020-10-08 11:52] LABS: Calcium 8.4 mg/dL (8.5-10.5)
[2020-10-08] MEDS: amlodipine 10 mg Tablet PO (20:38)
[2020-10-08] MEDS: atorvastatin 40 mg Tablet PO (20:38)
--- NOTE | 2020-10-08 21:02 | P.PN_ITS ---
Subjective Subjective: Interval history: Patient denies any chest pain or chest tightness. Symptoms have intermittent confusion. No fever or chills. No cough. No unusual shortness of breath. Still has significant weakness and difficulty in ambulation. Medications: Reviewed: Yes Medication Review Details: Current Medications Acetaminophen (Acetaminophen 325 Mg Tablet) 650 mg PO Q4H PRN PRN Reason: MILD PAIN OR INCREASE TEMP Last Admin: 10/06/20 17:31 Dose: 650 mg Documented by: Hydrocodone Bitart/Acetaminophen (Hydrocodone-Acetaminophen 5-325 Mg Tablet) 1 tab PO Q6H PRN PRN Reason: MODERATE PAIN Albuterol/Ipratropium (Ipratropium-Albuterol 3 Ml Neb) 3 ml INHALATION Q6H PRN PRN Reason: SHORTNESS OF BREATH Alprazolam (Alprazolam 0.5 Mg Tablet) 0.5 mg PO BID PRN PRN Reason: ANXIETY Last Admin: 10/08/20 19:39 Dose: 0.5 mg Documented by: Amlodipine Besylate (Amlodipine 10 Mg Tablet) 10 mg PO BEDTIME JONNY Last Admin: 10/08/20 20:38 Dose: 10 mg Documented by: Aspirin (Aspirin 81 Mg Ec Tablet) 81 mg PO DAILY [facility] Last Admin: 10/08/20 09:20 Dose: 81 mg Documented by: Atorvastatin Calcium (Atorvastatin 40 Mg Tablet) 40 mg PO BEDTIME JONNY Last Admin: 10/08/20 20:38 Dose: 40 mg Documented by: Azithromycin (Azithromycin 250 Mg Tablet) 500 mg PO DAILY [facility]; Protocol Last Admin: 10/08/20 09:20 Dose: 500 mg Documented by: Carvedilol (Carvedilol 25 Mg Tablet) 25 mg PO BID [facility] Last Admin: 10/08/20 18:03 Dose: 25 mg Documented by: Clopidogrel Bisulfate (Clopidogrel 75 Mg Tablet) 75 mg PO DAILY [facility] Last Admin: 10/08/20 09:20 Dose: 75 mg Documented by: Epoetin Bipin (Epoetin Bipin 20,000 Unit/Ml Inj) 6,000 unit IVP NOW ONE Stop: 10/09/20 09:01 Furosemide (Furosemide 10 Mg/Ml Sdv 4ml) 40 mg IVP Q24H JONNY Last Admin: 10/08/20 03:19 Dose: 40 mg Documented by: Heparin Sodium (Beef Lung) (Heparin 5,000 Unit/Ml Inj 1 Ml) 5,000 unit SUBCUT Q8H [facility] Last Admin: 10/08/20 18:04 Dose: 5,000 unit Documented by: Hydralazine HCl (Hydralazine 10 Mg Tablet) 10 mg PO BID [facility] Last Admin: 10/08/20 18:03 Dose: 10 mg Documented by: Ceftriaxone Sodium 1,000 mg/ (Sodium Chloride) 50 mls @ 100 mls/hr IV Q24H [facility]; Protocol Last Infusion: 10/08/20 03:48 Dose: Infused Documented by: Sodium Chloride (Sodium Chloride 0.9%) 1,000 mls @ 0 mls/hr IV .Q0M PRN PRN Reason: hypotension or symptomatic Multivitamins (O-Bevtdim-Xtbccup C Tablet) 1 each PO DAILY [facility] Last Admin: 10/08/20 09:20 Dose: 1 each Documented by: Sevelamer Carbonate (Sevelamer 800 Mg Tablet) 2,400 mg PO TID [facility] Last Admin: 10/08/20 20:38 Dose: 2,400 mg Documented by: Tamsulosin HCl (Tamsulosin 0.4 Mg Capsule) 0.4 mg PO QAM [facility] Last Admin: 10/08/20 07:56 Dose: 0.4 mg Documented by: Vitals/I&O/Wt Last Vital Signs Temp 98 F 10/08/20 19:47 Pulse 80 10/08/20 19:47 Resp 22 H 10/08/20 19:47 BP 134/65 10/08/20 19:47 Pulse Ox 98 10/08/20 19:47 10/08/20 10/08/20 10/08/20 06:59 14:59 22:59 Intake Total 50 / 526 480 / 480 360 / 840 Output Total 475 / 475 200 / 200 Balance -425 / 51 480 / 480 160 / 640 Weight last 48 hrs Weight 216 lb 4.8 oz Physical Exam Narrative: EXAM NARRATIVE: GENERAL: The patient is alert and oriented to person. Confused about place and time. HEENT: Moderate pallor. No icterus or lymphadenopathy.Oral cavity: There are no mucous membrane lesions. NECK: Trachea appears to be central. No masses noted. No JVD or thyromegaly appreciated. Bilateral carotid bruit RESPIRATORY: Chest is symmetrical. No intercostals muscle retraction or any accessory muscle activation. There is no chest wall tenderness. Breath sounds are heard bilaterally. No rales or rhonchi heard. No evidence of any consolidation. BREASTS: Deferred. HEART: The heart sounds are normal. No S3 or S4. Ejection systolic murmur of grade 4/6 aortic area with transmission to both carotids. No diastolic murmurs. No pericardial rub ABDOMEN: No vessel pulsations or distention. No tenderness. No organomegaly appreciated. Bowel sounds are normally heard. : Deferred. RECTAL: Deferred. LYMPHATIC: No lymphadenopathy noted in the neck . EXTREMITIES: No edema or cyanosis. No clubbing. The dorsalis pedis and posterio r pulses are difficult to palpate. MUSCULOSKELETAL: No acute joint deformities or swelling SKIN: There are no significant rashes or ecchymosis NEUROPSYCHIATRIC: The patient is alert and oriented x3. Appears to be in a good mood. No tremors or rigidity noted. Urinary Catheter Management^: Schneider: Cath Placed During This Visit: yes Reason for Continuing Indwelling Catheter: Acute Urinary Retention or Obstruc tion Urinary Catheter Date of Insertion: 10/06/20 Urinary Catheter Time of Insertion: 04: Data : 10/08/20 05:03 10/08/20 05:03 A&P Assessment and plan (1) Troponin level elevated: Possibility of a non-ST elevation myocardial infarction is a strong consideration especially in view of the abnormal echocardiogram and EKG. Patient has multiple risk factors for coronary artery disease. Since the troponin T is bending down, the event might have happened within the last 1 week or so. At this point, I may start him on Plavix 75 mg p.o. daily after loading dose of 300 mg. The dose of the aspirin may be cut back to 81 mg p.o. daily. Because of the anemia we may closely watch for any spontaneous bleed. Further evaluation of the patient is coronary status, a myocardial perfusion imaging would be appropriate. The patient was initially reluctant to this. But after he talked with his sister, decided to go for it. We may go ahead and schedule this tomorrow. Based on the results, further recommendations will be made. I may go ahead and do an EKG today to look for any new changes. Status: Acute (2) End stage renal disease: Patient is on hemodialysis, twice a week. This may be continued. Status: Acute (3) Abnormal echocardiogram: The abnormal echocardiogram, may suggest ischemia in the distribution of the left anterior descending artery. Patient may require a cardiac ca theterization. This will be decided after reviewing the myocardial perfusion imaging. In the meanwhile, we will try to optimize the medical treatment. Status: Acute (4) Acute on chronic diastolic (congestive) heart failure: Most likely the ischemia and renal failure might have caused the cardiac decompensation. The heart failure seems to be getting compensated at this time. Status: Acute (5) Benign essential hypertension with target blood pressure below 140/90: Currently he is normotensive. May continue on the current medications. Status: Acute (6) Dyslipidemia: Patient is on a statin. This may be continued. Status: Acute (7) DM type 2 (diabetes mellitus, type 2): Aggressive management of the diabetes is warranted. We will be closely monitoring the blood sugar. Status: Acute Qualifiers: Diabetes mellitus longterm insulin use: without longterm use Diabetes mellitus complication status: with kidney complications Diabetes mellitus complication detail: with chronic kidney disease Chronic kidney disease stage: on chronic dialysis Qualified Code(s): E11.22 - Type 2 diabetes mellitus with diabetic chronic kidney disease; N18.6 - End stage renal disease; Z99.2 - Dependence on renal dialysis (8) Right lower lobe pneumonia: Patient is on IV antibiotics. Management as per the primary. Status: Acute Qualifiers: Pneumonia type: due to unspecified organism Qualified Code(s): J18.9 - Pneumonia, unspecified organism Additional A&P Information The other problems are Carotid artery stenosis. Patient was found to have 50 to 69% gnosis on the left side and less than 50% gnosis on the right side. The lower extremity arterial duplex times revealed features of arterial sclerosis with no significant obstruction. Moderate anemia Possible dementia We will go ahead and schedule for the myocardial perfusion imaging tomorrow. Based on the results, and patient's the clinical progress, further recommendations will be made Attestations Medical Necessity Statement*: Patient requires continued hospital stay for close monitoring and further management Coding Level of Care Code Acute Land Examiner for Sandovalg Fwd Diagnoses Troponin level elevated R77.8 End stage renal disease N18.6 Abnormal echocardiogram R93.1 Acute on chronic diastolic (congestive) heart failure I50.33 Benign essential hypertension with target blood pressure below 140/90 I10 Dyslipidemia E78.5 DM type 2 (diabetes mellitus, type 2) E11.22; N18.6; Z99.2 Diabetes mellitus longterm insulin use: without longterm use Diabetes mellitus complication status: with kidney complications Diabetes mellitus complication detail: with chronic kidney disease Chronic kidney disease stage: on chronic dialysis Right lower lobe pneumonia J18.9 Pneumonia type: due to unspecified organism
--- NOTE | 2020-10-08 21:08 | ECG_ITS ---
[facility] Test Date: 2020-10-09 Pat Name: Familia Mason Department: Room: 107 Gender: Male Ui Developer: ROCKY PALMB: 1945 Requested By: Patria Rabago Order Number: [id number] Reading MD: Patria Rabago M.D. Measurements Intervals [place] Rate: 74 P: 50 WA: 164 QRS: 2 QRSD: 93 T: 33 QT: 428 QTc: 475 Interpretive Statements SINUS RHYTHM NONSPECIFIC ST & T-WAVE ABNORMALITY WARNING: DATA QUALITY MAY AFFECT INTERPRETATION Compared to ECG 10/05/2020 19:01:03 Sinus tachycardia no longer present Possible ischemia no longer present T-wave abnormality still present Electronically Signed On 10-10-2020 1:14:14 CDT by Patria Rabago M.D. [id number]
--- NOTE | 2020-10-08 22:21 | PM.PN ---
Subjective Subjective: Interval history: He sitting up in chair, eating lunch. Does not remember who I am or talking to me yesterday. Pleasant, conversant. Denies any complaints. Denies chest pain. When asked why he came to the hospital assessed because he was feeling unwell, and wanted to be made better. Vitals/I&O/Wt Last Vital Signs Temp 98 F 10/08/20 19:47 Pulse 80 10/08/20 19:47 Resp 22 H 10/08/20 19:47 BP 134/65 10/08/20 19:47 Pulse Ox 98 10/08/20 19:47 10/08/20 10/08/20 10/08/20 06:59 14:59 22:59 Intake Total 50 / 526 480 / 480 360 / 840 Output Total 475 / 475 200 / 200 Balance -425 / 51 480 / 480 160 / 640 Weight last 48 hrs Weight 98.112 kg Physical Exam Const: COMMON NORMALS: no acute distress and alert GENERAL APPEARANCE: cooperative and comfortable ORIENTATION/CONSCIOUSNESS: Yes awake, Yes oriented to person and Yes oriented to place; not oriented to time (The year is 1999 something ) OTHER: Pleasant, conversant. Sitting up in chair. HENMT: COMMON NORMALS: oropharynx normal Neck/C-Spine: COMMON NORMALS: no JVD Resp: COMMON NORMALS: normal respiratory effort and clear to auscultation bilaterally AUSCULTATION: clear to auscultation bilaterally and diminished lung sounds Cardio: COMMON NORMALS: no JVD, regular rhythm, S1 normal heart sound present, S2 normal heart sound present and No murmurs present (Cardio) RHYTHM: regular rhythm HEART SOUNDS: S1 normal heart sound present and S2 normal heart sound present GI: COMMON NORMALS: Normal to inspection, nondistended, normoactive bowel sounds present, Soft to palpation and non-tender PALPATION: Yes Soft to palpation Extremity: COMMON NORMALS: no joint enlargement GENERAL: Yes edema (1+. Improving.) Neuro: COMMON NORMALS: moves all extremities SENSORIUM/ORIENTATION: Yes alert, Yes oriented to person, Yes oriented to place and No oriented to time (The is 1999 something ) Skin: COMMON NORMALS: no rashes or lesions noted GENERAL SKIN EXAM: no rashes or lesions noted Urinary Catheter Management^: Schneider: Cath Placed During This Visit: yes Reason for Continuing Indwelling Catheter: Acute Urinary Retention or Obstruction Urinary Catheter Date of Insertion: 10/06/20 Urinary Catheter Time of Insertion: 04: Data : 10/08/20 05:03 10/08/20 05:03 A&P Assessment and plan (1) CHF (congestive heart failure): Improving CHF with hemodialysis. Urine output is low even with Lasix. Continue additional dialysis due to sessions which were missed or cut short. Continue modalities. He agrees to treatment today. Continue Lasix. However, discussed with his sister, primary modality is hemodialysis for him given ESRD. Continue to encourage adherence. Discussed also with him and his sister regarding moderate aortic stenosis noted on echocardiogram back in July. Request to check daily weight. Monitor I&O. Status: Acute (2) Community acquired pneumonia: Continue to ceftriaxone, azithromycin. Oxygenation appears to have stabilized. Urine bacterial antigens negative. Status: Acute (3) Hypoxia: Clinically he is doing well. Continue assessment of management of CHF, fluid overload, pneumonia as above. Status: Acute (4) Troponin level elevated: Possible NSTEMI. Appreciate cardiology recommendations. Plan for stress testing. Echocardiogram results reviewed with cardiology. Assess occult blood stool. Continue PPI. Status: Acute (5) Aortic stenosis: Continue treatment for CHF. Status: Acute (6) Sepsis: Sepsis is resolved. Continue to treat pneumonia. Status: Acute (7) Dementia: Discussed with psychiatry. Will assist assess decisional capacity, although he truly has very poor insight into his condition and as such I do not think he is capable of making decisions regarding them, and does not appear to be able to make a safe decision regarding his disposition as well. Appreciate psychiatry assessment. financial services education consultant to continue work regarding disposition planning. Possible dementia as he appears to have quite significant short term memory difficulties, has poor insight into his medical condition. Appears to have better distant memory. We will continue to reevaluate. May benefit from follow-up with neurology for neuropsychiatric assessment. Does not appear safe to return home to manage things on his own. Does have a caregiver coming in daily, however, still appears to be missing hemodialysis sessions, not sure that he is adherent with his medications, and overall does not appear to be able to make safe decisions, however, will continue follow-up and reassessments as he is getting out of the acute conditions. Status: Acute (8) Urine retention: Maintain Schneider Continue tamsulosin. It is not clear whether he is adherent with taking his medications. Follow-up with urology. Status: Acute (9) End stage renal disease: Appears he leaves hemodialysis sessions early, and instead of getting 4 hours gets about 1, signing out AMA. Continue to encourage hemodialysis adherence. Status: Acute (10) Declining functional status: His sister states he does not take care of himself at home. He is not clear whether he takes his medications, although his sister does say he has a in-home service lady coming in for 3 hours daily. Still this does not appear to be enough. Understanding of his condition at this time is difficult to carver hand, although he does appear to verbalize understanding and agreement on discussion and teaching, however, will have to reassess how much she retains on subsequent visits. He is also deconditioned, and with a number of medical issues requiring hospitalization he is at risk of further deconditioning, functional decline. Currently unsafe to return home independently. Status: Acute Additional A&P Information BPH: Continue tamsulosin Paroxysmal A. fib without acute exacerbation Not a candidate of anticoagulation due to anemia, risk of falls as he lives alone and has underlying dementia Continue Coreg Full code Renal dialysis diet DVT prophylaxis Heparin Attestations Medical Necessity Statement*: Continue admission for assessment and management of CHF, pneumonia, assessment of decisional capacity, discharge planning. Coding Level of Care Code Acute Manager Strategic Development for Willy Robertson Diagnoses CHF (congestive heart failure) I50.9 Community acquired pneumonia J18.9 Hypoxia R09.02 Troponin level elevated R77.8 Aortic stenosis I35.0 Sepsis A41.9 Dementia F03.90 Urine retention R33.9 End stage renal disease N18.6 Declining functional status R53.81
[2020-10-09] VITALS (11 sets, daily range): BP systolic 115–167; BP diastolic 52–79; PULSE 74–100; RESP 11–22; TEMP 36.6–36.7; O2SAT 93–100
--- NOTE | 2020-10-09 00:08 | NMCV_ITS ---
NM jean perf SPECT r/s* [id number] Rosa Masonell Age: 74 Gender: M : 1945 Exam Date: 10/09/2020 00:08 Ordering Phys: Patria Rabago MD ([email or web address]) Technologist: SABIHA Thomas Exam Location: [facility] Indications: ELEVATED TROPONIN T ABNORMAL ECHO STRESS TEST Please see separate stress test report in [facility] for full findings IMAGE PROTOCOL Rest/Stress 1 Lexiscan Day Radiopharmaceutical Dose (mCi) Administration Site Administered by Rest: Tc-99m 10.9 IV SABIHA Jang Sestamibi Stress:Tc-99m 32.5 IV SABIHA Jang Sestamibi Rest: 09-Oct-2020 60 Discovery 630 Stress: 09-Oct-2020 30 Discovery 630 0.4mg Lexiscan. Supine position only as patient was unable to lay prone. SPECT RESULTS Technical Quality: Good Raw Data Analysis: Normal Image Corrections: No attenuation or motion correction applied Summed Stress Score: 2 Summed Rest Score: 0 Summed Difference Score: 2 PERFUSION FINDINGS Small to moderate area of severely decreases uptake was noted in the basal, mid and apical inferior and mid inferolateral regions. Subtle areas of reversibility was noted at rest. FUNCTIONAL RESULTS (calculated via Gated SPECT) Stress Image LV EF (%): 44 Stress EDV (mL):203 TID: 1.01 Stress ESV (mL):113 FUNCTIONAL FINDINGS: Segmental wall motion analysis revealed mild diffuse hypokinesia of the left ventricular apex. IMPRESSIONS 1. Myocardial perfusion imaging revealing small to moderate area of persistent decreased tracer uptake in the inferior and inferolateral regions with a subtle areas of reversibility, suggestive of myocardial scarring in the distribution of the right coronary artery and circumflex artery with subtle areas of ramon- infarction ischemia. 2. Diminished LV ejection fraction of 44%. 3. Wall motion normalities as mentioned above. 4. Moderately dilated LV cavity with an end-systolic volume of 113 mL No similar previous studies are available for comparison Dr Patria Rabago MD FACC (Electronically Signed) Final Date: 09 October 2020 13:00 S
[2020-10-09] MEDS: FUROsemide 10 mg/mL SDV 4mL 40 MG IVP (03:31)
[2020-10-09] MEDS: cefTRIAXone 1,000 MG in sodium chloride 0.9% (plus) 50 ML 100 MG IV (03:32)
[2020-10-09] MEDS: heparin 5,000 unit/mL INJ 1 mL 5000 UNIT SUBCUT (03:34)
[2020-10-09 04:01] LABS: Basophils # 0.1 10^3/uL (0.0-0.1); Basophils % 0.9 %; Eosinophils # 0.5 10^3/uL (0.0-0.8); Hematocrit 26.5 % (42.0-52.0); Hemoglobin 7.7 g/dL (11.7-16.6); Lymphocytes # 0.8 10^3/uL (0.8-4.8); Lymphocytes % 10.9 %; Mean Corpuscular HGB Conc 29.1 g/dL (30.0-36.0); Mean Corpuscular Hemoglobin 27.1 pg (28.0-34.0); Mean Corpuscular Volume 93.3 fL (80-94); Mean Platelet Volume 10.5 fL (7.4-10.4); Monocytes # 0.7 10^3/uL (0.2-0.9); Monocytes % 9.2 %; Neutrophils # 5.33 10^3/uL (1.8-7.7); Neutrophils % 70.7 %; Nucleated Red Blood Cells % 0 %; Platelet Count 178 10^3/cmm (130-400); Red Blood Count 2.84 10^6/uL (4.1-5.3); Red Cell Distribution Width 15.3 % (12.1-15.1); White Blood Count 7.5 10^3/uL (4.0-10.0)
[2020-10-09 04:23] LABS: Alanine Aminotransferase < 5 U/L (0-41); Alkaline Phosphatase 62 IU/L (40-130); Aspartate Amino Transferase 9 U/L (0-40); Blood Urea Nitrogen 53 mg/dL (8-23); Calcium 8.3 mg/dL (8.5-10.5); Carbon Dioxide 26 mmol/L (22-29); Chloride 97 mmol/L (98-107); Globulin 2.6 g/dL (1.3-4.6); Glucose 154 mg/dL (65-115); Magnesium 2.1 mg/dL (1.7-2.3); Osmolality Calculated 297 mOsm/kg (285-295); Sodium 135 mmol/L (136-145); Total Bilirubin 0.2 mg/dL (0.15-1.2); Total Protein 5.6 g/dL (6.6-8.7)
[2020-10-09 04:34] LABS: Phosphorus 8.4 mg/dL (2.5-4.5)
[2020-10-09] MEDS: tamsulosin 0.4 mg Capsule PO (05:32)
--- NOTE | 2020-10-09 06:51 | P.PN_ITS ---
Subjective Subjective: Interval history: no new complaints. poor memory. no n/v/f/c/bailon/d. poor appetite. Medications: Reviewed: Yes Medication Review Details: Current Medications Acetaminophen (Acetaminophen 325 Mg Tablet) 650 mg PO Q4H PRN PRN Reason: MILD PAIN OR INCREASE TEMP Last Admin: 10/06/20 17:31 Dose: 650 mg Documented by: Hydrocodone Bitart/Acetaminophen (Hydrocodone-Acetaminophen 5-325 Mg Tablet) 1 tab PO Q6H PRN PRN Reason: MODERATE PAIN Albuterol/Ipratropium (Ipratropium-Albuterol 3 Ml Neb) 3 ml INHALATION Q6H PRN PRN Reason: SHORTNESS OF BREATH Alprazolam (Alprazolam 0.5 Mg Tablet) 0.5 mg PO BID PRN PRN Reason: ANXIETY Last Admin: 10/08/20 19:39 Dose: 0.5 mg Documented by: Amlodipine Besylate (Amlodipine 10 Mg Tablet) 10 mg PO BEDTIME JONNY Last Admin: 10/08/20 20:38 Dose: 10 mg Documented by: Aspirin (Aspirin 81 Mg Ec Tablet) 81 mg PO DAILY [facility] Last Admin: 10/08/20 09:20 Dose: 81 mg Documented by: Atorvastatin Calcium (Atorvastatin 40 Mg Tablet) 40 mg PO BEDTIME JONNY Last Admin: 10/08/20 20:38 Dose: 40 mg Documented by: Azithromycin (Azithromycin 250 Mg Tablet) 500 mg PO DAILY [facility]; Protocol Last Admin: 10/08/20 09:20 Dose: 500 mg Documented by: Carvedilol (Carvedilol 25 Mg Tablet) 25 mg PO BID [facility] Last Admin: 10/08/20 18:03 Dose: 25 mg Documented by: Clopidogrel Bisulfate (Clopidogrel 75 Mg Tablet) 75 mg PO DAILY [facility] Last Admin: 10/08/20 09:20 Dose: 75 mg Documented by: Epoetin Bipin (Epoetin Bipin 20,000 Unit/Ml Inj) 6,000 unit IVP NOW ONE Stop: 10/09/20 09:01 Furosemide (Furosemide 10 Mg/Ml Sdv 4ml) 40 mg IVP Q24H JONNY Last Admin: 10/09/20 03:31 Dose: 40 mg Documented by: Heparin Sodium (Beef Lung) (Heparin 5,000 Unit/Ml Inj 1 Ml) 5,000 unit SUBCUT Q8H JONNY Last Admin: 10/09/20 03:34 Dose: 5,000 unit Documented by: Hydralazine HCl (Hydralazine 10 Mg Tablet) 10 mg PO BID [facility] Last Admin: 10/08/20 18:03 Dose: 10 mg Documented by: Ceftriaxone Sodium 1,000 mg/ (Sodium Chloride) 50 mls @ 100 mls/hr IV Q24H [facility]; Protocol Last Infusion: 10/09/20 05:33 Dose: Infused Documented by: Sodium Chloride (Sodium Chloride 0.9%) 1,000 mls @ 0 mls/hr IV .Q0M PRN PRN Reason: hypotension or symptomatic Multivitamins (P-Yvoezsa-Bhpzamf C Tablet) 1 each PO DAILY [facility] Last Admin: 10/08/20 09:20 Dose: 1 each Documented by: Sevelamer Carbonate (Sevelamer 800 Mg Tablet) 2,400 mg PO TID [facility] Last Admin: 10/08/20 20:38 Dose: 2,400 mg Documented by: Tamsulosin HCl (Tamsulosin 0.4 Mg Capsule) 0.4 mg PO QAM [facility] Last Admin: 10/09/20 05:32 Dose: 0.4 mg Documented by: Vitals/I&O/Wt Last Vital Signs Temp 98 F 10/09/20 04:00 Pulse 76 10/09/20 05:58 Resp 22 H 10/09/20 04:00 BP 138/66 10/09/20 04:00 Pulse Ox 98 10/09/20 04:00 10/08/20 10/08/20 10/09/20 14:59 22:59 06:59 Intake Total 480 / 480 360 / 840 50 / 890 Output Total 200 / 200 350 / 550 Balance 480 / 480 160 / 640 -300 / 340 Weight last 48 hrs Weight 98.43 kg Weight 98.112 kg Physical Exam Narrative: EXAM NARRATIVE: vs noted Const: COMMON NORMALS: no acute distress GENERAL APPEARANCE: cooperative and anxious HENMT: COMMON NORMALS: normocephalic HEAD & SCALP: normocephalic Resp: COMMON NORMALS: normal respiratory effort and clear to auscultation bilaterally EFFORT & INSPECTION: Yes able to speak in complete sentences AUSCULTATION: clear to auscultation bilaterally Cardio: COMMON NORMALS: regular rate and regular rhythm RATE: regular rate RHYTHM: regular rhythm Extremity: GENERAL: Yes AV fistula (left UE + bruit) and Yes edema (left leg 1+) Urinary Catheter Management^: Soliz: Cath Placed During This Visit: yes Reason for Continuing Indwelling Catheter: Acute Urinary Retention or Obstruction Urinary Catheter Date of Insertion: 10/06/20 Urinary Catheter Time of Insertion: 04:26 Data : 10/09/20 03:31 10/09/20 03:31 A&P Additional A&P Information 74 yr old man 1. ESRD- cont HD MWF. HD today 3.5- 4 hrs, remove 2l as tolerated -phos 8.4- inc binders -pth 581- use zemplar once phos improves 2. Pulmonary edema, volume overload, improved w/ HD -echo w/ Q of NSTEMI- per cardiology- keep EDW down -moderate , LVH, EF 55%- his - may limit fluid removal on HD - for stress test today. Q of caridaic cath per cardiology 3. Anemia- epogen w/ dialysis -ferritin 1270 - no iv iron 4. PNA per medicine 5. urinary retention- soliz- please have pt see urology for TOV- here or as outpt 6. Dementia- per medicine 7. DM control -agree w/ rehab on d/c -seen and examined w/ RN- telehealth visit Attestations Medical Necessity Statement*: stress test, q cath, ESRD Time Spent in Patient Care: 16 - 35 minutes Coding Level of Care Code Acute Tobacco Sample Puller for Willy Robertson
--- NOTE | 2020-10-09 07:04 | ECG_ITS ---
[facility] Test Date: 2020-10-09 Pat Name: Familia Mason Department: Room: 107 Gender: Male Clinic Physician Director: : [id number] Requested By: Patria Rabago Order Number: [id number] Olamide MD: Patria Rabago M.D. Interpretive Statements NAME OF STUDY: LEXISCAN SESTAMIBI STRESS TEST INDICATION: Chest Pain, PROCEDURE: At the baseline, the EKG revealed normal sinus rhythm with a poor R wave progression. Some nonspecific T wave changes. The baseline blood pressure was 142/65 mm Hg with a heart rate of 75 beats/min. Lexiscan was infused over a period of 20 seconds. A total of 0.4 milligrams of Lexiscan was infused. The stress phase was continued for a total of 5 minutes. Heart rate at the end of the stress phase was 80 with a blood pressure 104/52. The EKG at the peak infusion revealed no significant changes. Sestamibi was injected 20 seconds after the Lexiscan infusion. Blood pressure at the end of the recovery phase was 115/52 with a heart rate of 80 per minute. CONCLUSION: 1. No significant EKG changes with the LexiScan infusion 2. No LexiScan induced chest pain or cardiac arrhythmia 3. Normal blood pressure and heart rate response 4. Sestamibi/sestamibi perfusion scan pending; see separate report. Electronically Signed On 10-12-2020 8:27:33 CDT by Patria Rabago M.D. [email or web address] [id number]
[2020-10-09] MEDS: regadenoson 0.4 Mg/5 ml Syringe IVP (08:24)
--- NOTE | 2020-10-09 08:51 | PM.PN ---
Subjective Subjective: Interval history: Patient had a myocardial perfusion imaging today. He was found to have small to moderate area of severely decreased tracer uptake in the inferior and inferolateral regions with a subtle areas of reversibility, suggestive of myocardial scarring with possible ramon-infarction ischemia. He also had the dialysis today. Currently he is feeling okay. No chest pain or chest tightness. No shortness of breath. No other specific complaints. Medications: Reviewed: Yes Medication Review Details: Laboratory Last Values WBC 7.5 10^3/uL (4.0- 10.0) 10/09/20 03:31 RBC 2.84 10^6/uL (4.1 -5.3) L 10/09/20 03:31 Hgb 7.7 g/dL (11.7-16 .6) L 10/09/20 03:31 Hct 26.5 % (42.0-52.0 ) L 10/09/20 03:31 MCV 93.3 fL (80-94) 10/09/20 03:31 MCH 27.1 pg (28.0-34. 0) L 10/09/20 03:31 MCHC 29.1 g/dL (30.0-3 6.0) L 10/09/20 03:31 RDW 15.3 % (12.1-15.1 ) H 10/09/20 03:31 Plt Count 178 10^3/cmm (130 -400) 10/09/20 03:31 MPV 10.5 fL (7.4-10.4 ) H 10/09/20 03:31 Neut % (Auto) 70.7 % 10/09/20 03:31 Lymph % (Auto) 10.9 % 10/09/20 03:31 Stanly % (Auto) 9.2 % 10/09/20 03:31 Eos % (Auto) 7.0 % 10/09/20 03:31 Baso % (Auto) 0.9 % 10/09/20 03:31 Neut # (Auto) 5.33 10^3/uL (1.8 -7.7) 10/09/20 03:31 Lymph # (Auto) 0.8 10^3/uL (0.8- 4.8) 10/09/20 03:31 Stanly # (Auto) 0.7 10^3/uL (0.2- 0.9) 10/09/20 03:31 Eos # (Auto) 0.5 10^3/uL (0.0- 0.8) 10/09/20 03:31 Baso # (Auto) 0.1 10^3/uL (0.0- 0.1) 10/09/20 03:31 Nucleated RBC % (a uto) 0 % 10/09/20 03:31 Nucleated RBCs # 0.0 /100WBC 10/09/20 03:31 Specimen Type Arterial 10/05/20 19:01 Sample Site Brachial, right 10/05/20 19:01 ABG pH 7.28 (7.35-7.45) L 10/05/20 19: ABG pCO2 44.1 mmHg (35-45) 10/05/20 19: ABG pO2 129.0 mmHg (80.0- 100.0) H 10/05/20 19:01 ABG HCO3 20.6 mmol/L (22-2 6) L 10/05/20 19: ABG Base Excess -5.9 mmol/L (-2.0 -2.0) L 10/05/20 19:01 Chris Test N/a 10/05/20 19:01 Hematocrit 30.3 % (42-52) L 10/05/20 19:01 Hgb O2 Saturation 97.3 % (95-100) 10/05/20 19:01 Carboxyhemoglobin 0.9 %THgb (0.4-20 .1) 10/05/20 19:01 Methemoglobin 0.4 % (0.4-1.5) 10/05/20 19:01 Total Hemoglobin 9.9 g/dL (14-18) L 10/05/20 19:01 O2 Delivery Device Bipap 10/05/20 19:01 FiO2 60.0 % 10/05/20 19:01 Conductor And Engineer ID Harkr 10/05/20 19:01 Sodium 135 mmol/L (136-1 45) L 10/09/20 03:31 Potassium 4.0 mmol/L (3.5-5 .1) 10/09/20 03:31 Chloride 97 mmol/L (98-107 ) L 10/09/20 03:31 Carbon Dioxide 26 mmol/L (22-29) 10/09/20 03:31 Anion Gap 16.0 (5-19) 10/09/20 03:31 BUN 53 mg/dL (8-23) H 10/09/20 03:31 Creatinine 6.2 mg/dL (0.7-1. 2) H* 10/09/20 03:31 GFR Calculation Not Reportable 10/09/20 03:31 Glucose 154 mg/dL (65-115 ) H 10/09/20 03:31 POC Glucose 146 mg/dL (70-110 ) H 10/06/20 16:00 Calculated Osmolal ity 297 mOsm/kg (285- 295) H 10/09/20 03:31 Calcium 8.3 mg/dL (8.5-10 .5) L 10/09/20 03:31 Phosphorus 8.4 mg/dL (2.5-4. 5) H* 10/09/20 03:31 Magnesium 2.1 mg/dL (1.7-2. 3) 10/09/20 03:31 Iron 22 ug/dL (59-158) L 10/08/20 10:25 TIBC 158 mcg/dl 10/08/20 10:25 % Saturation 13.9 % (20-50) L 10/08/20 10:25 Unsat Iron Binding 136 ug/dL (112-34 7) 10/08/20 10:25 Ferritin 1270 ng/mL (30-40 0) H 10/08/20 10:25 Total Bilirubin 0.2 mg/dL (0.15-1 .2) 10/09/20 03:31 AST 9 U/L (0-40) 10/09/20 03:31 ALT < 5 U/L (0-41) 10/09/20 03:31 Alkaline Phosphata se 62 IU/L (40-130) 10/09/20 03:31 Troponin T Baselin e 461 ng/L (0-15) H* 10/05/20 19:05 Troponin T Hi Sens 6Hr 452.5 ng/L (0-15) H 10/06/20 00:53 Troponin T Hi Sens 6Hr Delta -8.5 ng/L (0-12) L 10/06/20 00:53 NT-Pro-B Natriuret Pep 75535 pg/mL (0-12 5) H 04/01/21 19:05 Total Protein 5.6 g/dL (6.6-8.7 ) L 10/09/20 03:31 Albumin 3.0 g/dL (3.5-5.2 ) L 10/09/20 03:31 Globulin 2.6 g/dL (1.3-4.6 ) 10/09/20 03:31 PTH Intact 581.2 pg/mL (15-6 5) H 10/08/20 10:25 Calcium (PTH Intac t) 8.4 mg/dL (8.5-10 .5) L 10/08/20 10:25 Hep Bs Antigen Non-reactive (No nreactive) 10/05/20 19:10 Hepatitis C Antibo dy Non-reactive (No nreactive) 10/05/20 19:10 Vitals/I&O/Wt Last Vital Signs Temp 98.0 F 10/09/20 07:21 Pulse 80 10/09/20 08:35 Resp 13 10/09/20 07:21 BP 115/52 10/09/20 08:35 Pulse Ox 98 10/09/20 07:21 10/08/20 10/09/20 10/09/20 22:59 06:59 14:59 Intake Total 360 / 840 50 / 890 Output Total 200 / 200 350 / 550 Balance 160 / 640 -300 / 340 Weight last 48 hrs Weight 217 lb Weight 216 lb 4.8 oz Physical Exam Narrative: EXAM NARRATIVE: GENERAL: The patient is alert and oriented to person. Confused about place and time, intermittently. HEENT: Moderate pallor. No icterus or lymphadenopathy.Oral cavity: There are no mucous membrane lesions. NECK: Trachea appears to be central. No masses noted. No JVD or thyromegaly appreciated. Bilateral carotid bruit RESPIRATORY: Chest is symmetrical. No intercostals muscle retraction or any accessory muscle activation. There is no chest wall tenderness. Breath sounds are heard bilaterally. No rales or rhonchi heard. No evidence of any consolidation. BREASTS: Deferred. HEART: The heart sounds are normal. No S3 or S4. Ejection systolic murmur of grade 4/6 aortic area with transmission to both carotids. No diastolic murmurs. No pericardial rub ABDOMEN: No vessel pulsations or distention. No tenderness. No organomegaly appreciated. Bowel sounds are normally heard. : Deferred. RECTAL: Deferred. LYMPHATIC: No lymphadenopathy noted in the neck . EXTREMITIES: No edema or cyanosis. No clubbing. The dorsalis pedis and posterior pulses are difficult to palpate. MUSCULOSKELETAL: No acute joint deformities or swelling SKIN: There are no significant rashes or ecchymosis NEUROPSYCHIATRIC: The patient is alert and oriented x3. Appears to be in a good mood. No tremors or rigidity noted. Urinary Catheter Management^: Schneider: Cath Placed During This Visit: yes Reason for Continuing Indwelling Catheter: Acute Urinary Retention or Obstruction Urinary Catheter Date of Insertion: 10/06/20 Urinary Catheter Time of Insertion: : Data : 10/09/20 15:55 10/09/20 03:31 Other Labs: Laboratory Last Values WBC 7.5 10^3/uL (4.0-10.0) 10/09/20 03:31 RBC 2.84 10^6/uL (4.1-5.3) L 10/09/20 03:31 Hgb 7.7 g/dL (11.7-16.6) L 10/09/20 03:31 Hct 26.5 % (42.0-52.0) L 10/09/20 03:31 MCV 93.3 fL (80-94) 10/09/20 03:31 MCH 27.1 pg (28.0-34.0) L 10/09/20 03:31 MCHC 29.1 g/dL (30.0-36.0) L 10/09/20 03:31 RDW 15.3 % (12.1-15.1) H 10/09/20 03:31 Plt Count 178 10^3/cmm (130-400) 10/09/20 03:31 MPV 10.5 fL (7.4-10.4) H 10/09/20 03:31 Neut % (Auto) 70.7 % 10/09/20 03:31 Lymph % (Auto) 10.9 % 10/09/20 03:31 Stanly % (Auto) 9.2 % 10/09/20 03:31 Eos % (Auto) 7.0 % 10/09/20 03:31 Baso % (Auto) 0.9 % 10/09/20 03:31 Neut # (Auto) 5.33 10^3/uL (1.8-7.7) 10/09/20 03:31 Lymph # (Auto) 0.8 10^3/uL (0.8-4.8) 10/09/20 03:31 Stanly # (Auto) 0.7 10^3/uL (0.2-0.9) 10/09/20 03:31 Eos # (Auto) 0.5 10^3/uL (0.0-0.8) 10/09/20 03:31 Baso # (Auto) 0.1 10^3/uL (0.0-0.1) 10/09/20 03:31 Nucleated RBC % (auto) 0 % 10/09/20 03:31 Nucleated RBCs # 0.0 /100WBC 10/09/20 03:31 Specimen Type Arterial 10/05/20 19:01 Sample Site Brachial, right 10/05/20 19:01 ABG pH 7.28 (7.35-7.45) L 10/05/20 19: ABG pCO2 44.1 mmHg (35-45) 10/05/20 19: ABG pO2 129.0 mmHg (80.0-100.0) H 10/05/20 19:01 ABG HCO3 20.6 mmol/L (22-26) L 10/05/20 19: ABG Base Excess -5.9 mmol/L (-2.0-2.0) L 10/05/20 19:01 Chris Test N/a 10/05/20 19: Hematocrit 30.3 % (42-52) L 10/05/20 19:01 Hgb O2 Saturation 97.3 % (95-100) 10/05/20 19:01 Carboxyhemoglobin 0.9 %THgb (0.4-20.1) 10/05/20 19:01 Methemoglobin 0.4 % (0.4-1.5) 10/05/20 19: Total Hemoglobin 9.9 g/dL (14-18) L 10/05/20 19:01 O2 Delivery Device Bipap 10/05/20 19:01 FiO2 60.0 % 10/05/20 19:01 Conductor And Engineer ID Harkr 10/05/20 19:01 Sodium 135 mmol/L (136-145) L 10/09/20 03:31 Potassium 4.0 mmol/L (3.5-5.1) 10/09/20 03:31 Chloride 97 mmol/L (98-107) L 10/09/20 03:31 Carbon Dioxide 26 mmol/L (22-29) 10/09/20 03:31 Anion Gap 16.0 (5-19) 10/09/20 03:31 BUN 53 mg/dL (8-23) H 10/09/20 03:31 Creatinine 6.2 mg/dL (0.7-1.2) H* 10/09/20 03:31 GFR Calculation Not Reportable 10/09/20 03:31 Glucose 154 mg/dL (65-115) H 10/09/20 03:31 POC Glucose 146 mg/dL (70-110) H 10/06/20 16:00 Calculated Osmolality 297 mOsm/kg (285-295) H 10/09/20 03:31 Calcium 8.3 mg/dL (8.5-10.5) L 10/09/20 03:31 Phosphorus 8.4 mg/dL (2.5-4.5) H* 10/09/20 03:31 Magnesium 2.1 mg/dL (1.7-2.3) 10/09/20 03:31 Iron 22 ug/dL (59-158) L 10/08/20 10:25 TIBC 158 mcg/dl 10/08/20 10:25 % Saturation 13.9 % (20-50) L 10/08/20 10:25 Unsat Iron Binding 136 ug/dL (112-347) 10/08/20 10:25 Ferritin 1270 ng/mL (30-400) H 10/08/20 10:25 Total Bilirubin 0.2 mg/dL (0.15-1.2) 10/09/20 03:31 AST 9 U/L (0-40) 10/09/20 03:31 ALT < 5 U/L (0-41) 10/09/20 03:31 Alkaline Phosphatase 62 IU/L (40-130) 10/09/20 03:31 Troponin T Baseline 461 ng/L (0-15) H* 10/05/20 19:05 Troponin T Hi Sens 6Hr 452.5 ng/L (0-15) H 10/06/20 00:53 Troponin T Hi Sens 6Hr Delta -8.5 ng/L (0-12) L 10/06/20 00:53 NT-Pro-B Natriuret Pep 07000 pg/mL (0-125) H 10/05/20 19:05 Total Protein 5.6 g/dL (6.6-8.7) L 10/09/20 03:31 Albumin 3.0 g/dL (3.5-5.2) L 10/09/20 03:31 Globulin 2.6 g/dL (1.3-4.6) 10/09/20 03:31 PTH Intact 581.2 pg/mL (15-65) H 10/08/20 10:25 Calcium (PTH Intact) 8.4 mg/dL (8.5-10.5) L 10/08/20 10:25 Hep Bs Antigen Non-reactive (Nonreactive) 10/05/20 19:10 Hepatitis C Antibody Non-reactive (Nonreactive) 10/05/20 19:10 A&P Assessment and plan (1) Troponin level elevated: I discussed with the patient and his sister the implications of the myocardial perfusion imaging results. Since he has no chest pain and also the area of ischemia is very small, it was thought to be appropriate to continue the medical treatment. In the event of a developing any chest pain or any specific ischemic symptoms, we may consider doing a cardiac catheterization, to further evaluate the coronary status and decide on further management. This discussion was understood well by the family. Status: Acute (2) End stage renal disease: Patient is on hemodialysis, twice a week. This may be continued. Status: Acute (3) Abnormal echocardiogram: The abnormal echocardiogram, may suggest ischemia in the distribution of the left anterior descending artery. In view of the myocardial perfusion imaging results, it was decided to continue the medical treatment as mentioned above Status: Acute (4) Acute on chronic diastolic (congestive) heart failure: Currently the heart failure is compensated. May continue on the current measures. Status: Acute (5) Benign essential hypertension with target blood pressure below 140/90: Currently he is normotensive. May continue on the current medications. Status: Acute (6) Dyslipidemia: Patient is on a statin. This may be continued. Status: Acute (7) DM type 2 (diabetes mellitus, type 2): Aggressive management of the diabetes is warranted. We will be closely monitoring the blood sugar. Status: Acute Qualifiers: Chronic kidney disease stage: on chronic dialysis Diabetes mellitus complication detail: with chronic kidney disease Diabetes mellitus complication status: with kidney complications Diabetes mellitus tank terminal gauger insulin use: without longterm use Qualified Code(s): E11.22 - Type 2 diabetes mellitus with diabetic chronic kidney disease; N18.6 - End stage renal disease; Z99.2 - Dependence on renal dialysis (8) Right lower lobe pneumonia: Patient is on IV antibiotics. Management as per the primary. Status: Acute Qualifiers: Pneumonia type: due to unspecified organism Qualified Code(s): J18.9 - Pneumonia, unspecified organism Additional A&P Information The other problems are Carotid artery stenosis. Patient was found to have 50 to 69% gnosis on the left side and less than 50% gnosis on the right side. The lower extremity arterial duplex times revealed features of arterial sclerosis with no significant obstruction. Moderate anemia Possible dementia Since the patient's cardiovascular status seems to be stable, he may not require any other specific intervention at this point. Disposition as per the primary care Attestations Medical Necessity Statement*: Deferred to the primary Coding Level of Care Code Acute Special Weapons Unit Officer for Chg Fwd Diagnoses Troponin level elevated R77.8 End stage renal disease N18.6 Abnormal echocardiogram R93.1 Acute on chronic diastolic (congestive) heart failure I50.33 Benign essential hypertension with target blood pressure below 140/90 I10 Dyslipidemia E78.5 DM type 2 (diabetes mellitus, type 2) E11.22; N18.6; Z99.2 Chronic kidney disease stage: on chronic dialysis Diabetes mellitus complication detail: with chronic kidney disease Diabetes mellitus complication status: with kidney complications Diabetes mellitus longterm insulin use: without tank terminal gauger use Right lower lobe pneumonia J18.9 Pneumonia type: due to unspecified organism
[2020-10-09] MEDS: ALPRAZolam 0.5 mg Tablet PO ×2 (10:09→20:41)
[2020-10-09] MEDS: azithromycin 250 mg Tablet 500 MG PO (10:10)
[2020-10-09] MEDS: sevelamer 800 mg Tablet 2400 MG PO ×3 (10:10→20:41)
[2020-10-09] MEDS: b-complex-vitamin c Tablet 1 EACH PO (10:11)
[2020-10-09] MEDS: pantoprazole DR 40 mg Tablet PO ×2 (10:11→17:34)
[2020-10-09] MEDS: aspirin 81 mg EC Tablet PO (10:11)
[2020-10-09] MEDS: sucralfate 1 gm Tablet PO ×3 (10:11→20:52)
[2020-10-09] MEDS: clopidogrel 75 mg Tablet PO (10:12)
--- NOTE | 2020-10-09 10:39 | PC.NURSE ---
Spoke with Dr. Carreno, orders to HOLD losartan and coreg prior to patients dialysis this morning.
--- NOTE | 2020-10-09 10:40 | PC.NURSE ---
Patient went for dialysis today around 10:40. Patients VS were stable and patient had no concerns when leaving the floor. Patient was transported in bed by Nurse and SERVER MANAGER.
--- NOTE | 2020-10-09 13:58 | PC.CHAP ---
Pastoral Care Encounter/Spiritual Assessment Type of Contact [] Declined printing worker supervisor visit [] Patient/Family/Request visit [] Outpatient visit [ Pastoral Care Encounter/Spiritual Assessment Type of Contact [] Declined printing worker supervisor visit [] Patient/Family/Request visit [] Outpatient visit [] Follow-up visit [] Physician referral [] Code/Alert [] Routine visit [] Staff referral [] Actively dying [] Patient sleeping [] Family support [] [] Out of room [] Palliative care [] [] Receiving care in room [] Pre-surgical visit [] Trauma [] Long length of stay [] ICU visit [] Other: Relational/Emotional Strength [] Patient feels connected with others/family/visitors/staff [] Distress [] Loneliness/isolation [] Abandonment Spirituality of Patient [] Person of Joan [] Attends Quaker of their Joan [] Believes in Prayer [] Reads Bible or Mormonism materials [] There are Spiritual issues to be addressed Arts And Crafts Teacher Interventions [] Prayer [] Active listening [] Non-anxious presence [] Spiritual/emotional support [] Crisis/trauma care [] Spiritual counseling [] Bereavement support [] Provided bereavement packet [] Provided Bible/devotional materials [] Provided toy/stuffed animal, coloring book to patient or family member [] Provided Communion [] Anointing/[place] [] Salvation [] Completed spiritual assessment [] Other: Impact on Illness or Injury [] Angry [] Fearful [] Anxious [] Often cries [] Exhaustion [] Unable to work [] Unable to attend yarsani [] Unable to walk/stand [] Unable to read [] Unable to drive [] Unable to eat/drink [] Unable to sleep [] Unable to be with family [] Patient intubated [] Other: Summary Time spent with patient ] Follow-up visit [] Physician referral [] Code/Alert [] Routine visit [] Staff referral [] Actively dying [] Patient sleeping [] Family support [] [] Out of room [] Palliative care [] [] Receiving care in room [] Pre-surgical visit [] Trauma [] Long length of stay [] ICU visit [] Other: Relational/Emotional Strength [] Patient feels connected with others/family/visitors/staff [] Distress [] Loneliness/isolation [] Abandonment Spirituality of Patient [] Person of Joan [] Attends Quaker of their Joan [] Believes in Prayer [] Reads Bible or Mormonism materials [] There are Spiritual issues to be addressed Arts And Crafts Teacher Interventions [] Prayer [] Active listening [] Non-anxious presence [] Spiritual/emotional support [] Crisis/trauma care [] Spiritual counseling [] Bereavement support [] Provided bereavement packet [] Provided Bible/devotional materials [] Provided toy/stuffed animal, coloring book to patient or family member [] Provided Communion [] Anointing/[place] [] Salvation [] Completed spiritual assessment [] Other: Impact on Illness or Injury [] Angry [] Fearful [] Anxious [] Often cries [] Exhaustion [] Unable to work [] Unable to attend yarsani [] Unable to walk/stand [] Unable to read [] Unable to drive [] Unable to eat/drink [] Unable to sleep [] Unable to be with family [] Patient intubated [] Other: Summary Time spent with patient was busy with doctor
--- NOTE | 2020-10-09 14:05 | PC.CHAP ---
was busy with doctor
--- NOTE | 2020-10-09 15:35 | PC.CHAP ---
Pastoral Care Encounter/Spiritual Assessment Type of Contact [] Declined behavioral health consultant visit [] Patient/Family/Request visit [] Outpatient visit [x] Follow-up visit [] Physician referral [] Code/Alert [] Routine visit [] Staff referral [] Actively dying [] Patient sleeping [] Family support [] [] Out of room [] Palliative care [] [] Receiving care in room [] Pre-surgical visit [] Trauma [] Long length of stay [] ICU visit [] Other: Relational/Emotional Strength [] Patient feels connected with others/family/visitors/staff [] Distress [] Loneliness/isolation [] Abandonment Spirituality of Patient [] Person of Joan [] Attends Gnosticist of their Joan [] Believes in Prayer [] Reads Bible or Scientology materials [] There are Spiritual issues to be addressed Verifier Operator Interventions [] Prayer [] Active listening [] Non-anxious presence [] Spiritual/emotional support [] Crisis/trauma care [] Spiritual counseling [] Bereavement support [] Provided bereavement packet [] Provided Bible/devotional materials [] Provided toy/stuffed animal, coloring book to patient or family member [] Provided Communion [] Anointing/[place] [] Salvation [] Completed spiritual assessment [] Other: Impact on Illness or Injury [] Angry [] Fearful [] Anxious [] Often cries [] Exhaustion [] Unable to work [] Unable to attend voodoo [] Unable to walk/stand [] Unable to read [] Unable to drive [] Unable to eat/drink [] Unable to sleep [] Unable to be with family [] Patient intubated [] Other: Summary Time spent with patient
--- NOTE | 2020-10-09 15:42 | PM.PN ---
Subjective Subjective: Interval history: This morning patient was examined in the dialysis suite, he is alert to person, place, not to time, he tells me he lives home alone, and would not like to go to a group home, his healthcare power of divorce attorney is his 2 sisters, he tells me that he has no particular complaints, just that he feels weak, no nausea, no vomiting, no chest pain, no palpitations, no lightheadedness, dizziness, Medications: Medication Review Details: Laboratory Last Values WBC 7.5 10^3/uL (4.0- 10.0) 10/09/20 03:31 RBC 2.84 10^6/uL (4.1 -5.3) L 10/09/20 03:31 Hgb 7.7 g/dL (11.7-16 .6) L 10/09/20 03:31 Hct 26.5 % (42.0-52.0 ) L 10/09/20 03:31 MCV 93.3 fL (80-94) 10/09/20 03:31 MCH 27.1 pg (28.0-34. 0) L 10/09/20 03:31 MCHC 29.1 g/dL (30.0-3 6.0) L 10/09/20 03:31 RDW 15.3 % (12.1-15.1 ) H 10/09/20 03:31 Plt Count 178 10^3/cmm (130 -400) 10/09/20 03:31 MPV 10.5 fL (7.4-10.4 ) H 10/09/20 03:31 Neut % (Auto) 70.7 % 10/09/20 03:31 Lymph % (Auto) 10.9 % 10/09/20 03:31 [place] % (Auto) 9.2 % 10/09/20 03:31 Eos % (Auto) 7.0 % 10/09/20 03:31 Baso % (Auto) 0.9 % 10/09/20 03:31 Neut # (Auto) 5.33 10^3/uL (1.8 -7.7) 10/09/20 03:31 Lymph # (Auto) 0.8 10^3/uL (0.8- 4.8) 10/09/20 03:31 [place] # (Auto) 0.7 10^3/uL (0.2- 0.9) 10/09/20 03:31 Eos # (Auto) 0.5 10^3/uL (0.0- 0.8) 10/09/20 03:31 Baso # (Auto) 0.1 10^3/uL (0.0- 0.1) 10/09/20 03:31 Nucleated RBC % (a uto) 0 % 10/09/20 03:31 Nucleated RBCs # 0.0 /100WBC 10/09/20 03:31 Specimen Type Arterial 10/05/20 19:01 Sample Site Brachial, right 10/05/20 19:01 ABG pH 7.28 (7.35-7.45) L 10/05/20 19: ABG pCO2 44.1 mmHg (35-45) 10/05/20 19: ABG pO2 129.0 mmHg (80.0- 100.0) H 10/05/20 19:01 ABG HCO3 20.6 mmol/L (22-2 6) L 10/05/20 19:01 ABG Base Excess -5.9 mmol/L (-2.0 -2.0) L 10/05/20 19:01 Chris Test N/a 10/05/20 19:01 Hematocrit 30.3 % (42-52) L 10/05/20 19:01 Hgb O2 Saturation 97.3 % (95-100) 10/05/20 19:01 Carboxyhemoglobin 0.9 %THgb (0.4-20 .1) 10/05/20 19:01 Methemoglobin 0.4 % (0.4-1.5) 10/05/20 19:01 Total Hemoglobin 9.9 g/dL (14-18) L 10/05/20 19:01 O2 Delivery Device Bipap 10/05/20 19:01 FiO2 60.0 % 10/05/20 19:01 Videotape Operator ID Harkr 10/05/20 19:01 Sodium 135 mmol/L (136-1 45) L 10/09/20 03:31 Potassium 4.0 mmol/L (3.5-5 .1) 10/09/20 03:31 Chloride 97 mmol/L (98-107 ) L 10/09/20 03:31 Carbon Dioxide 26 mmol/L (22-29) 10/09/20 03:31 Anion Gap 16.0 (5-19) 10/09/20 03:31 BUN 53 mg/dL (8-23) H 10/09/20 03:31 Creatinine 6.2 mg/dL (0.7-1. 2) H* 10/09/20 03:31 GFR Calculation Not Reportable 10/09/20 03:31 Glucose 154 mg/dL (65-115 ) H 10/09/20 03:31 POC Glucose 146 mg/dL (70-110 ) H 10/06/20 16:00 Calculated Osmolal ity 297 mOsm/kg (285- 295) H 10/09/20 03:31 Calcium 8.3 mg/dL (8.5-10 .5) L 10/09/20 03:31 Phosphorus 8.4 mg/dL (2.5-4. 5) H* 10/09/20 03:31 Magnesium 2.1 mg/dL (1.7-2. 3) 10/09/20 03:31 Iron 22 ug/dL (59-158) L 10/08/20 10:25 TIBC 158 mcg/dl 10/08/20 10:25 % Saturation 13.9 % (20-50) L 10/08/20 10:25 Unsat Iron Binding 136 ug/dL (112-34 7) 10/08/20 10:25 Ferritin 1270 ng/mL (30-40 0) H 10/08/20 10:25 Total Bilirubin 0.2 mg/dL (0.15-1 .2) 10/09/20 03:31 AST 9 U/L (0-40) 10/09/20 03:31 ALT < 5 U/L (0-41) 10/09/20 03:31 Alkaline Phosphata se 62 IU/L (40-130) 10/09/20 03:31 Troponin T Baselin e 461 ng/L (0-15) H* 10/05/20 19:05 Troponin T Hi Sens 6Hr 452.5 ng/L (0-15) H 10/06/20 00:53 Troponin T Hi Sens 6Hr Delta -8.5 ng/L (0-12) L 10/06/20 00:53 NT-Pro-B Natriuret Pep 14315 pg/mL (0-12 5) H 10/05/20 19:05 Total Protein 5.6 g/dL (6.6-8.7 ) L 10/09/20 03:31 Albumin 3.0 g/dL (3.5-5.2 ) L 10/09/20 03:31 Globulin 2.6 g/dL (1.3-4.6 ) 10/09/20 03:31 PTH Intact 581.2 pg/mL (15-6 5) H 10/08/20 10:25 Calcium (PTH Intac t) 8.4 mg/dL (8.5-10 .5) L 10/08/20 10:25 Hep Bs Antigen Non-reactive (No nreactive) 10/05/20 19:10 Hepatitis C Antibo dy Non-reactive (No nreactive) 10/05/20 19:10 Vitals/I&O/Wt Last Vital Signs Temp 98.0 F 10/09/20 07:21 Pulse 80 10/09/20 08:35 Resp 13 10/09/20 07:21 BP 115/52 10/09/20 08:35 Pulse Ox 98 10/09/20 07:21 10/09/20 10/09/20 10/09/20 06:59 14:59 22:59 Intake Total 50 / 890 Output Total 350 / 550 Balance -300 / 340 Weight last 48 hrs Weight 98.43 kg Weight 98.112 kg Physical Exam Const: COMMON NORMALS: no acute distress ORIENTATION/CONSCIOUSNESS: Yes awake, Yes oriented to person and Yes oriented to place; not oriented to time Neck/C-Spine: COMMON NORMALS: no JVD Resp: COMMON NORMALS: normal respiratory effort, No retractions, No use of accessory muscles and clear to auscultation bilaterally AUSCULTATION: clear to auscultation bilaterally Cardio: COMMON NORMALS: no JVD, regular rate, regular rhythm, S1 normal heart sound present and S2 normal heart sound present RATE: regular rate RHYTHM: regular rhythm HEART SOUNDS: S1 normal heart sound present and S2 normal heart sound present GI: COMMON NORMALS: Normal to inspection, nondistended, normoactive bowel sounds present, Soft to palpation and non-tender PALPATION: Yes Soft to palpation Neuro: SENSORIUM/ORIENTATION: Yes oriented to person, Yes oriented to place and No oriented to time OTHER: Follows commands Urinary Catheter Management^: Schneider: Cath Placed During This Visit: yes Reason for Continuing Indwelling Catheter: Acute Urinary Retention or Obstruction Urinary Catheter Date of Insertion: 10/06/20 Urinary Catheter Time of Insertion: : Data : 10/09/20 03:10/09/20 03:31 A&P Assessment and plan (1) Dementia: Awaiting psychiatry assessment This morning alert to person, place, not to time, follows commands, declines group home stay Hopefully psychiatry will assist assess decisional capacity, although he truly has very poor insight into his condition and does not appear to be able to make a safe decision regarding his disposition as well -As outpatient appears to be missing hemodialysis sessions, not sure that he is adherent with his medications, and overall does not appear to be able to make safe decisions, however, will continue follow-up and reassessments as he is getting out of the acute conditions. Appreciate psychiatry assessment. Patient's healthcare power of divorce attorney is his 2 sisters emergency medical services coordinator to continue work regarding disposition planning. Status: Acute (2) CHF (congestive heart failure): Improving CHF with hemodialysis. Urine output 550 cc Continue additional dialysis due to sessions which were missed or cut short. Continue Lasix 40 mg IV push every 24 hours Has a history of noncompliance with hemodialysis Discussed also with him and his sister regarding moderate aortic stenosis noted on echocardiogram back in July. Request to check daily weight. Monitor I&O. Status: Acute (3) Community acquired pneumonia: Continue to ceftriaxone, azithromycin. Oxygenation appears to have stabilized. Urine bacterial antigens negative. Status: Acute (4) Hypoxia: Clinically he is doing well. Continue assessment of management of CHF, fluid overload, pneumonia as above. Status: Acute (5) Troponin level elevated: Possible NSTEMI. Appreciate cardiology recommendations. Will undergo stress testing today Echocardiogram Normal LV size with a slightly diminished ejection fraction 50%. Relative hypokinesia of the septum and anteroseptal segments. Mildly increased left atrial size. Moderate mitral annular calcification. Stenotic aortic valve Status: Acute (6) Aortic stenosis: Continue treatment for CHF. Status: Acute (7) Sepsis: Sepsis is resolved. Continue to treat pneumonia. Status: Acute (8) Urine retention: Maintain Schneider Continue tamsulosin. It is not clear whether he is adherent with taking his medications. Follow-up with urology. Status: Acute (9) End stage renal disease: Appears he leaves hemodialysis sessions early, and instead of getting 4 hours gets about 1, signing out AMA. Continue to encourage hemodialysis adherence. Status: Acute (10) Declining functional status: His sister states he does not take care of himself at home. He is not clear whether he takes his medications, although his sister does say he has a in-home service lady coming in for 3 hours daily. Still this does not appear to be enough. Understanding of his condition at this time is difficult to superior court judge, although he does appear to verbalize understanding and agreement on discussion and teaching, however, will have to reassess how much she retains on subsequent visits. He is also deconditioned, and with a number of medical issues requiring hospitalization he is at risk of further deconditioning, functional decline. Currently unsafe to return home independently. Status: Acute (11) Anemia: -Hemoglobin slowly decreasing over the last few days 7.7 -Iron low at 22, ferritin high at 1270 -No hemodynamic compromise, no bloody or black stools -Hemoccult pending -Likely multifactorial, anemia of chronic disease, end-stage renal disease, possible slow GI bleed to monitor hemoglobin Status: Acute Additional A&P Information BPH: Continue tamsulosin Paroxysmal A. fib without acute exacerbation Not a candidate of anticoagulation due to anemia, risk of falls as he lives alone and has underlying dementia Continue Coreg Full code Renal dialysis diet DVT prophylaxis Heparin on hold SCDs Attestations Medical Necessity Statement*: Patient requires hospitalization for CHF, chronic stress testing, end-stage renal disease, fluid overload Coding Level of Care Code Acute Stock Receiver for [facility] Fwd Diagnoses Dementia F03.90 CHF (congestive heart failure) I50.9 Community acquired pneumonia J18.9 Hypoxia R09.02 Troponin level elevated R77.8 Aortic stenosis I35.0 Sepsis A41.9 Urine retention R33.9 End stage renal disease N18.6 Declining functional status R53.81 Anemia D64.9
[2020-10-09 16:16] LABS: Hemoglobin 8.4 g/dL (11.7-16.6)
[2020-10-09] MEDS: carvedilol 25 mg Tablet PO (17:34)
[2020-10-09] MEDS: amlodipine 10 mg Tablet PO (20:40)
[2020-10-09] MEDS: atorvastatin 40 mg Tablet PO (20:41)
[2020-10-10] VITALS (156 sets, daily range): BP systolic 128–166; BP diastolic 72–91; PULSE 68–99; RESP 8–32; TEMP 36.3–36.9; O2SAT 84–100
[2020-10-10] MEDS: FUROsemide 10 mg/mL SDV 4mL 40 MG IVP (02:28)
[2020-10-10] MEDS: cefTRIAXone 1,000 MG in sodium chloride 0.9% (plus) 50 ML 100 MG IV (02:29)
[2020-10-10 06:14] LABS: Basophils % 0.6 %; Eosinophils # 0.5 10^3/uL (0.0-0.8); Lymphocytes # 0.7 10^3/uL (0.8-4.8); Lymphocytes % 10.6 %; Mean Corpuscular HGB Conc 28.6 g/dL (30.0-36.0); Mean Corpuscular Hemoglobin 26.8 pg (28.0-34.0); Mean Corpuscular Volume 93.6 fL (80-94); Mean Platelet Volume 10.7 fL (7.4-10.4); Monocytes # 0.5 10^3/uL (0.2-0.9); Monocytes % 8.3 %; Neutrophils # 4.66 10^3/uL (1.8-7.7); Neutrophils % 72.6 %; Nucleated Red Blood Cells % 0 %; Platelet Count 198 10^3/cmm (130-400); Red Blood Count 2.99 10^6/uL (4.1-5.3); Red Cell Distribution Width 15.2 % (12.1-15.1); White Blood Count 6.4 10^3/uL (4.0-10.0)
[2020-10-10 06:35] LABS: Alanine Aminotransferase < 5 U/L (0-41); Albumin Level 2.9 g/dL (3.5-5.2); Alkaline Phosphatase 58 IU/L (40-130); Anion Gap 16.2 (5-19); Aspartate Amino Transferase 7 U/L (0-40); Blood Urea Nitrogen 38 mg/dL (8-23); Calcium 8.3 mg/dL (8.5-10.5); Carbon Dioxide 26 mmol/L (22-29); Chloride 95 mmol/L (98-107); Globulin 3.2 g/dL (1.3-4.6); Glucose 208 mg/dL (65-115); Magnesium 2.1 mg/dL (1.7-2.3); Osmolality Calculated 291 mOsm/kg (285-295); Phosphorus 5.4 mg/dL (2.5-4.5); Potassium 4.2 mmol/L (3.5-5.1); Sodium 133 mmol/L (136-145); Total Bilirubin 0.2 mg/dL (0.15-1.2); Total Protein 6.1 g/dL (6.6-8.7)
--- NOTE | 2020-10-10 08:04 | P.PN_ITS ---
Subjective Subjective: Interval history: denies cp. using nc 02- does not use oxygen at home. no n/v/f/c/bailon/d. Medications: Reviewed: Yes Medication Review Details: Current Medications Acetaminophen (Acetaminophen 325 Mg Tablet) 650 mg PO Q4H PRN PRN Reason: MILD PAIN OR INCREASE TEMP Last Admin: 10/06/20 17:31 Dose: 650 mg Documented by: Hydrocodone Bitart/Acetaminophen (Hydrocodone-Acetaminophen 5-325 Mg Tablet) 1 tab PO Q6H PRN PRN Reason: MODERATE PAIN Albuterol/Ipratropium (Ipratropium-Albuterol 3 Ml Neb) 3 ml INHALATION Q6H PRN PRN Reason: SHORTNESS OF BREATH Alprazolam (Alprazolam 0.5 Mg Tablet) 0.5 mg PO BID PRN PRN Reason: ANXIETY Last Admin: 10/09/20 20:41 Dose: 0.5 mg Documented by: Amlodipine Besylate (Amlodipine 10 Mg Tablet) 10 mg PO BEDTIME [facility] Last Admin: 10/09/20 20:40 Dose: 10 mg Documented by: Aspirin (Aspirin 81 Mg Ec Tablet) 81 mg PO DAILY [facility] Last Admin: 10/09/20 10:11 Dose: 81 mg Documented by: Atorvastatin Calcium (Atorvastatin 40 Mg Tablet) 40 mg PO BEDTIME [facility] Last Admin: 10/09/20 20:41 Dose: 40 mg Documented by: Azithromycin (Azithromycin 250 Mg Tablet) 500 mg PO DAILY [facility]; Protocol Last Admin: 10/09/20 10:10 Dose: 500 mg Documented by: Carvedilol (Carvedilol 25 Mg Tablet) 25 mg PO BID [facility] Last Admin: 10/09/20 17:34 Dose: 25 mg Documented by: Clopidogrel Bisulfate (Clopidogrel 75 Mg Tablet) 75 mg PO DAILY [facility] Last Admin: 10/09/20 10:12 Dose: 75 mg Documented by: Furosemide (Furosemide 10 Mg/Ml Sdv 4ml) 40 mg IVP Q24H JONNY Last Admin: 10/10/20 02:28 Dose: 40 mg Documented by: Heparin Sodium (Beef Lung) (Heparin 5,000 Unit/Ml Inj 1 Ml) 5,000 unit SUBCUT Q8H JONNY Last Admin: 10/09/20 03:34 Dose: 5,000 unit Documented by: Ceftriaxone Sodium 1,000 mg/ (Sodium Chloride) 50 mls @ 100 mls/hr IV Q24H [facility]; Protocol Last Infusion: 10/10/20 07:49 Dose: Infused Documented by: Sodium Chloride (Sodium Chloride 0.9%) 1,000 mls @ 0 mls/hr IV .Q0M PRN PRN Reason: hypotension or symptomatic Losartan Potassium (Losartan 50 Mg Tablet) 25 mg PO DAILY [facility] Last Admin: 10/09/20 10:38 Dose: Not Given Documented by: Multivitamins (K-Qiavean-Cievnqj C Tablet) 1 each PO DAILY [facility] Last Admin: 10/09/20 10:11 Dose: 1 each Documented by: Pantoprazole Sodium (Pantoprazole Dr 40 Mg Tablet) 40 mg PO BID [facility] Last Admin: 10/09/20 17:34 Dose: 40 mg Documented by: Sevelamer Carbonate (Sevelamer 800 Mg Tablet) 2,400 mg PO TID [facility] Last Admin: 10/09/20 20:41 Dose: 2,400 mg Documented by: Sucralfate (Sucralfate 1 Gm Tablet) 1 gm PO AC&BEDTIME [facility] Last Admin: 10/09/20 20:52 Dose: 1 gm Documented by: Tamsulosin HCl (Tamsulosin 0.4 Mg Capsule) 0.4 mg PO QAM [facility] Last Admin: 10/09/20 05:32 Dose: 0.4 mg Documented by: Vitals/I&O/Wt Last Vital Signs Temp 98.4 F 10/10/20 07:42 Pulse 77 10/10/20 07:40 Resp 17 10/10/20 07:40 BP 153/75 10/10/20 07:40 Pulse Ox 94 10/10/20 07:40 10/09/20 10/10/20 10/10/20 22:59 06:59 14:59 Intake Total 240 / 240 240 / 480 50 / 50 Output Total 400 / 400 450 / 850 Balance -160 / -160 -210 / -370 50 / 50 Weight last 48 hrs Weight 98.883 kg Weight 98.43 kg Physical Exam Narrative: EXAM NARRATIVE: vs noted, sob- using nc 02 lungs wheezes has some edema Const: GENERAL APPEARANCE: cooperative HENMT: COMMON NORMALS: normocephalic HEAD & SCALP: normocephalic Resp: EFFORT & INSPECTION: Yes able to speak in complete sentences Cardio: COMMON NORMALS: regular rate and regular rhythm RATE: regular rate RHYTHM: regular rhythm Extremity: GENERAL: Yes AV fistula (left UE + bruit) and Yes edema (left leg 1+) Urinary Catheter Management^: Soliz: Cath Placed During This Visit: yes Reason for Continuing Indwelling Catheter: Acute Urinary Retention or Ob struction Urinary Catheter Date of Insertion: 10/06/20 Urinary Catheter Time of Insertion: 04:26 Data : 10/10/20 06:02 10/10/20 06:02 A&P Additional A&P Information 74 yr old man 1. ESRD- cont HD MWF. pt does not want extra HD -repeat HD in am 4 hrs, remove 2.5 l as tolerated -phos 5.4- improved w/ HD and phos binders -pth 581- use zemplar on HD 2. Pulmonary edema, volume overload, improved w/ HD -echo w/ Q of NSTEMI- per cardiology- keep EDW down -moderate , LVH, EF 55%- his - may limit fluid removal on HD - s/p abnormal stress test 10/09/20. - caridiology appreciated- attempting to treat medically -using nc 3. Anemia- epogen w/ dialysis -ferritin 1270 - no iv iron 4. PNA per medicine 5. urinary retention- soliz- please have pt see urology for TOV- here or as outpt 6. Dementia- per medicine 7. DM control 8. hyponatremia- monitor w/ HD -agree w/ rehab on d/c -seen and examined w/ RN- telehealth visit Attestations Medical Necessity Statement*: esrd, , per medicine Time Spent in Patient Care: 16 - 35 minutes Coding Level of Care Code Acute Physician Assistant Surgery for Willy Robertson
[2020-10-10] MEDS: aspirin 81 mg EC Tablet PO (08:21)
[2020-10-10] MEDS: tamsulosin 0.4 mg Capsule PO (08:21)
[2020-10-10] MEDS: sucralfate 1 gm Tablet PO ×3 (08:21→20:00)
[2020-10-10] MEDS: carvedilol 25 mg Tablet PO ×2 (08:22→18:08)
[2020-10-10] MEDS: pantoprazole DR 40 mg Tablet PO ×2 (08:22→18:08)
[2020-10-10] MEDS: sevelamer 800 mg Tablet 2400 MG PO ×3 (08:22→20:00)
[2020-10-10] MEDS: clopidogrel 75 mg Tablet PO (08:22)
[2020-10-10] MEDS: b-complex-vitamin c Tablet 1 EACH PO (08:22)
[2020-10-10] MEDS: losartan 50 mg Tablet 25 MG PO (08:23)
[2020-10-10] MEDS: azithromycin 250 mg Tablet 500 MG PO (08:23)
--- NOTE | 2020-10-10 09:04 | P.PN_ITS ---
Subjective Subjective: Interval history: Patient continues to remain stable. Denies any chest pain or chest tightness. Has the baseline shortness of breath with activities. No new symptoms. Medications: Reviewed: Yes Medication Review Details: Current Medications Acetaminophen (Acetaminophen 325 Mg Tablet) 650 mg PO Q4H PRN PRN Reason: MILD PAIN OR INCREASE TEMP Last Admin: 10/06/20 17:31 Dose: 650 mg Documented by: Hydrocodone Bitart/Acetaminophen (Hydrocodone-Acetaminophen 5-325 Mg Tablet) 1 tab PO Q6H PRN PRN Reason: MODERATE PAIN Albuterol/Ipratropium (Ipratropium-Albuterol 3 Ml Neb) 3 ml INHALATION Q6H PRN PRN Reason: SHORTNESS OF BREATH Alprazolam (Alprazolam 0.5 Mg Tablet) 0.5 mg PO BID PRN PRN Reason: ANXIETY Last Admin: 10/09/20 20:41 Dose: 0.5 mg Documented by: Amlodipine Besylate (Amlodipine 10 Mg Tablet) 10 mg PO BEDTIME [facility] Last Admin: 10/09/20 20:40 Dose: 10 mg Documented by: Aspirin (Aspirin 81 Mg Ec Tablet) 81 mg PO DAILY [facility] Last Admin: 10/10/20 08:21 Dose: 81 mg Documented by: Atorvastatin Calcium (Atorvastatin 40 Mg Tablet) 40 mg PO BEDTIME [facility] Last Admin: 10/09/20 20:41 Dose: 40 mg Documented by: Azithromycin (Azithromycin 250 Mg Tablet) 500 mg PO DAILY [facility]; Protocol Last Admin: 10/10/20 08:23 Dose: 500 mg Documented by: Carvedilol (Carvedilol 25 Mg Tablet) 25 mg PO BID [facility] Last Admin: 10/10/20 08:22 Dose: 25 mg Documented by: Clopidogrel Bisulfate (Clopidogrel 75 Mg Tablet) 75 mg PO DAILY [facility] Last Admin: 10/10/20 08:22 Dose: 75 mg Documented by: Epoetin Bipin (Epoetin Bipin 20,000 Unit/Ml Inj) 7,000 unit IVP NOW ONE Stop: 10/11/20 07:11 Furosemide (Furosemide 10 Mg/Ml Sdv 4ml) 40 mg IVP Q24H JONNY Last Admin: 10/10/20 02:28 Dose: 40 mg Documented by: Heparin Sodium (Beef Lung) (Heparin 5,000 Unit/Ml Inj 1 Ml) 5,000 unit SUBCUT Q8H JONNY Last Admin: 10/09/20 03:34 Dose: 5,000 unit Documented by: Ceftriaxone Sodium 1,000 mg/ (Sodium Chloride) 50 mls @ 100 mls/hr IV Q24H [facility]; Protocol Last Infusion: 10/10/20 07:49 Dose: Infused Documented by: Sodium Chloride (Sodium Chloride 0.9%) 1,000 mls @ 0 mls/hr IV .Q0M PRN PRN Reason: hypotension or symptomatic Ferric Sodium Gluconate 125 mg (/ Sodium Chloride) 110 mls @ 110 mls/hr IV ONCE ONE Stop: 10/11/20 09:09 Losartan Potassium (Losartan 50 Mg Tablet) 25 mg PO DAILY [facility] Last Admin: 10/10/20 08:23 Dose: 25 mg Documented by: Multivitamins (G-Qcvvfjy-Ooxrlvq C Tablet) 1 each PO DAILY [facility] Last Admin: 10/10/20 08:22 Dose: 1 each Documented by: Pantoprazole Sodium (Pantoprazole Dr 40 Mg Tablet) 40 mg PO BID [facility] Last Admin: 10/10/20 08:22 Dose: 40 mg Documented by: Paricalcitol (Paricalcitol 2 Mcg/Ml Sdv 1 Ml) 3 mcg IV ONCE ONE Stop: 10/11/20 07:11 Sevelamer Carbonate (Sevelamer 800 Mg Tablet) 2,400 mg PO TID [facility] Last Admin: 10/10/20 08:22 Dose: 2,400 mg Documented by: Sucralfate (Sucralfate 1 Gm Tablet) 1 gm PO AC&BEDTIME [facility] Last Admin: 10/10/20 08:21 Dose: 1 gm Documented by: Tamsulosin HCl (Tamsulosin 0.4 Mg Capsule) 0.4 mg PO QAM [facility] Last Admin: 10/10/20 08:21 Dose: 0.4 mg Documented by: Vitals/I&O/Wt Last Vital Signs Temp 98.4 F 10/10/20 07:42 Pulse 77 10/10/20 07:40 Resp 17 10/10/20 07:40 BP 153/75 10/10/20 08:23 Pulse Ox 94 10/10/20 07:40 10/09/20 10/10/20 10/10/20 22:59 06:59 14:59 Intake Total 240 / 240 240 / 480 290 / 290 Output Total 400 / 400 450 / 850 Balance -160 / -160 -210 / -370 290 / 290 Weight last 48 hrs Weight 218 lb Weight 217 lb Physical Exam Narrative: EXAM NARRATIVE: GENERAL: The patient is alert and oriented to person. Confused about place and time, intermittently. HEENT: Moderate pallor. No icterus or lymphadenopathy.Oral cavity: There are no mucous membrane lesions. NECK: Trachea appears to be central. No masses noted. No JVD or thyromegaly appreciated. Bilateral carotid bruit RESPIRATORY: Chest is symmetrical. No intercostals muscle retraction or any accessory muscle activation. There is no chest wall tenderness. Breath sounds are heard bilaterally. No rales or rhonchi heard. No evidence of any consolidation. BREASTS: Deferred. HEART: The heart sounds are normal. No S3 or S4. Ejection systolic murmur of grade 4/6 aortic area with transmission to both carotids. No diastolic murmurs. No pericardial rub ABDOMEN: No vessel pulsations or distention. No tenderness. No organomegaly appreciated. Bowel sounds are normally heard. : Deferred. RECTAL: Deferred. LYMPHATIC: No lymphadenopathy noted in the neck . EXTREMITIES: No edema or cyanosis. No clubbing. The dorsalis pedis and posterior pulses are difficult to palpate. MUSCULOSKELETAL: No acute joint deformities or swelling SKIN: There are no significant rashes or ecchymosis NEUROPSYCHIATRIC: The patient is alert and oriented x3. Appears to be in a good mood. No tremors or rigidity noted. Urinary Catheter Management^: Schneider: Cath Placed During This Visit: yes Reason for Continuing Indwelling Catheter: Acute Urinary Retention or Obstruction Urinary Catheter Date of Insertion: 10/06/20 Urinary Catheter Time of Insertion: : Data : 10/10/20 06:02 10/10/20 06:02 Other Labs: Laboratory Last Values WBC 6.4 10^3/uL (4.0-10.0) 10/10/20 06:02 RBC 2.99 10^6/uL (4.1-5.3) L 10/10/20 06:02 Hgb 8.0 g/dL (11.7-16.6) L 10/10/20 06:02 Hct 28.0 % (42.0-52.0) L 10/10/20 06:02 MCV 93.6 fL (80-94) 10/10/20 06:02 MCH 26.8 pg (28.0-34.0) L 10/10/20 06:02 MCHC 28.6 g/dL (30.0-36.0) L 10/10/20 06:02 RDW 15.2 % (12.1-15.1) H 10/10/20 06:02 Plt Count 198 10^3/cmm (130-400) 10/10/20 06:02 MPV 10.7 fL (7.4-10.4) H 10/10/20 06:02 Neut % (Auto) 72.6 % 10/10/20 06:02 Lymph % (Auto) 10.6 % 10/10/20 06:02 Garvin % (Auto) 8.3 % 10/10/20 06:02 Eos % (Auto) 7.0 % 10/10/20 06:02 Baso % (Auto) 0.6 % 10/10/20 06:02 Neut # (Auto) 4.66 10^3/uL (1.8-7.7) 10/10/20 06:02 Lymph # (Auto) 0.7 10^3/uL (0.8-4.8) L 10/10/20 06:02 Garvin # (Auto) 0.5 10^3/uL (0.2-0.9) 10/10/20 06:02 Eos # (Auto) 0.5 10^3/uL (0.0-0.8) 10/10/20 06:02 Baso # (Auto) 0.0 10^3/uL (0.0-0.1) 10/10/20 06:02 Nucleated RBC % (auto) 0 % 10/10/20 06:02 Nucleated RBCs # 0.0 /100WBC 10/10/20 06:02 Specimen Type Arterial 10/05/20 19:01 Sample Site Brachial, right 10/05/20 19:01 ABG pH 7.28 (7.35-7.45) L 10/05/20 19:01 ABG pCO2 44.1 mmHg (35-45) 10/05/20 19:01 ABG pO2 129.0 mmHg (80.0-100.0) H 10/05/20 19:01 ABG HCO3 20.6 mmol/L (22-26) L 10/05/20 19:01 ABG Base Excess -5.9 mmol/L (-2.0-2.0) L 10/05/20 19:01 Chris Test N/a 10/05/20 19:01 Hematocrit 30.3 % (42-52) L 10/05/20 19:01 Hgb O2 Saturation 97.3 % (95-100) 10/05/20 19:01 Carboxyhemoglobin 0.9 %THgb (0.4-20.1) 10/05/20 19: Methemoglobin 0.4 % (0.4-1.5) 10/05/20 19:01 Total Hemoglobin 9.9 g/dL (14-18) L 10/05/20 19:01 O2 Delivery Device Bipap 10/05/20 19: FiO2 60.0 % 10/05/20 19:01 Control And Recovery Combat Rescue ID Benedicto 10/05/20 19:01 Sodium 133 mmol/L (136-145) L 10/10/20 06:02 Potassium 4.2 mmol/L (3.5-5.1) 10/10/20 06:02 Chloride 95 mmol/L (98-107) L 10/10/20 06:02 Carbon Dioxide 26 mmol/L (22-29) 10/10/20 06:02 Anion Gap 16.2 (5-19) 10/10/20 06:02 BUN 38 mg/dL (8-23) H 10/10/20 06:02 Creatinine 4.4 mg/dL (0.7-1.2) H 10/10/20 06:02 GFR Calculation Not Reportable 10/10/20 06:02 Glucose 208 mg/dL (65-115) H 10/10/20 06:02 POC Glucose 146 mg/dL (70-110) H 10/06/20 16:00 Calculated Osmolality 291 mOsm/kg (285-295) 10/10/20 06:02 Calcium 8.3 mg/dL (8.5-10.5) L 10/10/20 06:02 Phosphorus 5.4 mg/dL (2.5-4.5) H 10/10/20 06:02 Magnesium 2.1 mg/dL (1.7-2.3) 10/10/20 06:02 Iron 22 ug/dL (59-158) L 10/08/20 10:25 TIBC 158 mcg/dl 10/08/20 10:25 % Saturation 13.9 % (20-50) L 10/08/20 10:25 Unsat Iron Binding 136 ug/dL (112-347) 10/08/20 10:25 Ferritin 1270 ng/mL (30-400) H 10/08/20 10:25 Total Bilirubin 0.2 mg/dL (0.15-1.2) 10/10/20 06:02 AST 7 U/L (0-40) 10/10/20 06:02 ALT < 5 U/L (0-41) 10/10/20 06:02 Alkaline Phosphatase 58 IU/L (40-130) 10/10/20 06:02 Troponin T Baseline 461 ng/L (0-15) H* 10/05/20 19:05 Troponin T Hi Sens 6Hr 452.5 ng/L (0-15) H 10/06/20 00:53 Troponin T Hi Sens 6Hr Delta -8.5 ng/L (0-12) L 10/06/20 00:53 NT-Pro-B Natriuret Pep 48824 pg/mL (0-125) H 10/05/20 19:05 Total Protein 6.1 g/dL (6.6-8.7) L 10/10/20 06:02 Albumin 2.9 g/dL (3.5-5.2) L 10/10/20 06:02 Globulin 3.2 g/dL (1.3-4.6) 10/10/20 06:02 PTH Intact 581.2 pg/mL (15-65) H 10/08/20 10:25 Calcium (PTH Intact) 8.4 mg/dL (8.5-10.5) L 10/08/20 10:25 Hep Bs Antigen Non-reactive (Nonreactive) 10/05/20 19:10 Hepatitis C Antibody Non-reactive (Nonreactive) 10/05/20 19:10 A&P Assessment and plan (1) Troponin level elevated: I discussed with the patient and his sister the implications of the myocardial perfusion imaging results. Since he has no chest pain and also the area of ischemia is very small, it was thought to be appropriate to continue the medical treatment. In the event of a developing any chest pain or any specific ischemic symptoms, we may consider doing a cardiac catheterization, to further evaluate the coronary status and decide on further management. This discussion was understood well by the family. May continue on the current medications. Status: Acute (2) End stage renal disease: Patient is on hemodialysis, twice a week. This may be continued. Status: Acute (3) Acute on chronic diastolic (congestive) heart failure: Currently the heart failure is compensated. May continue on the current measures. Status: Acute (4) Benign essential hypertension with target blood pressure below 140/90: Currently he is normotensive. May continue on the current medications. Status: Acute (5) Dyslipidemia: Patient is on a statin. This may be continued. Status: Acute (6) DM type 2 (diabetes mellitus, type 2): Aggressive management of the diabetes is warranted. We will be closely monitoring the blood sugar. 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 Management as per the primary. Status: Acute Qualifiers: Pneumonia type: due to unspecified organism Qualified Code(s): J18.9 - Pneumonia, unspecified organism Additional A&P Information The other problems are Carotid artery stenosis. Patient was found to have 50 to 69% gnosis on the left side and less than 50% gnosis on the right side. The lower extremity arterial duplex times revealed features of arterial sclerosis with no significant obstruction. Moderate anemia Possible dementia May continue on the current medications. I may see the patient in the office in 2 weeks, once discharged. Attestations Medical Necessity Statement*: Disposition as per the primary Coding Level of Care Code Acute Publication Designer for Willy Robertson Diagnoses Troponin level elevated R77.8 End stage renal disease N18.6 Acute on chronic diastolic (congestive) heart failure I50.33 Benign essential hypertension with target blood pressure below 140/90 I10 Dyslipidemia E78.5 DM type 2 (diabetes mellitus, type 2) E11.22; N18.6; Z99.2 Chronic kidney disease stage: on chronic dialysis Diabetes mellitus complication detail: with chronic kidney disease Diabetes mellitus complication status: with kidney complications Diabetes mellitus nursing home insulin use: without filing machine operator use Right lower lobe pneumonia J18.9 Pneumonia type: due to unspecified organism
--- NOTE | 2020-10-10 09:11 | PC.SOCIAL ---
IMM completed on 10/10/20 @ 3350 with sister, Beckie. Copy of rights placed in pt room.
--- NOTE | 2020-10-10 15:50 | P.PN_ITS ---
Subjective Subjective: Interval history: This morning patient was examined, he sitting up into a chair, he is alert to person, to place, to time, he follows all commands, I cannot really detect any episodes of confusion, he answers most questions appropriately, denies any chest pain, denies any palpitations, denies any lightheadedness, dizziness, he tells me he has 5 sisters, he can name all his sisters names, he tells me he lives by himself in [place], but his second oldest sister helps take care of him, helps with his groceries, overall he feels that he is doing better, he declines penitentiary stay, tells me that he can manage at home Medications: Medication Review Details: Current Medications Acetaminophen (Acetaminophen 325 Mg Tablet) 650 mg PO Q4H PRN PRN Reason: MILD PAIN OR INCREASE TEMP Last Admin: 10/06/20 17:31 Dose: 650 mg Documented by: Hydrocodone Bitart/Acetaminophen (Hydrocodone-Acetaminophen 5-325 Mg Tablet) 1 tab PO Q6H PRN PRN Reason: MODERATE PAIN Albuterol/Ipratropium (Ipratropium-Albuterol 3 Ml Neb) 3 ml INHALATION Q6H PRN PRN Reason: SHORTNESS OF BREATH Alprazolam (Alprazolam 0.5 Mg Tablet) 0.5 mg PO BID PRN PRN Reason: ANXIETY Last Admin: 10/09/20 20:41 Dose: 0.5 mg Documented by: Amlodipine Besylate (Amlodipine 10 Mg Tablet) 10 mg PO BEDTIME [facility] Last Admin: 10/09/20 20:40 Dose: 10 mg Documented by: Aspirin (Aspirin 81 Mg Ec Tablet) 81 mg PO DAILY [facility] Last Admin: 10/10/20 08:21 Dose: 81 mg Documented by: Atorvastatin Calcium (Atorvastatin 40 Mg Tablet) 40 mg PO BEDTIME [facility] Last Admin: 10/09/20 20:41 Dose: 40 mg Documented by: Azithromycin (Azithromycin 250 Mg Tablet) 500 mg PO DAILY [facility]; Protocol Last Admin: 10/10/20 08:23 Dose: 500 mg Documented by: Carvedilol (Carvedilol 25 Mg Tablet) 25 mg PO BID [facility] Last Admin: 10/10/20 08:22 Dose: 25 mg Documented by: Clopidogrel Bisulfate (Clopidogrel 75 Mg Tablet) 75 mg PO DAILY [facility] Last Admin: 10/10/20 08:22 Dose: 75 mg Documented by: Epoetin Bipin (Epoetin Bipin 20,000 Unit/Ml Inj) 7,000 unit IVP NOW ONE Stop: 10/11/20 07:11 Furosemide (Furosemide 10 Mg/Ml Sdv 4ml) 40 mg IVP Q24H JONNY Last Admin: 10/10/20 02:28 Dose: 40 mg Documented by: Heparin Sodium (Beef Lung) (Heparin 5,000 Unit/Ml Inj 1 Ml) 5,000 unit SUBCUT Q8H [facility]ONNY Last Admin: 10/09/20 03:34 Dose: 5,000 unit Documented by: Ceftriaxone Sodium 1,000 mg/ (Sodium Chloride) 50 mls @ 100 mls/hr IV Q24H [facility]; Protocol Last Infusion: 10/10/20 07:49 Dose: Infused Documented by: Sodium Chloride (Sodium Chloride 0.9%) 1,000 mls @ 0 mls/hr IV .Q0M PRN PRN Reason: hypotension or symptomatic Ferric Sodium Gluconate 125 mg (/ Sodium Chloride) 110 mls @ 110 mls/hr IV ONCE ONE Stop: 10/11/20 09:09 Losartan Potassium (Losartan 50 Mg Tablet) 25 mg PO DAILY [facility] Last Admin: 10/10/20 08:23 Dose: 25 mg Documented by: Multivitamins (D-Zkutjse-Syhhcxx C Tablet) 1 each PO DAILY [facility] Last Admin: 10/10/20 08:22 Dose: 1 each Documented by: Pantoprazole Sodium (Pantoprazole Dr 40 Mg Tablet) 40 mg PO BID [facility] Last Admin: 10/10/20 08:22 Dose: 40 mg Documented by: Paricalcitol (Paricalcitol 2 Mcg/Ml Sdv 1 Ml) 3 mcg IV ONCE ONE Stop: 10/11/20 07:11 Sevelamer Carbonate (Sevelamer 800 Mg Tablet) 2,400 mg PO TID [facility] Last Admin: 10/10/20 08:22 Dose: 2,400 mg Documented by: Sucralfate (Sucralfate 1 Gm Tablet) 1 gm PO AC&BEDTIME [facility] Last Admin: 10/10/20 08:21 Dose: 1 gm Documented by: Tamsulosin HCl (Tamsulosin 0.4 Mg Capsule) 0.4 mg PO QAM [facility] Last Admin: 10/10/20 08:21 Dose: 0.4 mg Documented by: Vitals/I&O/Wt Last Vital Signs Temp 97.4 F L 10/10/20 15:42 Pulse 79 10/10/20 15:45 Resp 10 L 10/10/20 15:45 BP 128/84 10/10/20 15:45 Pulse Ox 97 10/10/20 15:45 10/10/20 10/10/20 10/10/20 06:59 14:59 22:59 Intake Total 240 / 480 430 / 430 Output Total 450 / 850 Balance -210 / -370 430 / 430 Weight last 48 hrs Weight 98.883 kg Weight 98.43 kg Physical Exam Const: COMMON NORMALS: no acute distress and patient oriented x3 HENMT: COMMON NORMALS: normocephalic HEAD & SCALP: normocephalic Neck/C-Spine: COMMON NORMALS: no JVD Resp: COMMON NORMALS: normal respiratory effort, No retractions, No use of accessory muscles and clear to auscultation bilaterally AUSCULTATION: clear to auscultation bilaterally Cardio: COMMON NORMALS: no JVD, regular rate, regular rhythm, S1 normal heart sound present and S2 normal heart sound present RATE: regular rate RHYTHM: regular rhythm HEART SOUNDS: S1 normal heart sound present and S2 normal heart sound present GI: COMMON NORMALS: Normal to inspection, nondistended, normoactive bowel sounds present, Soft to palpation, non-tender, No hepatosplenomegaly present, no masses and no bruits PALPATION: Yes Soft to palpation and Yes No hepatosplenomegaly present Extremity: COMMON NORMALS: capillary refill normal, no clubbing, cyanosis or edema, no calf tenderness and no pedal edema Neuro: COMMON NORMALS: patient oriented x3 Psych: COMMON NORMALS: mental status grossly normal Urinary Catheter Management^: Schneider: Cath Placed During This Visit: yes Reason for Continuing Indwelling Catheter: Acute Urinary Retention or Obstruction Urinary Catheter Date of Insertion: 10/06/20 Urinary Catheter Time of Insertion: 04:26 Data : 10/10/20 06:02 10/10/20 06:02 A&P Assessment and plan (1) Dementia: Awaiting psychiatry assessment This morning is alert and oriented x3, follows all commands, answers all questions appropriately, has good insight into his condition, recognizes that he has missed dialysis, understands this is importance, Again declines penitentiary stay, would prefer to go home, tells me that he has help at home, his second oldest sister helps him Hopefully psychiatry will assist assess decisional capacity, however at this point he does answer all questions appropriately, has some degree of good insight -As outpatient appears to be missing hemodialysis sessions, not sure that he is adherent with his medications, and overall does not appear to be able to make safe decisions, however, will continue follow-up and reassessments as he is getting out of the acute conditions. Appreciate psychiatry assessment. Patient's healthcare power of corporate associate attorney is his 2 sisters instructional support services director to continue work regarding disposition planning. Plan for today, continue antibiotics, continue to monitor clinically, continue diuretic therapy, awaiting cardiology's recommendations, will discharge with home health care in the next 24 hours, if his mentation remained stable Status: Acute (2) CHF (congestive heart failure): Improving CHF with hemodialysis. Urine output 850 cc Continue additional dialysis due to sessions which were missed or cut short. Continue Lasix 40 mg IV push every 24 hours Has a history of noncompliance with hemodialysis Discussed also with him and his sister regarding moderate aortic stenosis noted on echocardiogram back in July. Request to check daily weight. Monitor I&O. Status: Acute (3) Community acquired pneumonia: Continue to ceftriaxone, azithromycin. Oxygenation appears to have stabi lized. Urine bacterial antigens negative. Status: Acute (4) Hypoxia: Clinically he is doing well. Continue assessment of management of CHF, fluid overload, pneumonia as above. Status: Acute (5) Troponin level elevated: Possible NSTEMI. Appreciate cardiology recommendations. Echocardiogram Normal LV size with a slightly diminished ejection fraction 50%. Relative hypokinesia of the septum and anteroseptal segments. Mildly increased left atrial size. Moderate mitral annular calcification. Stenotic aortic valve Cardiac stress testing shows: - 1. Myocardial perfusion imaging revealing small to moderate area of persis tent decreased tracer uptake in the inferior and inferolateral regions with a subtle areas of reversibility, suggestive of myocardial scarring in the distribution of the right coronary artery and circumflex artery with subtle areas of ramon- infarction ischemia. 2. Diminished LV ejection fraction of 44%. 3. Wall motion normalities as mentioned above. 4. Moderately dilated LV cavity with an end-systolic volume of 113 mL -Cardiology on consult Status: Acute (6) Aortic stenosis: Continue treatment for CHF. Status: Acute (7) Sepsis: Sepsis is resolved. Continue to treat pneumonia. Status: Acute (8) Urine retention: Maintain Schneider Continue tamsulosin. It is not clear whether he is adherent with taking his medications. Follow-up with urology. Status: Acute (9) End stage renal disease: Appears he leaves hemodialysis sessions early, and instead of getting 4 hours gets about 1, signing out AMA. Continue to encourage hemodialysis adherence. Status: Acute (10) Declining functional status: -Currently stating that he can take care of himself, he has appropriate health, his second oldest sister helps him, he needs home health care, declines penitentiary stay His sister states he does not take care of himself at home. He is not clear whether he takes his medications, although his sister does say he has a in-home service lady coming in for 3 hours daily. Still this does not appear to be enough. Understanding of his condition at this time is difficult to process control supervisor, although he does appear to verbalize understanding and agreement on discussion and teaching, however, will have to reassess how much she retains on subsequent visits. He is also deconditioned, and with a number of medical issues requiring hospitalization he is at risk of further deconditioning, functional decline. Currently unsafe to return home independently. Status: Acute (11) Anemia: -Hemoglobin slowly decreasing over the last few days 8 -Iron low at 22, ferritin high at 1270 -No hemodynamic compromise, no bloody or black stools -Hemoccult pending -Likely multifactorial, anemia of chronic disease, end-stage renal disease, possible slow GI bleed to monitor hemoglobin Status: Acute Additional A&P Information BPH: Continue tamsulosin Paroxysmal A. fib without acute exacerbation Not a candidate of anticoagulation due to anemia, risk of falls as he lives alone and has underlying dementia Continue Coreg Full code Renal dialysis diet DVT prophylaxis Heparin on hold SCDs Attestations Medical Necessity Statement*: Patient cards hospitalization for CHF exacerbation, pneumonia, positive stress test, Coding Level of Care Code Acute [employer] Director for Willy Robertson Diagnoses Dementia F03.90 CHF (congestive heart failure) I50.9 Community acquired pneumonia J18.9 Hypoxia R09.02 Troponin level elevated R77.8 Aortic stenosis I35.0 Sepsis A41.9 Urine retention R33.9 End stage renal disease N18.6 Declining functional status R53.81 Anemia D64.9
[2020-10-10] MEDS: HYDROcodone-acetaminophen 5-325 mg Tablet 1 TAB PO (19:38)
[2020-10-10] MEDS: atorvastatin 40 mg Tablet PO (20:01)
[2020-10-10] MEDS: amlodipine 10 mg Tablet PO (20:01)
[2020-10-11] VITALS (9 sets, daily range): BP systolic 101–159; BP diastolic 63–86; PULSE 74–100; RESP 10–22; TEMP 36.6–36.8; O2SAT 91–98
[2020-10-11] MEDS: ALPRAZolam 0.5 mg Tablet PO ×2 (00:39→10:05)
[2020-10-11] MEDS: cefTRIAXone 1,000 MG in sodium chloride 0.9% (plus) 50 ML 100 MG IV (03:17)
[2020-10-11] MEDS: FUROsemide 10 mg/mL SDV 4mL 40 MG IVP (03:18)
[2020-10-11 05:00] LABS: Basophils # 0.1 10^3/uL (0.0-0.1); Basophils % 0.8 %; Eosinophils # 0.5 10^3/uL (0.0-0.8); Eosinophils % 7.3 %; Hematocrit 27.5 % (42.0-52.0); Hemoglobin 7.6 g/dL (11.7-16.6); Lymphocytes # 0.6 10^3/uL (0.8-4.8); Lymphocytes % 8.4 %; Mean Corpuscular HGB Conc 27.6 g/dL (30.0-36.0); Mean Corpuscular Hemoglobin 26.4 pg (28.0-34.0); Mean Corpuscular Volume 95.5 fL (80-94); Mean Platelet Volume 10.8 fL (7.4-10.4); Monocytes # 0.5 10^3/uL (0.2-0.9); Monocytes % 6.9 %; Neutrophils # 5.61 10^3/uL (1.8-7.7); Neutrophils % 75.7 %; Nucleated Red Blood Cells % 0 %; Platelet Count 201 10^3/cmm (130-400); Red Blood Count 2.88 10^6/uL (4.1-5.3); Red Cell Distribution Width 15.1 % (12.1-15.1); White Blood Count 7.4 10^3/uL (4.0-10.0)
[2020-10-11 05:26] LABS: Alanine Aminotransferase < 5 U/L (0-41); Alkaline Phosphatase 58 IU/L (40-130); Anion Gap 20.5 (5-19); Aspartate Amino Transferase 12 U/L (0-40); Blood Urea Nitrogen 54 mg/dL (8-23); Calcium 8.4 mg/dL (8.5-10.5); Carbon Dioxide 22 mmol/L (22-29); Chloride 92 mmol/L (98-107); Globulin 2.1 g/dL (1.3-4.6); Glucose 162 mg/dL (65-115); Magnesium 2.2 mg/dL (1.7-2.3); Osmolality Calculated 288 mOsm/kg (285-295); Phosphorus 5.9 mg/dL (2.5-4.5); Potassium 4.5 mmol/L (3.5-5.1); Sodium 130 mmol/L (136-145); Total Bilirubin 0.2 mg/dL (0.15-1.2); Total Protein 5.1 g/dL (6.6-8.7)
[2020-10-11] MEDS: tamsulosin 0.4 mg Capsule PO (05:59)
--- NOTE | 2020-10-11 07:05 | P.PN_ITS ---
Subjective Subjective: Interval history: no new complaints. states he wants dialysis and will adhere to HD as outpt. he pulled at his soliz and has some pink tinged urine overnight. Medications: Reviewed: Yes Medication Review Details: Current Medications Acetaminophen (Acetaminophen 325 Mg Tablet) 650 mg PO Q4H PRN PRN Reason: MILD PAIN OR INCREASE TEMP Last Admin: 10/06/20 17:31 Dose: 650 mg Documented by: Albuterol/Ipratropium (Ipratropium-Albuterol 3 Ml Neb) 3 ml INHALATION Q6H PRN PRN Reason: SHORTNESS OF BREATH Alprazolam (Alprazolam 0.5 Mg Tablet) 0.5 mg PO BID PRN PRN Reason: ANXIETY Last Admin: 10/11/20 00:39 Dose: 0.5 mg Documented by: Amlodipine Besylate (Amlodipine 10 Mg Tablet) 10 mg PO BEDTIME [facility] Last Admin: 10/10/20 20:01 Dose: 10 mg Documented by: Aspirin (Aspirin 81 Mg Ec Tablet) 81 mg PO DAILY [facility] Last Admin: 10/10/20 08:21 Dose: 81 mg Documented by: Atorvastatin Calcium (Atorvastatin 40 Mg Tablet) 40 mg PO BEDTIME JONNY Last Admin: 10/10/20 20:01 Dose: 40 mg Documented by: Azithromycin (Azithromycin 250 Mg Tablet) 500 mg PO DAILY [facility]; Protocol Last Admin: 10/10/20 08:23 Dose: 500 mg Documented by: Carvedilol (Carvedilol 25 Mg Tablet) 25 mg PO BID [facility] Last Admin: 10/10/20 18:08 Dose: 25 mg Documented by: Clopidogrel Bisulfate (Clopidogrel 75 Mg Tablet) 75 mg PO DAILY JONNY Last Admin: 10/10/20 08:22 Dose: 75 mg Documented by: Epoetin Bipin (Epoetin Bipin 20,000 Unit/Ml Inj) 7,000 unit IVP NOW ONE Stop: 10/11/20 07:11 Furosemide (Furosemide 10 Mg/Ml Sdv 4ml) 40 mg IVP Q24H JONNY Last Admin: 10/11/20 03:18 Dose: 40 mg Documented by: Heparin Sodium (Beef Lung) (Heparin 5,000 Unit/Ml Inj 1 Ml) 5,000 unit SUBCUT Q8H JONNY Last Admin: 10/09/20 03:34 Dose: 5,000 unit Documented by: Hydromorphone HCl (Hydromorphone 1 Mg/Ml Inj 1 Ml) 0.5 mg IVP Q4H PRN PRN Reason: severe pain Ceftriaxone Sodium 1,000 mg/ (Sodium Chloride) 50 mls @ 100 mls/hr IV Q24H [facility]; Protocol Last Infusion: 10/11/20 04:15 Dose: Infused Documented by: Sodium Chloride (Sodium Chloride 0.9%) 1,000 mls @ 0 mls/hr IV .Q0M PRN PRN Reason: hypotension or symptomatic Ferric Sodium Gluconate 125 mg (/ Sodium Chloride) 110 mls @ 110 mls/hr IV ONCE ONE Stop: 10/11/20 09:09 Losartan Potassium (Losartan 50 Mg Tablet) 25 mg PO DAILY [facility] Last Admin: 10/10/20 08:23 Dose: 25 mg Documented by: Multivitamins (E-Ykybjzx-Jqhpsop C Tablet) 1 each PO DAILY [facility] Last Admin: 10/10/20 08:22 Dose: 1 each Documented by: Pantoprazole Sodium (Pantoprazole Dr 40 Mg Tablet) 40 mg PO BID [facility] Last Admin: 10/10/20 18:08 Dose: 40 mg Documented by: Paricalcitol (Paricalcitol 2 Mcg/Ml Sdv 1 Ml) 3 mcg IV ONCE ONE Stop: 10/11/20 07:11 Senna/Docusate Sodium (Sennosides-Docusate Tablet) 1 tab PO DAILY [facility] Sevelamer Carbonate (Sevelamer 800 Mg Tablet) 2,400 mg PO TID [facility] Last Admin: 10/10/20 20:00 Dose: 2,400 mg Documented by: Sucralfate (Sucralfate 1 Gm Tablet) 1 gm PO AC&BEDTIME [facility] Last Admin: 10/10/20 20:00 Dose: 1 gm Documented by: Tamsulosin HCl (Tamsulosin 0.4 Mg Capsule) 0.4 mg PO QAM [facility] Last Admin: 10/11/20 05:59 Dose: 0.4 mg Documented by: Vitals/I&O/Wt Last Vital Signs Temp 98 F 10/11/20 05:36 Pulse 81 10/11/20 06:00 Resp 19 H 10/11/20 05:36 BP 147/84 10/11/20 05:36 Pulse Ox 91 10/11/20 05:36 10/10/20 10/11/20 10/11/20 22:59 06:59 14:59 Intake Total 300 / 730 300 / 1030 Output Total 625 / 625 Balance 300 / 730 -325 / 405 Weight last 48 hrs Weight 67.132 kg Weight 66.723 kg Weight 98.883 kg Physical Exam Narrative: EXAM NARRATIVE: comfortable in bed, NARD heent- nc/at, eomi, anicteric neck supple lungs basal crackles heart reg, +SENA abd soft, nt, nd, +BS ext no c/c. 1+ edema neuro- a,a, o x 1-2 pulses + b/l no rashes mood stable + soliz Urinary Catheter Management^: Soliz: Cath Placed During This Visit: yes Reason for Continuing Indwelling Catheter: Accurate Measurement of Urinary Output in Critically Ill Patients Urinary Catheter Date of Insertion: 10/06/20 Urinary Catheter Time of Insertion: 04: Data : 10/11/20 04:26 10/11/20 04:26 Micro: Microbiology 10/05/20 00:53 Blood Culture - Final Blood NO GROWTH AFTER 5 DAYS 10/05/20 00:50 Blood Culture - Final Blood NO GROWTH AFTER 5 DAYS A&P Additional A&P Information 74 yr old man 1. ESRD- cont HD MWF. -repeat HD now 4 hrs, remove 2.5 l as tolerated -phos 5.9- HD and phos binders -pth 581- use zemplar on HD 2. Pulmonary edema, volume overload, improved w/ HD -echo w/ Q of NSTEMI- per cardiology- keep EDW down -moderate , LVH, EF 55%- his - may limit fluid removal on HD - s/p abnormal stress test 10/09/20. - cardiology appreciated- attempting to treat medically -using nc 02 p. a fib per cardiology 3. Anemia- epogen w/ dialysis -ferritin 1270 - no iv iron -may benefit from 1 u prbc tx as per medicine/ cardiology 4. PNA per medicine 5. urinary retention- soliz- please have pt see urology for TOV- i am concerned that he will continue to pull at soliz and cause trauma -cont flomax 6. Dementia- per medicine 7. DM control 8. hyponatremia- monitor w/ HD -agree w/ rehab on d/c -seen and examined w/ RN- telehealth visit Attestations Medical Necessity Statement*: anemia, CAD, , dementia, ESRD- per medicine Time Spent in Patient Care: 16 - 35 minutes Coding Level of Care Code Acute Beer Cooler for Willy Robertson
[2020-10-11] MEDS: pantoprazole DR 40 mg Tablet PO (08:30)
[2020-10-11] MEDS: sevelamer 800 mg Tablet 2400 MG PO (08:30)
[2020-10-11] MEDS: b-complex-vitamin c Tablet 1 EACH PO (08:31)
[2020-10-11] MEDS: sennosides-docusate Tablet 1 TAB PO (08:31)
[2020-10-11] MEDS: losartan 50 mg Tablet 25 MG PO (08:31)
[2020-10-11] MEDS: aspirin 81 mg EC Tablet PO (08:31)
[2020-10-11] MEDS: clopidogrel 75 mg Tablet PO (08:31)
[2020-10-11] MEDS: sucralfate 1 gm Tablet PO ×2 (08:32→10:05)
[2020-10-11] MEDS: azithromycin 250 mg Tablet 500 MG PO (08:32)
[2020-10-11] MEDS: carvedilol 25 mg Tablet PO (08:32)
--- NOTE | 2020-10-11 10:09 | PC.NURSE ---
Patient to dialysis at this time. A&O, VSS.
--- NOTE | 2020-10-11 10:58 | P.DS_ITS ---
Discharge Providers Date of Admission: 10/05/20 19:39 Date of Discharge: October 11, 2020 Attending Provider at Admission: Dylan White MD Attending Provider at Discharge: Maykel Carreno MD Primary Care Provider: Salvador Daley MD Diagnoses at Discharge Discharge Diagnosis (1) Troponin level elevated: Status: Acute (2) End stage renal disease: Status: Acute (3) Acute on chronic diastolic (congestive) heart failure: Status: Acute (4) Benign essential hypertension with target blood pressure below 140/90: Status: Acute (5) Dyslipidemia: Status: Acute (6) DM type 2 (diabetes mellitus, type 2): Status: Acute Permanent problem details: -history of DKA -A1c at goal-6.2, Qualifiers: Diabetes mellitus mcc insulin use: without mcc use Diabetes mellitus complication status: with kidney complications Diabetes mellitus complication detail: with chronic kidney disease Chronic kidney disease stage: on chronic dialysis Qualified Code(s): E11.22 - Type 2 diabetes mellitus with diabetic chronic kidney disease; N18.6 - End stage renal disease; Z99.2 - Dependence on renal dialysis (7) Right lower lobe pneumonia: Status: Acute Qualifiers: Pneumonia type: due to unspecified organism Qualified Code(s): J18.9 - Pneumonia, unspecified organism Reason for Visit Reason for Visit: NOT FEELING WELL/ LOW O2 SATS Hospital Course Hospital Course This is a 74-year-old male with a past medical history of end-stage renal disease on dialysis, paroxysmal atrial fibrillation not on anticoagulation due to chronic anemia, with underlying dementia, who presents [facility] due to complaints of generalized weakness and malaise Patient was admitted to [facility] for diastolic CHF exacerbation, likely secondary to missed dialysis days, initially required BiPAP therapy, he received inpatient dialysis along with Lasix therapy, was and was clinically monitored. Patient's echocardiogram did show moderate aortic stenosis. Patient's clinical condition improved, he was ambulating without any significant symptomatology, edema improved, shortness of breath improved. Patient has been discharged on Lasix 40 mg daily, with instructions to be adherent to dialysis days. Adherence to dialysis was gone over multiple times with patient and his sister., As he has a high risk of readmissions due to recurrent CHF exacerbations and fluid overload. Patient was also found to have community-acquired pneumonia with sepsis on hospi rhonda admission, placed on broad-spectrum antibiotics, initially required BiPAP therapy, all cultures so far have been negative, discharged on doxycycline. Patient was also found to have troponin elevation during his hospitalization, echocardiogram showed a slightly diminished EF of 50%, relative hypokinesia of the septum and anteroseptal segments, stenotic aortic valve. Patient underwent cardiac stress testin. Myocardial perfusion imaging revealing small to moderate area of persistent decreased tracer uptake in the inferior and inferolateral regions with a subtle areas of reversibility, suggestive of myocardial scarring in the distribution of the right coronary artery and circumflex artery with subtle areas of ramon- infarction ischemia. 2. Diminished LV ejection fraction of 44%. 3. Wall motion normalities as mentioned above. 4. Moderately dilated LV cavity with an end-systolic volume of 113 mL -Of note patient did not have any significant chest pain complaints -Cardiology was consulted -After cardiology had discussion with patient and his sister, decision was made to treat medically. However if patient were to have chest pain or ischemic symptoms, he will require a cardiac catheterization -Discharged on aspirin, statin, Plavix, Coreg Patient was also found to have carotid artery stenosis, discharged on aspirin, statin, Plavix, with a follow-up with Dr. Baker as outpatient For hemodialysis, must continue hemodialysis days, twice weekly, advised of compliance, risk of readmissions, risk of significant morbidity and mortality. Patient had urinary retention throughout his hospitalization, he retained up to 700 mL of urine in his bladder, Schneider catheter has been placed, patient will be discharged with Schneider catheter with follow-up with Dr. Kearns as outpatient for voiding trial During his hospitalization, patient had encephalopathy likely secondary to pneumonia, CHF. Patient does have underlying dementia, and there was concerns that patient was missing hemodialysis days secondary to worsening dementia, concerns for safe decision making, and concerns for capacity. However patient's mentation significantly improved, he was alert oriented x3, followed all commands, answering all questions appropriate, he did have some degree of good insight into his condition, understood its importance, understood the importance of not missing dialysis. He also was assessed by psychiatry; likely does have underlying dementia, but is back to baseline. Although I have strongly recommended patient to go to a shelter, he has refused. We have set up home health care for him, and his sister helps him daily. Physical Exam Const: COMMON NORMALS: no acute distress and patient oriented x3 HENMT: COMMON NORMALS: normocephalic HEAD & SCALP: normocephalic Neck/C-Spine: COMMON NORMALS: no JVD Resp: COMMON NORMALS: normal respiratory effort, No retractions, No use of accessory muscles and clear to auscultation bilaterally AUSCULTATION: clear to auscultation bilaterally Cardio: COMMON NORMALS: no JVD, regular rate, regular rhythm, S1 normal heart sound present and S2 normal heart sound present RATE: regular rate RHYTHM: regular rhythm HEART SOUNDS: S1 normal heart sound present and S2 normal heart sound present GI: COMMON NORMALS: Normal to inspection, nondistended, normoactive bowel sounds present, Soft to palpation, non-tender, No hepatosplenomegaly present, no masses and no bruits PALPATION: Yes Soft to palpation and Yes No hepatosplenomegaly present Extremity: COMMON NORMALS: capillary refill normal, no clubbing, cyanosis or edema, no calf tenderness and no pedal edema Neuro: COMMON NORMALS: patient oriented x3 Psych: COMMON NORMALS: mental status grossly normal Urinary Catheter Management^: Schneider: Cath Placed During This Visit: yes Reason for Continuing Indwelling Catheter: Accurate Measurement of Urinary Output in Critically Ill Patients Urinary Catheter Date of Insertion: 10/06/20 Urinary Catheter Time of Insertion: 04:26 Discharge Data Data Completed and Pending: Completed Studies During Hospitalization Category Date Time Status CT angio chest 71 275 Stat Cat Scan 10/06/20 15:[address] MIBI [Sestamibi Stress Test Reque st Exams 10/09/20 07:04 Draft ] Routine XR chest 1V [place]ota ble 17550 Urgent Exams 10/05/20 18:50 Completed NM jean perf SPECT r/s* [id number] Routin e Nuc Med 10/09/20 00:08 [place] [id number] Rout ine Ultrasound 10/08/20 07:00 Completed CV carotid duplex BI* [id number] Routine Ultrasound 10/08/20 07:00 Completed CV echo limited 9 6016 Routine Ultrasound 10/07/20 06:00 Completed Pending at discharge Category Date Time Status Complete Blood Co unt w/Auto AM LABS Lab 10/12/20 04:00 Ordered Comprehensive Met abolic Panel AM LA BS Lab 10/12/20 04:00 Ordered Immunochemical Fe nidhi OCB Routine Lab 10/06/20 11:49 Uncollected Leukocyte Reduced RBC Stat Lab 10/11/20 10:25 Received Phosphorus AM LAB S Lab 10/12/20 04:00 Ordered Type and Screen S tat Lab 10/11/20 10:25 Received Labs from last 24 hours 10/11/20 10/11/20 04:26 04:26 WBC 7.4 RBC 2.88 L Hgb 7.6 L Hct 27.5 L MCV 95.5 H MCH 26.4 L MCHC 27.6 L RDW 15.1 Plt Count 201 MPV 10.8 H Neut % (Auto) 75.7 Lymph % (Auto) 8.4 [place] % (Auto) 6.9 Eos % (Auto) 7.3 Baso % (Auto) 0.8 Neut # (Auto) 5.61 Lymph # (Auto) 0.6 L [place] # (Auto) 0.5 Eos # (Auto) 0.5 Baso # (Auto) 0.1 Nucleated RBC % (a uto) 0 Nucleated RBCs # 0.0 Sodium 130 L Potassium 4.5 Chloride 92 L Carbon Dioxide 22 Anion Gap 20.5 H BUN 54 H Creatinine 6.0 H* GFR Calculation Not Reportable Glucose 162 H Calculated Osmolal ity 288 Calcium 8.4 L Phosphorus 5.9 H Magnesium 2.2 Total Bilirubin 0.2 AST 12 ALT < 5 Alkaline Phosphata se 58 Total Protein 5.1 L Albumin 3.0 L Globulin 2.1 Vitals: Last Vital Signs Temp 98.2 F 10/11/20 07:15 Pulse 74 10/11/20 08:14 Resp 17 10/11/20 08:14 BP 128/63 10/11/20 08:31 Pulse Ox 91 10/11/20 08:14 Discharge Plan Discharge Patient Disposition: Home Health Service Condition: Stable Prescriptions: New aspirin 81 mg Tablet,Delayed Release (Dr/Ec) 81 mg PO DAILY 30 Days Qty: 30 RF: 0 doxycycline hyclate 100 mg tablet 100 mg PO BID 5 Days Qty: 10 RF: 0 atorvastatin 40 mg Tablet 40 mg PO BEDTIME 30 Days Qty: 30 RF: 0 clopidogrel 75 mg Tablet 75 mg PO DAILY 30 Days Qty: 30 RF: 0 losartan 50 mg Tablet 25 mg PO DAILY 30 Days Qty: 30 RF: 0 pantoprazole 40 mg Tablet,Delayed Release (Dr/Ec) 40 mg PO BID 30 Days Qty: 60 RF: 0 Continued Tylenol Extra Strength 500 mg Tablet 1,000 mg PO PRN RF: 0 carvedilol 25 mg tablet 25 mg PO BID RF: 0 tamsulosin 0.4 mg capsule 0.4 mg PO QAM RF: 0 sevelamer carbonate [Renvela] 800 mg tablet 2,400 mg PO TID RF: 0 Imodium A-D 1 tab PO QAM RF: 0 Changed furosemide 80 mg tablet 40 mg PO QAM Qty: 0 RF: 0 amlodipine 10 mg tablet 5 mg PO BEDTIME Qty: 0 RF: 0 Discontinued hydralazine 10 mg tablet 10 mg PO BID RF: 0 Discharge Orders: Discharge Order (Routine); Ordered 10/11/20 Ordered By: Maykel Carreno Referrals: Patria Rabago MD [Physician] - 2 weeks (positive stress test) Nima Kearns MD [Physician] - 7-10 days (voiding trial) Lenny Rodriguez MD [Physician] - 1 month (egd for anemia) Salvador Daley MD [Primary Care Provider] - 4-7 days (follow up primary care) Carlos Baker MD [Physician] - 1 month (carotid stenosis) Discharge Diet: Cardiac Discharge Activity: Increase activity as tolerated Activity Restrictions/Additional Instructions: -Please do not miss dialysis days -If you have worsening shortness of breath please come back to the emergency room -If you have chest pain come back to the emergency room -I have discharged you with a Schneider catheter for urinary retention, please follow-up with Dr. Kearns in 7 to 10 days for a voiding trial -Follow-up with your primary care provider within a week -For your stress test, follow-up with Dr. Rabago as outpatient -Follow with Dr. Baker from carotid artery stenosis -For anemia, follow with primary care provider in 1 week for repeat CBC, I have referred you for general surgery for consideration of EGD in a month Discharge Attestations Time Spent in Discharge Care*: less than 30 min Status at Discharge: Cognitive status at discharge: cognitively intact , Beh avioral status at discharge: cooperative and independent in ADL's , Quality Metrics Clinical Quality Measures During this hospital stay, did patient experience: None Coding Level of Care Code Acute Chg FW DC note Diagnoses Troponin level elevated R77.8 End stage renal disease N18.6 Acute on chronic diastolic (congestive) heart failure I50.33 Benign essential hypertension with target blood pressure below 140/90 I10 Dyslipidemia E78.5 DM type 2 (diabetes mellitus, type 2) E11.22; N18.6; Z99.2 Diabetes mellitus manager intermediate insulin use: without manager intermediate use Diabetes mellitus complication status: with kidney complications Diabetes mellitus complication detail: with chronic kidney disease Chronic kidney disease stage: on chronic dialysis Right lower lobe pneumonia J18.9 Pneumonia type: due to unspecified organism
--- NOTE | 2020-10-11 12:37 | PC.NURSE ---
Blood taken to dialysis to be administered by RN.
--- NOTE | 2020-10-11 16:19 | PC.NURSE ---
Discharge instructions given per the physician's instructions. Patient and sister verbalized understanding of teaching and did not have any further questions. IV has been removed. DC with heydi per Dr. Carreno verbal order.
== END 2020-10-11 16:15 | disposition home health service (06) | DRG 871 ==
LOC: ER 19:08 → CSU 20:03
PROVIDERS: Internal Medicine; Internal Medicine Nephrology; Admitting Provider Internal Medicine; Emergency Provider Emergency Medicine; PCP Family Medicine; Visit Provider Family Medicine
DX: A41.9 Sepsis, unspecified organism (principal); J18.9 Pneumonia, unspecified organism; I50.33 Acute on chronic diastolic (congestive) heart failure; N18.6 End stage renal disease; I21.A1 Myocardial infarction type 2; G93.41 Metabolic encephalopathy; I13.2 Hypertensive heart and chronic kidney disease with heart failure and with stage 5 chronic kidney disease, or end stage renal disease; E87.1 Hypo-osmolality and hyponatremia; E11.22 Type 2 diabetes mellitus with diabetic chronic kidney disease; Z99.2 Dependence on renal dialysis; Z91.15 Patient's noncompliance with renal dialysis; I48.0 Paroxysmal atrial fibrillation; D63.1 Anemia in chronic kidney disease; F03.90 Unspecified dementia, unspecified severity, without behavioral disturbance, psychotic disturbance, mood disturbance, and anxiety; K52.9 Noninfective gastroenteritis and colitis, unspecified; N40.1 Benign prostatic hyperplasia with lower urinary tract symptoms; R33.8 Other retention of urine; Z86.16 Personal history of COVID-19; I35.0 Nonrheumatic aortic (valve) stenosis; E78.5 Hyperlipidemia, unspecified; E11.51 Type 2 diabetes mellitus with diabetic peripheral angiopathy without gangrene; I65.23 Occlusion and stenosis of bilateral carotid arteries
CPT/HCPCS: 36415; 36416; 36600; 51702; 51798; 71045; 71275; 78452; 80053; 82310; 82728; 82805; 82962; 83540; 83550; 83735; 83880; 83970; 84100; 84484; 85014; 85018; 85025; 86403; 86803; 86850; 86900; 86920; 87040; 87340; 87449; 90935; 93005; 93017; 93308; 93880; 93925; 94660; 96365; 96367; 96372; 96375; 97116; 97161; 97165; 97530; 99285; A9500; J0696; J1644; J1940; J2270; J2785; P9016; Q0144; Q3014; Q4081; Q9967

== ENCOUNTER 2020-10-27 11:41 | Inpatient (IN) | payer MEDICARE, MEDICAID, SELFPAY ==
[2020-10-27] VITALS (30 sets, daily range): BP systolic 159–218; BP diastolic 83–119; PULSE 78–90; RESP 10–81; TEMP 36.3; O2SAT 79–100; BMI 30.8
--- NOTE | 2020-10-27 11:51 | XR_ITS ---
WS: [id number] Portable AP upright chest, 10/27/2020 Clinical Data: SOB Comparison: Portable chest, 10/05/2020. Findings: There are patchy opacities throughout both lungs which again may represent pulmonary vascul ar congestion or diffuse pneumonia. The heart is enlarged. No nodules, masses or effusions are seen. No pneumothorax is noted. There are monitor leads on the chest wall. XR/XR chest 1V portable [id number] Impression: 1. Bilateral patchy pulmonary opacities which may represent pulmonary vascular congestion and/or pneumonia. 2. Cardiomegaly.
--- NOTE | 2020-10-27 11:52 | ECG_ITS ---
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 Measurements Intervals [place] Rate: 82 P: 28 MO: 149 QRS: -3 QRSD: 96 T: 39 QT: 396 QTc: 465 Interpretive Statements SINUS RHYTHM Compared to ECG 10/09/2020 02:02:00 T-wave abnormality no longer present Electronically Signed On 10-28-2020 5:18:08 CDT by Nanci Pandey M.D. [id number]
[2020-10-27 11:58] LABS: ABG PCO2 42.5 mmHg (35-45); ABG PH Result 7.42 (7.35-7.45); Arterial Blood Gas Hematocrit 32.5 % (42-52); Base Excess ABG 2.4 mmol/L (-2.0-2.0); Blood Gas Allen Test Pos; Blood Gas Operator Identificat MONRO; Blood Gas Sample Site Brachial, right; Blood Gas Sample Type Arterial; HCO3 ABG 27.2 mmol/L (22-26); Oxygen Device BIPAP
[2020-10-27] MEDS: FUROsemide 10 mg/mL SDV 10mL 80 MG IVP (12:01)
[2020-10-27] MEDS: ipratropium-albuterol 3 mL Neb INHALATION (12:02)
[2020-10-27 12:21] LABS: Basophils # 0.1 10^3/uL (0.0-0.1); Basophils % 0.7 %; Eosinophils # 0.3 10^3/uL (0.0-0.8); Eosinophils % 2.7 %; Hematocrit 35.6 % (42.0-52.0); Hemoglobin 10.3 g/dL (11.7-16.6); Lymphocytes # 0.8 10^3/uL (0.8-4.8); Lymphocytes % 8.3 %; Mean Corpuscular HGB Conc 28.9 g/dL (30.0-36.0); Mean Corpuscular Hemoglobin 26.3 pg (28.0-34.0); Mean Platelet Volume 11.2 fL (7.4-10.4); Monocytes # 0.3 10^3/uL (0.2-0.9); Monocytes % 3.7 %; Neutrophils # 7.71 10^3/uL (1.8-7.7); Neutrophils % 84.1 %; Nucleated Red Blood Cells % 0 %; Platelet Count 197 10^3/cmm (130-400); Red Blood Count 3.91 10^6/uL (4.1-5.3); Red Cell Distribution Width 15.6 % (12.1-15.1); White Blood Count 9.2 10^3/uL (4.0-10.0)
[2020-10-27 12:33] LABS: INR 1.01 (0.8-1.2)
[2020-10-27 12:47] LABS: Alanine Aminotransferase 6 U/L (0-41); Albumin Level 3.7 g/dL (3.5-5.2); Alkaline Phosphatase 99 IU/L (40-130); Blood Urea Nitrogen 55 mg/dL (8-23); Calcium 8.2 mg/dL (8.5-10.5); Carbon Dioxide 26 mmol/L (22-29); Chloride 94 mmol/L (98-107); Globulin 2.9 g/dL (1.3-4.6); Glucose 207 mg/dL (65-115); Osmolality Calculated 305 mOsm/kg (285-295); Sodium 137 mmol/L (136-145); Total Bilirubin 0.3 mg/dL (0.15-1.2); Total Protein 6.6 g/dL (6.6-8.7)
[2020-10-27 12:48] LABS: Troponin(5th) Baseline 409 ng/L (0-15)
[2020-10-27 13:01] LABS: Anion Gap 21.6 (5-19); Aspartate Amino Transferase 13 U/L (0-40); Potassium 4.6 mmol/L (3.5-5.1)
[2020-10-27 13:19] LABS: NT Pro B Type Natriuretic Pept 47270 pg/mL (0-125)
--- NOTE | 2020-10-27 13:52 | ECG_ITS ---
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 Measurements Intervals [place] Rate: 81 P: 37 MI: 143 QRS: 0 QRSD: 89 T: 30 QT: 383 QTc: 445 Interpretive Statements SINUS RHYTHM POSSIBLE LEFT ATRIAL ENLARGEMENT [-0.1mV P WAVE IN V1/V2] Compared to ECG 10/27/2020 12:05:37 No significant changes Electronically Signed On 10-28-2020 5:23:44 CDT by Nanci Pandey M.D. [id number]
[2020-10-27 14:14] LABS: Urine Appearance Clear (CLEAR); Urine Color Straw (Yellow); pH Urine 8 (5-7)
[2020-10-27 14:15] LABS: Add Urine Microscopic? YES; Bilirubin Urine Neg (Negative); Blood Urine 3+ (Negative); Glucose Urine UA 2+ (Normal); Ketones Urine Negative (Negative); Leukocyte Esterase Urine Trace (Negative); Nitrate Urine Negative (Negative); Protein Urine 1+ (Negative); Urobilinogen Urine Norm (Negative)
[2020-10-27 14:44] LABS: Sulfosalicylic Acid Urine Positive (Negative)
[2020-10-27 14:45] LABS: RBC Urine 15-25 /hpf (0-2); WBC Urine 25-40 /hpf (0-5)
--- NOTE | 2020-10-27 14:45 | ED_ITS ---
HPI - SOB/Dyspnea General: Chief Complaint: Shortness of Breath/Dyspnea Stated Complaint: SOB Time Seen by Provider: 10/27/20 11:51 Source: patient, family and EMS Mode of arrival: EMS Limitations: no limitations History of Present Illness: HPI Narrative: This patient is a 74-year-old male with a history of end-stage renal disease on hemodialysis, congestive heart failure, dementia who was brought into the emergency department with concerns for respiratory distress. The patient is not a great historian and most of the history is obtained from his family members especially his sister. He has been having worsening shortness of breath over the last 4 days also but it got much worse today while he was having lunch. He is yet to obtain dialysis today. He dialysis schedule is Friday and Friday. He denies any chest pain. No fever or sick contacts. He is yet to receive the Covid vaccine and has not had the Covid infection. His oxygen saturation was in the 70s when the ambulance arrived and only improved just a little on the CPAP. MD elicited complaint: shortness of breath Pertinent past history: congestive heart failure and other (ESRD on hemodialysis) Onset (ago): day(s) (4) Timing: constant Severity: severe Exacerbating factors: lying flat and exertion Relieving factors: oxygen and other (CPAP) Known history of: congestive heart failure Associated symptoms: Reports cough and orthopnea; Deny abdominal pain, chest congestion, chest pain, diaphoresis, dizziness, extremity pain, fever(s), hemoptysis, lightheadedness, myalgias, nausea, palpitations, paresthesias, polydipsia, polyuria, rash, sense of impending doom, syncope or vomiting Treatment prior to arrival: oxygen Review of Systems General: Reports: 10 or more systems reviewed and unremarkable except in HPI and below Const: Denies: fever(s) or diaphoresis Card: Reports: orthopnea; Denies: chest pain, palpitations, lightheadedness or syncope Resp: Denies: hemoptysis or chest congestion GI: Denies: abdominal pain, nausea or vomiting Musc: Denies: extremity pain Neuro: Denies: dizziness Endo: Denies: polyuria or polydipsia PFS ED PFSH: Medical History Anemia in chronic kidney disease -H/H stable BPH (benign prostatic hyperplasia) -did have some transient hematuria, resolved, DM type 2 (diabetes mellitus, type 2) -history of DKA -A1c at goal-6.2, End-stage renal disease on hemodialysis -Only gets dialysis twice a week on Mondays and Fridays -access: LUE AV fistula History of 2019 novel coronavirus disease (COVID-19) (~05/2020) History of necrotizing fasciitis History of septic arthritis Hx of type 2 diabetes mellitus Hypertension -continue oral antihypertensives MRSA infection Osteomyelitis Paroxysmal atrial fibrillation Surgical History Arteriovenous fistula for hemodialysis in place, primary Left upper extremity History of ankle surgery History of incision and drainage History of knee surgery several times due to septic arthritis and necrotizing fasciitis Family History Father Diabetes Sister Bleeding disorder Diabetes Family/Other Suicide Denies family history of CAD (coronary artery disease) Clotting disorder Dementia Chronic kidney disease (CKD) Anesthesia complication Lung disease Cancer Stroke Social History Smoking and tobacco status: never smoked Alcohol intake: never Household members: none and other Details: sister helps care for him but lives alone Physical Exam Const: COMMON NORMALS: average body habitus, patient oriented x3, healthy appearing, alert and well nourished GENERAL APPEARANCE: in distress (in r espiratory distress) and anxious NUTRITIONAL APPEARANCE: obese HENMT: COMMON NORMALS: normocephalic, atraumatic and moist oral mucous membranes HEAD & SCALP: normocephalic and atraumatic Eye: COMMON NORMALS: Equal, round and reactive pupils present, EOMs intact bilaterally, conjunctivae normal and no scleral icterus CONJUNCTIVA: Yes conjunctivae normal PUPIL: Yes Equal, round and reactive pupils present Neck/C-Spine: COMMON NORMALS: no meningeal signs and no JVD Resp: COMMON NORMALS: normal respiratory effort, No retractions, No use of accessory muscles and percussion normal AUSCULTATION: rales bilateral 2/[address] way up and diminished lung sounds PERCUSSION: percussion normal Cardio: COMMON NORMALS: no JVD, regular rate, regular rhythm, S1 normal heart sound present, S2 normal heart sound present, No gallops present (Cardio), No clicks present (Cardio), No murmurs present (Cardio), No rub (Cardio) and Peripheral pulses 2+ throughout RATE: regular rate RHYTHM: regular rhythm HEART SOUNDS: S1 normal heart sound present and S2 normal heart sound present PERIPHERAL PULSES: Peripheral pulses 2+ throughout GI: COMMON NORMALS: Normal to inspection, nondistended, normoactive bowel sounds present, Soft to palpation, non-tender, No hepatosplenomegaly present, no masses and no bruits PALPATION: Yes Soft to palpation and Yes No hepatosplenomegaly present Extremity: COMMON NORMALS: normal to inspection, full ROM, capillary refill normal and no calf tenderness GENERAL: Yes edema Neuro: COMMON NORMALS: patient oriented x3 SENSORIUM/ORIENTATION: Yes alert MENINGEAL SIGNS: Yes no meningeal signs Skin: COMMON NORMALS: no rashes or lesions noted, no wounds, turgor normal, no jaundice, no petechiae and no mottling GENERAL SKIN EXAM: no rashes or lesions noted and turgor normal Course Reevaluation(s): Reevaluation #1: Discussed his lab and imaging findings with him and his sister. Explained that he likely had pulmonary edema from congestive heart failure and fluid overload as he had not had his dialysis today. He feels much improved 80 mg of Lasix and BiPAP. Advised that he probably will benefit from dialysis today and hospital admission since he is still on the BiPAP. He voiced understanding and is in agreement with the plan. Time: 15:20 Consultations: Consultation #1: Discussed the patient with cyndy Ross ospitaljerson and she kindly accepted the patient to her service. Time: 15:25 Consultation #2: Discussed the patient with Dr. Terry, hydrogen plant operations manager and he will evaluate this patient and ordered dialysis for him. Time: 15:41 Vital Signs: Vital signs: Vital Signs Temperature 97.4 F L 10/27/20 11:50 Pulse Rate 82 10/27/20 17:57 Respiratory Rate 13 10/27/20 17:00 Blood Pressure 195/90 10/27/20 17:00 Pulse Oximetry 97 10/27/20 17:44 MDM - SOB/Dyspnea MDM Narrative: Medical decision making narrative: 74 year old male who presented to the ED in acute respiratory distress. He was hypoxic when EMS arrived at his place he was hypoxic and was placed on a CPAP. On arrival to the emergency department he was put on a BiPAP and examination was consistent with CHF exacerbation and pulmonary edema. He was given 80 mg of intravenous furosemide which improved his symptoms significantly. He will be admitted for further evaluation and management. Medical Records: Attestation: I reviewed the patient's medical records. Lab Data: Attestation: I reviewed the patient's lab results. Labs: Lab Results 10/27/20 10/27/20 10/27/20 Range/Units 11:45 11:58 11:58 WBC 9.2 (4.0-10.0) 10^3/ uL RBC 3.91 L (4.1-5.3) 10^6/u L Hgb 10.3 L (11.7-16.6) g/dL Hct 35.6 L (42.0-52.0) % MCV 91.0 (80-94) fL MCH 26.3 L (28.0-34.0) pg MCHC 28.9 L (30.0-36.0) g/dL RDW 15.6 H (12.1-15.1) % Plt Count 197 (130-400) 10^3/c mm MPV 11.2 H (7.4-10.4) fL Neut % (Auto) 84.1 % Lymph % (Auto) 8.3 % [place] % (Auto) 3.7 % Eos % (Auto) 2.7 % Baso % (Auto) 0.7 % Neut # (Auto) 7.71 H (1.8-7.7) 10^3/u L Lymph # (Auto) 0.8 (0.8-4.8) 10^3/u L [place] # (Auto) 0.3 (0.2-0.9) 10^3/u L Eos # (Auto) 0.3 (0.0-0.8) 10^3/u L Baso # (Auto) 0.1 (0.0-0.1) 10^3/u L Nucleated RBC % (a uto) 0 % Nucleated RBCs # 0.0 /100WBC PT (12.1-14.9) SECO NDS INR (0.8-1.2) Specimen Type Arterial Sample Site Brachial, right ABG pH 7.42 (7.35-7.45) ABG pCO2 42.5 (35-45) mmHg ABG pO2 127.0 H (80.0-100.0) mmH g ABG HCO3 27.2 H (22-26) mmol/L ABG Base Excess 2.4 H (-2.0-2.0) mmol/ L Chris Test Pos Hematocrit 32.5 L (42-52) % O2 Delivery Device Bipap FiO2 40.0 % Director Of Investigations ID [place] Sodium 137 (136-145) mmol/L Potassium 4.6 (3.5-5.1) mmol/L Chloride 94 L (98-107) mmol/L Carbon Dioxide 26 (22-29) mmol/L Anion Gap 21.6 H (5-19) BUN 55 H (8-23) mg/dL Creatinine 7.8 H* (0.7-1.2) mg/dL GFR Calculation Not Reportable Glucose 207 H (65-115) mg/dL Calculated Osmolal ity 305 H (285-295) mOsm/k g Calcium 8.2 L (8.5-10.5) mg/dL Total Bilirubin 0.3 (0.15-1.2) mg/dL AST 13 (0-40) U/L ALT 6 (0-41) U/L Alkaline Phosphata se 99 (40-130) IU/L Troponin T Baselin e (0-15) ng/L Troponin T 120 Min [place] (0-15) ng/L Delta Troponin T (0-10) ABS# NT-Pro-B Natriuret Pep 76472 H (0-125) pg/mL Total Protein 6.6 (6.6-8.7) g/dL Albumin 3.7 (3.5-5.2) g/dL Globulin 2.9 (1.3-4.6) g/dL Urine Color (Yellow) Urine Appearance (CLEAR) Urine pH (5-7) Ur Specific Gravit y (1.005-1.030) Urine Protein (Negative) Urine Glucose (UA) (Normal) Urine Ketones (Negative) Urine Blood (Negative) Urine Nitrate (Negative) Urine Bilirubin (Negative) Prot Sulfosalicyli c Acd (Negative) Urine Urobilinogen (Negative) mg/dL Ur Leukocyte Perla ase (Negative) Urine RBC (0-2) /hpf Urine WBC (0-5) /hpf Ur Squamous Epith Cells (0-5) /hpf Amorphous Sediment Urine Bacteria (NONE) /hpf Coarse Granular Ca sts /lpf Other Casts /lpf Urine Mucus /hpf 10/27/20 10/27/20 10/27/20 Range/Units 11:58 11:58 12:00 WBC (4.0-10.0) 10^3/ uL RBC (4.1-5.3) 10^6/u L Hgb (11.7-16.6) g/dL Hct (42.0-52.0) % MCV (80-94) fL MCH (28.0-34.0) pg MCHC (30.0-36.0) g/dL RDW (12.1-15.1) % Plt Count (130-400) 10^3/c mm MPV (7.4-10.4) fL Neut % (Auto) % Lymph % (Auto) % [place] % (Auto) % Eos % (Auto) % Baso % (Auto) % Neut # (Auto) (1.8-7.7) 10^3/u L Lymph # (Auto) (0.8-4.8) 10^3/u L [place] # (Auto) (0.2-0.9) 10^3/u L Eos # (Auto) (0.0-0.8) 10^3/u L Baso # (Auto) (0.0-0.1) 10^3/u L Nucleated RBC % (a uto) % Nucleated RBCs # /100WBC PT 13.60 (12.1-14.9) SECO NDS INR 1.01 (0.8-1.2) Specimen Type Sample Site ABG pH (7.35-7.45) ABG pCO2 (35-45) mmHg ABG pO2 (80.0-100.0) mmH g ABG HCO3 (22-26) mmol/L ABG Base Excess (-2.0-2.0) mmol/ L Chris Test Hematocrit (42-52) % O2 Delivery Device FiO2 % Director Of Investigations ID Sodium (136-145) mmol/L Potassium (3.5-5.1) mmol/L Chloride (98-107) mmol/L Carbon Dioxide (22-29) mmol/L Anion Gap (5-19) BUN (8-23) mg/dL Creatinine (0.7-1.2) mg/dL GFR Calculation Glucose (65-115) mg/dL Calculated Osmolal ity (285-295) mOsm/k g Calcium (8.5-10.5) mg/dL Total Bilirubin (0.15-1.2) mg/dL AST (0-40) U/L ALT (0-41) U/L Alkaline Phosphata se (40-130) IU/L Troponin T Baselin e 409 H* (0-15) ng/L Troponin T 120 Min [place] (0-15) ng/L Delta Troponin T (0-10) ABS# NT-Pro-B Natriuret Pep (0-125) pg/mL Total Protein (6.6-8.7) g/dL Albumin (3.5-5.2) g/dL Globulin (1.3-4.6) g/dL Urine Color Straw (Yellow) Urine Appearance Clear (CLEAR) Urine pH 8 H (5-7) Ur Specific Gravit y 1.010 (1.005-1.030) Urine Protein 1+ H (Negative) Urine Glucose (UA) 2+ (Normal) Urine Ketones Negative (Negative) Urine Blood 3+ H (Negative) Urine Nitrate Negative (Negative) Urine Bilirubin Neg (Negative) Prot Sulfosalicyli c Acd Positive (Negative) Urine Urobilinogen Norm (Negative) mg/dL Ur Leukocyte Perla ase Trace H (Negative) Urine RBC 15-25 H (0-2) /hpf Urine WBC 25-40 H (0-5) /hpf Ur Squamous Epith Cells 0-4 H (0-5) /hpf Amorphous Sediment Not Reportable Urine Bacteria 2+ H (NONE) /hpf Coarse Granular Ca sts 0-4 H /lpf Other Casts Epithelial /lpf Urine Mucus Trace /hpf 10/27/ Range/Units 14:22 WBC (4.0-10.0) 10^3/ uL RBC (4.1-5.3) 10^6/u L Hgb (11.7-16.6) g/dL Hct (42.0-52.0) % MCV (80-94) fL MCH (28.0-34.0) pg MCHC (30.0-36.0) g/dL RDW (12.1-15.1) % Plt Count (130-400) 10^3/c mm MPV (7.4-10.4) fL Neut % (Auto) % Lymph % (Auto) % [place] % (Auto) % Eos % (Auto) % Baso % (Auto) % Neut # (Auto) (1.8-7.7) 10^3/u L Lymph # (Auto) (0.8-4.8) 10^3/u L [place] # (Auto) (0.2-0.9) 10^3/u L Eos # (Auto) (0.0-0.8) 10^3/u L Baso # (Auto) (0.0-0.1) 10^3/u L Nucleated RBC % (a uto) % Nucleated RBCs # /100WBC PT (12.1-14.9) SECO NDS INR (0.8-1.2) Specimen Type Sample Site ABG pH (7.35-7.45) ABG pCO2 (35-45) mmHg ABG pO2 (80.0-100.0) mmH g ABG HCO3 (22-26) mmol/L ABG Base Excess (-2.0-2.0) mmol/ L Chris Test Hematocrit (42-52) % O2 Delivery Device FiO2 % Director Of Investigations ID Sodium (136-145) mmol/L Potassium (3.5-5.1) mmol/L Chloride (98-107) mmol/L Carbon Dioxide (22-29) mmol/L Anion Gap (5-19) BUN (8-23) mg/dL Creatinine (0.7-1.2) mg/dL GFR Calculation Glucose (65-115) mg/dL Calculated Osmolal ity (285-295) mOsm/k g Calcium (8.5-10.5) mg/dL Total Bilirubin (0.15-1.2) mg/dL AST (0-40) U/L ALT (0-41) U/L Alkaline Phosphata se (40-130) IU/L Troponin T Baselin e (0-15) ng/L Troponin T 120 Min [place] 385.1 H (0-15) ng/L Delta Troponin T -23.9 L (0-10) ABS# NT-Pro-B Natriuret Pep (0-125) pg/mL Total Protein (6.6-8.7) g/dL Albumin (3.5-5.2) g/dL Globulin (1.3-4.6) g/dL Urine Color (Yellow) Urine Appearance (CLEAR) Urine pH (5-7) Ur Specific Gravit y (1.005-1.030) Urine Protein (Negative) Urine Glucose (UA) (Normal) Urine Ketones (Negative) Urine Blood (Negative) Urine Nitrate (Negative) Urine Bilirubin (Negative) Prot Sulfosalicyli c Acd (Negative) Urine Urobilinogen (Negative) mg/dL Ur Leukocyte Perla ase (Negative) Urine RBC (0-2) /hpf Urine WBC (0-5) /hpf Ur Squamous Epith Cells (0-5) /hpf Amorphous Sediment Urine Bacteria (NONE) /hpf Coarse Granular Ca sts /lpf Other Casts /lpf Urine Mucus /hpf Imaging Data^: CXR: Attestation: I personally reviewed and interpreted this imaging study as follows: Radiologist's impression: [address] [address] XRay Report Signed Patient: Familia Mason #: [id number] : 8Acct#:[id number] Age/Sex: 74 / MADM Date: 10/27/20 [facility] Attending Dr: Ordering Provider/Ordering MD: Nathalia Diaz MD, [facility] [place] of Service: 10/27/20 Procedure(s): XR chest 1V portable [id number] Accession Number(s): [id number] Report Number: [id number] WS: [id number] Portable AP upright chest, 10/27/2020 Clinical Data: SOB Comparison: Portable chest, 10/05/2020. Findings: There are patchy opacities throughout both lungs which again may represent pulmonary vascular congestion or diffuse pneumonia. The heart is enlarged. No nodules, masses or effusions are seen. No pneumothorax is noted. There are monitor leads on the chest wall. XR/XR chest 1V portable [id number] Impression: 1. Bilateral patchy pulmonary opacities which may represent pulmonary vascular congestion and/or pneumonia. 2. Cardiomegaly. Dictated By:Wendy Lay MD Signed By:Wendy Lay MDSigned Date/Time:10/27/20 1207 DD/ 1205 EKG Data^: EKG 1: Attestation: I personally reviewed and interpreted this EKG as follows: EKG Interpretation Date: 10/27/20 EKG interpretation time: 12:05 Prior EKG tracings: not available for review Interpretation: Sinus rhythm. Heart rate 82 bpm. Normal axis. No ST changes. EKG 2: Attestation: I personally reviewed and interpreted this EKG as follows: EKG Interpretation Date: 10/27/20 EKG interpretation time: 15:49 Prior EKG tracings: available for review Interpretation: Sinus rhythm. Heart rate [address] changes. No significant change from earlier today Critical Care Time Critical Care Time: Critical Care Time: Yes Total Critical Care Time: 60 Attestation: This case had a high probability of a clinically significant, sudden, or life threatening deterioration of this patient's condition which required my full and direct attention, intervention and personal management. Discharge Plan Discharge Patient Disposition: Admitted As Inpatient Admit Provider: Analia Spann Clinical Impression: Troponin level elevated, Acute on chronic diastolic (congestive) heart failure, Acute pulmonary edema, End stage renal disease Acute respiratory failure Qualifiers: Respiratory failure complication: hypoxia Qualified Code(s): J96.01 - Acute respiratory failure with hypoxia Condition: Stable Coding Level of Care Code ED Guard Captain for lili Robertson
[2020-10-27 14:46] LABS: Bacteria Urine 2+ /hpf; Mucus Urine TRACE /hpf; Squamous Epithelial Cell Urine 0-4 /hpf (0-5)
[2020-10-27 14:47] LABS: Add Urine Culture? Yes; Coarse Granular Casts Urine 0-4 /lpf; Other Casts Urine EPITHELIAL /lpf
[2020-10-27 15:12] LABS: Troponin 5 2HR 385.1 ng/L (0-15); Troponin 5 2HR Delta -23.9 ABS# (0-10)
--- NOTE | 2020-10-27 16:01 | PM.CONSULT ---
Providers/Reason For Consult Consulting Physican/Specialty*: Nephrology Reason for Consult*: ESRD, acute pulmonary edema Primary Care Provider: Salvador Daley MD History of Present Illness History of Present Illness Familia Mason is a 74 year old male presenting with increasing SOB, pulm edema seen on CXR. Maintaining O2 sats on BIPAP. Last got dialysis on Friday. AVF in left arm works well, recently underwent angioplasty. He has global anasarca and high Bp. He denies chest pain, palpitations, fever, chills, cough etc. He can't give too much history at this time, on BIPAP and he has dementia. Full ROS didn't reveal anything additional. Review of Systems Narrative: ROS - 12 point review of systems completed per HPI and subjective assessment, this includes Constitutional: Weakness, fatigue Respiratory: No SOB on exertion, comfortable at rest CardioVasc: No chest pain, palpitations Gastrointestinal: No nausea, no vomiting Neurological: No seizures, no AMS Derm: No new rashes, lesions or wounds Immunological: No seasonal and no food allergies Meds/Allergies Home Medications and Allergies Home Medications Medication Instructions Recorded Confirmed Last Taken Type Imodium A-D 1 tab PO TID 05/29/20 10/27/20 10/27/20 History carvedilol 25 mg PO BID 05/29/20 10/27/20 10/27/20 History sevelamer carbonate [Renvela] 2,400 mg PO TID 05/29/20 10/27/20 10/27/20 History tamsulosin 0.4 mg PO DAILY 05/29/20 10/27/20 10/27/20 History acetaminophen [Tylenol Extra 1,000 mg PO TID PRN 10/05/20 10/27/20 10/27/20 History Strength] aspirin 81 mg PO DAILY 30 Days #30 tab 10/11/20 10/27/20 10/26/20 Rx atorvastatin 40 mg PO BEDTIME 30 Days #30 tab 10/11/20 10/27/20 10/26/20 Rx clopidogrel 75 mg PO DAILY 30 Days #30 tab 10/11/20 10/27/20 10/27/20 Rx losartan 25 mg PO DAILY 30 Days #30 tab 10/11/20 10/27/20 10/27/20 Rx pantoprazole 40 mg PO BID 30 Days #60 tab 10/11/20 10/27/20 10/27/20 Rx alprazolam 0.25 mg tablet 0.25 mg PO BID PRN tab 10/25/20 10/27/20 10/27/20 History glimepiride 1 mg tablet 1 mg PO BID tab 10/25/20 10/27/20 10/27/20 History hydralazine 10 mg tablet 10 mg PO BID tab 10/25/20 10/27/20 10/27/20 History furosemide 40 mg PO DAILY 10/27/20 10/27/20 10/27/20 History Allergies Allergy/AdvReac Type Severity Reaction Status Date / Time No Known Allergies Allergy Verified 10/25/20 08:22 PFSH Acute PFSH: Medical History Anemia in chronic kidney disease -H/H stable BPH (benign prostatic hyperplasia) -did have some transient hematuria, resolved, DM type 2 (diabetes mellitus, type 2) -history of DKA -A1c at goal-6.2, End-stage renal disease on hemodialysis -Only gets dialysis twice a week on Mondays and Fridays -access: LUE AV fistula History of 2019 novel coronavirus disease (COVID-19) (~05/2020) History of necrotizing fasciitis History of septic arthritis Hx of type 2 diabetes mellitus Hypertension -continue oral antihypertensives MRSA infection Osteomyelitis Paroxysmal atrial fibrillation Surgical History Arteriovenous fistula for hemodialysis in place, primary Left upper extremity History of ankle surgery History of incision and drainage History of knee surgery several times due to septic arthritis and necrotizing fasciitis Family History Father Diabetes Sister Bleeding disorder Diabetes Family/Other Suicide Denies family history of CAD (coronary artery disease) Clotting disorder Dementia Chronic kidney disease (CKD) Anesthesia complication Lung disease Cancer Stroke Social History Smoking and tobacco status: never smoked Alcohol intake: never Household members: none and other Details: sister helps care for him but lives alone Vitals/I&O/Wt Last Vital Signs Temp 97.4 F L 10/27/20 11:50 Pulse 80 10/27/20 15:30 Resp 12 10/27/20 14:28 BP 218/106 10/27/20 11:50 Pulse Ox 99 10/27/20 15:30 Weight last 48 hrs Weight 97.522 kg Physical Exam Narrative: EXAM NARRATIVE: Constitutional: Awake, comfortable HEENT: Wet mucosa, no jvp, non icteric Lungs: Bilaterally rales in all lung zones CVS: S1 S2, no murmurs Abdo: Soft, BS ok Ext 4: 2-3+ edema, peripheral perfusion with no cyanosis Neurological: Grossly non-focal A&P Additional A&P Information 1. ESRD - given pulm edema will dialyze him this afternoon, will shoot for 4-5L UF, 2K - eval for additional dialysis needs in the am - dose meds for eGFR < 15 on dialysis 2. Pulm edema - unclear why this was precipitated - would rule out ACS - Dietary compliance likely to be playing a role - Bipap can probably come off after dialysis and UF 3. Lytes well balanced 4. Anemia at goal for ESRD - Thanks for consult, always a pleasure to follow with you - > 20 min spent in evaluation of care - patient seen via telemed with the aid of the bedside RN Tom Terry MD Nephro [phone] Consult Attestations Medical Necessity Statement: eval for ESRD Coding Level of Care Code Acute Receptionist for Willy Robertson
--- NOTE | 2020-10-27 17:52 | ECG_ITS ---
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
--- NOTE | 2020-10-27 18:33 | P.HP_ITS ---
Providers/Chief Complaint Admitting Physician: Analia Spann MD Primary Care Provider: Salvador Daley MD Chief Complaint: SOB History of Present Illness Familia Mason is a 74 year old male with past medical history as noted below, presented to the ER today with chief complaints of increasing shortness of breath over the last 4 to 5 days, oxygen saturation down to 70% on room air, brought in by family due to respiratory distress. Upon presentation to the ER satting 70% on room air, placed on BiPAP, given 80 mg of IV Lasix, chest x-ray suggestive of pulmonary edema with some relief in symptoms. Denies any current chest pain. Denies any fever, sputum, cough. Past history of COVID-19 pneumonia in October 2019. At time of my exam, patient has been brought into the ICU, ready to start hemodialysis. Review of Systems General: Reports: 10 or more systems reviewed and unremarkable except in HPI and below Const: Denies: fever(s), chills or body aches Eyes: Denies: change in vision, blurry vision or photophobia ENMT: Reports: hoarseness; Denies: throat pain, enlarged tonsils, odynophagia or nasal congestion Card: Denies: chest pain, palpitations, irregular heart rhythm, edema, swelling of feet/ankles, lightheadedness, pre-syncope, dyspnea on exertion or orthopnea Resp: Denies: dyspnea, productive cough, non-productive cough, wheezing, stridor, pain on inspiration, change in phlegm color, hemoptysis or chest congestion GI: Denies: abdominal pain, nausea, vomiting, hematemesis, coffee ground emesis, dysphagia, heartburn, diarrhea, constipation, GI cramping, change in stool character, hematochezia or melena : Denies: flank pain, dysuria, urinary frequency, urinary urgency, urinary hesitancy or hematuria Musc: Denies: neck pain, back pain, extremity pain, joint swelling, joint warmth or deformity Neuro: Denies: headache(s), numbness in extremities, weakness in extremities, sensory changes, difficulty walking, frequent falls, dizziness, vertigo, behavioral changes, Slurred speech present or seizure-like activity Psych: Denies: anxiety, depression, suicidal ideation or homicidal ideation Endo: Denies: polyuria, polydipsia, tired all the time, cold intolerance or hot flashes Phil/Lymph: Denies: easy bruising or easy bleeding Medications/Allergies Home Medications Medication Instructions Recorded Confirmed Last Taken Type Imodium A-D 1 tab PO TID 05/29/20 10/27/20 10/27/20 History carvedilol 25 mg PO BID 05/29/20 10/27/20 10/27/20 History sevelamer carbonate [Renvela] 2,400 mg PO TID 05/29/20 10/27/20 10/27/20 History tamsulosin 0.4 mg PO DAILY 05/29/20 10/27/20 10/27/20 History acetaminophen [Tylenol Extra 1,000 mg PO TID PRN 10/05/20 10/27/20 10/27/20 History Strength] aspirin 81 mg PO DAILY 30 Days #30 tab 10/11/20 10/27/20 10/26/20 Rx atorvastatin 40 mg PO BEDTIME 30 Days #30 tab 10/11/20 10/27/20 10/26/20 Rx clopidogrel 75 mg PO DAILY 30 Days #30 tab 10/11/20 10/27/20 10/27/20 Rx losartan 25 mg PO DAILY 30 Days #30 tab 10/11/20 10/27/20 10/27/20 Rx pantoprazole 40 mg PO BID 30 Days #60 tab 10/11/20 10/27/20 10/27/20 Rx alprazolam 0.25 mg tablet 0.25 mg PO BID PRN tab 10/25/20 10/27/20 10/27/20 History glimepiride 1 mg tablet 1 mg PO BID tab 10/25/20 10/27/20 10/27/20 History hydralazine 10 mg tablet 10 mg PO BID tab 10/25/20 10/27/20 10/27/20 History furosemide 40 mg PO DAILY 10/27/20 10/27/20 10/27/20 History Allergies Allergy/AdvReac Type Severity Reaction Status Date / Time No Known Allergies Allergy Verified 10/25/20 08:22 PFSH Acute PFSH: Medical History Anemia in chronic kidney disease -H/H stable BPH (benign prostatic hyperplasia) -did have some transient hematuria, resolved, DM type 2 (diabetes mellitus, type 2) -history of DKA -A1c at goal-6.2, End-stage renal disease on hemodialysis -Only gets dialysis twice a week on Mondays and Fridays -access: LUE AV fistula History of 2019 novel coronavirus disease (COVID-19) (~05/2020) History of necrotizing fasciitis History of septic arthritis Hx of type 2 diabetes mellitus Hypertension -continue oral antihypertensives MRSA infection Osteomyelitis Paroxysmal atrial fibrillation Surgical History Arteriovenous fistula for hemodialysis in place, primary Left upper extremity History of ankle surgery History of incision and drainage History of knee surgery several times due to septic arthritis and necrotizing fasciitis Family History Father Diabetes Sister Bleeding disorder Diabetes Family/Other Suicide Denies family history of CAD (coronary artery disease) Clotting disorder Dementia Chronic kidney disease (CKD) Anesthesia complication Lung disease Cancer Stroke Social History Smoking and tobacco status: never smoked Alcohol intake: never Household members: none and other Details: sister helps care for him but lives alone Vitals/I&O/Wt Last Vital Signs Temp 97.4 F L 10/27/20 11:50 Pulse 82 10/27/20 17:57 Resp 13 10/27/20 17:00 BP 195/90 10/27/20 17:00 Pulse Ox 97 10/27/20 17:44 10/27/20 10/27/20 10/27/20 06:59 14:59 22:59 Output Total 300 / 300 Balance -300 / -300 Weight last 48 hrs Weight 97.522 kg Physical Exam Narrative: EXAM NARRATIVE: General: No acute distress, AO x3 HEENT: PERRLA, pupils bilaterally equal and reactive, pallors not present Chest: Normal vesicular breath sounds, no added sounds, equal good air entry bilaterally CVS: S1-S2 regular, no murmurs, no tachycardia, no gallops, no rubs Abdomen: Soft, nontender, no organomegaly, bowel sounds present Neuro: No focal deficits, no facial deformity, AO x3, power 5/5 in all limbs Extremities: Anasarca+ Data : 10/27/20 11:58 10/27/20 11:58 A&P Assessment and plan (1) Acute pulmonary edema: Likely multifactorial related to CKD, acute on chornic diastolic CHF HD later this evening given lasix 80mg IVP in ER, no significnat urine output Reports improvent with BIpap, currently saturating 97%, ABG on Bipap without gross hypoxia or hypercapnea. Supplemental 02 to keep sat >92% Continue usual home medications Status: Acute (2) Hypoxia: Status: Acute Attestations Medical Necessity Statement*: Acute pulmonary edema, hypoxic respiratory failure needing Bipap support, need for urgent HD Critical Care Time: The high probability of a clinically significant, sudden or life threatening deterioration of the patient's [renal,respiratory] system(s) required my full and direct attention, intervention and personal management. The critical care time is as shown. 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
[2020-10-27] MEDS: ALPRAZolam 0.25 mg Tablet PO (19:20)
[2020-10-27] MEDS: sevelamer 800 mg Tablet 2400 MG PO (19:27)
[2020-10-27] MEDS: TRAMadol 50 mg Tablet PO (19:29)
[2020-10-27] MEDS: atorvastatin 40 mg Tablet PO (20:07)
[2020-10-27 20:48] LABS: Glucose Point of Care 136 mg/dL (70-110)
[2020-10-27] MEDS: HYDROcodone-acetaminophen 5-325 mg Tablet 1 TAB PO (21:04)
[2020-10-27] MEDS: morphine 4 mg/mL SDV 1 mL 2 MG IVP ×2 (22:45→23:31)
[2020-10-28] VITALS (24 sets, daily range): BP systolic 140–195; BP diastolic 71–125; PULSE 72–93; RESP 14–23; TEMP 36.6; O2SAT 90–100
[2020-10-28] MEDS: morphine 4 mg/mL SDV 1 mL IVP ×2 (02:09→05:43)
[2020-10-28] MEDS: HYDROcodone-acetaminophen 5-325 mg Tablet 1 TAB PO ×3 (02:43→19:13)
[2020-10-28] MEDS: lidocaine 5% Patch 1 PATCH TOPICAL (06:09)
[2020-10-28] MEDS: sevelamer 800 mg Tablet 2400 MG PO ×3 (08:11→17:30)
[2020-10-28] MEDS: clopidogrel 75 mg Tablet PO (08:11)
[2020-10-28] MEDS: pantoprazole DR 40 mg Tablet PO ×2 (08:11→17:31)
[2020-10-28] MEDS: hyDRALAzine 10 mg Tablet PO ×2 (08:12→17:31)
[2020-10-28] MEDS: losartan 50 mg Tablet 25 MG PO (08:12)
[2020-10-28] MEDS: FUROsemide 40 mg Tablet PO (08:12)
[2020-10-28] MEDS: aspirin 81 mg EC Tablet PO (08:12)
[2020-10-28] MEDS: carvedilol 25 mg Tablet PO ×2 (08:12→22:18)
[2020-10-28] MEDS: tamsulosin 0.4 mg Capsule PO (08:12)
[2020-10-28 08:25] LABS: Glucose Point of Care 143 mg/dL (70-110)
[2020-10-28] MEDS: ALPRAZolam 0.25 mg Tablet PO ×2 (09:54→19:13)
[2020-10-28 11:37] LABS: Glucose Point of Care 104 mg/dL (70-110)
--- NOTE | 2020-10-28 14:41 | PM.PN ---
Subjective Subjective: Interval history: Shortness of breath improved over yesterday, however still significantly tachypneic. Able to have a conversation, complete full sentences. 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 Troponins elevated, however serially negative deltas Status: Acute (2) Hypoxia: Status: Acute Attestations Medical Necessity Statement*: Acute pulmonary edema, needs ongoing IV diuresis, HD Time Spent in Patient Care: The high probability of a clinically significant, sudden or life threatening deterioration of the patient's [respiratory,renal] system(s) required my full and direct attention, intervention and personal management. The critical care time is as shown. This time is in addition to time spent performing any reported procedures but includes the following: [x] Data and vital sign review and interpretation [x] Patient assessment, examination and intervention [x] Documentation [x] Medication orders and management Coding Level of Care Code Acute Medical Cash Poster for Chg Fwd Diagnoses Acute pulmonary edema J81.0 Hypoxia R09.02
[2020-10-28 17:06] LABS: Glucose Point of Care 97 mg/dL (70-110)
[2020-10-28] MEDS: FUROsemide 10 mg/mL SDV 10mL 60 MG IVP (17:30)
--- NOTE | 2020-10-28 18:54 | PM.PN ---
Subjective Subjective: Interval history: I am seeing him in follow up for his ESRD management and dialysis needs. No shortness of breath Medications: Reviewed: Yes Vitals/I&O/Wt Last Vital Signs Temp 97.8 F 10/28/20 11:00 Pulse 82 10/28/20 18:00 Resp 18 10/28/20 18:00 BP 151/76 10/28/20 18:00 Pulse Ox 91 10/28/20 18:00 10/28/20 10/28/20 10/28/20 06:59 14:59 22:59 Intake Total 200 / 200 Output Total 300 / 600 300 / 300 Balance -300 / -600 200 / 200 -300 / -100 Weight last 48 hrs Weight 97.522 kg Physical Exam Const: COMMON NORMALS: no acute distress, patient oriented x3 and alert GENERAL APPEARANCE: cooperative ORIENTATION/CONSCIOUSNESS: Yes awake Neuro: COMMON NORMALS: patient oriented x3 SENSORIUM/ORIENTATION: Yes alert Data : 10/27/20 11:58 10/27/20 11:58 Micro: Microbiology 10/27/20 12:00 Urine Culture - Preliminary Urine,Clean Catch Coagulase negativ staphylococc A&P Assessment and plan (1) End stage renal disease: No indication for dialysis today, will plan dialysis on friday Status: Acute (2) HTN (hypertension): BP stable Status: Acute (3) Anemia: Follow hb Status: Acute Qualifiers: Anemia type: due to chronic kidney disease Chronic kidney disease stage: on chronic dialysis Qualified Code(s): N18.6 - End stage renal disease; D63.1 - Anemia in chronic kidney disease; Z99.2 - Dependence on renal dialysis Attestations Medical Necessity Statement*: ESRD Coding Level of Care Code 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
--- NOTE | 2020-10-28 20:38 | PC.NURSE ---
Transferred to med surg via
[2020-10-28 20:56] LABS: Glucose Point of Care 182 mg/dL (70-110)
[2020-10-28] MEDS: atorvastatin 40 mg Tablet PO (22:18)
[2020-10-29] VITALS (9 sets, daily range): BP systolic 135–164; BP diastolic 69–82; PULSE 68–86; RESP 16–18; TEMP 36.7–37; O2SAT 90–97
[2020-10-29] MEDS: FUROsemide 10 mg/mL SDV 10mL 60 MG IVP (03:54)
[2020-10-29 06:31] LABS: Glucose Point of Care 122 mg/dL (70-110)
[2020-10-29 07:52] LABS: Basophils # 0.1 10^3/uL (0.0-0.1); Basophils % 0.8 %; Eosinophils # 0.3 10^3/uL (0.0-0.8); Eosinophils % 3.3 %; Hemoglobin 8.9 g/dL (11.7-16.6); Lymphocytes # 0.7 10^3/uL (0.8-4.8); Lymphocytes % 9.8 %; Mean Corpuscular HGB Conc 28.7 g/dL (30.0-36.0); Mean Corpuscular Hemoglobin 26.6 pg (28.0-34.0); Mean Corpuscular Volume 92.5 fL (80-94); Mean Platelet Volume 11.2 fL (7.4-10.4); Monocytes # 0.5 10^3/uL (0.2-0.9); Monocytes % 7.2 %; Neutrophils # 5.88 10^3/uL (1.8-7.7); Neutrophils % 78.1 %; Nucleated Red Blood Cells % 0 %; Platelet Count 199 10^3/cmm (130-400); Red Blood Count 3.35 10^6/uL (4.1-5.3); Red Cell Distribution Width 15.5 % (12.1-15.1); White Blood Count 7.5 10^3/uL (4.0-10.0)
[2020-10-29 08:18] LABS: Alanine Aminotransferase < 5 U/L (0-41); Albumin Level 3.1 g/dL (3.5-5.2); Alkaline Phosphatase 66 IU/L (40-130); Anion Gap 19.1 (5-19); Aspartate Amino Transferase 9 U/L (0-40); Blood Urea Nitrogen 44 mg/dL (8-23); Calcium 8.7 mg/dL (8.5-10.5); Carbon Dioxide 26 mmol/L (22-29); Chloride 94 mmol/L (98-107); Globulin 3.3 g/dL (1.3-4.6); Glucose 122 mg/dL (65-115); Magnesium 2.2 mg/dL (1.7-2.3); Osmolality Calculated 292 mOsm/kg (285-295); Phosphorus 5.9 mg/dL (2.5-4.5); Potassium 4.1 mmol/L (3.5-5.1); Sodium 135 mmol/L (136-145); Total Bilirubin 0.4 mg/dL (0.15-1.2); Total Protein 6.4 g/dL (6.6-8.7)
[2020-10-29] MEDS: sevelamer 800 mg Tablet 2400 MG PO ×2 (08:55→12:18)
[2020-10-29] MEDS: carvedilol 25 mg Tablet PO (08:56)
[2020-10-29] MEDS: pantoprazole DR 40 mg Tablet PO (08:57)
[2020-10-29] MEDS: aspirin 81 mg EC Tablet PO (08:57)
[2020-10-29] MEDS: clopidogrel 75 mg Tablet PO (08:57)
[2020-10-29] MEDS: hyDRALAzine 10 mg Tablet PO (08:57)
[2020-10-29] MEDS: tamsulosin 0.4 mg Capsule PO (08:57)
[2020-10-29] MEDS: losartan 50 mg Tablet 25 MG PO (09:00)
[2020-10-29 11:13] LABS: Glucose Point of Care 186 mg/dL (70-110)
--- NOTE | 2020-10-29 16:43 | PM.PN ---
Subjective Subjective: Interval history: Pt was seen this morning for follow up for his ESRD management and dialysis needs. No chest pain or shortness of breath Medications: Reviewed: Yes Vitals/I&O/Wt Last Vital Signs Temp 98.1 F 10/29/20 16:06 Pulse 73 10/29/20 16:06 Resp 18 10/29/20 16:06 BP 149/69 10/29/20 16:06 Pulse Ox 91 10/29/20 16:06 10/29/20 10/29/20 10/29/20 06:59 14:59 22:59 Intake Total 480 / 480 Output Total 375 / 675 Balance -375 / -355 480 / 480 Physical Exam Const: COMMON NORMALS: no acute distress, patient oriented x3 and alert GENERAL APPEARANCE: cooperative ORIENTATION/CONSCIOUSNESS: Yes awake Neuro: COMMON NORMALS: patient oriented x3 SENSORIUM/ORIENTATION: Yes alert Data : 10/29/20 06:42 10/29/20 06:42 Micro: Microbiology 10/27/20 12:00 Urine Culture - Preliminary Urine,Clean Catch Enterococcus species A&P Assessment and plan (1) End stage renal disease: No indication for dialysis today, will plan on friday Status: Acute (2) HTN (hypertension): BP under control Status: Acute (3) Anemia: Follow hb Status: Acute Qualifiers: Anemia type: due to chronic kidney disease Chronic kidney disease stage: on chronic dialysis Qualified Code(s): N18.6 - End stage renal disease; D63.1 - Anemia in chronic kidney disease; Z99.2 - Dependence on renal dialysis Attestations Medical Necessity Statement*: ESRD Coding Level of Care Code 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
--- NOTE | 2020-10-29 17:46 | PM.DCS ---
Discharge Providers Date of Admission: 10/27/20 15:48 Date of Discharge: October 29, 2020 Attending Provider at Admission: Analia Spann MD Attending Provider at Discharge: Analia Spann MD Primary Care Provider: Salvaodr Daley MD Diagnoses at Discharge Discharge Diagnosis (1) End stage renal disease: Status: Acute (2) HTN (hypertension): Status: Acute (3) Anemia: Status: Acute Qualifiers: Anemia type: due to chronic kidney disease Chronic kidney disease stage: on chronic dialysis Qualified Code(s): N18.6 - End stage renal disease; D63.1 - Anemia in chronic kidney disease; Z99.2 - Dependence on renal dialysis Reason for Visit Reason for Visit: SOB Hospital Course Hospital Course Familia Mason is a 74 year old male with past medical history as noted below, presented to the ER today with chief complaints of increasing shortness of breath over the last 4 to 5 days, oxygen saturation down to 70% on room air, brought in by family due to respiratory distress. Upon presentation to the ER satting 70% on room air, placed on BiPAP, given 80 mg of IV Lasix, chest x-ray suggestive of pulmonary edema with relief in symptoms. Underwent hemodialysis on October 27, 2020 and received increased dose of diuresis with IV Lasix on October 28, 2020. His symptoms are much improved by October 29. He is being discharged home today in stable condition. Home O2 eval was performed prior to discharge, he did not qualify for home oxygen. Patient recommended to continue his outpatient dialysis per his schedule of Friday and Friday. Next session tomorrow. Lasix increased to 40 twice daily at the time of discharge. 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5 Eos # (Auto) 0.3 Baso # (Auto) 0.1 Nucleated RBC % (a uto) 0 Nucleated RBCs # 0.0 Sodium 135 L Potassium 4.1 Chloride 94 L Carbon Dioxide 26 Anion Gap 19.1 H BUN 44 H Creatinine 6.2 H* GFR Calculation Not Reportable Glucose 122 H POC Glucose 186 H Calculated Osmolal ity 292 Calcium 8.7 Phosphorus 5.9 H Magnesium 2.2 Total Bilirubin 0.4 AST 9 ALT < 5 Alkaline Phosphata se 66 Total Protein 6.4 L Albumin 3.1 L Globulin 3.3 10/29/20 10/28/20 06:26 20:51 WBC RBC Hgb Hct MCV MCH MCHC RDW Plt Count MPV Neut % (Auto) Lymph % (Auto) Mineral % (Auto) Eos % (Auto) Baso % (Auto) Neut # (Auto) Lymph # (Auto) Mineral # (Auto) Eos # (Auto) Baso # (Auto) Nucleated RBC % (a uto) Nucleated RBCs # Sodium Potassium Chloride Carbon Dioxide Anion Gap BUN Creatinine GFR Calculation Glucose POC Glucose 122 H 182 H Calculated Osmolal ity Calcium Phosphorus Magnesium Total Bilirubin AST ALT Alkaline Phosphata se Total Protein Albumin Globulin Vitals: Last Vital Signs Temp 98.1 F 10/29/20 16:06 Pulse 73 10/29/20 16:06 Resp 18 10/29/20 16:06 BP 149/69 10/29/20 16:06 Pulse Ox 91 10/29/20 16:06 Discharge Plan Discharge Patient Disposition: Home Condition: Stable Prescriptions: Continued alprazolam 0.25 mg tablet 0.25 mg PO BID PRN (Reason: anxiety) RF: 0 glimepiride 1 mg tablet 1 mg PO BID RF: 0 hydralazine 10 mg tablet 10 mg PO BID RF: 0 acetaminophen [Tylenol Extra Strength] 500 mg Tablet 1,000 mg PO TID PRN (Reason: Pain) RF: 0 aspirin 81 mg Tablet,Delayed Release (Dr/Ec) 81 mg PO DAILY 30 Days Qty: 30 RF: 0 atorvastatin 40 mg Tablet 40 mg PO BEDTIME 30 Days Qty: 30 RF: 0 clopidogrel 75 mg Tablet 75 mg PO DAILY 30 Days Qty: 30 RF: 0 losartan 50 mg Tablet 25 mg PO DAILY 30 Days Qty: 30 RF: 0 pantoprazole 40 mg Tablet,Delayed Release (Dr/Ec) 40 mg PO BID 30 Days Qty: 60 RF: 0 carvedilol 25 mg tablet 25 mg PO BID RF: 0 tamsulosin 0.4 mg capsule 0.4 mg PO DAILY RF: 0 sevelamer carbonate [Renvela] 800 mg tablet 2,400 mg PO TID RF: 0 Imodium A-D 1 tab PO TID RF: 0 Changed furosemide 80 mg tablet 40 mg PO BID Qty: 0 RF: 0 Discharge Orders: Discharge Order (Routine); Ordered 10/29/20 Ordered By: Analia Spann Referrals: Salvador Daley MD [Primary Care Provider] - (Please call Friday to schedule a follow up appointment) Discharge Diet: Usual diet Discharge Activity: Resume usual activity Patient Instructions: Pulmonary Edema (GEN), Chronic Hypertension (DC), Opioid Safety Discharge Attestations Time Spent in Discharge Care*: less than 30 min Status at Discharge: Cognitive status at discharge: cognitively intact, Behavioral status at discharge: cooperative and independent in ADL's, Quality Metrics Clinical Quality Measures During this hospital stay, did patient experience: None Coding Level of Care Code Acute Chg FW DC note Diagnoses End stage renal disease N18.6 HTN (hypertension) I10 Anemia N18.6; D63.1; Z99.2 Anemia type: due to chronic kidney disease Chronic kidney disease stage: on chronic dialysis
== END 2020-10-29 16:07 | disposition home or self-care (01) | DRG 189 ==
LOC: ER 14:01 → ICU 16:09 → MEDSURG 10-28 20:39
PROVIDERS: Admitting Provider Student in an Organized Health Care Education/Training Program; Emergency Provider Family Medicine; PCP Family Medicine; Visit Provider Student in an Organized Health Care Education/Training Program
DX: J96.01 Acute respiratory failure with hypoxia (principal); I50.33 Acute on chronic diastolic (congestive) heart failure; N18.6 End stage renal disease; I13.2 Hypertensive heart and chronic kidney disease with heart failure and with stage 5 chronic kidney disease, or end stage renal disease; E11.22 Type 2 diabetes mellitus with diabetic chronic kidney disease; Z99.2 Dependence on renal dialysis; Z79.84 Long term (current) use of oral hypoglycemic drugs; N40.0 Benign prostatic hyperplasia without lower urinary tract symptoms; D63.1 Anemia in chronic kidney disease; F03.90 Unspecified dementia, unspecified severity, without behavioral disturbance, psychotic disturbance, mood disturbance, and anxiety; I48.0 Paroxysmal atrial fibrillation; Z86.14 Personal history of Methicillin resistant Staphylococcus aureus infection; Z86.16 Personal history of COVID-19; Z79.82 Long term (current) use of aspirin; Z79.02 Long term (current) use of antithrombotics/antiplatelets
CPT/HCPCS: 36415; 36416; 36600; 71045; 80053; 81001; 82803; 82962; 83735; 83880; 84100; 84484; 85025; 85610; 87077; 87086; 87186; 90935; 93005; 94640; 94660; 96372; 96374; 99291; J1815; J1940; J2270; Q3014

== ENCOUNTER 2020-11-02 21:13 | Inpatient (IN) | payer MEDICARE, MEDICAID, SELFPAY ==
[2020-11-02 21:14] VITALS: BP 153/73; PULSE 82; RESP 14; TEMP 36.2; O2SAT 96; BMI 33.0
--- NOTE | 2020-11-02 21:16 | ECG_ITS ---
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 Measurements Intervals [place] Rate: 88 P: 52 MA: 157 QRS: 18 QRSD: 92 T: 36 QT: 387 QTc: 469 Interpretive Statements SINUS RHYTHM POSSIBLE LEFT ATRIAL ENLARGEMENT [-0.1mV P WAVE IN V1/V2] INTERPRETATION BASED ON A DEFAULT AGE OF 40 YEARS Compared to ECG 10/27/2020 17:47:38 No significant changes Electronically Signed On 11-03-2020 7:14:40 CDT by Nanci Pandey M.D. [id number]
[2020-11-02 21:29] LABS: Glucose Point of Care 332 mg/dL (70-110)
--- NOTE | 2020-11-02 21:31 | XRR_ITS ---
PROCEDURE INFORMATION: Exam: XR Chest Exam date and time: 11/02/2020 9:31 PM Age: 74 years old Clinical indication: Device placement; Ett placement (vent status); Additional info: Intubated TECHNIQUE: Imaging protocol: XR of the chest. Views: 1 view. COMPARISON: CR XR chest 1V portable [id number] 10/27/2020 11:53 AM FINDINGS: Tubes, catheters and devices: An endotracheal tube is placed with its tip approximately 3.6 cm from the fina. Lungs: There is indistinctness and prominence of the pulmonary vasculature. There increased interstitial markings present bilaterally and increased linear opacities present in the lower hemithoraces. Pleural spaces: Unremarkable. No pleural effusion. No pneumothorax. Heart/Mediastinum: Unremarkable. No cardiomegaly. Bones/joints: Unremarkable. XR/XR chest 1V portable [id number] IMPRESSION: Prominence and indistinctness of the pulmonary vasculature with increased interstitial linear opacities present bilaterally, findings that suggest pulmonary edema. Superimposed pneumonia cannot be entirely excluded. These findings are similar to those present on 10/27/2020.
--- NOTE | 2020-11-02 21:34 | CTR_ITS ---
PROCEDURE INFORMATION: Exam: CT Head Without Contrast Exam date and time: 11/02/2020 10:05 PM Age: 74 years old Clinical indication: Altered mental status/memory loss; Patient HX: Patient intubated in the field in resp failure. No further history. ; Additional info: AMS TECHNIQUE: Imaging protocol: Computed tomography of the head without contrast. Radiation optimization: All CT scans at this facility use at least one of these dose optimization techniques: automated exposure control; mA and/or kV adjustment per patient size (includes targeted exams where dose is matched to clinical indication); or iterative reconstruction. COMPARISON: CT head wo con* [id number] 07/17/2020 8:11 PM RADIATION DOSE METRICS: Total DLP (mGy-cm): 956.77 FINDINGS: Brain: There is moderate diffuse cerebral atrophy. Patchy areas of hypoattenuation are seen in the deep white matter of the cerebral hemispheres bilaterally compatible with deep white matter microvascular disease. Cerebral ventricles: There is mild ex vacuo dilatation of the ventricles. Bones/joints: Unremarkable. No acute fracture. Paranasal sinuses: Fluid and mucosal thickening is seen within the ethmoidal sinuses bilaterally. Mastoid air cells: Visualized mastoid air cells are well aerated. Soft tissues: Unremarkable. Nasopharynx: Fluid is seen within the nasopharynx. CT/CT head wo con* [id number] IMPRESSION: There are no acute intracranial findings. Radiation Dose CTDIVOL = (mGy): DLP = 956.77 (mGy-cm)
--- NOTE | 2020-11-02 21:34 | CTR_ITS ---
PROCEDURE INFORMATION: Exam: CTA Chest With Contrast Exam date and time: 11/02/2020 10:05 PM Age: 74 years old Clinical indication: Other: Respiratory failure; Additional info: Respiratory failure intubated in the field. Scan x 2 best exam submitted TECHNIQUE: Imaging protocol: Computed tomographic angiography of the chest with contrast. 3D rendering (Not supervised by radiologist): MIP and/or 3D reconstructed images were created by the technologist. Radiation optimization: All CT scans at this facility use at least one of these dose optimization techniques: automated exposure control; mA and/or kV adjustment per patient size (includes targeted exams where dose is matched to clinical indication); or iterative reconstruction. Contrast material: VISI 320; Contrast volume: 145 ml; Contrast route: INTRAVENOUS (IV); COMPARISON: CT angio chest [id number] 10/06/2020 4:48 PM RADIATION DOSE METRICS: Total DLP (mGy-cm): 1838.5 FINDINGS: Tubes, catheters and devices: An endotracheal tube and nasogastric tube are present. The endotracheal tube tip is approximately 1.4 cm from the fina. Pulmonary arteries: Normal. No pulmonary emboli. Aorta: Unremarkable. No aortic aneurysm. No aortic dissection. Lungs: There are diffuse ground-glass opacities and superimposing patchy and strandy opacities seen within the hemithoraces bilaterally with some areas of consolidation seen within the lower lobes bilaterally, findings suggesting a bilateral pneumonia. These findings appear worse than that present on 10/06/2020. There are some increased septal markings present in the lower hemithoraces and pulmonary edema cannot be excluded as well. There are small bilateral pleural effusions appearing stable compared with 10/06/2020. Pleural spaces: See Lungs finding. Heart: Unremarkable. No cardiomegaly. No pericardial effusion. Lymph nodes: Unremarkable. No enlarged lymph nodes. Bones/joints: Unremarkable. No acute fracture. Soft tissues: Unremarkable. CT/CT angio chest PE protcl [id number] IMPRESSION: 1. There is no evidence for pulmonary emboli. 2. Worsening diffuse ground-glass opacities, strandy and patchy opacities and bilateral basilar consolidation compared with 10/06/2020. These findings suggest worsening bilateral pneumonia although superimposed pulmonary edema cannot be excluded as well. Radiation Dose CTDIVOL = (mGy): DLP = 1838.5 (mGy-cm)
[2020-11-02 21:36] VITALS: RESP 12
[2020-11-02 21:45] LABS: Basophils # 0.1 10^3/uL (0.0-0.1); Basophils % 0.5 %; Eosinophils # 0.3 10^3/uL (0.0-0.8); Eosinophils % 2.9 %; Hematocrit 33.7 % (42.0-52.0); Hemoglobin 9.5 g/dL (11.7-16.6); Lymphocytes # 0.8 10^3/uL (0.8-4.8); Lymphocytes % 7.2 %; Mean Corpuscular HGB Conc 28.2 g/dL (30.0-36.0); Mean Corpuscular Hemoglobin 26.1 pg (28.0-34.0); Mean Corpuscular Volume 92.6 fL (80-94); Mean Platelet Volume 12.2 fL (7.4-10.4); Monocytes # 0.3 10^3/uL (0.2-0.9); Monocytes % 2.9 %; Neutrophils # 9.58 10^3/uL (1.8-7.7); Neutrophils % 85.8 %; Nucleated Red Blood Cells % 0 %; Platelet Count 165 10^3/cmm (130-400); Red Blood Count 3.64 10^6/uL (4.1-5.3); Red Cell Distribution Width 15.7 % (12.1-15.1); White Blood Count 11.2 10^3/uL (4.0-10.0)
[2020-11-02 21:47] VITALS: BP 179/93; PULSE 89; RESP 12; O2SAT 100
[2020-11-02 21:47] LABS: ABG PCO2 55.9 mmHg (35-45); Alveolar-Arterial Oxygen Gradi 47.1 mmHg (5-10); Arterial Blood Gas Hematocrit 28.2 % (42-52); Base Excess ABG 0.5 mmol/L (-2.0-2.0); Blood Gas Allen Test Pos; Blood Gas Sample Site Radial, right; Blood Gas Sample Type Arterial; Carboxyhemoglobin 0.8 %THgb (0.4-20.1); HCO3 ABG 27.4 mmol/L (22-26); HGB O2 Sat 99.6 % (95-100); Ionized Calcium Level - ABG 1.2 mmol/L (1.1-1.4); Oxygen Device VENT; Oxygen Saturation ABG > 100.0; Potassium Level - ABG 4.5 mmol/L (3.5-5.0); Total Hemoglobin 9.2 g/dL (14-18)
--- NOTE | 2020-11-02 21:47 | PC.NURSE ---
EKG taken and given to Dr. Santana
[2020-11-02] MEDS: piperacillin-tazobactam 3.375 GM in sodium chloride 0.9% (plus) 50 ML IV (21:53)
--- NOTE | 2020-11-02 21:53 | PM.HP ---
Providers/Chief Complaint Primary Care Provider: Salvador Daley MD Chief Complaint: resp distress History of Present Illness Familia Mason is a 74 year old male has history of end-stage renal disease, atrial fibrillation, aortic stenosis, multiple admissions in the last 6 to 8 months, got recently discharged from the hospital after management of pulm edema/fluidoverload which improved after diuresis and hemodialysis he did not qualify for home oxygen at the time of discharge presenting today with respiratory distress. Sister is at the bedside who is endorsing that today he was fine until this evening, he went for his urology appointment with Dr. Kearns, in the evening after serving him supper she went outside to collect trash can, she started chatting with her neighbor & about 30 minutes after Mr. Mason started yelling in the house, she attributed his symptoms to a panic attack initially, Mr. Mason started complaining of shortness of breath hence EMS was called. When EMS arrived he was saturating 80% on room air, he was given DuoNeb treatment in the ambulance, right after the treatment his O2 saturation dropped and his mentation changed as well, he was intubated by the EMS, etomidate 20 mg was given along 100 mg of rocuronium, I was able to talk with the bevel gear generator operator who stated that during intubation he noticed a lot of pink frothy secretions. As per the sister no recent fever or vomiting at home. Diagnosis in the ER revealed bilateral pulmonary infiltrate, groundglass opacities, mild leukocytosis, Covid antigen requested, CTA ruled out PE, EKG showing sinus rhythm however on the baseline, he was given vancomycin and Zosyn, clinically looks fluid overloaded, endotracheal tube was at by 23 cm which was retracted to 22 cm at this is bronchial No urgent need of dialysis History of COVID-19 pneumonia October 2019 Review of Systems General: Reports: ROS unobtainable due to endotracheal tube Medications/Allergies Home Medications Medication Instructions Recorded Confirmed Last Taken Type Imodium A-D 1 tab PO TID 05/29/20 11/02/20 10/27/20 History carvedilol 25 mg PO BID 05/29/20 11/02/20 10/27/20 History sevelamer carbonate [Renvela] 2,400 mg PO TID 05/29/20 11/02/20 10/27/20 History tamsulosin 0.4 mg PO DAILY 05/29/20 11/02/20 10/27/20 History acetaminophen [Tylenol Extra 1,000 mg PO TID PRN 10/05/20 11/02/20 10/27/20 History Strength] aspirin 81 mg PO DAILY 30 Days #30 tab 10/11/20 11/02/20 10/26/20 Rx atorvastatin 40 mg PO BEDTIME 30 Days #30 tab 10/11/20 11/02/20 10/26/20 Rx clopidogrel 75 mg PO DAILY 30 Days #30 tab 10/11/20 11/02/20 10/27/20 Rx losartan 25 mg PO DAILY 30 Days #30 tab 10/11/20 11/02/20 10/27/20 Rx pantoprazole 40 mg PO BID 30 Days #60 tab 10/11/20 11/02/20 10/27/20 Rx alprazolam 0.25 mg tablet 0.25 mg PO BID PRN tab 10/25/20 11/02/20 10/27/20 History glimepiride 1 mg tablet 1 mg PO BID tab 10/25/20 11/02/20 10/27/20 History hydralazine 10 mg tablet 10 mg PO BID tab 10/25/20 11/02/20 10/27/20 History furosemide 40 mg PO BID #0 tab 10/29/20 11/02/20 10/27/20 Rx Allergies Allergy/AdvReac Type Severity Reaction Status Date / Time No Known Allergies Allergy Verified 10/25/20 08:22 PFSH Acute PFSH: Medical History Acute on chronic diastolic (congestive) heart failure Anemia Anemia in chronic kidney disease -H/H stable BPH (benign prostatic hyperplasia) -did have some transient hematuria, resolved, DM type 2 (diabetes mellitus, type 2) -history of DKA -A1c at goal-6.2, End stage renal disease End-stage renal disease on hemodialysis -Only gets dialysis twice a week on Mondays and Fridays -access: LUE AV fistula History of 2019 novel coronavirus disease (COVID-19) (~05/2020) History of necrotizing fasciitis History of septic arthritis HTN (hypertension) Hx of type 2 diabetes mellitus Hypertension -continue oral antihypertensives MRSA infection Osteomyelitis Paroxysmal atrial fibrillation Troponin level elevated Surgical History Arteriovenous fistula for hemodialysis in place, primary Left upper extremity History of ankle surgery History of incision and drainage History of knee surgery several times due to septic arthritis and necrotizing fasciitis Family History Father Diabetes Sister Bleeding disorder Diabetes Family/Other Suicide Social History Smoking and tobacco status: never smoked Alcohol intake: never Household members: none and other Details: sister helps care for him but lives alone Vitals/I&O/Wt Last Vital Signs Temp 97.2 F L 11/02/20 21:14 Pulse 89 11/02/20 21:47 Resp 12 11/02/20 21:47 BP 179/93 11/02/20 21:47 Pulse Ox 100 11/02/20 21:47 Weight last 48 hrs Weight 104.326 kg Physical Exam Narrative: EXAM NARRATIVE: elderly male Intubated Normal hemodynamics saturating well 100% FiO2 50% PEEP 5 tidal volume 500 Bilateral adequate breath sounds Clinically looks fluid overloaded Left arm fistula Lower extremity pitting edema 2+ Schneider catheter draining clear yellow urine [place] secretions noted in the suction catheter Distended abdomen central obesity Assisted breath sounds Neuro exam is limited Data : 11/02/20 21:32 11/02/20 21:32 Micro: Microbiology 11/02/20 21:45 Blood Culture - Preliminary Blood SPECIMEN COLLECTED 11/02/20 21:25 Blood Culture - Preliminary Blood SPECIMEN COLLECTED A&P Assessment and plan (1) Respiratory failure: Status: Acute (2) Acute respiratory failure with hypoxia and hypercapnia: Status: Acute (3) Pulmonary edema: Status: Acute (4) Aortic stenosis: Status: Acute Qualifiers: Cardiac valve disease etiology: nonrheumatic Qualified Code(s): I35.0 - Nonrheumatic aortic (valve) stenosis (5) Hospital-acquired pneumonia: Status: Acute Additional A&P Information Acute respiratory failure requiring mechanical ventilation Acute hypoxic hypercapnic respiratory failure due to pulmonary edema Groundglass opacities bilaterally Received vancomycin and Zosyn in the ER I do believe his chest x-ray findings are secondary to fluid overload however would continue antibiotics for next 48 hours, will obtain sputum culture, blood culture and antigen, would use vancomycin cefepime and Levaquin for coverage of hospital-acquired pneumonia as he was recently discharged from the hospital Chest x-ray does show mild pulmonary edema changes, no urgent need of dialysis Weaning trial in the morning, currently on minimal ventilator settings Sedation with fentanyl Will need home O2 evaluation before discharge as well Pulmonary edema with CHF exacerbation EF 55%, grade 1 diastolic dysfunction Moderate aortic valve stenosis Echo findings from 07/27 would not repeat echo Troponin at baseline EKG without ischemic or infarctive changes CTA rule out PE Paroxysmal A. fib without RVR Not a candidate for anticoagulation due to anemia End-stage renal disease: Friday Telemetry nephro consult DVT prophylaxis Heparin N.p.o. If he is not able to be extubated in the morning we will start tube feeding Full code Next of kin sister Attestations Medical Necessity Statement*: Anticipating stay in the hospital cross more than 2 midnights for acute respiratory failure, pneumonia and pulmonary edema Time Spent in Patient Care: (>than 50% of time spent in counselling and/or direct pt care on unit). 45mins Coding Level of Care Code Acute Capacity Planning Engineer for Chg Fwd Diagnoses Respiratory failure J96.90 Acute respiratory failure with hypoxia and hypercapnia J96.01; J96.02 Pulmonary edema J81.1 Aortic stenosis I35.0 Cardiac valve disease etiology: nonrheumatic Hospital-acquired pneumonia J18.9; Y95
[2020-11-02 21:55] LABS: Lactate (Lactic Acid level) 1.7 mmol/L (0.5-2.2)
[2020-11-02 21:56] LABS: Alanine Aminotransferase 7 U/L (0-41); Albumin Level 3.6 g/dL (3.5-5.2); Alkaline Phosphatase 112 IU/L (40-130); Blood Urea Nitrogen 51 mg/dL (8-23); Calcium 8.4 mg/dL (8.5-10.5); Carbon Dioxide 25 mmol/L (22-29); Chloride 95 mmol/L (98-107); Globulin 3.7 g/dL (1.3-4.6); Glucose 293 mg/dL (65-115); Magnesium 2.3 mg/dL (1.7-2.3); Osmolality Calculated 304 mOsm/kg (285-295); Sodium 135 mmol/L (136-145); Total Bilirubin 0.3 mg/dL (0.15-1.2); Total Protein 7.3 g/dL (6.6-8.7)
[2020-11-02 21:58] LABS: Anion Gap 19.6 (5-19); Aspartate Amino Transferase 12 U/L (0-40); Potassium 4.6 mmol/L (3.5-5.1)
[2020-11-02 21:59] LABS: Troponin(5th) Baseline 312 ng/L (0-15)
--- NOTE | 2020-11-02 22:09 | ED_ITS ---
HPI - SOB/Dyspnea General: Chief Complaint: Shortness of Breath/Dyspnea Stated Complaint: resp distress Time Seen by Provider: 11/02/20 21:16 Source: EMS Mode of arrival: EMS History of Present Illness: HPI Narrative: 74-year-old male with history of end-stage renal disease, dialysis patient brought in by EMS for respiratory failure. He was emergently intubated in route. Apparently he was at home doing a breathing treatment when he suddenly went into respiratory distress. He was hospitalized here 10/27/2020-10/29/2020 for acute on chronic congestive heart failure. Review of Systems General: Reports: ROS unobtainable due to medical condition PFSH ED PFSH: Medical History Acute on chronic diastolic (congestive) heart failure Anemia Anemia in chronic kidney disease -H/H stable BPH (benign prostatic hyperplasia) -did have some transient hematuria, resolved, DM type 2 (diabetes mellitus, type 2) -history of DKA -A1c at goal-6.2, End stage renal disease End-stage renal disease on hemodialysis -Only gets dialysis twice a week on Mondays and Fridays -access: LUE AV fistula History of 2019 novel coronavirus disease (COVID-19) (~05/2020) History of necrotizing fasciitis History of septic arthritis HTN (hypertension) Hx of type 2 diabetes mellitus Hypertension -continue oral antihypertensives MRSA infection Osteomyelitis Paroxysmal atrial fibrillation Troponin level elevated Surgical History Arteriovenous fistula for hemodialysis in place, primary Left upper extremity History of ankle surgery History of incision and drainage History of knee surgery several times due to septic arthritis and necrotizing fasciitis Family History Father Diabetes Sister Bleeding disorder Diabetes Family/Other Suicide Social History Smoking and tobacco status: never smoked Alcohol intake: never Household members: none and other Details: sister helps care for him but lives alone Physical Exam Const: EXAM LIMITATIONS: other limitations (Sedated and intubated) GENERAL APPEARANCE: Edematous; no odor of alcohol detected NUTRITIONAL APPEARANCE: obese HENMT: COMMON NORMALS: normocephalic and atraumatic HEAD & SCALP: normocephalic and atraumatic Chest: COMMONS NORMALS: normal inspection of the chest and normal palpation of entire chest wall Resp: AUSCULTATION: crackles and rhonchi Cardio: COMMON NORMALS: regular rate and regular rhythm RATE: regular rate RHYTHM: regular rhythm GI: COMMON NORMALS: Soft to palpation and No hepatosplenomegaly present; negative for no masses INSPECTION: Yes central obesity PALPATION: Yes Soft to palpation, No Guarding due to palpation present (GI), No Rigid due to palpation and Yes No hepatosplenomegaly present Extremity: GENERAL: Yes AV fistula, Yes edema and Yes pallor Neuro: DANILO COMA SCALE: GCS not evaluated (Paralyzed and sedated) Skin: COMMON NORMALS: no rashes or lesions noted, no wounds and no jaundice GENERAL SKIN EXAM: no rashes or lesions noted Course Vital Signs: Vital signs: Vital Signs Temperature 97.2 F L 11/03/20 06:00 Pulse Rate 65 11/03/20 07:21 Respiratory Rate 14 11/03/20 07:18 Blood Pressure 119/62 11/03/20 06:00 Pulse Oximetry 98 11/03/20 07:18 MDM - SOB/Dyspnea MDM Narrative: Medical decision making narrative: 74-year-old male, chronic renal failure on dialysis, had sudden onset respiratory distress at home, EMS intubated emergently in route to the hospital due to deteriorating respiratory status. Chest x-ray shows bilateral patchy opacities, most likely pulmonary edema, but empiric wide spectrum antibiotics were started to cover for possible pneumonia or sepsis. Covid negative. Potassium stable. CBC nonacute. Head CT negative for acute CVA. CTA chest negative for acute PE Patient will be transferred to the ICU for further treatment, accepted by Differential Diagnosis: Shortness of Breath Differential Diagnosis: Likely acute exacerbation of chronic obstructive airways disease, congestive heart failure, community acquired pneumonia and pulmonary embolism Medical Records: Attestation: I reviewed the patient's medical records. Lab Data: Attestation: I reviewed the patient's lab results. Labs: Lab Results 11/02/20 11/02/20 11/02/20 Range/Units 21:25 21:32 21:32 WBC 11.2 H (4.0-10.0) 10^3/ uL RBC 3.64 L (4.1-5.3) 10^6/u L Hgb 9.5 L (11.7-16.6) g/dL Hct 33.7 L (42.0-52.0) % MCV 92.6 (80-94) fL MCH 26.1 L (28.0-34.0) pg MCHC 28.2 L (30.0-36.0) g/dL RDW 15.7 H (12.1-15.1) % Plt Count 165 (130-400) 10^3/c mm MPV 12.2 H (7.4-10.4) fL Neut % (Auto) 85.8 % Lymph % (Auto) 7.2 % Calvert % (Auto) 2.9 % Eos % (Auto) 2.9 % Baso % (Auto) 0.5 % Neut # (Auto) 9.58 H (1.8-7.7) 10^3/u L Lymph # (Auto) 0.8 (0.8-4.8) 10^3/u L Calvert # (Auto) 0.3 (0.2-0.9) 10^3/u L Eos # (Auto) 0.3 (0.0-0.8) 10^3/u L Baso # (Auto) 0.1 (0.0-0.1) 10^3/u L Nucleated RBC % (a uto) 0 % Nucleated RBCs # 0.0 /100WBC Specimen Type Sample Site ABG pH (7.35-7.45) ABG pCO2 (35-45) mmHg ABG pO2 (80.0-100.0) mmH g ABG HCO3 (22-26) mmol/L ABG O2 Saturation ABG Base Excess (-2.0-2.0) mmol/ L Chris Test A-a O2 Gradient (5-10) mmHg Hematocrit (42-52) % Hgb O2 Saturation (95-100) % Carboxyhemoglobin (0.4-20.1) %THgb Methemoglobin (0.4-1.5) % Total Hemoglobin (14-18) g/dL Ionized Calcium (1.1-1.4) mmol/L O2 Delivery Device Mechanical Rate FiO2 % Tidal Volume PEEP cmH20 Mallet And Die Cutter ID Sodium 135 L (136-145) mmol/L Potassium 4.6 (3.5-5.1) mmol/L Chloride 95 L (98-107) mmol/L Carbon Dioxide 25 (22-29) mmol/L Anion Gap 19.6 H (5-19) BUN 51 H (8-23) mg/dL Creatinine 6.6 H* (0.7-1.2) mg/dL GFR Calculation Not Reportable Glucose 293 H (65-115) mg/dL POC Glucose 332 H (70-110) mg/dL Calculated Osmolal ity 304 H (285-295) mOsm/k g Lactate (0.5-2.2) mmol/L Calcium 8.4 L (8.5-10.5) mg/dL Magnesium 2.3 (1.7-2.3) mg/dL Total Bilirubin 0.3 (0.15-1.2) mg/dL AST 12 (0-40) U/L ALT 7 (0-41) U/L Alkaline Phosphata se 112 (40-130) IU/L Troponin T Baselin e (0-15) ng/L Troponin T 120 Min [place] (0-15) ng/L Delta Troponin T (0-10) ABS# Total Protein 7.3 (6.6-8.7) g/dL Albumin 3.6 (3.5-5.2) g/dL Globulin 3.7 (1.3-4.6) g/dL SARS-CoV-2 Ag (Rap id) (Negative) 11/02/20 11/02/20 11/02/20 Range/Units 21:32 21:32 21:40 WBC (4.0-10.0) 10^3/ uL RBC (4.1-5.3) 10^6/u L Hgb (11.7-16.6) g/dL Hct (42.0-52.0) % MCV (80-94) fL MCH (28.0-34.0) pg MCHC (30.0-36.0) g/dL RDW (12.1-15.1) % Plt Count (130-400) 10^3/c mm MPV (7.4-10.4) fL Neut % (Auto) % Lymph % (Auto) % Calvert % (Auto) % Eos % (Auto) % Baso % (Auto) % Neut # (Auto) (1.8-7.7) 10^3/u L Lymph # (Auto) (0.8-4.8) 10^3/u L Calvert # (Auto) (0.2-0.9) 10^3/u L Eos # (Auto) (0.0-0.8) 10^3/u L Baso # (Auto) (0.0-0.1) 10^3/u L Nucleated RBC % (a uto) % Nucleated RBCs # /100WBC Specimen Type Arterial Sample Site Radial, right ABG pH 7.30 L (7.35-7.45) ABG pCO2 55.9 H (35-45) mmHg ABG pO2 281.0 H (80.0-100.0) mmH g ABG HCO3 27.4 H (22-26) mmol/L ABG O2 Saturation > 100.0 ABG Base Excess 0.5 (-2.0-2.0) mmol/ L Chris Test Pos A-a O2 Gradient 47.1 H (5-10) mmHg Hematocrit 28.2 L (42-52) % Hgb O2 Saturation 99.6 (95-100) % Carboxyhemoglobin 0.8 (0.4-20.1) %THgb Methemoglobin 0.0 L (0.4-1.5) % Total Hemoglobin 9.2 L (14-18) g/dL Ionized Calcium 1.2 (1.1-1.4) mmol/L O2 Delivery Device Vent Mechanical Rate 12.0 FiO2 100.0 % Tidal Volume 0.50 PEEP 10.0 cmH20 Mallet And Die Cutter ID Christopherja Sodium 136.0 (136-145) mmol/L Potassium 4.5 (3.5-5.1) mmol/L Chloride (98-107) mmol/L Carbon Dioxide (22-29) mmol/L Anion Gap (5-19) BUN (8-23) mg/dL Creatinine (0.7-1.2) mg/dL GFR Calculation Glucose 295.0 H (65-115) mg/dL POC Glucose (70-110) mg/dL Calculated Osmolal ity (285-295) mOsm/k g Lactate 1.7 (0.5-2.2) mmol/L Calcium (8.5-10.5) mg/dL Magnesium (1.7-2.3) mg/dL Total Bilirubin (0.15-1.2) mg/dL AST (0-40) U/L ALT (0-41) U/L Alkaline Phosphata se (40-130) IU/L Troponin T Baselin e 312 H* (0-15) ng/L Troponin T 120 Min [place] (0-15) ng/L Delta Troponin T (0-10) ABS# Total Protein (6.6-8.7) g/dL Albumin (3.5-5.2) g/dL Globulin (1.3-4.6) g/dL SARS-CoV-2 Ag (Rap id) (Negative) 11/02/20 11/03/20 Range/Units 23:34 00:00 WBC (4.0-10.0) 10^3/ uL RBC (4.1-5.3) 10^6/u L Hgb (11.7-16.6) g/dL Hct (42.0-52.0) % MCV (80-94) fL MCH (28.0-34.0) pg MCHC (30.0-36.0) g/dL RDW (12.1-15.1) % Plt Count (130-400) 10^3/c mm MPV (7.4-10.4) fL Neut % (Auto) % Lymph % (Auto) % Calvert % (Auto) % Eos % (Auto) % Baso % (Auto) % Neut # (Auto) (1.8-7.7) 10^3/u L Lymph # (Auto) (0.8-4.8) 10^3/u L Calvert # (Auto) (0.2-0.9) 10^3/u L Eos # (Auto) (0.0-0.8) 10^3/u L Baso # (Auto) (0.0-0.1) 10^3/u L Nucleated RBC % (a uto) % Nucleated RBCs # /100WBC Specimen Type Sample Site ABG pH (7.35-7.45) ABG pCO2 (35-45) mmHg ABG pO2 (80.0-100.0) mmH g ABG HCO3 (22-26) mmol/L ABG O2 Saturation ABG Base Excess (-2.0-2.0) mmol/ L Chris Test A-a O2 Gradient (5-10) mmHg Hematocrit (42-52) % Hgb O2 Saturation (95-100) % Carboxyhemoglobin (0.4-20.1) %THgb Methemoglobin (0.4-1.5) % Total Hemoglobin (14-18) g/dL Ionized Calcium (1.1-1.4) mmol/L O2 Delivery Device Mechanical Rate FiO2 % Tidal Volume PEEP cmH20 Mallet And [employer] Cutter ID Sodium (136-145) mmol/L Potassium (3.5-5.1) mmol/L Chloride (98-107) mmol/L Carbon Dioxide (22-29) mmol/L Anion Gap (5-19) BUN (8-23) mg/dL Creatinine (0.7-1.2) mg/dL GFR Calculation Glucose (65-115) mg/dL POC Glucose (70-110) mg/dL Calculated Osmolal ity (285-295) mOsm/k g Lactate (0.5-2.2) mmol/L Calcium (8.5-10.5) mg/dL Magnesium (1.7-2.3) mg/dL Total Bilirubin (0.15-1.2) mg/dL AST (0-40) U/L ALT (0-41) U/L Alkaline Phosphata se (40-130) IU/L Troponin T Baselin e (0-15) ng/L Troponin T 120 Min [place] 287.0 H (0-15) ng/L Delta Troponin T -25.0 L (0-10) ABS# Total Protein (6.6-8.7) g/dL Albumin (3.5-5.2) g/dL Globulin (1.3-4.6) g/dL SARS-CoV-2 Ag (Rap id) Negative (Negative) Discharge Plan Discharge Patient Disposition: Admitted As Inpatient Admit Provider: Dylan White Clinical Impression: Pulmonary edema, Respiratory failure, Pneumonia Condition: Stable Coding Level of Care Code ED Manager Access for Willy Robertson
[2020-11-02] MEDS: iodixanol 320 mg/mL 100mL Btl IV ×2 (22:31→22:33)
[2020-11-02] MEDS: propofol 1,000 MG/100 ML INJ 6.3 MG IV (22:46)
[2020-11-02] MEDS: vancomycin 1,000 MG in sodium chloride 0.9% 250 ML 250 MG IV (22:50)
[2020-11-02 22:53] VITALS: BP 145/85; PULSE 82; RESP 12; O2SAT 96
--- NOTE | 2020-11-02 23:32 | ECG_ITS ---
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 Measurements Intervals [place] Rate: 73 P: 49 ME: 161 QRS: 12 QRSD: 95 T: 37 QT: 465 QTc: 513 Interpretive Statements SINUS RHYTHM PROLONGED QT INTERVAL Compared to ECG 11/02/2020 21:30:14 Prolonged QT interval now present Electronically Signed On 11-03-2020 19:19:06 CDT by Earnest Leon M.D. [email or web address] [email or web address] union [email or web address].[id number]
[2020-11-02 23:55] VITALS: BP 94/51; PULSE 74; RESP 12; O2SAT 92
[2020-11-03] VITALS (88 sets, daily range): BP systolic 77–179; BP diastolic 32–86; PULSE 56–79; RESP 12–38; TEMP 34.5–36.9; O2SAT 92–100; BMI 34.1
--- NOTE | 2020-11-03 00:09 | PC.NURSE ---
Per Dr. Santana verbal order set fentanyl drip at 50mcg/hr and titrate Propofol up to 20mcg/kg/min
[2020-11-03 00:57] LABS: SARS Covid-2 Antigen Negative (Negative)
--- NOTE | 2020-11-03 01:39 | PC.NURSE ---
Called report to David KENDRICK at 2011
--- NOTE | 2020-11-03 02:03 | PC.PHAR ---
Vancomycin is dosed at 750mg IVPB every 48 hours to produce a predicted trough level of 11.94 (population based pharmacokinetic analysis). A trough level has been ordered from the lab to confirm and adjust if needed. The Levaquin is dosed at 750mg IVPB once then 500mg IVPB every 48hours and the Cefepime is dosed at 2gm IVPB every 24 hours on basis of the creatinine clearance of 12.24.
[2020-11-03] MEDS: heparin 5,000 unit/mL INJ 1 mL 5000 UNIT SUBCUT ×3 (02:21→17:27)
[2020-11-03] MEDS: levofloxacin-dextrose 5 % 750 MG/150 ML PREMIX 100 MG IV (02:31)
[2020-11-03] MEDS: ipratropium-albuterol 3 mL Neb INHALATION ×4 (03:18→20:13)
--- NOTE | 2020-11-03 03:32 | ECG_ITS ---
[facility] Test Date: 2020-11-03 Pat Name: Familia Mason Department: Room: ICU11 Gender: Male [employer]: : 1945 Requested By: Merle Santana Order Number: [id number] Olamide MD: Earnest Leon M.D. Measurements Intervals [place] Rate: 57 P: 38 DE: 157 QRS: 20 QRSD: 92 T: 17 QT: 494 QTc: 483 Interpretive Statements SINUS BRADYCARDIA NONSPECIFIC T-WAVE ABNORMALITY PROLONGED QT INTERVAL Compared to ECG 11/02/2020 23:30:03 T-wave abnormality now present Sinus rhythm no longer present Electronically Signed On 11-03-2020 19:18:48 CDT by Earnest Leon M.D. [id number]
[2020-11-03] MEDS: cefepime 2,000 MG in sodium chloride 0.9% (plus) 50 ML 100 MG IV (03:39)
[2020-11-03] MEDS: propofol 1,000 MG/100 ML INJ 9.4 MG IV ×2 (03:59→12:56)
[2020-11-03 04:05] LABS: Basophils % 0.3 %; Eosinophils # 0.1 10^3/uL (0.0-0.8); Eosinophils % 0.4 %; Hematocrit 26.1 % (42.0-52.0); Hemoglobin 7.4 g/dL (11.7-16.6); Lymphocytes # 0.4 10^3/uL (0.8-4.8); Lymphocytes % 3.4 %; Mean Corpuscular HGB Conc 28.4 g/dL (30.0-36.0); Mean Corpuscular Hemoglobin 26.3 pg (28.0-34.0); Mean Corpuscular Volume 92.9 fL (80-94); Mean Platelet Volume 11.9 fL (7.4-10.4); Monocytes # 0.5 10^3/uL (0.2-0.9); Monocytes % 4.2 %; Neutrophils % 91.1 %; Nucleated Red Blood Cells % 0 %; Platelet Count 143 10^3/cmm (130-400); Red Blood Count 2.81 10^6/uL (4.1-5.3); Red Cell Distribution Width 15.8 % (12.1-15.1); White Blood Count 11.6 10^3/uL (4.0-10.0)
[2020-11-03 04:33] LABS: ABG PCO2 52.5 mmHg (35-45); ABG PH Result 7.33 (7.35-7.45); Arterial Blood Gas Hematocrit 23.3 % (42-52); Base Excess ABG 1.4 mmol/L (-2.0-2.0); Blood Gas Allen Test Pos; Blood Gas Sample Site Radial, right; Blood Gas Sample Type Arterial; HCO3 ABG 27.6 mmol/L (22-26); Oxygen Device VENT; PO2 ABG 57.4 mmHg (80.0-100.0)
[2020-11-03 04:39] LABS: Anion Gap 18.5 (5-19); Blood Urea Nitrogen 54 mg/dL (8-23); Calcium 7.9 mg/dL (8.5-10.5); Carbon Dioxide 25 mmol/L (22-29); Chloride 97 mmol/L (98-107); Glucose 240 mg/dL (65-115); Osmolality Calculated 305 mOsm/kg (285-295); Potassium 4.5 mmol/L (3.5-5.1); Sodium 136 mmol/L (136-145)
[2020-11-03 05:12] LABS: Troponin 5 6HR 306.2 ng/L (0-15); Troponin 5 6HR Delta -5.8 ng/L (0-12)
[2020-11-03] MEDS: FUROsemide 10 mg/mL SDV 2mL 20 MG IVP (07:49)
--- NOTE | 2020-11-03 09:01 | P.PN_ITS ---
Subjective Subjective: Interval history: Intubated, opens eyes, but does not answer questions or follow commands, appears to be moving both sides. Vitals/I&O/Wt Last Vital Signs Temp 98.4 F 11/03/20 07:00 Pulse 64 11/03/20 08:00 Resp 14 11/03/20 07:18 BP 112/58 11/03/20 08:00 Pulse Ox 97 11/03/20 08:00 11/02/20 11/03/20 11/03/20 22:59 06:59 14:59 Intake Total 50 / 50 475.695 / 525.695 Output Total 350 / 350 Balance 50 / 50 125.695 / 175.695 Weight last 48 hrs Weight 107.955 kg Weight 107.955 kg Weight 104.326 kg Physical Exam Const: COMMON NORMALS: no acute distress ORIENTATION/CONSCIOUSNESS: Yes confused OTHER: Opens eyes, but does not cooperate with questions or exam. Moving spontaneously. HENMT: COMMON NORMALS: oropharynx normal Neck/C-Spine: COMMON NORMALS: no JVD Resp: COMMON NORMALS: normal respiratory effort AUSCULTATION: rhonchi and diminished lung sounds Cardio: COMMON NORMALS: no JVD, regular rhythm, S1 normal heart sound present, S2 normal heart sound present and No murmurs present (Cardio) RHYTHM: regular rhythm HEART SOUNDS: S1 normal heart sound present and S2 normal heart sound present GI: COMMON NORMALS: Normal to inspection, nondistended, normoactive bowel sounds present, Soft to palpation and non-tender PALPATION: Yes Soft to palpation Extremity: COMMON NORMALS: no joint enlargement GENERAL: Yes edema (2+) Neuro: COMMON NORMALS: moves all extremities Skin: COMMON NORMALS: no rashes or lesions noted GENERAL SKIN EXAM: no rashes or lesions noted Data : 11/03/20 03:50 11/03/20 03:50 Micro: Microbiology 11/02/20 21:35 Gram Stain - Final Sputum - Expectorated Sputum 11/03/20 02:30 Legionella Urinary Antigen - Final Urine Catheterized 11/03/20 02:30 Bacterial Antigens - Final Urine Kidney 11/02/20 21:45 Blood Culture - Preliminary Blood SPECIMEN COLLECTED 11/02/20 21:25 Blood Culture - Preliminary Blood SPECIMEN COLLECTED A&P Assessment and plan (1) Respiratory failure: Secondary to pulmonary edema with fluid overload, diastolic CHF, inadequate hemodialysis. Cont MV support. HD 4L planned. As previously expressed, concern is that he limits his hemodialysis well below what is his requirement. Already, with his adherence he is only getting it twice a week, Friday and Friday, per discussion with [facility] last session was on Friday, however, he also got each session short, instead of prescribed 3-1/2 hours, on Friday he did 1 hour, prior to that missed dialysis on 10/27, prior to that dialysis on 10/23, 1.5 hours instead of 3-1/2. This has been experienced previously, appears is still occurring even though was reinforced multiple times. Concern for underlying dementia. This is his third admission this month. Status: Acute Qualifiers: Chronicity: acute on chronic Respiratory failure complication: hypoxia Qualified Code(s): J96.21 - Acute and chronic respiratory failure with hypoxia (2) Acute respiratory failure with hypoxia and hypercapnia: As above. Status: Acute (3) Pulmonary edema: As above. Status: Acute Qualifiers: Chronicity: acute Qualified Code(s): J81.0 - Acute pulmonary edema (4) Aortic stenosis: Moderate aortic stenosis on echocardiogram in July Status: Acute Qualifiers: Cardiac valve disease etiology: nonrheumatic Qualified Code(s): I35.0 - Nonrheumatic aortic (valve) stenosis (5) Hospital-acquired pneumonia: Continues on empiric antibiotics for now, with leukocytosis continue. Co verage for possible pneumonia. Status: Acute Additional A&P Information Paroxysmal A. fib without RVR Not a candidate for anticoagulation due to anemia End-stage renal disease: Friday only due to lack of adherence. Usually prescribed 3 and half hours, but rarely stays up to 2 hours. Appears within the last month has had only 2 hemodialysis sessions, 1 was 1 hour, another one 1.5. Looks like ad herence with hemodialysis has been reinforced with him multiple times. DVT prophylaxis Heparin Attestations Medical Necessity Statement*: Continue admission for assessment of management of acute respiratory failure, mechanical ventilatory support, fluid overload and diastolic heart failure, need for hemodialysis. 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 Fwd Exam Comprehensive Diagnoses Respiratory failure J96.21 Chronicity: acute on chronic Respiratory failure complication: hypoxia Acute respiratory failure with hypoxia and hypercapnia J96.01; J96.02 Pulmonary edema J81.0 Chronicity: acute Aortic stenosis I35.0 Cardiac valve disease etiology: nonrheumatic Hospital-acquired pneumonia J18.9; Y95
--- NOTE | 2020-11-03 09:49 | PC.NURSE ---
dialysis in progress and b/p dropped levophed started at this time ...
--- NOTE | 2020-11-03 12:22 | PM.CONSULT ---
Providers/Reason For Consult Consulting Physican/Specialty*: Nephrology Reason for Consult*: Mgmt of ESRD Attending Physician: Darren Pepe Primary Care Provider: Salvador Daley MD History of Present Illness History of Present Illness Thank for consultation, Mr. Mason is reviewed in the ICU. He is well-known to our service, I did recently see him 1 week ago via telemedicine. He now presents with respiratory failure after developing acutely altered mental status. In the emergency room he was found to have bilateral pulmonary infiltrates with CT chest findings consistent with pulmonary edema, possible pneumonia. I was called this morning and initiated hemodialysis with a goal of 4 L of ultrafiltration. His blood pressure did drop down early in dialysis and we initiated Levophed. He is now tolerating dialysis with pressor support. Review of Systems General: Reports: ROS unobtainable due to medical condition Meds/Allergies Home Medications and Allergies Home Medications Medication Instructions Recorded Confirmed Last Taken Type Imodium A-D 1 tab PO TID 05/29/20 11/02/20 10/27/20 History carvedilol 25 mg PO BID 05/29/20 11/02/20 10/27/20 History sevelamer carbonate [Renvela] 2,400 mg PO TID 05/29/20 11/02/20 10/27/20 History tamsulosin 0.4 mg PO DAILY 05/29/20 11/02/20 10/27/20 History acetaminophen [Tylenol Extra 1,000 mg PO TID PRN 10/05/20 11/02/20 10/27/20 History Strength] aspirin 81 mg PO DAILY 30 Days #30 tab 10/11/20 11/02/20 10/26/20 Rx atorvastatin 40 mg PO BEDTIME 30 Days #30 tab 10/11/20 11/02/20 10/26/20 Rx clopidogrel 75 mg PO DAILY 30 Days #30 tab 10/11/20 11/02/20 10/27/20 Rx losartan 25 mg PO DAILY 30 Days #30 tab 10/11/20 11/02/20 10/27/20 Rx pantoprazole 40 mg PO BID 30 Days #60 tab 10/11/20 11/02/20 10/27/20 Rx alprazolam 0.25 mg tablet 0.25 mg PO BID PRN tab 10/25/20 11/02/20 10/27/20 History glimepiride 1 mg tablet 1 mg PO BID tab 10/25/20 11/02/20 10/27/20 History hydralazine 10 mg tablet 10 mg PO BID tab 10/25/20 11/02/20 10/27/20 History furosemide 40 mg PO BID #0 tab 10/29/20 11/02/20 10/27/20 Rx Allergies Allergy/AdvReac Type Severity Reaction Status Date / Time No Known Allergies Allergy Verified 10/25/20 08:22 Current Medications Current Medications Generic Name Dose Route Start Last Admin Trade Name Freq PRN Reason Stop Dose Admin Albuterol/Ipratropium 3 ml 11/03/20 01:40 11/03/20 07:13 Ipratropium-Albuterol 3 Ml Neb INHALATION 3 ml Q6H PRN Administration SHORTNESS OF BREATH Furosemide 20 mg 11/03/20 09:00 11/03/20 07:49 Furosemide 10 Mg/Ml Sdv 2ml IVP 20 mg DAILY JONNY Administration Heparin Sodium (Beef Lung) 5,000 unit 11/03/20 01:40 11/03/20 02:21 Heparin 5,000 Unit/Ml Inj 1 Ml SUBCUT 5,000 unit Q8H JONNY Administration Fentanyl 1,000 mcg/ Sodium 100 mls @ 0 mls/hr 11/03/20 01:40 11/03/20 11:21 Chloride IV 10 mcg/hr .Q0M JONNY 1 mls/hr Administration Protocol Per Protocol Propofol 1,000 mg in 100 mls @ 0 mls/hr 11/03/20 02:30 11/03/20 03:59 Diprivan IV 15 mcg/kg/min .Q0M JONNY 9.4 mls/hr Administration Protocol Per Protocol Norepinephrine Bitartrate 4 mg 254 mls @ 0 mls/hr 11/03/20 09:45 11/03/20 11:25 / Dextrose IV 3 mcg/min .Q0M JONNY 11.4 mls/hr Titration Protocol Per Protocol PFSH Acute PFSH: Medical History Acute on chronic diastolic (congestive) heart failure Anemia Anemia in chronic kidney disease -H/H stable BPH (benign prostatic hyperplasia) -did have some transient hematuria, resolved, DM type 2 (diabetes mellitus, type 2) -history of DKA -A1c at goal-6.2, End stage renal disease End-stage renal disease on hemodialysis -Only gets dialysis twice a week on Mondays and Fridays -access: LUE AV fistula History of 2019 novel coronavirus disease (COVID-19) (~05/2020) History of necrotizing fasciitis History of septic arthritis HTN (hypertension) Hx of type 2 diabetes mellitus Hypertension -continue oral antihypertensives MRSA infection Osteomyelitis Paroxysmal atrial fibrillation Troponin level elevated Surgical History Arteriovenous fistula for hemodialysis in place, primary Left upper extremity History of ankle surgery History of incision and drainage History of knee surgery several times due to septic arthritis and necrotizing fasciitis Family History Father Diabetes Sister Bleeding disorder Diabetes Family/Other Suicide Social History Smoking and tobacco status: never smoked Alcohol intake: never Household members: none and other Details: sister helps care for him but lives alone Vitals/I&O/Wt Last Vital Signs Temp 98.4 F 11/03/20 10:01 Pulse 61 11/03/20 10:07 Resp 14 11/03/20 11:21 BP 116/43 11/03/20 10:07 Pulse Ox 99 11/03/20 11:21 11/02/20 11/03/20 11/03/20 22:59 06:59 14:59 Intake Total 50 / 50 475.695 / 525.695 24.827 / 24.827 Output Total 350 / 350 Balance 50 / 50 125.695 / 175.695 24.827 / 24.827 Weight last 48 hrs Weight 107.955 kg Weight 107.955 kg Weight 107.955 kg Weight 104.326 kg Physical Exam Narrative: EXAM NARRATIVE: Constitutional: Intubated and vented HEENT: Wet mucosa, no jvp, non icteric Lungs: Bilaterally wheeze, rales in all lung zones CVS: S1 S2, no murmurs Abdo: Soft, BS ok Ext 4: 2+ edema, peripheral perfusion with no cyanosis Neurological: Grossly non-focal Data Micro: Micro: Microbiology 11/02/20 21:35 Gram Stain - Final Sputum - Expector ated Sputum 11/03/20 02:30 Legionella Urinary Antigen - Final Urine Catheterize d 11/03/20 02:30 Bacterial Antigens - Final Urine Kidney 11/02/20 21:45 Blood Culture - Pr eliminary Blood SPECIMEN [facility] 11/02/20 21:25 Blood Culture - Pr eliminary Blood SPECIMEN [facility] A&P Additional A&P Information 1. ESRD - Dialysis ongoing at this time, given overt fluid overload but labile hemodynamics, will have to limit his ultrafiltration to 4 L if we can get this with a plan to repeat dialysis tomorrow morning with the same volume of ultrafiltrate if we can. - dose meds for eGFR < 15 on dialysis 2. Pulm edema - Likely secondary to poor compliance with diet and also dialysis. - Vent management per the ICU team, weaning as tolerated. 3. Lytes well balanced 4. Anemia - Recent drop, I will check iron levels, will give a dose of Procrit. 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
[2020-11-03 13:45] LABS: Iron 76 ug/dL (59-158); Percent Saturation 44.1 % (20-50); Total Iron Binding Capacity 172 mcg/dl; Unsaturated Iron Binding 96 ug/dL (112-347)
[2020-11-03] MEDS: propofol 1,000 MG/100 ML INJ 18.8 MG IV (18:32)
[2020-11-03] MEDS: propofol 1,000 MG/100 ML INJ 31.3 MG IV (23:54)
[2020-11-04] VITALS (66 sets, daily range): BP systolic 89–149; BP diastolic 32–86; PULSE 56–89; RESP 12–33; TEMP 36.9; O2SAT 91–100; BMI 33.0
--- NOTE | 2020-11-04 01:24 | PC.NURSE ---
ASSUMING CARE 1900 Patient is resting in bed on mechanical ventilation, FiO2 40%, PEEP 8, Rate 14, TV 500, 8.0 tube, 23 cm at lip. Fentanyl is running at 100 mcg/hour and propofol at 30 mcg/kg/min. Patient does follow commands and squeezes nurses hands, is easily arousable, and pulling at soft wrist restraints. Schneider catheter in place and draining and is to be changed on 11/04.
[2020-11-04] MEDS: heparin 5,000 unit/mL INJ 1 mL 5000 UNIT SUBCUT ×3 (02:34→17:13)
[2020-11-04] MEDS: propofol 1,000 MG/100 ML INJ 31.3 MG IV ×3 (02:44→09:28)
[2020-11-04] MEDS: ipratropium-albuterol 3 mL Neb INHALATION ×4 (02:53→20:10)
[2020-11-04 04:13] LABS: ABG PCO2 34.3 mmHg (35-45); ABG PH Result 7.54 (7.35-7.45); Arterial Blood Gas Hematocrit 24.7 % (42-52); Base Excess ABG 6.5 mmol/L (-2.0-2.0); Blood Gas Allen Test Pos; Blood Gas Sample Site Radial, right; Blood Gas Sample Type Arterial; HCO3 ABG 29.4 mmol/L (22-26); PO2 ABG 98.9 mmHg (80.0-100.0)
[2020-11-04 04:14] LABS: Oxygen Device VENT
[2020-11-04 05:41] LABS: Basophils # 0.1 10^3/uL (0.0-0.1); Basophils % 0.8 %; Eosinophils # 0.3 10^3/uL (0.0-0.8); Eosinophils % 4.3 %; Hematocrit 26.3 % (42.0-52.0); Hemoglobin 7.7 g/dL (11.7-16.6); Lymphocytes # 0.7 10^3/uL (0.8-4.8); Lymphocytes % 10.8 %; Mean Corpuscular HGB Conc 29.3 g/dL (30.0-36.0); Mean Corpuscular Hemoglobin 26.6 pg (28.0-34.0); Mean Platelet Volume 12.4 fL (7.4-10.4); Monocytes # 0.4 10^3/uL (0.2-0.9); Monocytes % 6.6 %; Neutrophils # 4.78 10^3/uL (1.8-7.7); Neutrophils % 76.7 %; Nucleated Red Blood Cells % 0 %; Platelet Count 127 10^3/cmm (130-400); Red Blood Count 2.89 10^6/uL (4.1-5.3); White Blood Count 6.2 10^3/uL (4.0-10.0)
--- NOTE | 2020-11-04 06:00 | XRR_ITS ---
PROCEDURE INFORMATION: Exam: XR Chest Exam date and time: 11/04/2020 5:32 AM Age: 74 years old Clinical indication: Patient HX: Hypoxia. Intubated. TECHNIQUE: Imaging protocol: XR of the chest. Views: 1 view. COMPARISON: CR XR chest 1V portable [id number] 11/02/2020 9:20 PM FINDINGS: Tubes, catheters and devices: An endotracheal tube is placed with its tip approximately 3.9 cm from the fina. A nasogastric tube is present with its tip at least in the proximal stomach. EKG leads overlie the chest. Lungs: There is indistinctness of the pulmonary vasculature hazy opacities present in the lower hemithoraces findings suggesting pulmonary edema. Superimposed basilar pneumonitis cannot be entirely excluded. Pleural spaces: Increased density seen in the retrocardiac region and the the hemidiaphragm is partially obscured likely secondary to bilateral pleural effusions. Heart/Mediastinum: Unremarkable. No cardiomegaly. Bones/joints: Unremarkable. XR/XR chest 1V portable [id number] IMPRESSION: 1. Endotracheal tube tip 3.9 cm from the fina. 2. Indistinct pulmonary vasculature with hazy bilateral opacities in the lower hemithoraces, findings that could represent pulmonary edema. Superimposed basilar pneumonitis cannot be entirely excluded. 3. Probable small bilateral pleural effusions
[2020-11-04 06:03] LABS: Alanine Aminotransferase < 5 U/L (0-41); Albumin Level 2.8 g/dL (3.5-5.2); Alkaline Phosphatase 67 IU/L (40-130); Anion Gap 13.3 (5-19); Aspartate Amino Transferase 11 U/L (0-40); Blood Urea Nitrogen 35 mg/dL (8-23); Calcium 8.2 mg/dL (8.5-10.5); Carbon Dioxide 28 mmol/L (22-29); Chloride 99 mmol/L (98-107); Globulin 2.9 g/dL (1.3-4.6); Glucose 138 mg/dL (65-115); Osmolality Calculated 292 mOsm/kg (285-295); Potassium 4.3 mmol/L (3.5-5.1); Sodium 136 mmol/L (136-145); Total Bilirubin 0.4 mg/dL (0.15-1.2); Total Protein 5.7 g/dL (6.6-8.7)
--- NOTE | 2020-11-04 06:27 | PC.NURSE ---
CEFEPIME Cefepime hooked to patient and nurse realized IV site had started to swell. IV site had infiltrated. IV removed. Unable to obtain additional access and cefepime incompatible with sedation medications.
--- NOTE | 2020-11-04 06:34 | PC.NURSE ---
SHIFT SUMMARY Uneventful shift. Patient bathed overnight. Tolerated well. 125 mL urine output. Chronic soliz changed. Ventilator settings remain the same. Soft wrist restraints intact.
[2020-11-04] MEDS: FUROsemide 10 mg/mL SDV 4mL 40 MG IVP ×2 (07:53→19:38)
--- NOTE | 2020-11-04 11:04 | PM.PN ---
Subjective Subjective: Interval history: Remains intubated and mechanically ventilated. FiO2 needs are down, PEEP is down. Off Levophed. Tolerated dialysis well yesterday. Still displays signs of hypervolemia, however, it is improved. Vitals/I&O/Wt Last Vital Signs Temp 98.5 F 11/03/20 21:00 Pulse 59 L 11/04/20 10:30 Resp 12 11/04/20 10:17 BP 110/32 11/04/20 10:30 Pulse Ox 97 11/04/20 10:30 11/03/20 11/04/20 11/04/20 22:59 06:59 14:59 Intake Total 241.710 / 374.317 200.333 / 574.650 200 / 200 Output Total 100 / 100 125 / 225 Balance 141.710 / 274.317 75.333 / 349.650 200 / 200 Weight last 48 hrs Weight 104.508 kg Weight 104.508 kg Weight 107.955 kg Weight 107.955 kg Weight 107.955 kg Weight 104.326 kg Physical Exam Narrative: EXAM NARRATIVE: Constitutional: Intubated and vented HEENT: Wet mucosa, no jvp, non icteric Lungs: Bilaterally wheeze, rales in all lung zones CVS: S1 S2, no murmurs Abdo: Soft, BS ok Ext 4: 1+ edema, peripheral perfusion with no cyanosis Neurological: Grossly non-focal Urinary Catheter Management^: Schneider: Cath Placed During This Visit: yes Urinary Catheter Date of Insertion: 11/04/20 Urinary Catheter Time of Insertion: 05:30 Data : 11/04/20 05:23 11/04/20 05:23 Micro: Microbiology 11/02/20 21:45 Blood Culture - Preliminary Blood NEGATIVE TO DATE 11/02/20 21:25 Blood Culture - Preliminary Blood NEGATIVE TO DATE 11/02/20 21:35 Gram Stain - Final Sputum - Expectorated Sputum A&P Additional A&P Information 1. ESRD - Plan for dialysis again today, 4 L ultrafiltration if he can tolerate this, 3K bath. Next dialysis session after this will be planned for Friday. We will evaluate him tomorrow for additional need. - dose meds for eGFR < 15 on dialysis 2. Pulm edema - Likely secondary to poor compliance with diet and also dialysis. - Vent management per the ICU team, weaning as tolerated, hopefully extubate after dialysis today 3. Lytes well balanced 4. Anemia - Recent drop, iron levels at goal, s/p Procrit - Thanks for consult, always a pleasure to follow with you - > 20 min spent in evaluation of care - patient seen via telemed with the aid of the bedside RN Tom Terry MD Nephro [phone] Attestations Medical Necessity Statement*: eval for renal failure Coding Level of Care Code Acute Filling Layer Up for Chg Marcelo
--- NOTE | 2020-11-04 12:53 | PM.PN ---
Subjective Subjective: Interval history: Intubated, sedated. Waking up earlier, following some commands, mostly trying to get up. Vitals/I&O/Wt Last Vital Signs Temp 98.5 F 11/03/20 21:00 Pulse 59 L 11/04/20 10:30 Resp 12 11/04/20 12:13 BP 110/32 11/04/20 10:30 Pulse Ox 97 11/04/20 12:13 11/03/20 11/04/20 11/04/20 22:59 06:59 14:59 Intake Total 241.710 / 374.317 200.333 / 574.650 200 / 200 Output Total 100 / 100 125 / 225 Balance 141.710 / 274.317 75.333 / 349.650 200 / 200 Weight last 48 hrs Weight 104.508 kg Weight 104.508 kg Weight 107.955 kg Weight 107.955 kg Weight 107.955 kg Weight 104.326 kg Physical Exam Const: COMMON NORMALS: no acute distress ORIENTATION/CONSCIOUSNESS: Yes confused OTHER: Intubated, sedated. Not in distress. HENMT: COMMON NORMALS: oropharynx normal Neck/C-Spine: COMMON NORMALS: no JVD Resp: COMMON NORMALS: normal respiratory effort AUSCULTATION: no rhonchi and diminished lung sounds Cardio: COMMON NORMALS: no JVD, regular rhythm, S1 normal heart sound present, S2 normal heart sound present and No murmurs present (Cardio) RHYTHM: regular rhythm HEART SOUNDS: S1 normal heart sound present and S2 normal heart sound present GI: COMMON NORMALS: Normal to inspection, nondistended, normoactive bowel sounds present, Soft to palpation and non-tender PALPATION: Yes Soft to palpation Extremity: COMMON NORMALS: no joint enlargement GENERAL: Yes edema (2+) Neuro: COMMON NORMALS: moves all extremities Skin: COMMON NORMALS: no rashes or lesions noted GENERAL SKIN EXAM: no rashes or lesions noted Urinary Catheter Management^: Schneider: Cath Placed During This Visit: yes Urinary Catheter Date of Insertion: 11/04/20 Urinary Catheter Time of Insertion: 05:30 Data : 11/04/20 05:23 11/04/20 05:23 Micro: Microbiology 11/02/20 21:45 Blood Culture - Preliminary Blood NEGATIVE TO DATE 11/02/20 21:25 Blood Culture - Preliminary Blood NEGATIVE TO DATE 11/02/20 21:35 Gram Stain - Final Sputum - Expectorated Sputum A&P Assessment and plan (1) Respiratory failure: Showing gradual improvement. Yesterday underwent hemodialysis although short of goal. Oxygenation/FiO2 requirement with improvement. Still signs of interstitial edema on x-ray. Severe peripheral edema. Additional hemodialysis today as tolerating. Continue mechanical ventilatory support. Appreciate nephrology assistance. As previously expressed, concern is that he limits his hemodialysis well below what is his requirement. Already, with his adherence he is only getting it twice a week, Friday and Friday, per discussion with [facility] last session was on Friday, however, he also got each session short, instead of prescribed 3-1/2 hours, on Friday he did 1 hour, prior to that missed dialysis on 10/27, prior to that dialysis on 10/23, 1.5 hours instead of 3-1/2. This has been experienced previously, appears is still occurring even though was reinforced multiple times. Concern for underlying dementia. This is his third admission this month. Status: Acute Qualifiers: Chronicity: acute on chronic Respiratory failure complication: hypoxia Qualified Code(s): J96.21 - Acute and chronic respiratory failure with hypoxia (2) Acute respiratory failure with hypoxia and hypercapnia: As above. Status: Acute (3) Pulmonary edema: As above. Status: Acute Qualifiers: Chronicity: acute Qualified Code(s): J81.0 - Acute pulmonary edema (4) Aortic stenosis: Moderate aortic stenosis on echocardiogram in July Status: Acute Qualifiers: Cardiac valve disease etiology: nonrheumatic Qualified Code(s): I35.0 - Nonrheumatic aortic (valve) stenosis (5) Hospital-acquired pneumonia: Continues on empiric antibiotics for now, with leukocytosis continue. Coverage for possible pneumonia. Status: Acute Additional A&P Information Paroxysmal A. fib without RVR Not a candidate for anticoagulation due to anemia End-stage renal disease: Friday only due to lack of adherence. Usually prescribed 3 and half hours, but rarely stays up to 2 hours. Appears within the last month has had only 2 hemodialysis sessions, 1 was 1 hour, another one 1.5. Looks like adherence with hemodialysis has been reinforced with him multiple times. DVT prophylaxis Heparin Attestations Medical Necessity Statement*: Continue admission for assessment management of respiratory failure requiring mechanical ventilator support with fluid overload, diastolic heart failure, in the setting of ESRD, inadequate dialysis due to poor adherence. Coding Level of Care Code Acute Staff Reporter for [facility] Fwd Diagnoses Respiratory failure J96.21 Chronicity: acute on chronic Respiratory failure complication: hypoxia Acute respiratory failure with hypoxia and hypercapnia J96.01; J96.02 Pulmonary edema J81.0 Chronicity: acute Aortic stenosis I35.0 Cardiac valve disease etiology: nonrheumatic Hospital-acquired pneumonia J18.9; Y95
[2020-11-04] MEDS: propofol 1,000 MG/100 ML INJ 18.8 MG IV ×3 (13:10→20:39)
--- NOTE | 2020-11-04 13:35 | PC.NURSE ---
Dialysis in progress at this time noted decrease in blood pressure levophed gtt restarted at this time
[2020-11-05] VITALS (58 sets, daily range): BP systolic 72–189; BP diastolic 35–162; PULSE 69–101; RESP 12–24; TEMP 36.6–38.9; O2SAT 72–100
[2020-11-05] MEDS: propofol 1,000 MG/100 ML INJ 31.3 MG IV ×3 (00:05→06:47)
[2020-11-05] MEDS: vancomycin 750 MG in sodium chloride 0.9% 250 ML 250 MG IV (00:10)
[2020-11-05] MEDS: heparin 5,000 unit/mL INJ 1 mL 5000 UNIT SUBCUT ×3 (01:30→17:01)
[2020-11-05] MEDS: acetaminophen 325 mg Tablet PO ×2 (02:02→22:24)
[2020-11-05] MEDS: levofloxacin-dextrose 5 % 500 MG/100 ML PREMIX 100 MG IV (02:41)
[2020-11-05] MEDS: ipratropium-albuterol 3 mL Neb INHALATION ×3 (02:41→21:12)
[2020-11-05 03:56] LABS: Basophils # 0.1 10^3/uL (0.0-0.1); Basophils % 0.6 %; Eosinophils # 0.2 10^3/uL (0.0-0.8); Eosinophils % 2.3 %; Hematocrit 22.6 % (42.0-52.0); Lymphocytes # 0.8 10^3/uL (0.8-4.8); Lymphocytes % 8.5 %; Mean Corpuscular HGB Conc 27.4 g/dL (30.0-36.0); Mean Corpuscular Hemoglobin 26.6 pg (28.0-34.0); Mean Platelet Volume 12.2 fL (7.4-10.4); Monocytes # 0.8 10^3/uL (0.2-0.9); Monocytes % 8.3 %; Neutrophils # 7.46 10^3/uL (1.8-7.7); Neutrophils % 79.1 %; Nucleated Red Blood Cells % 0 %; Platelet Count 174 10^3/cmm (130-400); Red Blood Count 2.33 10^6/uL (4.1-5.3); Red Cell Distribution Width 16.6 % (12.1-15.1); White Blood Count 9.4 10^3/uL (4.0-10.0)
[2020-11-05 04:09] LABS: Hemoglobin 6.2 g/dL (11.7-16.6)
[2020-11-05 04:25] LABS: Alanine Aminotransferase < 5 U/L (0-41); Albumin Level 2.6 g/dL (3.5-5.2); Alkaline Phosphatase 74 IU/L (40-130); Aspartate Amino Transferase 10 U/L (0-40); Blood Urea Nitrogen 24 mg/dL (8-23); Calcium 8.3 mg/dL (8.5-10.5); Carbon Dioxide 20 mmol/L (22-29); Chloride 99 mmol/L (98-107); Globulin 3.4 g/dL (1.3-4.6); Glucose 133 mg/dL (65-115); Osmolality Calculated 282 mOsm/kg (285-295); Sodium 133 mmol/L (136-145); Total Bilirubin 0.3 mg/dL (0.15-1.2)
[2020-11-05 04:33] LABS: Anion Gap 18.8 (5-19); Potassium 4.8 mmol/L (3.5-5.1)
[2020-11-05] MEDS: FUROsemide 10 mg/mL SDV 4mL 40 MG IVP ×2 (07:23→20:02)
--- NOTE | 2020-11-05 08:30 | PM.PN ---
Subjective Subjective: Interval history: Intubated, sedated, tries to open eyes when called by name. Not in distress. Vitals/I&O/Wt Last Vital Signs Temp 99.4 F 11/05/20 07:00 Pulse 77 11/05/20 07:42 Resp 12 11/05/20 07:36 BP 151/48 11/05/20 07:00 Pulse Ox 97 11/05/20 07:36 11/04/20 11/05/20 11/05/20 22:59 06:59 14:59 Intake Total 265.447 / 729.260 648.804 / 1378.064 Output Total 150 / 150 300 / 450 Balance 115.447 / 579.260 348.804 / 928.064 Weight last 48 hrs Weight 101.695 kg Weight 104.508 kg Weight 104.508 kg Weight 107.955 kg Physical Exam Const: COMMON NORMALS: no acute distress ORIENTATION/CONSCIOUSNESS: Yes confused OTHER: Intubated, sedated. Not in distress. HENMT: COMMON NORMALS: oropharynx normal Neck/C-Spine: COMMON NORMALS: no JVD Resp: COMMON NORMALS: normal respiratory effort AUSCULTATION: no rhonchi and diminished lung sounds (Improving air entry) Cardio: COMMON NORMALS: no JVD, regular rhythm, S1 normal heart sound present, S2 normal heart sound present and No murmurs present (Cardio) RHYTHM: regular rhythm HEART SOUNDS: S1 normal heart sound present and S2 normal heart sound present GI: COMMON NORMALS: Normal to inspection, nondistended, normoactive bowel sounds present, Soft to palpation and non-tender PALPATION: Yes Soft to palpation Extremity: COMMON NORMALS: no joint enlargement GENERAL: Yes edema (2+) Neuro: COMMON NORMALS: moves all extremities Skin: COMMON NORMALS: no rashes or lesions noted GENERAL SKIN EXAM: no rashes or lesions noted Urinary Catheter Management^: Schneider: Cath Placed During This Visit: yes Reason for Continuing Indwelling Catheter: Accurate Measurement of Urinary Output in Critically Ill Patients Urinary Catheter Date of Insertion: 11/04/20 Urinary Catheter Time of Insertion: 05:30 Data : 11/05/20 03:42 11/05/20 03:42 Micro: Microbiology 11/02/20 21:35 Gram Stain - Final Sputum - Expectorated Sputum Sputum Culture - Preliminary A&P Assessment and plan (1) Respiratory failure: Worsening anemia overnight, requiring previously transfusion. Requested. This will be done with hemodialysis today. Additional 2 L will be attempted to be removed. Yesterday with hemodialysis hypotensive. Required Levophed support, overnight blood pressure still low, lowest arterial pressure 62, continue Levophed, currently at 3 mcg/min infusion. Requirement likely to decrease with weaning of sedation, however, likely may need support again during hemodialysis. Does not appear to exhibit signs of active sepsis, no leukocytosis, afebrile, no tachycardia, tachypnea. Will repeat chest x-ray. Obtain UA. Obtain serum cortisol. In case persistently hypotensive will consider obtaining limited TTE. After dialysis and PBC transfusion plan is for weaning of sedation, assessment of mental status, MV weaning trial. If no trouble with weaning, and hemodynamically stable at that time, may consider possible extubation later today. He limits his hemodialysis well below what is his requirement. Already, with his adherence he is only getting it twice a week, Friday and Friday, per discussion with [facility] last session was last Friday, however, he also got each session short, instead of prescribed 3-1/2 hours, on Friday he did 1 hour, prior to that missed dialysis on 10/27, prior to that dialysis on 10/23, 1.5 hours instead of 3-1/2. This has been experienced previously, appears is still occurring even though was reinforced multiple times. Concern for underlying dementia. This is his third admission this month. Status: Acute Qualifiers: Chronicity: acute on chronic Respiratory failure complication: hypoxia Qualified Code(s): J96.21 - Acute and chronic respiratory failure with hypoxia (2) Acute anemia: Acute on chronic anemia, hemoglobin worsened down to 6.2. Perhaps minimal hematuria noted, no other outward bleeding reported. Monitor for any bleeding. Obtain Hemoccult. 1 unit PBC transfusion. I am not sure why his PPI was not restarted on admission. Resume pantoprazole. Status: Acute (3) Acute respiratory failure with hypoxia and hypercapnia: As above. Status: Acute (4) Pulmonary edema: As above. Status: Acute Qualifiers: Chronicity: acute Qualified Code(s): J81.0 - Acute pulmonary edema (5) Aortic stenosis: Moderate aortic stenosis on echocardiogram in July Status: Acute Qualifiers: Cardiac valve disease etiology: nonrheumatic Qualified Code(s): I35.0 - Nonrheumatic aortic (valve) stenosis (6) Hospital-acquired pneumonia: Continues on empiric antibiotics for now, with leukocytosis continue. Coverage for possible pneumonia. Repeat chest x-ray. Status: Acute Additional A&P Information Paroxysmal A. fib without RVR Not a candidate for anticoagulation due to anemia End-stage renal disease: Friday only due to lack of adherence. Usually prescribed 3 and half hours, but rarely stays up to 2 hours. Appears within the last month has had only 2 hemodialysis sessions, 1 was 1 hour, another one 1.5. Looks like adherence with hemodialysis has been reinforced with him multiple times. DVT prophylaxis Heparin Attestations Medical Necessity Statement*: Continue admission for assessment of management of respiratory failure, acute on chronic anemia, fluid overload, diastolic heart failure, poor adherence outpatient dialysis. Coding Level of Care Code Acute Pipe Covering [facility] Diagnoses Respiratory failure J96.21 Chronicity: acute on chronic Respiratory failure complication: hypoxia Acute anemia D64.9 Acute respiratory failure with hypoxia and hypercapnia J96.01; J96.02 Pulmonary edema J81.0 Chronicity: acute Aortic stenosis I35.0 Cardiac valve disease etiology: nonrheumatic Hospital-acquired pneumonia J18.9; Y95
--- NOTE | 2020-11-05 08:31 | XRR_ITS ---
PROCEDURE INFORMATION: Exam: XR Chest Exam date and time: 11/05/2020 8:36 AM Age: 74 years old Clinical indication: Shortness of breath; Additional info: Respiratory failure TECHNIQUE: Imaging protocol: XR of the chest. Views: 1 view. COMPARISON: CR XR chest 1V portable [id number] 11/04/2020 5:33 AM FINDINGS: Tubes, catheters and devices: A nasogastric tube and endotracheal tube are present in satisfactory position. Lungs: The left lung base is dense consistent with lower lobe atelectasis or consolidation. Pleural spaces: Unremarkable. No pleural effusion. No pneumothorax. Heart/Mediastinum: The heart is normal for the AP projection. Bones/joints: Unremarkable. XR/XR chest 1V portable [id number] IMPRESSION: 1. Satisfactory endotracheal tube and nasogastric tube position. 2. Left basilar atelectasis. 3. The aeration of the lungs has improved since previous examination.
[2020-11-05] MEDS: cefepime 1,000 MG in sodium chloride 0.9% (plus) 50 ML 100 MG IV (08:33)
--- NOTE | 2020-11-05 08:41 | P.PN_ITS ---
Subjective Subjective: Interval history: Remains intubated and mechanically ventilated. FiO2 needs are down, PEEP is down. On low dose Levophed. Tolerated dialysis well yesterday. Still displays signs of hypervolemia, however, it is improved. Vitals/I&O/Wt Last Vital Signs Temp 99.4 F 11/05/20 07:00 Pulse 77 11/05/20 07:42 Resp 12 11/05/20 07:36 BP 151/48 11/05/20 07:00 Pulse Ox 97 11/05/20 07:36 11/04/20 11/05/20 11/05/20 22:59 06:59 14:59 Intake Total 265.447 / 729.260 648.804 / 1378.064 Output Total 150 / 150 300 / 450 Balance 115.447 / 579.260 348.804 / 928.064 Weight last 48 hrs Weight 101.695 kg Weight 104.508 kg Weight 104.508 kg Weight 107.955 kg Physical Exam Narrative: EXAM NARRATIVE: Constitutional: Intubated and vented HEENT: Wet mucosa, no jvp, non icteric Lungs: Bilaterally wheeze, rales in all lung zones CVS: S1 S2, no murmurs Abdo: Soft, BS ok Ext 4: 1+ edema, peripheral perfusion with no cyanosis Neurological: Grossly non-focal Urinary Catheter Management^: Schneider: Cath Placed During This Visit: yes Reason for Continuing Indwelling Catheter: Accurate Measurement of Urinary Output in Critically Ill Patients Urinary Catheter Date of Insertion: 11/04/20 Urinary Catheter Time of Insertion: 05:30 Data : 11/05/20 03:42 11/05/20 03:42 Micro: Microbiology 11/02/20 21:35 Gram Stain - Final Sputum - Expectorated Sputum Sputum Culture - Preliminary A&P Additional A&P Information 1. ESRD - Plan for dialysis again today, 2 L ultrafiltration if he can tolerate this, 3K bath. Likely dialyze tomorrow also but I will assess him prior to placing orders - dose meds for eGFR < 15 on dialysis 2. Pulm edema - Likely secondary to poor compliance with diet and also dialysis. - Vent management per the ICU team, weaning as tolerated, hopefully extubate after dialysis today 3. Lytes well balanced 4. Anemia - Recent drop, iron levels at goal, s/p Procrit - for PRBCs with dialysis today - Thanks for consult, always a pleasure to follow with you - > 20 min spent in evaluation of care - patient seen via telemed with the aid of the bedside RN Tom Terry MD Nephro [phone] Attestations Medical Necessity Statement*: Eval for eSRD mgmt Coding Level of Care Code Acute Housing Management Officer for lili Robertson
[2020-11-05] MEDS: pantoprazole DR 40 mg Tablet PO ×2 (09:31→17:05)
[2020-11-05 09:49] LABS: Urine Appearance Hazy (CLEAR); Urine Color Red (Yellow)
[2020-11-05 09:50] LABS: Add Urine Microscopic? YES; Bilirubin Urine Neg (Negative); Blood Urine 3+ (Negative); Glucose Urine UA Norm (Normal); Ketones Urine Negative (Negative); Leukocyte Esterase Urine 1+ (Negative); Nitrate Urine Negative (Negative); Protein Urine 1+ (Negative); Sulfosalicylic Acid Urine Positive (Negative); Urobilinogen Urine Norm (Negative); pH Urine 9 (5-7)
[2020-11-05 09:51] LABS: Add Urine Culture? Yes; Bacteria Urine TRACE /hpf; RBC Urine TOO NUMEROUS TO CNT /hpf (0-2); WBC Urine 0-4 /hpf (0-5)
[2020-11-05] MEDS: propofol 1,000 MG/100 ML INJ 15.6 MG IV (10:33)
[2020-11-05 11:41] LABS: Cortisol Random 17.88 ug/dL (2.47-19.5)
--- NOTE | 2020-11-05 20:00 | PC.NURSE ---
Anxiety/Confusion Pt habitually and repetitively yelling help . Nurse in room several times to assess needs. Incontinent of stool, complete bed bath given and repositioned for comfort. When nurse exits room pt continues to yell help . Pt is oriented to person, place and birthday. Reoriented and redirected. When asking patient what hes needs are his replies I just need help . Nurse continued to assess pain, potty, position. Full assessment completed, pm meds given. Alprazolam 0.25mg given po. Pt continues to yell repeatedly.
[2020-11-05] MEDS: ALPRAZolam 0.25 mg Tablet PO (20:03)
[2020-11-05] MEDS: atorvastatin 40 mg Tablet PO (20:03)
[2020-11-06] VITALS (20 sets, daily range): BP systolic 114–176; BP diastolic 44–104; PULSE 79–90; RESP 16–24; TEMP 36.3–37; O2SAT 87–100
--- NOTE | 2020-11-06 00:47 | PC.NURSE ---
Addendum entered by Scarlet Eli RN 11/06/20 00:56: Witnessed 75mL of Fent., and 52mL of propofol waste with Pina. Original Note: Medication waste Remaining fentanyl drip and propofol wasted at this time. 75ml of Fentanyl and 52ml of propofol wasted and witnessed by Rebecca Eli RN.
[2020-11-06] MEDS: heparin 5,000 unit/mL INJ 1 mL 5000 UNIT SUBCUT ×3 (00:56→17:25)
[2020-11-06 03:50] LABS: Basophils % 0.5 %; Eosinophils # 0.3 10^3/uL (0.0-0.8); Eosinophils % 3.6 %; Hematocrit 31.4 % (42.0-52.0); Hemoglobin 9.1 g/dL (11.7-16.6); Lymphocytes # 0.7 10^3/uL (0.8-4.8); Lymphocytes % 9.5 %; Mean Corpuscular Hemoglobin 26.5 pg (28.0-34.0); Mean Corpuscular Volume 91.3 fL (80-94); Mean Platelet Volume 12.6 fL (7.4-10.4); Monocytes # 0.7 10^3/uL (0.2-0.9); Monocytes % 9.1 %; Neutrophils % 76.4 %; Nucleated Red Blood Cells % 0 %; Platelet Count 144 10^3/cmm (130-400); Red Blood Count 3.44 10^6/uL (4.1-5.3); Red Cell Distribution Width 15.9 % (12.1-15.1); White Blood Count 7.7 10^3/uL (4.0-10.0)
[2020-11-06 04:10] LABS: Alanine Aminotransferase < 5 U/L (0-41); Albumin Level 2.9 g/dL (3.5-5.2); Alkaline Phosphatase 78 IU/L (40-130); Anion Gap 16.2 (5-19); Aspartate Amino Transferase 11 U/L (0-40); Blood Urea Nitrogen 23 mg/dL (8-23); Calcium 8.5 mg/dL (8.5-10.5); Carbon Dioxide 27 mmol/L (22-29); Chloride 98 mmol/L (98-107); Globulin 3.2 g/dL (1.3-4.6); Glucose 104 mg/dL (65-115); Osmolality Calculated 288 mOsm/kg (285-295); Potassium 4.2 mmol/L (3.5-5.1); Sodium 137 mmol/L (136-145); Total Bilirubin 0.4 mg/dL (0.15-1.2); Total Protein 6.1 g/dL (6.6-8.7)
[2020-11-06] MEDS: FUROsemide 10 mg/mL SDV 4mL 40 MG IVP ×2 (08:47→21:05)
[2020-11-06] MEDS: pantoprazole DR 40 mg Tablet PO ×2 (08:47→17:25)
[2020-11-06] MEDS: cefepime 1,000 MG in sodium chloride 0.9% (plus) 50 ML 100 MG IV (08:49)
--- NOTE | 2020-11-06 09:04 | PC.NURSE ---
Dr Evans in room assessing pt.
[2020-11-06 09:32] LABS: Reticulocyte % 1.5 % (0.5-2.0)
[2020-11-06 09:34] LABS: LAB Peripheral Smear Sent for Review
--- NOTE | 2020-11-06 09:49 | P.PN_ITS ---
Subjective Subjective: Interval history: Extubated, feels well, some arm edema, breathing comfortably on nasal cannula. No uremic Sx. Vitals/I&O/Wt Last Vital Signs Temp 98.6 F 11/06/20 02:00 Pulse 90 11/06/20 08:54 Resp 18 11/06/20 08:54 BP 125/65 11/06/20 06:01 Pulse Ox 96 11/06/20 08:54 11/05/20 11/06/20 11/06/20 22:59 06:59 14:59 Intake Total 120 / 964.646 0.083 / 964.729 420 / 420 Output Total 475 / 475 750 / 1225 Balance -355 / 489.646 -749.917 / -260.271 420 / 420 Weight last 48 hrs Weight 97.432 kg Weight 101.86 kg Weight 101.695 kg Weight 104.508 kg Physical Exam Narrative: EXAM NARRATIVE: Constitutional: Intubated and vented HEENT: Wet mucosa, no jvp, non icteric Lungs: Bilaterally wheeze, rales in all lung zones CVS: S1 S2, no murmurs Abdo: Soft, BS ok Ext 4: 1+ edema, peripheral perfusion with no cyanosis Neurological: Grossly non-focal Urinary Catheter Management^: Schneider: Cath Placed During This Visit: yes Reason for Continuing Indwelling Catheter: Accurate Measurement of Urinary Output in Critically Ill Patients Urinary Catheter Date of Insertion: 11/04/20 Urinary Catheter Time of Insertion: 05:30 Data : 11/06/20 02:55 11/06/20 02:55 Micro: Microbiology 11/05/20 09:00 Urine Culture - Preliminary Urine,Clean Catch 11/02/20 21:35 Gram Stain - Final Sputum - Expectorated Sputum Sputum Culture - Final A&P Additional A&P Information 1. ESRD - He appears to be comfortable at this time - plan on dialysis tomorrow; 3K, UF 2-3L - If he becomes dyspneic later today will dialyze him sooner - dose meds for eGFR < 15 on dialysis 2. Pulm edema - Likely secondary to poor compliance with diet and also dialysis. - Recommend increasing dialysis from twice to thrice weekly 3. Lytes well balanced 4. Anemia - Recent drop, iron levels at goal, s/p Procrit - s/p PRBCs - Thanks for consult, always a pleasure to follow with you - > 20 min spent in evaluation of care - patient seen via telemed with the aid of the bedside RN Tom Terry MD Nephro [phone] Attestations Medical Necessity Statement*: Eval for ESRD mgmt Coding Level of Care Code Acute Safety Associate for Willy Robertson
--- NOTE | 2020-11-06 09:50 | PC.SOCIAL ---
IMM Update Pg.2 of IMM updated and reviewed with patient and Beckie Alatorre at bedside. Both verbalized understanding. Copy provided to patient.
[2020-11-06 09:57] LABS: Vitamin B12 398 pg/mL (232-1245)
[2020-11-06 09:58] LABS: Folate Level 3.3 ng/mL (4.5-32.2)
--- NOTE | 2020-11-06 10:06 | PM.PN ---
Subjective Subjective: Interval history: No acute events overnight. Hospital course reviewed. Patient extubated yesterday. On examination sitting in chair having complete conversation with family at bedside. Currently he is on 4 L nasal cannula saturating 96%. Has remained hemodynamically stable and afebrile overnight. Patient had last dialysis session yesterday. On review of medical problems with the family members at bedside and patient patient seems to have baseline dementia, he seems to be agreeable to be more compliant with dialysis. We also discussed for him having on and off anemia which is under work-up along with him having a possibility of angina with a recent positive stress test on October 09. Vitals/I&O/Wt Last Vital Signs Temp 98.6 F 11/06/20 02:00 Pulse 90 11/06/20 08:54 Resp 18 11/06/20 08:54 BP 125/65 11/06/20 06:01 Pulse Ox 96 11/06/20 08:54 11/05/20 11/06/20 11/06/20 22:59 06:59 14:59 Intake Total 120 / 964.646 0.083 / 964.729 420 / 420 Output Total 475 / 475 750 / 1225 Balance -355 / 489.646 -749.917 / -260.271 420 / 420 Weight last 48 hrs Weight 97.432 kg Weight 101.86 kg Weight 101.695 kg Physical Exam Narrative: EXAM NARRATIVE: General: No acute distress, AO x3, forgetful, on 4 L oxygen supplementation. HEENT: PERRLA, pupils bilaterally equal and reactive Chest: Bilateral fine crackles all at bases, normal vesicular breath sounds, no added sounds, equal good air entry bilaterally CVS: S1-S2 regular, ejection systolic murmur at aortic area radiating to carotids 2/6, no tachycardia, no gallops, no rubs Abdomen: Soft, nontender, no organomegaly, bowel sounds present Neuro: No focal deficits, no facial deformity, AO x3, power 5/5 in all limbs Urinary Catheter Management^: Schneider: Cath Placed During This Visit: yes Reason for Continuing Indwelling Catheter: Accurate Measurement of Urinary Output in Critically Ill Patients Urinary Catheter Date of Insertion: 11/04/20 Urinary Catheter Time of Insertion: 05:30 Data : 11/06/20 02:55 11/06/20 02:55 Micro: Microbiology 11/05/20 09:00 Urine Culture - Preliminary Urine,Clean Catch 11/02/20 21:35 Gram Stain - Final Sputum - Expectorated Sputum Sputum Culture - Final A&P Assessment and plan (1) Respiratory failure: Status: Acute Qualifiers: Chronicity: acute on chronic Respiratory failure complication: hypoxia Qualified Code(s): J96.21 - Acute and chronic respiratory failure with hypoxia (2) Acute anemia: Status: Acute (3) Acute respiratory failure with hypoxia and hypercapnia: As above. Status: Acute (4) Pulmonary edema: As above. Status: Acute Qualifiers: Chronicity: acute Qualified Code(s): J81.0 - Acute pulmonary edema (5) Aortic stenosis: Moderate aortic stenosis on echocardiogram in July Status: Acute Qualifiers: Cardiac valve disease etiology: nonrheumatic Qualified Code(s): I35.0 - Nonrheumatic aortic (valve) stenosis (6) Hospital-acquired pneumonia: Continues on empiric antibiotics for now, with leukocytosis continue. Coverage for possible pneumonia. Repeat chest x-ray. Status: Acute (7) Positive cardiac stress test: Status: Acute Additional A&P Information Respiratory failure: Most likely secondary to noncompliance and insufficient dialysis as an outpatient in setting of CKD, mild systolic LV dysfunction and moderate aortic stenosis. Patient extubated yesterday. Maintain mean arterial pressure around 65. Off pressors. Oxygen supplementation keeping saturation around 90%. Continue with Lasix 40 mg IV every 12. Strict input output charting. Daily weights. For now continue with vancomycin and cefepime at current dose. Chances of infection source is low. Follow-up blood cultures. Check sputum culture, MRSA. Check procalcitonin and repeat tomorrow morning. If patient remains afebrile for next 24 hours will discontinue antibiotics and monitor. He limits his hemodialysis well below what is his requirement. Already, with his adherence he is only getting it twice a week, Friday and Friday, per discussion with [facility] last session was last Friday, however, he also got each session short, instead of prescribed 3-1/2 hours, on Friday he did 1 hour, prior to that missed dialysis on 10/27, prior to that dialysis on 10/23, 1.5 hours instead of 3-1/2. This has been experienced previously, appears is still occurring even though was reinforced multiple times. Concern for underlying dementia. This is his third admission this month. Positive stress test: Positive in October 2020. Given 3 admissions with CHF in this month, moderate aortic stenosis. Discussed with patient and family at bedside and they are willing for possible angiogram and PCI if needed. We will consult cardiology for further recommendations. Anemia: Acute on chronic anemia requiring monitor PRBC yesterday. Monitor for any bleeding. Stool for occult blood sent. Continue with Protonix twice daily. Less likely bleeding source. Will rule out hemolysis. DIC panel, LDH, peripheral smear, vitamin B12, folate levels, reticulocyte count. haptoglobin. Iron panel done earlier in the admission appreciated. Paroxysmal A. fib without RVR Not a candidate for anticoagulation due to anemia End-stage renal disease: Appreciate nephrology recommendations. Restart home sevelamer. Friday only due to lack of adherence. Usually prescribed 3 and half hours, but rarely stays up to 2 hours. Appears within the last month has had only 2 hemodialysis sessions, 1 was 1 hour, another one 1.5. Looks like adherence with hemodialysis has been reinforced with him multiple times. DVT prophylaxis Heparin Renal diabetic dialysis diet. Transfer to floors. Patient's care discussed in detail with patient's DPOA at bedside Ms. Silva. Attestations Medical Necessity Statement*: Patient for management of respiratory failure secondary to congestive heart failure, positive stress test, anemia in setting of end-stage renal disease Time Spent in Patient Care: Greater than 35 minutes (>than 50% of time spent in counselling and/or direct pt care on unit). Coding Level of Care Code Acute Fabric Worker Foreman for Willy Robertson Diagnoses Respiratory failure J96.21 Chronicity: acute on chronic Respiratory failure complication: hypoxia Acute anemia D64.9 Acute respiratory failure with hypoxia and hypercapnia J96.01; J96.02 Pulmonary edema J81.0 Chronicity: acute Aortic stenosis I35.0 Cardiac valve disease etiology: nonrheumatic Hospital-acquired pneumonia J18.9; Y95 Positive cardiac stress test R94.39
[2020-11-06] MEDS: sevelamer 800 mg Tablet 2400 MG PO ×2 (10:12→15:05)
[2020-11-06] MEDS: tamsulosin 0.4 mg Capsule PO (10:12)
--- NOTE | 2020-11-06 12:55 | XRR_ITS ---
PROCEDURE INFORMATION: Exam: XR Chest Exam date and time: 11/06/2020 1:22 PM Age: 74 years old Clinical indication: Condition or disease; Lung condition and disease; Other: Chf TECHNIQUE: Imaging protocol: XR of the chest. Views: 1 view. COMPARISON: CR (CHEST, ) 11/05/2020 8:37 AM FINDINGS: Tubes, catheters and devices: There has been removal of the endotracheal tube and nasogastric tube. Lungs: The lung volumes are low. No acute pneumonia or edema. Patchy opacification in the left lung base persists. Pleural spaces: Unremarkable. No pleural effusion. No pneumothorax. Heart/Mediastinum: Unremarkable. No cardiomegaly. Bones/joints: Unremarkable. XR/XR chest 1V portable [id number] IMPRESSION: There are no acute concerning abnormalities.
[2020-11-06 13:25] LABS: INR 1.08 (0.8-1.2)
[2020-11-06 13:26] LABS: Partial Thromboplastin Time 40.2 SECONDS (23.9-36.7)
[2020-11-06 13:29] LABS: D Dimer 3.28 ug/mIFEU (0-0.59)
[2020-11-06 14:45] LABS: Fibrinogen 639 mg/dL (174-498)
[2020-11-06] MEDS: ALPRAZolam 0.25 mg Tablet PO ×2 (15:05→23:06)
--- NOTE | 2020-11-06 17:45 | PC.NURSE ---
Bedside report provided. Patient admitted into et placed on monitor.
[2020-11-06 18:06] LABS: Lactate Dehydrogenase 221 U/L (135-225)
[2020-11-06] MEDS: atorvastatin 40 mg Tablet PO (21:06)
[2020-11-06] MEDS: ondansetron 2 mg/ML SDV 2 mL 4 MG IVP (21:06)
[2020-11-06] MEDS: acetaminophen 325 mg Tablet PO (21:06)
[2020-11-06] MEDS: zolpidem 5 mg Tablet PO (21:49)
[2020-11-07] VITALS (66 sets, daily range): BP systolic 138–187; BP diastolic 85–143; PULSE 68–114; RESP 17–22; TEMP 36.6–37; O2SAT 93–100; BMI 31.0
[2020-11-07] MEDS: quetiapine 25 mg Tablet PO (00:17)
[2020-11-07] MEDS: vancomycin 750 MG in sodium chloride 0.9% 250 ML 167 MG IV (00:28)
[2020-11-07] MEDS: heparin 5,000 unit/mL INJ 1 mL 5000 UNIT SUBCUT ×2 (02:00→08:56)
[2020-11-07 04:47] LABS: Basophils % 0.5 %; Eosinophils # 0.4 10^3/uL (0.0-0.8); Eosinophils % 6.2 %; Hematocrit 29.3 % (42.0-52.0); Hemoglobin 8.6 g/dL (11.7-16.6); Lymphocytes # 0.6 10^3/uL (0.8-4.8); Lymphocytes % 10.9 %; Mean Corpuscular HGB Conc 29.4 g/dL (30.0-36.0); Mean Corpuscular Hemoglobin 26.5 pg (28.0-34.0); Mean Corpuscular Volume 90.2 fL (80-94); Mean Platelet Volume 12.4 fL (7.4-10.4); Monocytes # 0.5 10^3/uL (0.2-0.9); Monocytes % 9.3 %; Neutrophils # 4.04 10^3/uL (1.8-7.7); Neutrophils % 71.3 %; Nucleated Red Blood Cells % 0 %; Platelet Count 163 10^3/cmm (130-400); Red Blood Count 3.25 10^6/uL (4.1-5.3); Red Cell Distribution Width 15.7 % (12.1-15.1); White Blood Count 5.7 10^3/uL (4.0-10.0)
[2020-11-07 05:08] LABS: Chol HDL Ratio 2.94 mg/dL (1.0-5.00); Cholesterol 103 mg/dL (0-200); HDL Cholesterol 35 mg/dL (60-100); LDL Cholesterol Calculated 43 mg/dL (50-129); Triglycerides 127 mg/dL (0-150); VLDL Cholestrol Calculation 25 mg/dL (0-30)
[2020-11-07 05:09] LABS: Procalcitonin 0.61 ng/mL (0-0.5)
[2020-11-07 05:14] LABS: Estmated Average Glucose 126
[2020-11-07 05:19] LABS: Alanine Aminotransferase < 5 U/L (0-41); Albumin Level 2.9 g/dL (3.5-5.2); Alkaline Phosphatase 72 IU/L (40-130); Aspartate Amino Transferase 10 U/L (0-40); Blood Urea Nitrogen 33 mg/dL (8-23); Calcium 8.4 mg/dL (8.5-10.5); Carbon Dioxide 24 mmol/L (22-29); Chloride 96 mmol/L (98-107); Globulin 3.2 g/dL (1.3-4.6); Glucose 137 mg/dL (65-115); Osmolality Calculated 289 mOsm/kg (285-295); Sodium 135 mmol/L (136-145); Total Bilirubin 0.3 mg/dL (0.15-1.2); Total Protein 6.1 g/dL (6.6-8.7)
[2020-11-07 05:39] LABS: Anion Gap 19.3 (5-19); Potassium 4.3 mmol/L (3.5-5.1)
[2020-11-07] MEDS: sevelamer 800 mg Tablet 2400 MG PO ×4 (06:09→17:50)
--- NOTE | 2020-11-07 07:27 | PC.NURSE ---
Pt lying in bed resting with eyes closed. Resp even and non-labored no distress noted. Pt had no s/s of pain or discomfort. No needs voiced. Call light in reach.
[2020-11-07] MEDS: ALPRAZolam 0.25 mg Tablet PO ×2 (08:56→21:04)
[2020-11-07] MEDS: pantoprazole DR 40 mg Tablet PO ×2 (08:56→17:48)
[2020-11-07] MEDS: folic acid 1 mg Tablet PO ×2 (08:56→17:48)
[2020-11-07] MEDS: tamsulosin 0.4 mg Capsule PO (08:56)
[2020-11-07] MEDS: FUROsemide 10 mg/mL SDV 4mL 40 MG IVP ×2 (08:57→20:45)
--- NOTE | 2020-11-07 09:36 | PM.CONSULT ---
Providers/Reason For Consult Consulting Physican/Specialty*: Earnest Leon MD/ Cardiology Reason for Consult*: Pulmonary edema Requesting Physcian: Dr Rico Ledbetter Attending Physician: Rico Ledbetter MD Primary Care Provider: Salvador Daley MD History of Present Illness History of Present Illness Familia Mason is a 74 year old male with a history of end-stage renal disease, high blood pressure, dyslipidemia, type 2 diabetes and dementia was admitted to the hospital with respiratory failure and found to have pulmonary edema. He has had multiple episodes with similar presentation. He used to be on 3 days a week regimen for dialysis which was decreased to 2 days a week. He denies any complaints of chest pain. His breathing difficulty has improved significantly and he was extubated recently. Patient echocardiogram it showed normal LV systolic function with EF of 55%. He has moderate aortic stenosis. He also had stress test done recently that showed prior infarct with ramon-infarct ischemia in RCA and LCx territory however no large area of ischemia was noted. His troponin level was elevated, however did not trend up further and was likely secondary to ESRD/volume overload. He has chronic anemia, however during hospitalization, his hgb dropped down to 6.2 Review of Systems Narrative: CONSTITUTIONAL: Confused, No fever chills weight loss or gain or night sweats. [] HEENT: Normocephalic, atraumatic.[] RESPIRATORY: No cough, sputum, hemoptysis or wheezing.[] CARDIOVASCULAR: Has shortness of breath, no chest pain, PND, orthopnea, lower extremity edema, presyncope or syncope. [] GI: no nausea vomiting diarrhea. [] SALESPERSON FASHION ACCESSORIES: No numbness, tingling, weakness or loss of function in any part of the body. [] MUSCULOSKELETAL: No knee or joint pain or rashes. [] Meds/Allergies Home Medications and Allergies Home Medications Medication Instructions Recorded Confirmed Last Taken Type Imodium A-D 1 tab PO TID 05/29/20 11/02/20 10/27/20 History carvedilol 25 mg PO BID 05/29/20 11/02/20 10/27/20 History sevelamer carbonate [Renvela] 2,400 mg PO TID 05/29/20 11/02/20 10/27/20 History tamsulosin 0.4 mg PO DAILY 05/29/20 11/02/20 10/27/20 History acetaminophen [Tylenol Extra 1,000 mg PO TID PRN 10/05/20 11/02/20 10/27/20 History Strength] aspirin 81 mg PO DAILY 30 Days #30 tab 10/11/20 11/02/20 10/26/20 Rx atorvastatin 40 mg PO BEDTIME 30 Days #30 tab 10/11/20 11/02/20 10/26/20 Rx clopidogrel 75 mg PO DAILY 30 Days #30 tab 10/11/20 11/02/20 10/27/20 Rx losartan 25 mg PO DAILY 30 Days #30 tab 10/11/20 11/02/20 10/27/20 Rx pantoprazole 40 mg PO BID 30 Days #60 tab 10/11/20 11/02/20 10/27/20 Rx alprazolam 0.25 mg tablet 0.25 mg PO BID PRN tab 10/25/20 11/02/20 10/27/20 History glimepiride 1 mg tablet 1 mg PO BID tab 10/25/20 11/02/20 10/27/20 History hydralazine 10 mg tablet 10 mg PO BID tab 10/25/20 11/02/20 10/27/20 History furosemide 40 mg PO BID #0 tab 10/29/20 11/02/20 10/27/20 Rx Allergies Allergy/AdvReac Type Severity Reaction Status Date / Time No Known Allergies Allergy Verified 10/25/20 08:22 Current Medications Current Medications Generic Name Dose Route Start Last Admin Trade Name Freq PRN Reason Stop Dose Admin Acetaminophen 325 - 650 mg 11/05/20 02:00 11/06/20 21:06 Acetaminophen 325 Mg Tablet PO 650 mg Q4H PRN Administration MILD PAIN OR INCREASE TEMP Albuterol/Ipratropium 3 ml 11/03/20 01:40 11/05/20 21:12 Ipratropium-Albuterol 3 Ml Neb INHALATION 3 ml Q6H PRN Administration SHORTNESS OF BREATH Alprazolam 0.25 mg 11/05/20 08:56 11/07/20 08:56 Alprazolam 0.25 Mg Tablet PO 0.25 mg BID PRN Administration anxiety Atorvastatin Calcium 40 mg 11/05/20 21:00 11/06/20 21:06 Atorvastatin 40 Mg Tablet PO 40 mg BEDTIME JONNY Administration Folic Acid 1 mg 11/06/20 18:00 11/07/20 08:56 Folic Acid 1 Mg Tablet PO 1 mg BID JONNY Administration Furosemide 40 mg 11/04/20 08:00 11/07/20 08:57 Furosemide 10 Mg/Ml Sdv 4ml IVP 40 mg Q12H JONNY Administration Heparin Sodium (Beef Lung) 5,000 unit 11/03/20 01:40 11/07/20 08:56 Heparin 5,000 Unit/Ml Inj 1 Ml SUBCUT 5,000 unit Q8H JONNY Administration Cefepime HCl 1,000 mg/ Sodium 50 mls @ 100 mls/hr 11/04/20 04:00 11/06/20 09:19 Chloride IV Infused Q24H JONNY Infusion Protocol Vancomycin HCl 750 mg/ Sodium 250 mls @ 250 mls/hr 11/05/20 00:15 11/07/20 02:02 Chloride IV Infused Q48H JONNY Infusion Ondansetron HCl 4 mg 11/06/20 20:47 11/06/20 21:06 Ondansetron 2 Mg/Ml Sdv 2 Ml IVP 4 mg Q4H PRN Administration NAUSEA AND VOMITING Pantoprazole Sodium 40 mg 11/05/20 09:00 11/07/20 08:[address] 40 Mg Tablet PO 40 mg BID JONNY Administration Sevelamer Carbonate 2,400 mg 11/07/20 07:00 11/07/20 06:09 Sevelamer 800 Mg Tablet PO 2,400 mg AC JONNY Administration Tamsulosin HCl 0.4 mg 11/06/20 09:15 11/07/20 08:56 Tamsulosin 0.4 Mg Capsule PO 0.4 mg DAILY JONNY Administration PFSH Acute PFSH: Medical History Acute on chronic diastolic (congestive) heart failure Anemia Anemia in chronic kidney disease -H/H stable BPH (benign prostatic hyperplasia) -did have some transient hematuria, resolved, DM type 2 (diabetes mellitus, type 2) -history of DKA -A1c at goal-6.2, End stage renal disease End-stage renal disease on hemodialysis -Only gets dialysis twice a week on Mondays and Fridays -access: LUE AV fistula History of 2019 novel coronavirus disease (COVID-19) (~05/2020) History of necrotizing fasciitis History of septic arthritis HTN (hypertension) Hx of type 2 diabetes mellitus Hypertension -continue oral antihypertensives MRSA infection Osteomyelitis Paroxysmal atrial fibrillation Troponin level elevated Surgical History Arteriovenous fistula for hemodialysis in place, primary Left upper extremity History of ankle surgery History of incision and drainage History of knee surgery several times due to septic arthritis and necrotizing fasciitis Family History Father Diabetes Sister Bleeding disorder Diabetes Family/Other Suicide Social History Smoking and tobacco status: never smoked Alcohol intake: never Household members: none and other Details: sister helps care for him but lives alone Vitals/I&O/Wt Last Vital Signs Temp 98.3 F 11/07/20 04:00 Pulse 78 11/07/20 05:27 Resp 18 11/07/20 04:00 BP 167/85 11/07/20 04:00 Pulse Ox 96 11/07/20 04:00 11/06/20 11/07/20 11/07/20 22:59 06:59 14:59 Intake Total 1120 / 1710 250 / 1960 240 / 240 Output Total 800 / 800 Balance 1120 / 1710 -550 / 1160 240 / 240 Weight last 48 hrs Weight 216 lb 1.6 oz Weight 215 lb Weight 214 lb 12.8 oz Weight 224 lb 9 oz Physical Exam Narrative: EXAM NARRATIVE: GENERAL: Patient is alert, awake and oriented x3. [] NECK: No jugular vein distension. [] HEENT: No cyanosis. No icterus. No pallor. [] HEART: Regular S1 and S2. No murmur, rub or gallop. [] LUNGS: Clear to auscultate bilaterally. [] ABDOMEN: Soft, nontender and nondistended. Positive bowel sounds. No guarding, rebound or tenderness. [] CENTRAL NERVOUS SYSTEM: Grossly nonfocal. [] EXTREMITIES: Lower extremities with 1+ edema bilaterally. Pulses palpable in the lower extremities, both dorsalis pedis and posterior tibial. [] Urinary Catheter Management^: Schneider: Cath Placed During This Visit: yes Reason for Continuing Indwelling Catheter: Accurate Measurement of Urinary Output in Critically Ill Patients Urinary Catheter Date of Insertion: 11/04/20 Urinary Catheter Time of Insertion: 05:30 Data Micro: Micro: Microbiology 11/06/20 09:45 Gram Stain - Final Sputum - Expector ated Sputum Sputum Culture - P reliminary 11/05/20 09:00 Urine Culture - Fi nal Urine,Clean Catch 11/06/20 09:15 MRSA Culture - Fin al Nose A&P Assessment and plan (1) Pulmonary edema: Status: Acute Qualifiers: Chronicity: acute Qualified Code(s): J81.0 - Acute pulmonary edema (2) Acute respiratory failure with hypoxia and hypercapnia: Status: Acute (3) Dementia: Status: Acute Qualifiers: Dementia type: unspecified type Dementia behavioral disturbance: without behavioral disturbance Qualified Code(s): F03.90 - Unspecified dementia without behavioral disturbance (4) DM type 2 (diabetes mellitus, type 2): Status: Acute Qualifiers: Diabetes mellitus residential insulin use: without superintendent container terminal use Diabetes mellitus complication status: with kidney complications Diabetes mellitus complication detail: with chronic kidney disease Chronic kidney disease stage: on chronic dialysis Qualified Code(s): E11.22 - Type 2 diabetes mellitus with diabetic chronic kidney disease; N18.6 - End stage renal disease; Z99.2 - Dependence on renal dialysis (5) Aortic stenosis: Status: Acute Qualifiers: Cardiac valve disease etiology: nonrheumatic Qualified Code(s): I35.0 - Nonrheumatic aortic (valve) stenosis (6) CHF (congestive heart failure): Status: Acute Patient has recent multiple episodes of pulmonary edema. He required intubation this admission. His volume overload is likely secondary to decreased frequency of dialysis and noncompliance with diet. Will recommend nephrology opinion on this however he likely needs increasing frequency of dialysis to 3 times a week. Given no significant area of ischemia on his recent stress test and normal LV systolic function with only moderate aortic stenosis, we will recommend medical management at this time. He does not have ongoing ischemic symptoms and troponins did not trend up. Continue coreg and losartan Thank you for involving us with care of this patient. We will continue to follow. Please call with questions Coding Level of Care Code Acute Gastroenterology Nurse for Willy Robertson Diagnoses Pulmonary edema J81.0 Chronicity: acute Acute respiratory failure with hypoxia and hypercapnia J96.01; J96.02 Dementia F03.90 Dementia type: unspecified type Dementia behavioral disturbance: without behavioral disturbance DM type 2 (diabetes mellitus, type 2) E11.22; N18.6; Z99.2 Diabetes mellitus superintendent container terminal insulin use: without residential use Diabetes mellitus complication status: with kidney complications Diabetes mellitus complication detail: with chronic kidney disease Chronic kidney disease stage: on chronic dialysis Aortic stenosis I35.0 Cardiac valve disease etiology: nonrheumatic CHF (congestive heart failure) I50.9
--- NOTE | 2020-11-07 10:00 | P.PN_ITS ---
Subjective Subjective: Interval history: Seen on dialysis, tolerating treatment well so far. Some arm edema, breathing comfortably on nasal cannula. No uremic Sx. Vitals/I&O/Wt Last Vital Signs Temp 98.3 F 11/07/20 04:00 Pulse 78 11/07/20 05:27 Resp 18 11/07/20 04:00 BP 167/85 11/07/20 04:00 Pulse Ox 96 11/07/20 04:00 11/06/20 11/07/20 11/07/20 22:59 06:59 14:59 Intake Total 1120 / 1710 250 / 1960 240 / 240 Output Total 800 / 800 Balance 1120 / 1710 -550 / 1160 240 / 240 Weight last 48 hrs Weight 98.021 kg Weight 97.522 kg Weight 97.432 kg Physical Exam Narrative: EXAM NARRATIVE: Constitutional: Sleepy, cofortable HEENT: Wet mucosa, no jvp, non icteric Lungs: Bilaterally clear and no rales in all lung zones CVS: S1 S2, no murmurs Abdo: Soft, BS ok Ext 4: 1+ edema, peripheral perfusion with no cyanosis Neurological: Grossly non-focal Urinary Catheter Management^: Schneider: Cath Placed During This Visit: yes Reason for Continuing Indwelling Catheter: Accurate Measurement of Urinary Output in Critically Ill Patients Urinary Catheter Date of Insertion: 11/04/20 Urinary Catheter Time of Insertion: 05:30 Data : 11/07/20 04:20 11/07/20 04:20 Micro: Microbiology 11/06/20 09:45 Gram Stain - Final Sputum - Expectorated Sputum Sputum Culture - Preliminary 11/05/20 09:00 Urine Culture - Final Urine,Clean Catch 11/06/20 09:15 MRSA Culture - Final Nose A&P Additional A&P Information 1. ESRD - seen on dialysis 3K, UF 2-3L - Cont TTS schedule this week, will change back to MWF next week or on DC - dose meds for eGFR < 15 on dialysis 2. Pulm edema - Likely secondary to poor compliance with diet and also dialysis. - Recommend increasing dialysis from twice to thrice weekly 3. Lytes well balanced 4. Anemia - Recent drop, iron levels at goal, s/p Procrit - s/p PRBCs - Thanks for consult, always a pleasure to follow with you - > 20 min spent in evaluation of care - patient seen via telemed with the aid of the bedside RN Tom Terry MD Nephro [phone] Attestations Medical Necessity Statement*: eval for eSRD mgmt Coding Level of Care Code Acute Rope Laying Machine Operator for Willy Robertson
--- NOTE | 2020-11-07 13:26 | PC.OT ---
Attempted to see pt x2 for OT today. Pt had dialysis this morning and just returned to his room within the last hour. Pt states I'm not feeling up for it and I want to get out of here . Will attempt to resume treatment tomorrow per pt tolerance. NICOLE Torres/Eulalia ESCAMILLA/Arnie
[2020-11-07] MEDS: losartan 50 mg Tablet 25 MG PO (13:40)
[2020-11-07] MEDS: acetaminophen 325 mg Tablet PO (13:42)
--- NOTE | 2020-11-07 16:29 | P.PN_ITS ---
Subjective Subjective: Interval history: No acute event overnight. Patient was transferred to [facility] yesterday. Seems comfortable. Today morning was deemed to be in fluid overload as per nephrology so undergoing dialysis right now. Tolerated dialysis well during the day. Denies any nausea, vomiting, headache. Examination patient still confused which is his baseline. He states he is worried about the blood which came on to her shots and he thinks it is because the urinary catheter. On examination there does not seem to be any urinary trauma or bleeding per rectum. Has remained hemodynamically stable, afebrile overnight. Vitals/I&O/Wt Last Vital Signs Temp 98.3 F 11/07/20 04:00 Pulse 97 11/07/20 14:56 Resp 20 H 11/07/20 14:56 BP 168/143 11/07/20 14:56 Pulse Ox 95 11/07/20 14:56 11/07/20 11/07/20 11/07/20 06:59 14:59 22:59 Intake Total 250 / 1960 462 / 462 Output Total 800 / 800 Balance -550 / 1160 462 / 462 Weight last 48 hrs Weight 98.021 kg Weight 98.021 kg Weight 97.522 kg Weight 97.432 kg Physical Exam Narrative: EXAM NARRATIVE: General: No acute distress, AO x3, forgetful, on 3 L oxygen supplementation. HEENT: PERRLA, pupils bilaterally equal and reactive Chest: Bilateral fine crackles all at bases, normal vesicular breath sounds, no added sounds, equal good air entry bilaterally CVS: S1-S2 regular, ejection systolic murmur at aortic area radiating to carotids 2/6, no tachycardia, no gallops, no rubs Abdomen: Soft, nontender, no organomegaly, bowel sounds present Neuro: No focal deficits, no facial deformity, AO x3, power 5/5 in all limbs Urinary Catheter Management^: Schneider: Cath Placed During This Visit: yes Reason for Continuing Indwelling Catheter: Accurate Measurement of Urinary Output in Critically Ill Patients Urinary Catheter Date of Insertion: 11/04/20 Urinary Catheter Time of Insertion: 05:30 Data : 11/07/20 04:20 11/07/20 04:20 Micro: Microbiology 11/06/20 09:45 Gram Stain - Final Sputum - Expectorated Sputum Sputum Culture - Preliminary 11/05/20 09:00 Urine Culture - Final Urine,Clean Catch 11/06/20 09:15 MRSA Culture - Final Nose A&P Assessment and plan (1) Respiratory failure: Status: Acute Qualifiers: Chronicity: acute on chronic Respiratory failure complication: hypoxia Qualified Code(s): J96.21 - Acute and chronic respiratory failure with hypoxia (2) Acute anemia: Status: Acute (3) Acute respiratory failure with hypoxia and hypercapnia: As above. Status: Acute (4) Pulmonary edema: As above. Status: Acute Qualifiers: Chronicity: acute Qualified Code(s): J81.0 - Acute pulmonary edema (5) Aortic stenosis: Moderate aortic stenosis on echocardiogram in July Status: Acute Qualifiers: Cardiac valve disease etiology: nonrheumatic Qualified Code(s): I35.0 - Nonrheumatic aortic (valve) stenosis (6) Hospital-acquired pneumonia: Continues on empiric antibiotics for now, with leukocytosis continue. Coverage for possible pneumonia. Repeat chest x-ray. Status: Acute (7) Positive cardiac stress test: Status: Acute Additional A&P Information Respiratory failure: Most likely secondary to noncompliance and insufficient dialysis as an outpatient in setting of CKD, mild systolic LV dysfunction and moderate aortic stenosis. Patient extubated 11/05/2020 Maintain mean arterial pressure around 65. Off pressors. Oxygen supplementation keeping saturation around 90%. Continue with Lasix 40 mg IV every 12. We will plan to switch over to oral Lasix tomorrow. Discontinue Schneider catheter next 24 hours. Strict input output charting. Daily weights. Patient received vancomycin and cefepime for 6 days overall. Patient has remained afebrile during this course with white count being normal throughout. For now continue with vancomycin and cefepime at current dose. MRSA negative, blood cultures have remained negative, urine culture negative, urine Legionella negative, Gram stain negative. We will stop the antibiotics for now and c ontinue to monitor. Positive stress test: Positive in October 2020. Given 3 admissions with CHF in this month, moderate aortic stenosis. Discussed with patient and family at bedside and they are willing for possible angiogram and PCI if needed. Family had agreed for possible cath and PCI if needed. Case discussed with cardiology for now would want to do medical management given ongoing recurrent anemia without any acute source of bleeding. Anemia: Acute on chronic anemia requiring monitor PRBC on 11/05/2020. Monitor for any bleeding. Stool for occult blood sent but unfortunately right now stool samples are being sent out and the results will come back by Friday. We will try to see if we can do a occult card. Continue with Protonix twice daily. Hemolysis ruled out by normal bilirubin, elevated haptoglobin. Hypertension: Goal blood pressure less than 140/90. Blood pressures have been on the higher side. Restart home dose of losartan and carvedilol. Will uptitrate as needed. Paroxysmal A. fib without RVR Not a candidate for anticoagulation due to anemia End-stage renal disease: Appreciate nephrology recommendations. Restart home sevelamer. Friday only due to lack of adherence. Usually prescribed 3 and half hours, but rarely stays up to 2 hours. Appears within the last month has had only 2 hemodialysis sessions, 1 was 1 hour, another one 1.5. Looks like adheren ce with hemodialysis has been reinforced with him multiple times. DVT prophylaxis Heparin Renal diabetic dialysis diet. PT/OT evaluation appreciated. They recommend SNF placement. Will consult with case management. For now patient seems to be refusing SNF placement. Will consult with family again. Attestations Medical Necessity Statement*: Patient requires further hospitalization for management of respiratory failure because of CHF in setting of CKD on hemodialysis, ongoing treatment anemia, positive stress test requiring medical management. Time Spent in Patient Care: Greater than 35 minutes (>than 50% of time spent in counselling and/or direct pt care on unit) . Coding Level of Care Code Acute Negative Developer for Willy Robertson Diagnoses Respiratory failure J96.21 Chronicity: acute on chronic Respiratory failure complication: hypoxia Acute anemia D64.9 Acute respiratory failure with hypoxia and hypercapnia J96.01; J96.02 Pulmonary edema J81.0 Chronicity: acute Aortic stenosis I35.0 Cardiac valve disease etiology: nonrheumatic Hospital-acquired pneumonia J18.9; Y95 Positive cardiac stress test R94.39
[2020-11-07] MEDS: vancomycin 1,000 MG in sodium chloride 0.9% 250 ML 250 MG IV (17:50)
[2020-11-07 18:12] LABS: Hematocrit 32.6 % (42.0-52.0); Hemoglobin 9.7 g/dL (11.7-16.6)
[2020-11-07] MEDS: atorvastatin 40 mg Tablet 20 MG PO (21:03)
[2020-11-07] MEDS: trazodone 150 mg Tablet 75 MG PO (21:04)
[2020-11-07] MEDS: carvedilol 25 mg Tablet PO (21:04)
[2020-11-08] VITALS (31 sets, daily range): BP systolic 102–183; BP diastolic 61–92; PULSE 70–98; RESP 3–27; TEMP 36.6–37; O2SAT 82–99; BMI 29.5
[2020-11-08] MEDS: sevelamer 800 mg Tablet 2400 MG PO ×3 (06:04→17:35)
--- NOTE | 2020-11-08 09:02 | P.PN_ITS ---
Subjective Subjective: Interval history: No new issues. He feels well. Breathing comfortably on nasal. No uremic Sx. No edema. Hemodynamics look good Vitals/I&O/Wt Last Vital Signs Temp 98.2 F 11/08/20 07:51 Pulse 80 11/08/20 07:51 Resp 27 H 11/08/20 07:51 BP 163/92 11/08/20 07:51 Pulse Ox 96 11/08/20 07:51 11/07/20 11/08/20 11/08/20 22:59 06:59 14:59 Intake Total 490 / 952 300 / 1252 240 / 240 Output Total 500 / 500 Balance 490 / 952 -200 / 752 240 / 240 Weight last 48 hrs Weight 93.44 kg Weight 98.021 kg Weight 98.021 kg Weight 97.522 kg Physical Exam Narrative: EXAM NARRATIVE: Constitutional: Sleepy, cofortable HEENT: Wet mucosa, no jvp, non icteric Lungs: Bilaterally clear and no rales in all lung zones CVS: S1 S2, no murmurs Abdo: Soft, BS ok Ext 4: no edema, peripheral perfusion with no cyanosis Neurological: Grossly non-focal Urinary Catheter Management^: Schneider: Cath Placed During This Visit: yes Reason for Continuing Indwelling Catheter: Accurate Measurement of Urinary Output in Critically Ill Patients Urinary Catheter Date of Insertion: 11/04/20 Urinary Catheter Time of Insertion: 05:30 Data : 11/07/20 17:51 11/07/20 04:20 Micro: Microbiology 11/02/20 21:45 Blood Culture - Final Blood NO GROWTH AFTER 5 DAYS 11/02/20 21:25 Blood Culture - Final Blood NO GROWTH AFTER 5 DAYS 11/06/20 09:45 Gram Stain - Final Sputum - Expectorated Sputum Sputum Culture - Preliminary 11/05/20 09:00 Urine Culture - Final Urine,Clean Catch A&P Additional A&P Information 1. ESRD - Plan for HD tomorrow 3K, UF 2-3L - Cont TTS schedule this week, will change back to MWF next week or on DC - dose meds for eGFR < 15 on dialysis 2. Pulm edema - Likely secondary to poor compliance with diet and also dialysis. - Recommend increasing dialysis from twice to thrice weekly 3. Lytes well balanced 4. Anemia - Recent drop, iron levels at goal, s/p Procrit - s/p PRBCs - Hb stable 5. Dispo - ok for DC from my perspective - Thanks for consult, always a pleasure to follow with you - > 20 min spent in evaluation of care - patient seen via telemed with the aid of the bedside RN Tom Terry MD Nephro [phone] Attestations Medical Necessity Statement*: eval for eSRD mgmt Coding Level of Care Code Acute Ice Sculptor for Sandovalg Marcelo
[2020-11-08] MEDS: losartan 50 mg Tablet 25 MG PO (09:37)
[2020-11-08] MEDS: FUROsemide 10 mg/mL SDV 4mL 40 MG IVP (09:38)
[2020-11-08] MEDS: tamsulosin 0.4 mg Capsule PO (09:38)
[2020-11-08] MEDS: carvedilol 25 mg Tablet PO ×2 (09:38→20:36)
[2020-11-08] MEDS: pantoprazole DR 40 mg Tablet PO ×2 (09:38→17:34)
[2020-11-08] MEDS: folic acid 1 mg Tablet PO ×2 (09:38→17:34)
--- NOTE | 2020-11-08 09:38 | P.PN_ITS ---
Subjective Subjective: Interval history: Patient is doing well. No complaints of chest pain, shortness of breath or palpitations. Spoke with patient's family regarding the medical management and they are in agreement Vitals/I&O/Wt Last Vital Signs Temp 98.2 F 11/08/20 07:51 Pulse 80 11/08/20 07:51 Resp 27 H 11/08/20 07:51 BP 163/92 11/08/20 07:51 Pulse Ox 96 11/08/20 07:51 11/07/20 11/08/20 11/08/20 22:59 06:59 14:59 Intake Total 490 / 952 300 / 1252 240 / 240 Output Total 500 / 500 Balance 490 / 952 -200 / 752 240 / 240 Weight last 48 hrs Weight 206 lb Weight 216 lb 1.6 oz Weight 216 lb 1.6 oz Weight 215 lb Physical Exam Narrative: EXAM NARRATIVE: GENERAL: Patient is alert, awake and oriented x3. [] NECK: No jugular vein distension. [] HEENT: No cyanosis. No icterus. No pallor. [] HEART: Regular S1 and S2. No murmur, rub or gallop. [] LUNGS: Clear to auscultate bilaterally. [] ABDOMEN: Soft, nontender and nondistended. Positive bowel sounds. No guarding, rebound or tenderness. [] CENTRAL NERVOUS SYSTEM: Grossly nonfocal. [] EXTREMITIES: Lower extremities with 1+ edema bilaterally. Pulses palpable in the lower extremities, both dorsalis pedis and posterior tibial. [] Urinary Catheter Management^: Schneider: Cath Placed During This Visit: yes Reason for Continuing Indwelling Catheter: Accurate Measurement of Urinary Output in Critically Ill Patients Urinary Catheter Date of Insertion: 11/04/20 Urinary Catheter Time of Insertion: 05:30 Data : 11/07/20 17:51 11/07/20 04:20 Micro: Microbiology 11/02/20 21:45 Blood Culture - Final Blood NO GROWTH AFTER 5 DAYS 11/02/20 21:25 Blood Culture - Final Blood NO GROWTH AFTER 5 DAYS 11/06/20 09:45 Gram Stain - Final Sputum - Expectorated Sputum Sputum Culture - Preliminary 11/05/20 09:00 Urine Culture - Final Urine,Clean Catch A&P Assessment and plan (1) Pulmonary edema: Status: Acute Qualifiers: Chronicity: acute Qualified Code(s): J81.0 - Acute pulmonary edema (2) Acute respiratory failure with hypoxia and hypercapnia: Status: Acute (3) Dementia: Status: Acute Qualifiers: Dementia type: unspecified type Dementia behavioral disturbance: without behavioral disturbance Qualified Code(s): F03.90 - Unspecified dementia without behavioral disturbance (4) DM type 2 (diabetes mellitus, type 2): Status: Acute Qualifiers: Diabetes mellitus custodial insulin use: without oysterman use Diabetes mellitus complication status: with kidney complications Diabetes mellitus complication detail: with chronic kidney disease Chronic kidney disease stage: on chronic dialysis Qualified Code(s): E11.22 - Type 2 diabetes mellitus with diabetic chronic kidney disease; N18.6 - End stage renal disease; Z99.2 - Dependence on renal dialysis (5) Aortic stenosis: Status: Acute Qualifiers: Cardiac valve disease etiology: nonrheumatic Qualified Code(s): I35.0 - Nonrheumatic aortic (valve) stenosis (6) CHF (congestive heart failure): Status: Acute Patient has recent multiple episodes of pulmonary edema. He required intubation this admission. His volume overload is likely secondary to decreased frequency of dialysis and noncompliance with diet. Will recommend nephrology opinion on this however he likely needs increasing frequency of dialysis to 3 times a week. Given no significant area of ischemia on his recent stress test and normal LV systolic function with only moderate aortic stenosis, we will recommend medical management at this time. He does not have ongoing ischemic symptoms and troponins did not trend up. Continue coreg and losartan. BP is elevated, can uptitrate the dose of losartan and add amlodipine if BP stays elevated Thank you for involving us with care of this patient. We will continue to follow. Please call with questions Attestations Medical Necessity Statement*: Care expected to cross 2 midnights. Coding Level of Care Code Acute Conflict Resolution Professional for Willy Robertson Diagnoses Pulmonary edema J81.0 Chronicity: acute Acute respiratory failure with hypoxia and hypercapnia J96.01; J96.02 Dementia F03.90 Dementia type: unspecified type Dementia behavioral disturbance: without behavioral disturbance DM type 2 (diabetes mellitus, type 2) E11.22; N18.6; Z99.2 Diabetes mellitus oysterman insulin use: without oysterman use Diabetes mellitus complication status: with kidney complications Diabetes mellitus complication detail: with chronic kidney disease Chronic kidney disease stage: on chronic dialysis Aortic stenosis I35.0 Cardiac valve disease etiology: nonrheumatic CHF (congestive heart failure) I50.9
[2020-11-08] MEDS: cefepime 1,000 MG in sodium chloride 0.9% (plus) 50 ML 100 MG IV (09:39)
--- NOTE | 2020-11-08 09:46 | PC.SOCIAL ---
IMM Updated Updated pt & caregiver at side, on Pg 2 IMM. No questions voiced. Provided pt a copy. Signed, dated, & timed a copy & placed in chart.
--- NOTE | 2020-11-08 10:49 | P.PN_ITS ---
Subjective Subjective: Interval history: No acute event overnight. Denies any nausea vomiting, headache. On examination lying comfortably in bed. Awakens to touch. Able to have complete conversation. AO x2 which is his baseline. Patient sister at bedside. Safe discharge planning above discussed in detail regarding this being patient's third admission in the hospital in last 1 month with similar problems because of its he is generalized weak and deconditioned at present for which he requires further rehabitation most likely at SNF. Safe discharge planning including SNF versus home health arrangements were discussed in detail. Patient has agreed to go to SNF for now. He verbalizes understanding the need of him continuing with dialysis 3 times as an outpatient. Vitals/I&O/Wt Last Vital Signs Temp 98.2 F 11/08/20 07:51 Pulse 80 11/08/20 07:51 Resp 27 H 11/08/20 07:51 BP 163/92 11/08/20 09:37 Pulse Ox 96 11/08/20 07:51 11/07/20 11/08/20 11/08/20 22:59 06:59 14:59 Intake Total 490 / 952 300 / 1252 240 / 240 Output Total 500 / 500 Balance 490 / 952 -200 / 752 240 / 240 Weight last 48 hrs Weight 93.44 kg Weight 98.021 kg Weight 98.021 kg Physical Exam Narrative: EXAM NARRATIVE: General: No acute distress, AO x3, forgetful, on 3 L oxygen supplementation. HEENT: PERRLA, pupils bilaterally equal and reactive Chest: Bilateral fine crackles all at bases, normal vesicular breath sounds, no added sounds, equal good air entry bilaterally CVS: S1-S2 regular, ejection systolic murmur at aortic area radiating to carotids 2/6, no tachycardia, no gallops, no rubs Abdomen: Soft, nontender, no organomegaly, bowel sounds present Neuro: No focal deficits, no facial deformity, AO x3, power 5/5 in all limbs Urinary Catheter Management^: Schneider: Cath Placed During This Visit: yes Reason for Continuing Indwelling Catheter: Accurate Measurement of Urinary Output in Critically Ill Patients Urinary Catheter Date of Insertion: 11/04/20 Urinary Catheter Time of Insertion: 05:30 Data : 11/07/20 17:51 11/07/20 04:20 Micro: Microbiology 11/06/20 09:45 Gram Stain - Final Sputum - Expectorated Sputum Sputum Culture - Final 11/02/20 21:45 Blood Culture - Final Blood NO GROWTH AFTER 5 DAYS 11/02/20 21:25 Blood Culture - Final Blood NO GROWTH AFTER 5 DAYS 11/05/20 09:00 Urine Culture - Final Urine,Clean Catch A&P Assessment and plan (1) Respiratory failure: Status: Acute Qualifiers: Chronicity: acute on chronic Respiratory failure complication: hypoxia Qualified Code(s): J96.21 - Acute and chronic respiratory failure with hypoxia (2) Acute anemia: Status: Acute (3) Acute respiratory failure with hypoxia and hypercapnia: As above. Status: Acute (4) Pulmonary edema: As above. Status: Acute Qualifiers: Chronicity: acute Qualified Code(s): J81.0 - Acute pulmonary edema (5) Aortic stenosis: Moderate aortic stenosis on echocardiogram in July Status: Acute Qualifiers: Cardiac valve disease etiology: nonrheumatic Qualified Code(s): I35.0 - Nonrheumatic aortic (valve) stenosis (6) Hospital-acquired pneumonia: Continues on empiric antibiotics for now, with leukocytosis continue. Coverage for possible pneumonia. Repeat chest x-ray. Status: Acute (7) Positive cardiac stress test: Status: Acute Additional A&P Information Respiratory failure: Most likely secondary to noncompliance and insufficient dialysis as an outpatient in setting of CKD, mild systolic LV dysfunction and moderate aortic stenosis. Patient extubated 11/05/2020 Maintain mean arterial pressure around 65. Off pressors. Oxygen supplementation keeping saturation around 90%. 40 mg oral twice daily. Schneider discontinued yesterday. Strict input output charting. Daily weights. Patient received vancomycin and cefepime for 6 days overall. Patient has remained afebrile during this course with white count being normal throughout. For now continue with vancomycin and cefepime at current dose. MRSA negative, blood cultures have remained negative, urine culture negative, urine Legionella negative, Gram stain negative. We will stop the antibiotics for now and continue to monitor. Positive stress test: Positive in October 2020. Given 3 admissions with CHF in this month, moderate aortic stenosis. Discussed with patient and family at bedside and they are willing for possible angiogram and PCI if needed. Family had agreed for possible cath and PCI if needed. Case discussed with cardiology for now would want to do medical management given ongoing recurrent anemia without any acute source of bleeding. Anemia: Acute on chronic anemia requiring monitor PRBC on 11/05/2020. Hemoglobin stable. Monitor for any bleeding. Stool for occult blood sent but unfortunately right now stool samples are being sent out and the results will come back by Friday. [place] Negative on occult card Continue with Protonix twice daily. Hemolysis ruled out by normal bilirubin, elevated haptoglobin. Hypertension: Goal blood pressure less than 140/90. Blood pressure still little on the higher side. Continue carvedilol at 25 twice daily, increase losartan to 75 mg daily. We will continue to monitor uptitrate if needed. Paroxysmal A. fib without RVR Not a candidate for anticoagulation due to anemia End-stage renal disease: Appreciate nephrology recommendations. Restart home sevelamer. Friday only due to lack of adherence. Usually prescribed 3 and half hours, but rarely stays up to 2 hours. Appears within the last month has had only 2 hemodialysis sessions, 1 was 1 hour, another one 1.5. Looks like adherence with hemodialysis has been reinforced with him multiple times. DVT prophylaxis Heparin Renal diabetic dialysis diet. Discharge planning: Patient is agreed for placement to SNF. Patient has been accepted to [facility]. Awaiting prior authorization. Attestations Medical Necessity Statement*: Requested hospitalization for management of respiratory failure because of CHF, as he is non compliant to MHD in view of CKD. Awaiting safe dc planning Time Spent in Patient Care: Greater than 35 minutes (>than 50% of time spent in counselling and/or direct pt care on unit) . Coding Level of Care Code Acute Floor Coverings Salesperson for Willy Robertson Diagnoses Respiratory failure J96.21 Chronicity: acute on chronic Respiratory failure complication: hypoxia Acute anemia D64.9 Acute respiratory failure with hypoxia and hypercapnia J96.01; J96.02 Pulmonary edema J81.0 Chronicity: acute Aortic stenosis I35.0 Cardiac valve disease etiology: nonrheumatic Hospital-acquired pneumonia J18.9; Y95 Positive cardiac stress test R94.39
[2020-11-08] MEDS: losartan 50 mg Tablet PO (12:14)
[2020-11-08] MEDS: FUROsemide 40 mg Tablet PO (17:34)
[2020-11-08] MEDS: atorvastatin 40 mg Tablet 20 MG PO (20:35)
[2020-11-08] MEDS: trazodone 150 mg Tablet 75 MG PO (20:38)
[2020-11-08 22:15] LABS: Vancomycin Trough 25.1 ug/mL (10-15)
[2020-11-09] VITALS (19 sets, daily range): BP systolic 102–171; BP diastolic 67–92; PULSE 69–92; RESP 4–27; TEMP 36.5–36.8; O2SAT 88–97; BMI 30.1
[2020-11-09 05:27] LABS: Basophils % 0.6 %; Eosinophils # 0.4 10^3/uL (0.0-0.8); Hematocrit 31.2 % (42.0-52.0); Hemoglobin 9.1 g/dL (11.7-16.6); Lymphocytes % 13.4 %; Mean Corpuscular HGB Conc 29.2 g/dL (30.0-36.0); Mean Corpuscular Hemoglobin 26.7 pg (28.0-34.0); Mean Corpuscular Volume 91.5 fL (80-94); Mean Platelet Volume 11.6 fL (7.4-10.4); Monocytes # 0.7 10^3/uL (0.2-0.9); Monocytes % 9.8 %; Neutrophils # 4.89 10^3/uL (1.8-7.7); Neutrophils % 68.5 %; Nucleated Red Blood Cells % 0 %; Platelet Count 161 10^3/cmm (130-400); Red Blood Count 3.41 10^6/uL (4.1-5.3); Red Cell Distribution Width 16.2 % (12.1-15.1); White Blood Count 7.1 10^3/uL (4.0-10.0)
[2020-11-09 05:50] LABS: Alanine Aminotransferase 10 U/L (0-41); Alkaline Phosphatase 75 IU/L (40-130); Anion Gap 17.2 (5-19); Aspartate Amino Transferase 15 U/L (0-40); Blood Urea Nitrogen 33 mg/dL (8-23); Calcium 8.5 mg/dL (8.5-10.5); Carbon Dioxide 28 mmol/L (22-29); Chloride 96 mmol/L (98-107); Globulin 2.9 g/dL (1.3-4.6); Glucose 155 mg/dL (65-115); Osmolality Calculated 294 mOsm/kg (285-295); Potassium 4.2 mmol/L (3.5-5.1); Sodium 137 mmol/L (136-145); Total Bilirubin 0.3 mg/dL (0.15-1.2); Total Protein 5.9 g/dL (6.6-8.7)
--- NOTE | 2020-11-09 11:46 | PC.CHAP ---
Pastoral Care Encounter/Spiritual Assessment Type of Contact [] Declined help desk rep visit [] Patient/Family/Request visit [] Outpatient visit [xx] Follow-up visit [] Physician referral [] Code/Alert [] Routine visit [] Staff referral [] Actively dying [] Patient sleeping [] Family support [] [xx] Out of room [] Palliative care [] [] Receiving care in room [] Pre-surgical visit [] Trauma [xx] Long length of stay [] ICU visit [] Other: Relational/Emotional Strength [] Patient feels connected with others/family/visitors/staff [] Distress [] Loneliness/isolation [] Abandonment Spirituality of Patient [] Person of Joan [] Attends Confucianist of their Joan [] Believes in Prayer [] Reads Bible or Buddhism materials [] There are Spiritual issues to be addressed Research Intern Interventions [] Prayer [] Active listening [] Non-anxious presence [] Spiritual/emotional support [] Crisis/trauma care [] Spiritual counseling [] Bereavement support [] Provided bereavement packet [] Provided Bible/devotional materials [] Provided toy/stuffed animal, coloring book to patient or family member [] Provided Communion [] Anointing/[place] [] Salvation [] Completed spiritual assessment [] Other: Impact on Illness or Injury [] Angry [] Fearful [] Anxious [] Often cries [] Exhaustion [] Unable to work [] Unable to attend holiness [] Unable to walk/stand [] Unable to read [] Unable to drive [] Unable to eat/drink [] Unable to sleep [] Unable to be with family [] Patient intubated [] Other: Summary Follow up not completed as patient was out of room. Time spent with patient
--- NOTE | 2020-11-09 12:25 | P.DS_ITS ---
Discharge Providers Date of Admission: 11/03/20 00:44 Date of Discharge: November 09, 2020 Attending Provider at Admission: Dylan White MD Attending Provider at Discharge: Rico Ledbetter MD Primary Care Provider: Salvador Daley MD Diagnoses at Discharge Discharge Diagnosis (1) Respiratory failure: Status: Acute Qualifiers: Chronicity: acute on chronic Respiratory failure complication: hypoxia Qualified Code(s): J96.21 - Acute and chronic respiratory failure with hypoxia (2) Acute anemia: Status: Acute (3) Acute respiratory failure with hypoxia and hypercapnia: Status: Acute (4) Pulmonary edema: Status: Acute Qualifiers: Chronicity: acute Qualified Code(s): J81.0 - Acute pulmonary edema (5) Aortic stenosis: Status: Acute Qualifiers: Cardiac valve disease etiology: nonrheumatic Qualified Code(s): I35.0 - Nonrheumatic aortic (valve) stenosis (6) Hospital-acquired pneumonia: Status: Acute (7) Positive cardiac stress test: Status: Acute Reason for Visit Reason for Visit: resp distress Hospital Course Hospital Course Familia Mason is a 74 year old male has history of end-stage renal disease, atrial fibrillation, aortic stenosis, multiple admissions in the last 6 to 8 months, got recently discharged from the hospital after management of pulm edema/fluidoverload which improved after diuresis and hemodialysis he did not qualify for home oxygen at the time of discharge presenting today with respiratory distress. Sister is at the bedside who is endorsing that today he was fine until this evening, he went for his urology appointment with Dr. Kearns, in the evening after serving him supper she went outside to collect trash can, she started chatting with her neighbor & about 30 minutes after Mr. Mason started yelling in the house, she attributed his symptoms to a panic attack initially, Mr. Mason started complaining of shortness of breath hence EMS was called. When EMS arrived he was saturating 80% on room air, he was given DuoNeb treatment in the ambulance, right after the treatment his O2 saturation dropped and his mentation changed as well, he was intubated by the EMS, etomidate 20 mg was given along 100 mg of rocuronium, I was able to talk with the houseperson who stated that during intubation he noticed a lot of pink frothy secretions. As per the sister no recent fever or vomiting at home. Diagnosis in the ER revealed bilateral pulmonary infiltrate, groundglass opacities, mild leukocytosis, Covid antigen requested, CTA ruled out PE, EKG showing sinus rhythm however on the baseline, he was given vancomycin and Zosyn, clinically looks fluid overloaded, endotracheal tube was at by 23 cm which was retracted to 22 cm at this is bronchial No urgent need of dialysis History of COVID-19 pneumonia October 2019. Patient will be to the ICU because of mental status. We will dialyze aggre ssively. Eventually he was weaned off ventilator and extubated on 11/05/2020. At start patient was on broad-spectrum antibiotics for possible aspiration pneumonia. Patient had finished 5-day course of IV antibiotics and has been monitored for 48 hours off antibiotics and has remained afebrile hemodynamically stable. It is believed patient's symptoms of recurrent respiratory failure is because of missing his dialysis session causing him to go into congestive heart failure. Patient and patient's family was counseled in detail regarding need of regular dialysis and proper dialysis going forward in his life. His hospitalization was complicated by acute on chronic anemia. He received 1 unit of blood transfusion. His hemoglobin remained stable after that. He did not have any active signs of bleeding. Stool for occult test through card was negative due stool for occult blood study will be back on Friday. On review of chart patient had echocardiogram in July 2020 which showed an EF 55% with grade 1 diastolic dysfunction with moderate concentric LVH, RVSP of 26, moderate aortic stenosis, mildly increased left atrial size. Also had nuclear scan done in October 09 which was positive for ramon-infarct ischemia in RCA and LCx region. For the same cardiology was consulted. In view of ongoing anemia cardiology for now recommended medical management. Patient has been on aspirin and Plavix during hospitalization and his hemoglobin has remained stable. Because of recurrent hospitalization physical therapy was consulted and it was deemed that patient was generalized deconditioned most likely for recurrent admission and they recommended for SNF placement. On further discussion with patient and family he agreed for SNF placement. Is been discharged hemodynamically stable condition with advised to follow-up with his primary care provider within next 1 to 3 days, community recreation programmer in 2 weeks and his yard goods salesperson within 1 week. Patient has been advised in detail and counseled detail to make sure that he continues his dialysis session as prescribed to him for now Friday, Friday and Fridays. Physical Exam Narrative: EXAM NARRATIVE: General: No acute distress, AO x3, forgetful, on 3 L oxygen supplementation. HEENT: PERRLA, pupils bilaterally equal and reactive Chest: Bilateral fine crackles all at bases, normal vesicular breath sounds, no added sounds, equal good air entry bilaterally CVS: S1-S2 regular, ejection systolic murmur at aortic area radiating to carotids 2/6, no tachycardia, no gallops, no rubs Abdomen: Soft, nontender, no organomegaly, bowel sounds present Neuro: No focal deficits, no facial deformity, AO x3, power 5/5 in all limbs Urinary Catheter Management^: Schneider: Cath Placed During This Visit: yes Reason for Continuing Indwelling Catheter: Acute Urinary Retention or Obstruction Urinary Catheter Date of Insertion: 11/04/20 Urinary Catheter Time of Insertion: 05:30 Discharge Data Data Completed and Pending: Completed Studies During Hospitalization Category Date Time Status CT angio chest PE protcl [id number] Urge nt Cat Scan 11/02/20 21:[address] head wo con* 7 0450 Urgent Cat Scan 11/02/20 21:34 Completed XR chest 1V [place]ak[place] ble [id number] Routine Exams 11/04/20 06:00 Completed XR chest 1V dakota ble [id number] Routine Exams 11/05/20 08:31 Completed XR chest 1V dakota ble [id number] Routine Exams 11/06/20 12:55 Completed XR chest 1V dakota ble [id number] Urgent Exams 11/02/20 21:31 Completed Pending at discharge Category Date Time Status Miscellaneous Lisette t Routine Lab 11/05/20 20:25 Received Labs from last 24 hours 11/09/20 11/09/20 11/08/20 04:14 04:14 21:15 WBC 7.1 RBC 3.41 L Hgb 9.1 L Hct 31.2 L MCV 91.5 MCH 26.7 L MCHC 29.2 L RDW 16.2 H Plt Count 161 MPV 11.6 H Neut % (Auto) 68.5 Lymph % (Auto) 13.4 [place] % (Auto) 9.8 Eos % (Auto) 6.0 Baso % (Auto) 0.6 Neut # (Auto) 4.89 Lymph # (Auto) 1.0 [place] # (Auto) 0.7 Eos # (Auto) 0.4 Baso # (Auto) 0.0 Nucleated RBC % (a uto) 0 Nucleated RBCs # 0.0 Sodium 137 Potassium 4.2 Chloride 96 L Carbon Dioxide 28 Anion Gap 17.2 BUN 33 H Creatinine 5.6 H* GFR Calculation Not Reportable Glucose 155 H Calculated Osmolal ity 294 Calcium 8.5 Total Bilirubin 0.3 AST 15 ALT 10 Alkaline Phosphata se 75 Total Protein 5.9 L Albumin 3.0 L Globulin 2.9 Vancomycin Trough 25.1 H Addt'l Data from Hospital Stay: Laboratory Results WBC 7.1 10^3/uL (4.0- 10.0) 11/09/20 04:14 RBC 3.41 10^6/uL (4.1 -5.3) L 11/09/20 04:14 Hgb 9.1 g/dL (11.7-16 .6) L 11/09/20 04:14 Hct 31.2 % (42.0-52.0 ) L 11/09/20 04:14 MCV 91.5 fL (80-94) 11/09/20 04:14 MCH 26.7 pg (28.0-34. 0) L 11/09/20 04:14 MCHC 29.2 g/dL (30.0-3 6.0) L 11/09/20 04:14 RDW 16.2 % (12.1-15.1 ) H 11/09/20 04:14 Plt Count 161 10^3/cmm (130 -400) 11/09/20 04:14 MPV 11.6 fL (7.4-10.4 ) H 11/09/20 04:14 Neut % (Auto) 68.5 % 11/09/20 04:14 Lymph % (Auto) 13.4 % 11/09/20 04:14 [place] % (Auto) 9.8 % 11/09/20 04:14 Eos % (Auto) 6.0 % 11/09/20 04:14 Baso % (Auto) 0.6 % 11/09/20 04:14 Reticulocyte % (Au to) 1.5 % (0.5-2.0) 11/05/20 03:42 Neut # (Auto) 4.89 10^3/uL (1.8 -7.7) 11/09/20 04:14 Lymph # (Auto) 1.0 10^3/uL (0.8- 4.8) 11/09/20 04:14 [place] # (Auto) 0.7 10^3/uL (0.2- 0.9) 11/09/20 04:14 Eos # (Auto) 0.4 10^3/uL (0.0- 0.8) 11/09/20 04:14 Baso # (Auto) 0.0 10^3/uL (0.0- 0.1) 11/09/20 04:14 Nucleated RBC % (a uto) 0 % 11/09/20 04:14 Nucleated RBCs # 0.0 /100WBC 11/09/20 04:14 Haptoglobin 281.0 mg/L (30-20 0) H 11/06/20 02:55 PT 14.30 SECONDS (12 .1-14.9) 11/06/20 10:21 INR 1.08 (0.8-1.2) 11/06/20 10:21 APTT 40.2 SECONDS (23. 9-36.7) H 11/06/20 10:21 Fibrinogen 639 mg/dL (174-49 8) H 11/06/20 10:21 Fibrin Degrad Prod ucts Neg, <10 ug/mL (N EG) 11/06/20 10:21 D-Dimer 3.28 ug/mIFEU (0- 0.59) H 11/06/20 10:21 Specimen Type Arterial 11/04/20 03:59 Sample Site Radial, right 11/04/20 03:59 ABG pH 7.54 (7.35-7.45) H 11/04/20 03:59 ABG pCO2 34.3 mmHg (35-45) L 11/04/20 03:59 ABG pO2 98.9 mmHg (80.0-1 00.0) 11/04/20 03:59 ABG HCO3 29.4 mmol/L (22-2 6) H 11/04/20 03:59 ABG O2 Saturation > 100.0 11/02/20 21:40 ABG Base Excess 6.5 mmol/L (-2.0- 2.0) H 11/04/20 03:59 Chris Test Pos 11/04/20 03:59 A-a O2 Gradient 47.1 mmHg (5-10) H 11/02/20 21:40 Hematocrit 24.7 % (42-52) L 11/04/20 03:59 Hgb O2 Saturation 99.6 % (95-100) 11/02/20 21:40 Carboxyhemoglobin 0.8 %THgb (0.4-20 .1) 11/02/20 21:40 Methemoglobin 0.0 % (0.4-1.5) L 11/02/20 21:40 Total Hemoglobin 9.2 g/dL (14-18) L 11/02/20 21:40 Sodium 136.0 mmol/L (131 -143) 11/02/20 21:40 Potassium 4.5 mmol/L (3.5-5 .0) 11/02/20 21:40 Glucose 295.0 mg/dL (70-1 15) H 11/02/20 21:40 Ionized Calcium 1.2 mmol/L (1.1-1 .4) 11/02/20 21:40 O2 Delivery Device Vent 11/04/20 03:59 Mechanical Rate 12.0 11/03/20 04:25 FiO2 40.0 % 11/04/20 03:59 Tidal Volume 0.50 11/04/20 03:59 PEEP 8.0 cmH20 11/04/20 03:59 Scrap Carrier ID yonny 11/04/20 03:59 Sodium 137 mmol/L (136-1 45) 11/09/20 04:14 Potassium 4.2 mmol/L (3.5-5 .1) 11/09/20 04:14 Chloride 96 mmol/L (98-107 ) L 11/09/20 04:14 Carbon Dioxide 28 mmol/L (22-29) 11/09/20 04:14 Anion Gap 17.2 (5-19) 11/09/20 04:14 BUN 33 mg/dL (8-23) H 11/09/20 04:14 Creatinine 5.6 mg/dL (0.7-1. 2) H* 11/09/20 04:14 GFR Calculation Not Reportable 11/09/20 04:14 Glucose 155 mg/dL (65-115 ) H 11/09/20 04:14 POC Glucose 332 mg/dL (70-110 ) H 11/02/20 21:25 Estimat Average Gl ucose 126 11/07/20 04:20 Hemoglobin A1c 6.0 % (4.0-6.0) 11/07/20 04:20 Calculated Osmolal ity 294 mOsm/kg (285- 295) 11/09/20 04:14 Lactate 1.7 mmol/L (0.5-2 .2) 11/02/20 21:32 Calcium 8.5 mg/dL (8.5-10 .5) 11/09/20 04:14 Magnesium 2.3 mg/dL (1.7-2. 3) 11/02/20 21:32 Iron 76 ug/dL (59-158) 11/03/20 03:50 TIBC 172 mcg/dl 11/03/20 03:50 % Saturation 44.1 % (20-50) 11/03/20 03:50 Unsat Iron Binding 96 ug/dL (112-347 ) L 11/03/20 03:50 Total Bilirubin 0.3 mg/dL (0.15-1 .2) 11/09/20 04:14 AST 15 U/L (0-40) 11/09/20 04:14 ALT 10 U/L (0-41) 11/09/20 04:14 Alkaline Phosphata se 75 IU/L (40-130) 11/09/20 04:14 Lactate Dehydrogen ase 221 U/L (135-225) 11/06/20 02:55 Troponin T Baselin e 312 ng/L (0-15) H* 11/02/20 21:32 Troponin T 120 Min enid 287.0 ng/L (0-15) H 11/02/20 23:34 Delta Troponin T -25.0 ABS# (0-10) L 11/02/20 23:34 Troponin T Hi Sens 6Hr 306.2 ng/L (0-15) H 11/03/20 03:50 Troponin T Hi Sens 6Hr Delta -5.8 ng/L (0-12) L 11/03/20 03:50 Total Protein 5.9 g/dL (6.6-8.7 ) L 11/09/20 04:14 Albumin 3.0 g/dL (3.5-5.2 ) L 11/09/20 04:14 Globulin 2.9 g/dL (1.3-4.6 ) 11/09/20 04:14 Triglycerides 127 mg/dL (0-150) 11/07/20 04:20 Cholesterol 103 mg/dL (0-200) 11/07/20 04:20 LDL Cholesterol, C alc 43 mg/dL (50-129) L 11/07/20 04:20 Total VLDL Cholest brice 25 mg/dL (0-30) 11/07/20 04:20 HDL Cholesterol 35 mg/dL (60-100) L 11/07/20 04:20 Cholesterol/HDL Ra danilo 2.94 mg/dL (1.0-5 .00) 11/07/20 04:20 Vitamin B12 398 pg/mL (232-12 45) 11/05/20 03:42 Folate 3.3 ng/mL (4.5-32 .2) L 11/05/20 10:47 Procalcitonin 0.61 ng/mL (0-0.5 ) H 11/07/20 04:20 Random Cortisol 17.88 ug/dL (2.47 -19.5) 11/05/20 10:47 Urine Color Red (Yellow) 11/05/20 09:00 Urine Appearance Hazy (CLEAR) A 11/05/20 09:00 Urine pH 9 (5-7) H 11/05/20 09:00 Ur Specific Gravit y 1.010 (1.005-1.0 30) 11/05/20 09:00 Urine Protein 1+ (Negative) H 11/05/20 09:00 Urine Glucose (UA) Norm (Normal) 11/05/20 09:00 Urine Ketones Negative (Negati ve) 11/05/20 09:00 Urine Blood 3+ (Negative) H 11/05/20 09:00 Urine Nitrate Negative (Negati ve) 11/05/20 09:00 Urine Bilirubin Neg (Negative) 11/05/20 09:00 Prot Sulfosalicyli c Acd Positive (Negati ve) 11/05/20 09:00 Urine Urobilinogen Norm mg/dL (Negat zainab) 11/05/20 09:00 Ur Leukocyte Perla ase 1+ (Negative) H 11/05/20 09:00 Urine RBC Too numerous to c nt /hpf (0-2) H 11/05/20 09:00 Urine WBC 0-4 /hpf (0-5) H 11/05/20 09:00 Ur Squamous Epith Cells None /hpf (0-5) 11/05/20 09:00 Amorphous Sediment Not Reportable 11/05/20 09:00 Urine Bacteria Trace /hpf (NONE) 11/05/20 09:00 Vancomycin Trough 25.1 ug/mL (10-15 ) H 11/08/20 21:15 SARS-CoV-2 Ag (Rap id) Negative (Negati ve) 11/03/20 00:00 Blood Type O Positive 11/05/20 07:47 Rho(D) Type Positive / 4+ 11/05/20 07:47 Antibody Screen Negative 11/05/20 07:47 CHINO, Poly Interpre t Negative 11/05/20 03:42 Crossmatch See Detail 11/05/20 07:47 Impressions Chest CTA 11/02/20 21:34 IMPRESSION: 1. There is no evidence for pulmonary emboli. 2. Worsening diffuse ground-glass opacities, strandy and patchy opacities and bilateral basilar consolidation compared with 10/06/2020. These findings suggest worsening bilateral pneumonia although superimposed pulmonary edema cannot be excluded as well. Radiation Dose CTDIVOL = (mGy): DLP = 1838.5 (mGy-cm) Head CT 11/02/20 21:34 IMPRESSION: There are no acute intracranial findings. Radiation Dose CTDIVOL = (mGy): DLP = 956.77 (mGy-cm) Chest X-Ray 11/06/20 12:55 IMPRESSION: There are no acute concerning abnormalities. Vitals: Last Vital Signs Temp 98.3 F 11/09/20 04:00 Pulse 92 11/09/20 08:00 Resp 18 11/09/20 08:00 BP 102/67 11/09/20 11:00 Pulse Ox 97 11/09/20 04:00 Discharge Plan Discharge Patient Disposition: Xfer SNF Condition: Stable Prescriptions: New folic acid 1 mg Tablet 1 mg PO BID Qty: 30 RF: 0 Continued alprazolam 0.25 mg tablet 0.25 mg PO BID PRN (Reason: anxiety) RF: 0 glimepiride 1 mg tablet 1 mg PO BID RF: 0 hydralazine 10 mg tablet 10 mg PO BID RF: 0 acetaminophen [Tylenol Extra Strength] 500 mg Tablet 1,000 mg PO TID PRN (Reason: Pain) RF: 0 aspirin 81 mg Tablet,Delayed Release (Dr/Ec) 81 mg PO DAILY 30 Days Qty: 30 RF: 0 atorvastatin 40 mg Tablet 40 mg PO BEDTIME 30 Days Qty: 30 RF: 0 clopidogrel 75 mg Tablet 75 mg PO DAILY 30 Days Qty: 30 RF: 0 pantoprazole 40 mg Tablet,Delayed Release (Dr/Ec) 40 mg PO BID 30 Days Qty: 60 RF: 0 furosemide 80 mg tablet 40 mg PO BID Qty: 0 RF: 0 carvedilol 25 mg tablet 25 mg PO BID RF: 0 tamsulosin 0.4 mg capsule 0.4 mg PO DAILY RF: 0 sevelamer carbonate [Renvela] 800 mg tablet 2,400 mg PO TID RF: 0 Imodium A-D 1 tab PO TID RF: 0 Changed losartan 50 mg Tablet 50 mg PO DAILY 30 Days Qty: 30 RF: 0 Discharge Orders: Discharge Order (Routine); Ordered 11/09/20 Ordered By: Rico Ledbetter Referrals: Erlin Sloan MD [Referring] - 4-7 days Earnest Leon M.D [Physician] - 2 weeks Salvador Daley MD [Primary Care Provider] - 1-3 days Discharge Diet: Cardiac and Diabetic Discharge Activity: Resume usual activity Patient Instructions: Opioid Safety Activity Restrictions/Additional Instructions: Please continue hemodialysis Friday, Friday, Friday. Please follow-up with your primary care provider within next 1 to 3 days. Please follow-up with Dr. Sloan with your yard goods salesperson within next 1 week. Please follow-up with Dr. Guillaume from cardiology within next 2 weeks for further work-up of angina/positive cardiac stress test. Discharge Attestations Time Spent in Discharge Care*: greater than 30 min Specific Discharge Activities: educating patient, educating and/or supporting family/caregiver, discussing with pcp/other providers, discussing with skilled nursing case manager/social workers/dc planners, documenting/other paperwork and evaluating patient/reviewing data Status at Discharge: Cognitive status at discharge: cognitively intact , Behavioral status at discharge: cooperative and independent in ADL's , Functional status at discharge: other assisted ambulation Overall status at discharge: patient is back to baseline Quality Metrics Clinical Quality Measures During this hospital stay, did patient experience: None Coding Level of Care Code Acute Chg DC note Diagnoses Respiratory failure J96.21 Chronicity: acute on chronic Respiratory failure complication: hypoxia Acute anemia D64.9 Acute respiratory failure with hypoxia and hypercapnia J96.01; J96.02 Pulmonary edema J81.0 Chronicity: acute Aortic stenosis I35.0 Cardiac valve disease etiology: nonrheumatic Hospital-acquired pneumonia J18.9; Y95 Positive cardiac stress test R94.39
--- NOTE | 2020-11-09 12:36 | P.PN_ITS ---
Subjective Subjective: Interval history: Patient is doing well. no complaints of chest pain, shortness of breath or palpitation. BP is better controlled today Vitals/I&O/Wt Last Vital Signs Temp 98.3 F 11/09/20 04:00 Pulse 92 11/09/20 08:00 Resp 18 11/09/20 08:00 BP 102/67 11/09/20 11:00 Pulse Ox 97 11/09/20 04:00 11/08/20 11/09/20 11/09/20 22:59 06:59 14:59 Intake Total 290 / 940 400 / 1340 Output Total 650 / 650 Balance 290 / 940 -250 / 690 Weight last 48 hrs Weight 210 lb Weight 210 lb Weight 206 lb Weight 206 lb Physical Exam Narrative: EXAM NARRATIVE: GENERAL: Patient is alert, awake and oriented x3. [] NECK: No jugular vein distension. [] HEENT: No cyanosis. No icterus. No pallor. [] HEART: Regular S1 and S2. No murmur, rub or gallop. [] LUNGS: Clear to auscultate bilaterally. [] ABDOMEN: Soft, nontender and nondistended. Positive bowel sounds. No guarding, rebound or tenderness. [] CENTRAL NERVOUS SYSTEM: Grossly nonfocal. [] EXTREMITIES: Lower extremities with 1+ edema bilaterally. Pulses palpable in the lower extremities, both dorsalis pedis and posterior tibial. [] Urinary Catheter Management^: Schneider: Cath Placed During This Visit: yes Reason for Continuing Indwelling Catheter: Acute Urinary Retention or Obstruction Urinary Catheter Date of Insertion: 11/04/20 Urinary Catheter Time of Insertion: 05:30 Data : 11/09/20 04:14 11/09/20 04:14 Micro: Microbiology 11/06/20 09:45 Gram Stain - Final Sputum - Expectorated Sputum Sputum Culture - Final A&P Assessment and plan (1) Pulmonary edema: Status: Acute Qualifiers: Chronicity: acute Qualified Code(s): J81.0 - Acute pulmonary edema (2) Acute respiratory failure with hypoxia and hypercapnia: Status: Acute (3) Dementia: Status: Acute Qualifiers: Dementia type: unspecified type Dementia behavioral disturbance: without behavioral disturbance Qualified Code(s): F03.90 - Unspecified dementia without behavioral disturbance (4) DM type 2 (diabetes mellitus, type 2): Status: Acute Qualifiers: Diabetes mellitus intermediate manager insulin use: without nursing home use Diabetes mellitus complication status: with kidney complications Diabetes mellitus complication detail: with chronic kidney disease Chronic kidney disease stage: on chronic dialysis Qualified Code(s): E11.22 - Type 2 diabetes mellitus with diabetic chronic kidney disease; N18.6 - End stage renal disease; Z99.2 - D ependence on renal dialysis (5) Aortic stenosis: Status: Acute Qualifiers: Cardiac valve disease etiology: nonrheumatic Qualified Code(s): I35.0 - Nonrheumatic aortic (valve) stenosis (6) CHF (congestive heart failure): Status: Acute Patient has recent multiple episodes of pulmonary edema. He required intubation this admission. His volume overload is likely secondary to decreased frequency of dialysis and noncompliance with diet. He needs increasing frequency of dialysis to 3 times a week. Given no significant area of ischemia on his recent stress test and normal LV systolic function with only moderate aortic stenosis, we will recommend medical management at this time. He does not have ongoing ischemic symptoms and troponins did not trend up. Continue coreg and losartan. BP is better controlled today Patient being transferred to SNF today Thank you for involving us with care of this patient. Outpatient follow up with Dr Rabago. Please call with questions Attestations Medical Necessity Statement*: Care expected to cross 2 midnights. Coding Level of Care Code Acute Principal Data Architect for Willy Robertson Diagnoses Pulmonary edema J81.0 Chronicity: acute Acute respiratory failure with hypoxia and hypercapnia J96.01; J96.02 Dementia F03.90 Dementia type: unspecified type Dementia behavioral disturbance: without behavioral disturbance DM type 2 (diabetes mellitus, type 2) E11.22; N18.6; Z99.2 Diabetes mellitus intermediate manager insulin use: without nursing home use Diabetes mellitus complication status: with kidney complications Diabetes mellitus complication detail: with chronic kidney disease Chronic kidney disease stage: on chronic dialysis Aortic stenosis I35.0 Cardiac valve disease etiology: nonrheumatic CHF (congestive heart failure) I50.9
[2020-11-09] MEDS: sevelamer 800 mg Tablet 2400 MG PO (12:40)
--- NOTE | 2020-11-09 13:45 | PM.PN ---
Subjective Subjective: Interval history: Seen during dialysis. No complaints. Medications: Reviewed: Yes Vitals/I&O/Wt Last Vital Signs Temp 97.7 F 11/09/20 13:17 Pulse 80 11/09/20 13:17 Resp 18 11/09/20 13:17 BP 102/67 11/09/20 13:17 Pulse Ox 94 11/09/20 13:17 11/08/20 11/09/20 11/09/20 22:59 06:59 14:59 Intake Total 290 / 940 400 / 1340 Output Total 650 / 650 200 / 200 Balance 290 / 940 -250 / 690 -200 / -200 Weight last 48 hrs Weight 95.254 kg Weight 95.254 kg Weight 93.44 kg Weight 93.44 kg Physical Exam Const: COMMON NORMALS: no acute distress GENERAL APPEARANCE: cooperative Extremity: GENERAL: Yes AV fistula (LUE) and No edema Urinary Catheter Management^: Schneider: Cath Placed During This Visit: yes Reason for Continuing Indwelling Catheter: Acute Urinary Retention or Obstruction Urinary Catheter Date of Insertion: 11/04/20 Urinary Catheter Time of Insertion: 05:30 Data : 11/09/20 04:14 11/09/20 04:14 Micro: Microbiology 11/06/20 09:45 Gram Stain - Final Sputum - Expectorated Sputum Sputum Culture - Final A&P Additional A&P Information 1. ESRD, usually dialyzes Mondays and Friday 2. S/P VDRF due to pulmonary edema, resolved 3. Anemia 4. Hypertension, well-controlled 5. Noncompliance Rec; HD today - will order again tomorrow to return to MWF schedule. Attestations Medical Necessity Statement*: per primary service Time Spent in Patient Care: 16 - 35 minutes Coding Level of Care Code Acute Aeronautical Products Sales Engineer for Chg Fwd Exam Expanded Problem Focused
--- NOTE | 2020-11-09 14:03 | PC.OT ---
Addendum entered by Gerda Lal OT 11/09/20 14:04: SHOULD READ: HOLD OT TREATMENT AT THIS TIME. Original Note: OT NOTE: PATIENT IN PROCESS OF D/C TO SNF. WILL HOLD OT EVALUATION AT THIS TIME.
[2020-11-09 15:47] LABS: SARS Covid-2 Antigen Negative (Negative)
== END 2020-11-09 17:30 | disposition skilled nursing facility (03) | DRG 208 ==
LOC: ER 21:32 → ICU 11-03 00:44 → CSU 11-06 17:36
PROVIDERS: Internal Medicine; Internal Medicine Nephrology; Student in an Organized Health Care Education/Training Program; Admitting Provider Internal Medicine; Emergency Provider Family Medicine; PCP Family Medicine; Visit Provider Student in an Organized Health Care Education/Training Program
DX: J96.02 Acute respiratory failure with hypercapnia (principal); I50.33 Acute on chronic diastolic (congestive) heart failure; N18.6 End stage renal disease; J18.9 Pneumonia, unspecified organism; I13.2 Hypertensive heart and chronic kidney disease with heart failure and with stage 5 chronic kidney disease, or end stage renal disease; J96.21 Acute and chronic respiratory failure with hypoxia; E11.22 Type 2 diabetes mellitus with diabetic chronic kidney disease; Z99.2 Dependence on renal dialysis; Z91.15 Patient's noncompliance with renal dialysis; I48.0 Paroxysmal atrial fibrillation; I35.0 Nonrheumatic aortic (valve) stenosis; D63.1 Anemia in chronic kidney disease; N40.0 Benign prostatic hyperplasia without lower urinary tract symptoms; Z86.16 Personal history of COVID-19; Z86.14 Personal history of Methicillin resistant Staphylococcus aureus infection; Y95 Nosocomial condition; R94.39 Abnormal result of other cardiovascular function study; E78.5 Hyperlipidemia, unspecified; F03.90 Unspecified dementia, unspecified severity, without behavioral disturbance, psychotic disturbance, mood disturbance, and anxiety; Z79.84 Long term (current) use of oral hypoglycemic drugs; Z79.82 Long term (current) use of aspirin
CPT/HCPCS: 36415; 36416; 36430; 36600; 51702; 70450; 71045; 71275; 80048; 80051; 80053; 80061; 80202; 80500; 81001; 82330; 82533; 82607; 82746; 82803; 82805; 82962; 83010; 83036; 83540; 83550; 83605; 83615; 83735; 84145; 84311; 84484; 85014; 85018; 85025; 85045; 85362; 85378; 85384; 85610; 85730; 86403; 86850; 86880; 86900; 86920; 87040; 87070; 87086; 87205; 87426; 87449; 87641; 90935; 93005; 94002; 94003; 94640; 94799; 96365; 96366; 96367; 96372; 97162; 97167; 97530; 97535; 99291; 99292; J0692; J1644; J1940; J1956; J2405; J2543; J2704; J3010; J3370; J7050; P9016; Q3014; Q4081; Q9967